=== PATIENT | female | born 1945 | race Caucasian/White ===

== ENCOUNTER → 2020-04-14 10:36 | Outpatient (BNV) | payer OTHER, SELFPAY | PROVIDERS: PCP Internal Medicine; Visit Provider Internal Medicine | DX: D64.9 Anemia, unspecified (principal); D72.819 Decreased white blood cell count, unspecified; D51.9 Vitamin B12 deficiency anemia, unspecified | CPT/HCPCS: 99212; 99213; 99442 ==

== ENCOUNTER 2020-06-17 15:19 | Outpatient (REF) | payer OTHER, SELFPAY ==
[2020-06-17 16:02] LABS: MANUAL DIFF FLAG NO
[2020-06-17 16:06] LABS: Basophils Percent Auto 0.5 % (0-2); Eosinophils Absolute Auto 0.1 X10*3/uL (0.0-0.4); Eosinophils Percent Auto 2.9 % (0-4); Hematocrit 35.4 % (37-47); Hemoglobin 11.4 g/dl (12.0-16.0); Imm Gran Abs Auto 0.01 X10*3/uL (0.00-0.03); Imm Gran Pct Auto 0.2 % (0.0-0.4); Lymphocytes Absolute Auto 2.3 X10*3/uL (1.2-4.9); Lymphocytes Percent Auto 53.9 % (20-40); Mean Corpuscular HGB Conc 32.2 g/dl (31.0-35.0); Mean Corpuscular Hemoglobin 28.9 pg (27.0-33.0); Mean Corpuscular Volume 89.6 fL (80-98); Mean Platelet Volume 11.2 fL (9.4-12.3); Monocytes Absolute Auto 0.5 X10*3/uL (0.1-1.2); Monocytes Percent Auto 11.9 % (2-11); Neutrophils Absolute Auto 1.3 X10*3/uL (2.0-8.3); Neutrophils Percent Auto 30.6 % (45-73); Platelet Count 244 X10*3/uL (160-400); Red Blood Count 3.95 X10*6/uL (4.20-5.50); Red Cell Distribution Width 12.6 % (11.0-16.0); White Blood Count 4.2 X10*3/uL (4.8-10.8)
[2020-06-17 16:28] LABS: Cholesterol 167 mg/dL; HDL Cholesterol 67 mg/dL; LDL Cholesterol Calculated 76 mg/dl; Triglycerides 122 mg/dL
[2020-06-17 16:52] LABS: TSH reflex Free T4 1.26 mIU/mL (0.32-4.0)
== END 2020-06-17 15:20 | disposition home or self-care (01) ==
LOC: HO.LAB 15:19
PROVIDERS: PCP Internal Medicine; Visit Provider Internal Medicine
DX: D64.9 Anemia, unspecified (principal); E11.9 Type 2 diabetes mellitus without complications; I25.10 Atherosclerotic heart disease of native coronary artery without angina pectoris; L65.9 Nonscarring hair loss, unspecified; Z20.828 Contact with and (suspected) exposure to other viral communicable diseases
CPT/HCPCS: 36415; 80061; 84443; 85025; U0003

== ENCOUNTER 2020-06-21 11:46 | Outpatient (REF) | payer OTHER, SELFPAY ==
[2020-06-21 12:52] LABS: CDIFF Ag Negative (Negative); CDIFF Internal ctrl Dots and bkg OK (V); CDiff Toxin Negative (Negative)
[2020-06-21 13:19] LABS: Leukocytes Stool Qualitative NEGATIVE (NEGATIVE)
== END 2020-06-21 11:47 | disposition home or self-care (01) ==
LOC: HO.LNPL 11:46
PROVIDERS: PCP Internal Medicine; Visit Provider Internal Medicine
DX: R19.7 Diarrhea, unspecified (principal)
CPT/HCPCS: 87045; 87046; 87324; 87329; 87449; 89055

== ENCOUNTER 2020-09-20 10:01 | Outpatient (REF) | payer OTHER, SELFPAY | END 2020-09-20 10:02 | disposition home or self-care (01) | LOC: HO.LAB 10:01 | PROVIDERS: Visit Provider Internal Medicine | DX: Z20.822 Contact with and (suspected) exposure to COVID-19 (principal) | CPT/HCPCS: 36415; C9803; U0003; U0005 ==

== ENCOUNTER 2020-11-01 14:54 | Outpatient (REF) | payer OTHER, SELFPAY ==
--- NOTE | ~2020-11-01 | MM_ITS ---
EXAMINATION: MM SCREENING DIGITAL BREAST TOMOSYNTHESIS, BILATERAL CLINICAL INFORMATION: Screening. Asymptomatic. The lifetime risk of breast cancer based on the Tyrer-Cuzick Model is 4%. COMPARISON: Mammography: 02/21/2019, 02/05/2018, 05/29/2016 TECHNIQUE: Digital breast tomosynthesis is performed in both the craniocaudal and mediolateral oblique views along with computer-aided detection (CAD). Synthesized 2D images are generated from the tomosynthesis. FINDINGS: There are scattered areas of fibroglandular density (ACR BI-RADS breast composition Category b). There are no significant masses, abnormal calcifications, or other abnormalities. Parenchymal pattern is similar to prior studies. No significant changes. MM/MM tomosynthesis screening BI IMPRESSION: No mammographic evidence of malignancy. ASSESSMENT: BI-RADS 1: Negative RECOMMENDATION: Routine annual mammography screening. This patient's information was entered into a reminder system with a target due date for their next mammogram.
== END 2020-11-01 14:55 | disposition home or self-care (01) ==
LOC: HO.MAMMO 14:54
PROVIDERS: PCP Internal Medicine; Visit Provider Internal Medicine
DX: Z12.31 Encounter for screening mammogram for malignant neoplasm of breast (principal)
CPT/HCPCS: 77063; 77067

== ENCOUNTER 2020-11-17 12:59 | Outpatient (REF) | payer OTHER, SELFPAY ==
--- NOTE | ~2020-11-17 | CT_ITS ---
EXAMINATION: CT HEAD WITHOUT CONTRAST CLINICAL INFORMATION: Headache COMPARISON: Previous head CT February 2016 TECHNIQUE: Contiguous axial imaging was performed from the skull base to vertex without intravenous administration of contrast. This CT examination was performed using dose optimization techniques as appropriate, variously including the following: *Automated exposure control *Adjustment of mA and/or kV according to patient size (this includes techniques or standardized protocols for targeted exams where dose is matched to indication/reason for exam; i.e. extremities or head) *Use of iterative reconstruction technique DLP: 628 mGy-cm FINDINGS: There is no no evidence of an extra-axial collection. There is no evidence of intra-axial or extra-axial hemorrhage. The ventricles and extra-axial CSF spaces are slightly prominent suggestive of mild generalized atrophy. There is nonspecific periventricular white matter disease. There is an old left basal ganglia lacunar infarct. No mass, mass effect or acute infarct is seen. Review at bone windows is normal. Visualized paranasal sinuses, mastoid air cells and middle ears are clear. CT/CT head/brain wo con IMPRESSION: No acute findings. Mild generalized atrophy and nonspecific periventricular white matter disease.
== END 2020-11-17 13:00 | disposition home or self-care (01) ==
LOC: HO.CT 12:59
PROVIDERS: Visit Provider Internal Medicine
DX: R51.9 Headache, unspecified (principal)
CPT/HCPCS: 70450

== ENCOUNTER 2021-01-03 12:00 | Outpatient (REF) | payer OTHER, MEDICAID, SELFPAY ==
[2021-01-03 16:07] VITALS: BP 188/80; PULSE 45; RESP 16; TEMP 35.9; O2SAT 99
[2021-01-03 16:08] VITALS: BMI 20.9
== END 2021-01-03 12:01 | disposition home or self-care (01) ==
LOC: HO.MS 12:00
PROVIDERS: PCP Internal Medicine; Visit Provider Ophthalmology
PROC: (CPT 66821; principal; 2021-01-03 16:40)
DX: H26.491 Other secondary cataract, right eye (principal); Z96.1 Presence of intraocular lens; E11.9 Type 2 diabetes mellitus without complications; I10 Essential (primary) hypertension; I25.10 Atherosclerotic heart disease of native coronary artery without angina pectoris; Z95.1 Presence of aortocoronary bypass graft; E78.00 Pure hypercholesterolemia, unspecified; Z79.899 Other long term (current) drug therapy; Z79.84 Long term (current) use of oral hypoglycemic drugs
CPT/HCPCS: 66821

== ENCOUNTER 2021-01-31 09:14 | Outpatient (REF) | payer OTHER, MEDICAID, SELFPAY ==
[2021-01-31 11:01] VITALS: BMI 20.9
[2021-01-31 11:02] VITALS: BP 192/64; PULSE 49; RESP 16; TEMP 35.8; O2SAT 100
== END 2021-01-31 09:15 | disposition home or self-care (01) ==
LOC: HO.MS 09:14
PROVIDERS: PCP Internal Medicine; Visit Provider Ophthalmology
PROC: (CPT 67840; principal; 2021-01-31 14:30)
DX: D23.121 Other benign neoplasm of skin of left upper eyelid, including canthus (principal); Z96.1 Presence of intraocular lens; I10 Essential (primary) hypertension; E11.9 Type 2 diabetes mellitus without complications; Z79.84 Long term (current) use of oral hypoglycemic drugs; Z79.82 Long term (current) use of aspirin; Z79.899 Other long term (current) drug therapy
CPT/HCPCS: 67840; 88304; 88305

== ENCOUNTER 2021-04-08 16:14 | Outpatient (REF) | payer OTHER, MEDICAID, SELFPAY ==
--- NOTE | ~2021-04-08 | US_ITS ---
EXAMINATION: US SOFT TISSUE OF THE NECK CLINICAL INFORMATION: Localized enlarged lymph nodes. COMPARISON: Localized enlarged lymph nodes. TECHNIQUE: Linear transducer preston-scale and color Doppler examination of the right and left submandibular regions. FINDINGS: There are multiple round hypoechoic lymph nodes seen bilaterally in the submandibular region with the largest submandibular lymph node measuring 0.3 cm in transverse dimension and is normal. No soft tissue mass seen. US/US soft tiss head and/or neck IMPRESSION: Normal bilateral neck lymph nodes, especially no mass visualized.
== END 2021-04-08 16:15 | disposition home or self-care (01) ==
LOC: HO.US 16:14
PROVIDERS: Visit Provider Internal Medicine
DX: R59.0 Localized enlarged lymph nodes (principal)
CPT/HCPCS: 76536

== ENCOUNTER 2021-04-28 09:56 | Outpatient (REF) | payer OTHER, MEDICAID, SELFPAY ==
--- NOTE | ~2021-04-28 | MM_ITS ---
EXAMINATION: BONE DENSITOMETRY CLINICAL INDICATION: Asymptomatic menopausal state. COMPARISON: None (current study represents initial baseline exam). TECHNIQUE: Using a [employer] DXA System (software version: 13.1) manufactured by [employer], dual-energy x-ray absorptiometry was performed of the lumbar spine, left hip, and left forearm radius 33%. The images are of good technical quality. Summary results are attached. FINDINGS: AP SPINE L1-L4: BMD 1.273 g/cm2, Z-score 2.9, T-score 0.8, normal. LEFT FEMUR, NECK: BMD 0.674 g/cm2, Z-score -0.4, T-score -2.6, osteoporosis. LEFT FEMUR, TOTAL: BMD 0.719 g/cm2, Z-score -0.2, T-score -2.3, osteopenia. LEFT FOREARM RADIUS 33%: BMD 0.551 g/cm2, Z-score -1.4, T-score -3.7, osteoporosis. IDENTIFIED RISK FACTORS: Rheumatoid arthritis, osteoporosis, recurrent falls, height loss, family history (parental hip fracture), low body weight, low calcium intake. Early menopause, secondary osteoporosis hysterectomy, bilateral oophorectomy. HISTORY OF FRACTURE: Coccyx. MEDICATIONS: Calcium supplements or multivitamin, vitamin D. MM/XR DEXA axial skeleton IMPRESSION: 1. DIAGNOSIS: Osteoporosis based on the lowest T-score value of -3.7 in the forearm radius 33% applying World Health Organization criteria. 2. 2. 10-YEAR FRACTURE RISK PREDICTION, FRAX: According to the guidelines, FRAX calculation should only be performed on patients in the osteopenia bone density category. Therefore, FRAX was not performed on this patient. 3. Treatment Recommendations: NOF guidelines recommend consideration for treatment in postmenopausal women and men age 50 and older presenting with the following: -A hip or vertebral (clinical or morphometric) fracture. -T-score less than or equal to -2.5 at the femoral neck or spine after appropriate evaluation to exclude secondary causes. -Low bone mass at the hip or spine and a 10-year fracture probability by FRAX of greater than or equal to 3% for hip fracture or greater than or equal to 20% for major osteoporotic fracture based on the [place] adapted WHO algorithm. 4. Other Recommendations: All treatment decisions require clinical judgment and consideration of individual patient factors, including patient preferences, comorbidities, previous drug use, risk factors not captured in the FRAX model (e.g. frailty, falls, vitamin D deficiency, increased bone turnover, interval significant decline in bone density) and possible under or overestimation of fracture risk by FRAX. Additional medical evaluation for secondary cause of low bone mineral density may be appropriate. FUTURE SCAN RECOMMENDATION: People with diagnosed cases of osteoporosis or at high risk for fracture should have regular bone mineral density tests. For patients eligible for Medicare, routine testing is allowed once every 2 years. The testing frequency can be increased to one year for patients who have rapidly progressing disease, those who are receiving or discontinuing medical therapy to restore bone mass, or have additional risk factors.
== END 2021-04-28 09:57 | disposition home or self-care (01) ==
LOC: HO.MAMMO 09:56
PROVIDERS: PCP Internal Medicine; Visit Provider Nurse Practitioner Family
DX: Z13.820 Encounter for screening for osteoporosis (principal); M81.0 Age-related osteoporosis without current pathological fracture; Z78.0 Asymptomatic menopausal state; Z79.899 Other long term (current) drug therapy
CPT/HCPCS: 77080

== ENCOUNTER 2021-04-29 10:52 | Outpatient (REF) | payer OTHER, MEDICAID, SELFPAY | END 2021-04-29 10:53 | disposition home or self-care (01) | LOC: HO.MAMMO 10:52 | PROVIDERS: Visit Provider Internal Medicine | DX: Z13.89 Encounter for screening for other disorder (principal) ==

== ENCOUNTER 2021-08-10 10:27 | Outpatient (REF) | payer OTHER, MEDICAID, SELFPAY ==
[2021-08-10 10:53] LABS: MANUAL DIFF FLAG NO
[2021-08-10 11:16] LABS: Basophils Percent Auto 0.6 % (0-2); Eosinophils Absolute Auto 0.1 X10*3/uL (0.0-0.4); Eosinophils Percent Auto 1.9 % (0-4); Hematocrit 39.5 % (37.0-47.0); Imm Gran Abs Auto 0.01 X10*3/uL (0.00-0.03); Imm Gran Pct Auto 0.3 % (0.0-0.4); Lymphocytes Absolute Auto 1.8 X10*3/uL (1.2-4.9); Mean Corpuscular HGB Conc 32.9 g/dl (31.0-35.0); Mean Corpuscular Hemoglobin 29.5 pg (27.0-33.0); Mean Corpuscular Volume 89.6 fL (80.0-98.0); Monocytes Absolute Auto 0.4 X10*3/uL (0.1-1.2); Monocytes Percent Auto 11.9 % (2-11); Neutrophils Absolute Auto 1.3 x10*3/uL (2.0-8.3); Neutrophils Percent Auto 35.3 % (45-73); Platelet Count 258 X10*3/uL (160-400); Red Blood Count 4.41 X10*6/uL (4.20-5.50); Red Cell Distribution Width 12.9 % (11.0-16.0); White Blood Count 3.6 X10*3/uL (4.8-10.8)
[2021-08-10 12:03] LABS: Alanine Aminotransferase 19 U/L (0-31); Albumin Level 4.5 g/dL (3.5-5.0); Alkaline Phosphatase 40 U/L (39-117); Anion Gap 12 (12-20); Aspartate Amino Transferase 26 U/L (5-31); Bilirubin Total 0.5 mg/dL (0.0-1.0); Blood Urea Nitrogen 26 mg/dL (9-16); Calcium 10.1 mg/dL (8.4-10.2); Carbon Dioxide 28 mmol/L (22-29); Chloride 106 mmol/L (96-108); Cholesterol 143 mg/dL; Estimated Glomerular Filt Rate 53; Glucose Fasting 96 mg/dL (60-99); HDL Cholesterol 65 mg/dL; LDL Cholesterol Calculated 64 mg/dl; Potassium 4.9 mmol/L (3.3-5.1); Sodium 141 mmol/L (135-145); Total Protein 7.5 g/dL (6.5-8.0); Triglycerides 70 mg/dL
[2021-08-10 12:10] LABS: Creatinine Urine 207.54 mg/dL; Microalbum/Creatinine Ratio Ur 14.4 ug/mg cr
[2021-08-15 14:16] LABS: Vitamin D 25-OH, D2 9 ng/mL; Vitamin D 25-OH, D3 17 ng/mL; Vitamin D 25-OH, Total 26 ng/mL (30-100)
== END 2021-08-10 10:28 | disposition home or self-care (01) ==
LOC: HO.LAB 10:27
PROVIDERS: PCP Internal Medicine; Visit Provider Internal Medicine
DX: D64.9 Anemia, unspecified (principal); E55.9 Vitamin D deficiency, unspecified; E11.9 Type 2 diabetes mellitus without complications; I10 Essential (primary) hypertension; E78.5 Hyperlipidemia, unspecified; E78.2 Mixed hyperlipidemia
CPT/HCPCS: 36415; 80053; 80061; 82043; 82306; 85025

== ENCOUNTER 2021-08-16 09:13 | Outpatient (REF) | payer OTHER, MEDICAID, SELFPAY ==
[2021-08-16 10:49] LABS: Alanine Aminotransferase 13 U/L (0-31); Albumin Level 4.5 g/dL (3.5-5.0); Alkaline Phosphatase 34 U/L (39-117); Anion Gap 12 (12-20); Aspartate Amino Transferase 22 U/L (5-31); Bilirubin Total 0.7 mg/dL (0.0-1.0); Blood Urea Nitrogen 25 mg/dL (9-16); Carbon Dioxide 30 mmol/L (22-29); Chloride 105 mmol/L (96-108); Cholesterol 124 mg/dL; Estimated Glomerular Filt Rate 53; Glucose Fasting 93 mg/dL (60-99); HDL Cholesterol 54 mg/dL; LDL Cholesterol Calculated 59 mg/dl; Sodium 142 mmol/L (135-145); Total Protein 7.4 g/dL (6.5-8.0); Triglycerides 58 mg/dL
[2021-08-16 12:17] LABS: Creatinine Urine 249.96 mg/dL; Microalbum/Creatinine Ratio Ur 13.2 ug/mg cr
[2021-08-23 12:22] LABS: Vitamin D 25-OH, D2 9 ng/mL; Vitamin D 25-OH, D3 17 ng/mL; Vitamin D 25-OH, Total 26 ng/mL (30-100)
== END 2021-08-16 09:14 | disposition home or self-care (01) ==
LOC: HO.LAB 09:13
PROVIDERS: PCP Internal Medicine; Visit Provider Internal Medicine
DX: R13.10 Dysphagia, unspecified (principal); E55.9 Vitamin D deficiency, unspecified; E11.9 Type 2 diabetes mellitus without complications; E78.2 Mixed hyperlipidemia
CPT/HCPCS: 36415; 80053; 80061; 82043; 82306

== ENCOUNTER → 2021-09-29 13:18 | Outpatient (BNVA) | payer OTHER, MEDICAID, SELFPAY | PROVIDERS: PCP Internal Medicine; Referring Provider Internal Medicine; Visit Provider Nurse Practitioner | DX: R13.12 Dysphagia, oropharyngeal phase (principal) | CPT/HCPCS: 99202 ==

== ENCOUNTER 2021-11-03 10:59 | Outpatient (REF) | payer OTHER, MEDICAID, SELFPAY ==
--- NOTE | ~2021-11-03 | MM_ITS ---
EXAMINATION: MM SCREENING DIGITAL BREAST TOMOSYNTHESIS, BILATERAL CLINICAL INFORMATION: Screening. Asymptomatic. The lifetime risk of breast cancer based on the Tyrer-Cuzick Model is 4.2%. COMPARISON: Mammography: November 01, 2020 and studies dating back to April 01, 2014 TECHNIQUE: Digital breast tomosynthesis is performed in both the craniocaudal and mediolateral oblique views along with computer-aided detection (CAD). Synthesized 2D images are generated from the tomosynthesis. FINDINGS: There are scattered areas of fibroglandular density (ACR BI-RADS breast composition Category b). There are no significant masses, abnormal calcifications, or other abnormalities. MM/MM tomosynthesis screening BI IMPRESSION: There are no significant changes from prior study. ASSESSMENT: BI-RADS 1: Negative RECOMMENDATION: Routine annual mammography screening. This patient's information was entered into a reminder system with a target due date for their next mammogram.
== END 2021-11-03 11:00 | disposition home or self-care (01) ==
LOC: HO.MAMMO 10:59
PROVIDERS: Visit Provider Internal Medicine
DX: Z12.31 Encounter for screening mammogram for malignant neoplasm of breast (principal)
CPT/HCPCS: 77063; 77067

== ENCOUNTER 2021-11-21 14:22 | Outpatient (REF) | payer OTHER, MEDICAID, SELFPAY ==
--- NOTE | ~2021-11-21 | FL_ITS ---
EXAMINATION: XR BARIUM SWALLOW CLINICAL INFORMATION: Dysphagia. COMPARISON: None TECHNIQUE: Routine modified barium swallow was performed under lateral fluoroscopy in presence of speech therapist. FINDINGS: Following oral administration of honey coated barium, thin barium and barium, there is normal propagation of bolus from the oral cavity through the pharynx into esophagus. There is no obstruction, narrowing. No laryngeal penetration or aspiration seen. No retention of barium in the valleculae or piriform sinuses. FLUOROSCOPY TIME: 1.2 minutes. DOSE AREA PRODUCT: 0.558 uGy-m2 (microgray-meter squared) FL/FL barium swallow modified IMPRESSION: Unremarkable modified barium swallow exam. Recommend correlation with speech therapy results.
--- NOTE | 2021-11-22 16:19 | MHC.SL.IMP ---
Date of Plan of Treatment: 11/22/21 Onset of Symptoms/Illness: 11/23/19 Date Treatment Started: 11/22/21 Admitting Diagnosis: Comorbidities: MGUS High cholesterol Hair loss Hypovitaminosis D Post-menopausal Submandibular lymphadenopathy Hypertension Diabetes CAD Lumbar degenerative disc disease with radiculopathy Opioid induced constipation Chronic daily headaches Major depressive disorder/ anxiety Diarrhea Dizziness Dysphagia SURGICAL HX: Cholecystectomy Hysterectomy CAB G x2 Cardiac catheterization Colonoscopy- Aj Primary Speech & Language Diagnosis: R13.12 Oropharyngeal Phase Dysphagia Reason for Today's Visit: 83538 Modified Barium Swallow Study Pre-evaluation Dietary Consistencies: Regular Pre-evaluation Liquid Consistency: Thin Pre-evaluation Medication Administration: Whole with Liquid Medical History: Modified Barium Swallow Study Fluoroscopic Evaluation of Swallowing Function CPT Code 17127 Evaluation Year: 2021 Reason for Study: Patient reports globus sensation. Referring Physician: Karime Pritchett NP Evaluating Clinician: Arabella Bruce MA, CCC-BILLET ASSEMBLER Study Number: 1 Patient Name: Melanie Fall Status: Outpatient, Ambulatory Age: 76 Gender: Female MEDICAL HISTORY: Year of Onset or Diagnosis: 2021 Comorbidities: MGUS High cholesterol Hair loss Hypovitaminosis D Post-menopausal Submandibular lymphadenopathy Hypertension Diabetes CAD Lumbar degenerative disc disease with radiculopathy Opioid induced constipation Chronic daily headaches Major depressive disorder/ anxiety Diarrhea Dizziness Dysphagia SURGICAL HX: Cholecystectomy Hysterectomy CAB G x2 Cardiac catheterization Colonoscopy- Aj Current (pre-evaluation) Intake/Diet: Route: PO Diet Grade: Regular Liquid Consistencies: Thin Pre-Study Functional Oral Intake Scale (FOIS): 7- Total oral intake with no restrictions Pain: Chronic/Ongoing reported at time of study, Throat SUBJECTIVE: Patient is a 76 year old female referred for a modified barium swallow study by Karime Pritchett NP of [facility] [place] [facility]. Patient reports onset of dysphagia 2 years ago. She reports difficulty getting solids down, but no trouble swallowing liquids. Patient states that her throat ?feels swollen? and food feels stuck, sometimes resulting in her having to expectorate food. Additionally, patient reports chronic throat pain. Oral Motor Exam Facial Symmetry: Symmetrical Oral-Facial Teeth Characteristics: Partially Missing Tongue Size: Normal Tongue Frenum Length: Normal Is patient able to manage secretions?: Yes Food and Liquid Trials: Oral Impairment: Lip Closure: 0=No labial escape Oral Impairment: Tongue Control During Bolus Hold: 1=Escape to lateral buccal cavity/floor of mouth (FOM) Oral Impairment: Bolus Preparation/Mastication: 1=Slow prolonged chewing/mashing with complete re-collection Oral Impairment: Bolus Transport/Lingual Motion: 2=Slowed tongue motion Oral Impairment: Oral Residue: 2=Residue collection on oral structures Oral Impairment:Initiation of Pharyngeal Swallow: 2=Bolus head at posterior laryngeal surface of epiglottis Pharyngeal Impairment: Soft Palate Elevation: 0=No bolus between soft palate (SP)/pharyngeal wall (PW) Pharyngeal Impairment: Laryngeal Elevation: 1=Partial thyroid cartilage/arytenoids to epiglottic petiole movement Pharyngeal Impairment: Anterior Hyoid Excursion: 1=Partial anterior movement Pharyngeal Impairment: Epiglottic Movement: 1=Partial inversion Pharyngeal Impairment: Laryngeal Vestibular Closure:: 1=Incomplete: narrow column air/contrast in laryngeal vestibule Pharyngeal Impairment: Pharyngeal Stripping Wave: 0=Present: complete Pharyngeal Impairment: Pharyngeal Contraction: Did not test Pharyngeal Impairment: Pharyngoesophageal Segment Openin=Complete distension and complete duration: no obstruction of flow Pharyngeal Impairment: Tongue Base (TB) Retraction: 3=Wide column of contrast/air between TB and posterior PW Pharyngeal Impairment: Pharyngeal Residue: 1=Trace residue within or on pharyngeal structures Pharyngeal Impairment: Esophageal Clearance Upright Position: Did not test Impressions and Recommendations Clinical Observations: OBJECTIVE: Time-out: performed at 02:45 Evaluation Start: 02:30; Stop: 02:40 Patient Positioning: Seated 70-90 degrees Viewing Planes: LATERAL ONLY Contrast: MBSImP? Standardized Protocol using commercially prepared, standardized Barium viscosities, including: Varibar? THIN LIQUID (40% w/v, <15 cps) , Varibar? NECTAR (40% w/v, <150-450 cps) , 1/2 Shortbread Cookie (1 x1 x.25 ) MBSImP ID: [id number] Results: Lip closure for intraoral bolus containment resulted in no labial escape. Tongue control during bolus hold allowed bolus escape to the lateral buccal cavity/floor of mouth. Bolus preparation and mastication resulted in slow, prolonged chewing/mashing but with complete re-collection. Bolus transport/lingual motion was with slowed tongue motion. Oral residue was a collection on oral structures. Initiation of the pharyngeal swallow occurred as the bolus head was at the posterior laryngeal surface of the epiglottis. Soft palate elevation resulted in no bolus between the soft palate and the pharyngeal wall. Laryngeal elevation was decreased, with partial superior movement of the thyroid cartilage/partial approximation of the arytenoids to the epiglottic petiole. Anterior hyoid excursion demonstrated partial anterior movement. Epiglottic movement resulted in partial inversion. Laryngeal vestibular closure was incomplete, with a narrow column of air/contrast noted within the laryngeal vestibule at the height of the swallow. Pharyngeal stripping wave was present and complete. Pharyngeal contraction could not be determined due to logistical reasons not related to physiologic impairment. Pharyngoesophageal segment opening was completely distended for complete duration with no obstruction of bolus flow. Tongue base retraction allowed a wide column of contrast or air between the retracted tongue base and the posterior pharyngeal wall. Pharyngeal residue was a trace within or on pharyngeal structures. Esophageal clearance in the upright position could not be assessed due to logistical reasons not related to physiologic impairment. Oral Impairment Score: 8 Pharyngeal Impairment Score: 7 (absence of score, component 13) Esophageal Impairment Score: --- (absence of score, component 17) Laryngeal Penetration and Aspiration: Penetration was observed in today's study. Thin Contrast entered the airway, remained above the vocal folds, and was ejected from the airway. ASSESSMENT: Clinician Assessment: This exam was conducted by a multidisciplinary team, which included the speech pathologist, radiologist, and radiology manager. Patient was seated upright at 90 degrees in a chair for lateral view only. Patient trialed the following liquid and solid consistencies: thin liquid barium by cup, nectar thick liquid barium by cup, pureed solid (mixture applesauce with barium paste), regular solid (Rosario Doone cookie coated with barium paste). Patient displayed adequate lip closure, with no anterior spillage. Noted escape of bolus to floor of mouth. Mastication was slow and prolonged secondary to limited dentition, characterized by piece meal deglutition pattern. Posterior tongue movement was slow for transport of bolus. Mild lingual residue cleared with subsequent swallow. Pharyngeal swallow trigger initiated as bolus head reached posterior laryngeal surface of epiglottis. No nasopharyngeal reflux. Incomplete laryngeal elevation with incomplete epiglottic inversion. Note incomplete laryngeal vestibular closure. Episodes of flash penetration occurred intermittently as patient swallowed thin liquid. Thin liquid contrast entered the airway momentarily above the vocal folds and immediately ejected from the airway. There was no penetration when patient swallowed nectar thick liquid. No evidence of aspiration with solids and liquids during this exam. Trace pharyngeal residue on posterior pharyngeal wall and tongue base. Good clearance of valleculae and pyriform sinuses. No obstruction of flow through pharyngoesophageal segment opening. The following compensatory strategies have not been used until today's study, but when employed, improved swallowing function: [place]-thick Liquid eliminated Penetration Liquid Intake Recommendation: Thin Liquid Intake Strategies: Small Sips, No Straws Dietary Recommendations: Regular Patient does have limited dentition. For ease of mastication, patient may consider soft food options or chopped diet guidelines. Medication Administration: Whole with Liquid Please contact the pharmacy regarding appropriate crushable or liquid drug formulations that are available whenever modified delivery is recommended. Compensatory Strategies Recommended: Sitting Upright (90 deg) No Straw Liquids from Cup Liquids from Spoon Small Bites and Sips Alternate Liquids/Solids Rate of Ingestion Change Avoid Specific Foods Supervision during eating and or drinking: None Needed Recommended Treatments: Compens. Strategy Educat. Recommendation for Speech Therapy: Outpatient Speech Therapy Text Comment: 1 f/u Frequency/Duration: Date Range for Service Requested: Timeline to reassess: PLAN: Intake Recommendations: Route: PO Diet Grade: Regular solids: Self- select easy to chew solids or consider chopped/advanced diet- Refer to National Dysphagia Diet Level III Liquid Consistencies: Thin Post-Study Functional Oral Intake Scale (FOIS): 6- Total oral intake with no special preparation, but must avoid specific foods or liquid items Episodes of flash penetration were intermittent. No evidence of aspiration during this exam. Good oral and pharyngeal clearance. Patient does have limited dentition. For ease of mastication, patient may consider soft food options or chopped diet guidelines. Recommend moisten food with sauce or gravy. Avoid tough, difficult to chew solids. Given the presence of intermittent flash penetration, recommend aspiration precautions: small sips of liquid, take individual sips of liquid and avoid chain sips, avoid the use of straws, upright 90 degree position when eating and drinking. Recommend continue monitoring dysphagia. If dysphagia worsens or if there are any changes, patient would benefit from re-evaluation of dysphagia by speech pathologist. Suggested Referrals: The patient might benefit from a referral to: Gastroenterology Indication for Referral: further workup and management The patient might benefit from a referral to: ENT Indication for Referral: reports of throat pain Therapy Recommendations: 1 f/u to discuss results Prognosis for Improvement: The prognosis for the patient to meet nutritional needs by mouth is good based on degree of impairment. Clinician - Supplemental, Miscellaneous Communication: It is important to note MBSS objective studies are snapshots in time and Patient function might vary with factors such as time of day or concomitant medical conditions. For this reason, the final treatment plan for this patient should rest with their medical care team. Additional recommendations should be considered with the totality of the Patient in mind. Thank for the opportunity to participate in the care of this patient. If you have any questions about the content of this report, please contact the [facility] at [facility]. Education: Education regarding findings from today's study and plans for therapy were provided to Patient only through Verbal Instruction. Understanding was expressed by the Patient only. Trimmer Tailer Clinician/Clinical Fellow: No Supervisory Statement: N/A Speech Language Pathologist: Arabella Bruce M.A., CCC-BILLET ASSEMBLER
== END 2021-11-21 14:23 | disposition home or self-care (01) ==
LOC: HO.XRAY 14:22
PROVIDERS: Visit Provider Nurse Practitioner
DX: R13.12 Dysphagia, oropharyngeal phase (principal)
CPT/HCPCS: 74230; 92611

== ENCOUNTER → 2021-12-08 08:09 | Outpatient (BNVA) | payer OTHER, MEDICAID, SELFPAY | PROVIDERS: PCP Internal Medicine; Referring Provider Internal Medicine; Visit Provider Nurse Practitioner | DX: R13.12 Dysphagia, oropharyngeal phase (principal); K21.9 Gastro-esophageal reflux disease without esophagitis; R19.7 Diarrhea, unspecified | CPT/HCPCS: 99212 ==

== ENCOUNTER → 2021-12-22 09:53 | Outpatient (BNVA) | payer OTHER, MEDICAID, SELFPAY | PROVIDERS: PCP Internal Medicine; Visit Provider Nurse Practitioner | DX: K21.9 Gastro-esophageal reflux disease without esophagitis (principal); R13.12 Dysphagia, oropharyngeal phase; K59.04 Chronic idiopathic constipation; R55 Syncope and collapse; R00.1 Bradycardia, unspecified | CPT/HCPCS: 99212 ==

== ENCOUNTER 2022-02-02 13:03 | Outpatient (REF) | payer OTHER, MEDICAID, SELFPAY ==
[2022-02-02 14:16] LABS: Alanine Aminotransferase 15 U/L (0-31); Albumin Level 4.3 g/dL (3.5-5.0); Alkaline Phosphatase 35 U/L (39-117); Anion Gap 12 (12-20); Aspartate Amino Transferase 35 U/L (5-31); Bilirubin Total 0.4 mg/dL (0.0-1.0); Blood Urea Nitrogen 28 mg/dL (9-16); Calcium 9.8 mg/dL (8.4-10.2); Carbon Dioxide 29 mmol/L (22-29); Chloride 106 mmol/L (96-108); Cholesterol 155 mg/dL; Estimated Glomerular Filt Rate 45; Glucose Fasting 109 mg/dL (60-99); HDL Cholesterol 58 mg/dL; LDL Cholesterol Calculated 79 mg/dl; Potassium 5.1 mmol/L (3.3-5.1); Sodium 142 mmol/L (135-145); Total Protein 7.2 g/dL (6.5-8.0); Triglycerides 94 mg/dL
[2022-02-02 14:33] LABS: Appearance Urine CLEAR; Color Urine YELLOW; Glucose Urine UA NEG (NEG); Leukocyte Esterase Urine TRACE (NEG); Nitrite Urine POS (NEG); Specific Gravity - Urine 1.025 (1.005-1.025); UACC Culture Trigger YES; Urine Blood NEG (NEG); Urine Ketones NEG (NEG); Urine Protein NEG (NEG-TRACE)
[2022-02-02 14:37] LABS: Vitamin D 25-OH Total 37.9 ng/mL (>30)
[2022-02-02 14:38] LABS: Creatinine Urine 107.94 mg/dL; Microalbum/Creatinine Ratio Ur 34.2 ug/mg cr
[2022-02-02 15:19] LABS: Squamous Epithelial Cell Urine 1+ /LPF
[2022-02-02 15:20] LABS: RBC Urine 0-2 /HPF (0)
== END 2022-02-02 13:04 | disposition home or self-care (01) ==
LOC: HO.LAB 13:03
PROVIDERS: PCP Internal Medicine; Visit Provider Internal Medicine
DX: K59.04 Chronic idiopathic constipation (principal); E55.9 Vitamin D deficiency, unspecified; I25.110 Atherosclerotic heart disease of native coronary artery with unstable angina pectoris; E78.5 Hyperlipidemia, unspecified; E11.9 Type 2 diabetes mellitus without complications
CPT/HCPCS: 36415; 80053; 80061; 81001; 82043; 82306; 87086; 99212

== ENCOUNTER → 2022-02-21 10:21 | Outpatient (BNVA) | payer OTHER, MEDICAID, SELFPAY | PROVIDERS: PCP Internal Medicine; Visit Provider Nurse Practitioner | DX: K59.04 Chronic idiopathic constipation (principal); R42 Dizziness and giddiness; K21.9 Gastro-esophageal reflux disease without esophagitis | CPT/HCPCS: 99212 ==

== ENCOUNTER → 2022-03-16 12:10 | Outpatient (BNVA) | payer OTHER, MEDICAID, SELFPAY | PROVIDERS: PCP Internal Medicine; Visit Provider Nurse Practitioner | DX: K59.04 Chronic idiopathic constipation (principal); R13.12 Dysphagia, oropharyngeal phase; K21.9 Gastro-esophageal reflux disease without esophagitis; R42 Dizziness and giddiness | CPT/HCPCS: 99212 ==

== ENCOUNTER → 2022-04-13 12:03 | Outpatient (BNVA) | payer OTHER, MEDICAID, SELFPAY | PROVIDERS: PCP Internal Medicine; Referring Provider Internal Medicine; Visit Provider Nurse Practitioner | DX: K59.04 Chronic idiopathic constipation (principal); K21.9 Gastro-esophageal reflux disease without esophagitis; R13.12 Dysphagia, oropharyngeal phase; K64.9 Unspecified hemorrhoids | CPT/HCPCS: 99212 ==

== ENCOUNTER → 2022-04-26 14:09 | Outpatient (BNVA) | payer OTHER, MEDICAID, SELFPAY | PROVIDERS: PCP Internal Medicine; Visit Provider Student in an Organized Health Care Education/Training Program | DX: M81.0 Age-related osteoporosis without current pathological fracture (principal) | CPT/HCPCS: 99202 ==

== ENCOUNTER 2022-04-27 09:34 | Outpatient (REF) | payer OTHER, MEDICAID, SELFPAY ==
[2022-04-27 11:37] LABS: Alanine Aminotransferase 7 U/L (0-31); Albumin Level 4.4 g/dL (3.5-5.0); Alkaline Phosphatase 31 U/L (39-117); Anion Gap 15 (12-20); Aspartate Amino Transferase 22 U/L (5-31); Bilirubin Total 0.3 mg/dL (0.0-1.0); Blood Urea Nitrogen 34 mg/dL (9-16); Calcium 10.1 mg/dL (8.4-10.2); Carbon Dioxide 24 mmol/L (22-29); Chloride 108 mmol/L (96-108); Cholesterol 134 mg/dL; Estimated Glomerular Filt Rate 42; Glucose Fasting 95 mg/dL (60-99); HDL Cholesterol 67 mg/dL; LDL Cholesterol Calculated 53 mg/dl; Potassium 4.8 mmol/L (3.3-5.1); Sodium 142 mmol/L (135-145); Total Protein 7.2 g/dL (6.5-8.0); Triglycerides 71 mg/dL
[2022-04-27 11:40] LABS: Vitamin D 25-OH Total 34.6 ng/mL (>30)
[2022-04-27 18:26] LABS: Creatinine Urine 193.19 mg/dL; Microalbum/Creatinine Ratio Ur 9.3 ug/mg cr
== END 2022-04-27 09:35 | disposition home or self-care (01) ==
LOC: HO.LAB 09:34
PROVIDERS: PCP Internal Medicine; Visit Provider Internal Medicine
DX: E55.9 Vitamin D deficiency, unspecified (principal); E11.9 Type 2 diabetes mellitus without complications; E78.5 Hyperlipidemia, unspecified; K21.9 Gastro-esophageal reflux disease without esophagitis
CPT/HCPCS: 36415; 80053; 80061; 82043; 82306

== ENCOUNTER → 2022-05-04 12:38 | Outpatient (BNVA) | payer OTHER, MEDICAID, SELFPAY | PROVIDERS: PCP Internal Medicine; Visit Provider Nurse Practitioner | DX: K59.04 Chronic idiopathic constipation (principal); K56.41 Fecal impaction; K21.9 Gastro-esophageal reflux disease without esophagitis; R13.12 Dysphagia, oropharyngeal phase; R42 Dizziness and giddiness | CPT/HCPCS: 99212 ==

== ENCOUNTER → 2022-05-26 09:57 | Outpatient (BNVA) | payer OTHER, MEDICAID, SELFPAY | PROVIDERS: PCP Internal Medicine; Referring Provider Internal Medicine; Visit Provider Nurse Practitioner | DX: K59.04 Chronic idiopathic constipation (principal); R13.12 Dysphagia, oropharyngeal phase; K21.9 Gastro-esophageal reflux disease without esophagitis | CPT/HCPCS: 99212 ==

== ENCOUNTER → 2022-06-09 10:22 | Outpatient (BNVA) | payer OTHER, MEDICAID, SELFPAY | PROVIDERS: PCP Internal Medicine; Visit Provider Nurse Practitioner | DX: K59.04 Chronic idiopathic constipation (principal); K21.9 Gastro-esophageal reflux disease without esophagitis; R13.12 Dysphagia, oropharyngeal phase; Z79.899 Other long term (current) drug therapy | CPT/HCPCS: 99212 ==

== ENCOUNTER 2022-08-03 08:59 | Outpatient (REF) | payer OTHER, MEDICAID, SELFPAY ==
[2022-08-03 09:16] LABS: MANUAL DIFF FLAG NO
[2022-08-03 09:28] LABS: Basophils Percent Auto 0.7 % (0-2); Eosinophils Absolute Auto 0.1 X10*3/uL (0.0-0.4); Eosinophils Percent Auto 3.2 % (0-4); Hematocrit 37.2 % (37.0-47.0); Hemoglobin 12.4 g/dl (12.0-16.0); Imm Gran Abs Auto 0.01 X10*3/uL (0.00-0.03); Imm Gran Pct Auto 0.2 % (0.0-0.4); Mean Corpuscular HGB Conc 33.3 g/dl (31.0-35.0); Mean Corpuscular Volume 90.1 fL (80.0-98.0); Mean Platelet Volume 10.7 fL (9.4-12.3); Monocytes Absolute Auto 0.5 X10*3/uL (0.1-1.2); Monocytes Percent Auto 11.8 % (2-11); Neutrophils Absolute Auto 1.6 x10*3/uL (2.0-8.3); Neutrophils Percent Auto 37.1 % (45-73); Platelet Count 248 X10*3/uL (160-400); Red Blood Count 4.13 X10*6/uL (4.20-5.50); Red Cell Distribution Width 12.7 % (11.0-16.0); White Blood Count 4.3 X10*3/uL (4.8-10.8)
[2022-08-03 10:05] LABS: Alanine Aminotransferase 11 U/L (0-31); Albumin Level 4.3 g/dL (3.5-5.0); Alkaline Phosphatase 37 U/L (39-117); Anion Gap 13 (12-20); Aspartate Amino Transferase 23 U/L (5-31); Bilirubin Total 0.4 mg/dL (0.0-1.0); Blood Urea Nitrogen 34 mg/dL (9-16); Calcium 9.5 mg/dL (8.4-10.2); Carbon Dioxide 25 mmol/L (22-29); Chloride 108 mmol/L (96-108); Cholesterol 159 mg/dL; Estimated Glomerular Filt Rate 38; Glucose Fasting 89 mg/dL (60-99); HDL Cholesterol 59 mg/dL; Iron 92 mcg/dL (30-160); LDL Cholesterol Calculated 82 mg/dl; Percent Iron Saturation 32 % (15-50); Potassium 4.8 mmol/L (3.3-5.1); Sodium 141 mmol/L (135-145); Total Iron Binding Capacity 286 mcg/dL (228-428); Total Protein 6.9 g/dL (6.5-8.0); Triglycerides 93 mg/dL; Unsaturated Iron Binding 194 ug/dL
[2022-08-03 10:23] LABS: Vitamin D 25-OH Total 32.6 ng/mL (>30)
[2022-08-03 10:35] LABS: Appearance Urine Clear; Color Urine Yellow; Glucose Urine UA Negative (Negative); Leukocyte Esterase Urine Negative (Negative); Nitrite Urine Negative (Negative); PH 5.5 (5.0-9.0); Specific Gravity - Urine >= 1.030 (1.005-1.025); Urine Blood Negative (Negative); Urine Ketones Negative (Negative); Urine Protein Negative (Neg-Trace)
[2022-08-03 11:18] LABS: Creatinine Urine 247.92 mg/dL; Microalbum/Creatinine Ratio Ur 7.6 ug/mg cr
== END 2022-08-03 09:00 | disposition home or self-care (01) ==
LOC: HO.LAB 08:59
PROVIDERS: PCP Internal Medicine; Visit Provider Internal Medicine
DX: R30.0 Dysuria (principal); E11.9 Type 2 diabetes mellitus without complications; E55.9 Vitamin D deficiency, unspecified; R42 Dizziness and giddiness; E78.5 Hyperlipidemia, unspecified; D64.9 Anemia, unspecified
CPT/HCPCS: 36415; 80053; 80061; 81003; 82043; 82306; 83540; 85025

== ENCOUNTER → 2022-10-27 09:17 | Outpatient (BNVA) | payer OTHER, MEDICAID, SELFPAY | PROVIDERS: PCP Internal Medicine; Visit Provider Nurse Practitioner | DX: K59.04 Chronic idiopathic constipation (principal); K58.9 Irritable bowel syndrome, unspecified; K21.9 Gastro-esophageal reflux disease without esophagitis; R13.12 Dysphagia, oropharyngeal phase | CPT/HCPCS: 99212 ==

== ENCOUNTER → 2022-11-24 09:47 | Outpatient (BNVA) | payer OTHER, MEDICAID, SELFPAY | PROVIDERS: PCP Internal Medicine; Visit Provider Nurse Practitioner | DX: K59.04 Chronic idiopathic constipation (principal); K58.9 Irritable bowel syndrome, unspecified; K21.9 Gastro-esophageal reflux disease without esophagitis; R13.12 Dysphagia, oropharyngeal phase | CPT/HCPCS: 99212 ==

== ENCOUNTER 2022-12-14 14:18 | Outpatient (REF) | payer OTHER, MEDICAID, SELFPAY ==
--- NOTE | ~2022-12-14 | MM_ITS ---
EXAMINATION: MM SCREENING DIGITAL BREAST TOMOSYNTHESIS, BILATERAL CLINICAL INFORMATION: Screening. Asymptomatic. Family history breast cancer, 2 sisters. The lifetime risk of breast cancer based on the Tyrer-Cuzick Model is 3%. COMPARISON: Mammography: 11/03/2021, 11/01/2020, 02/21/2019 TECHNIQUE: Digital breast tomosynthesis is performed in both the craniocaudal and mediolateral oblique views along with computer-aided detection (CAD). Synthesized 2D images are generated from the tomosynthesis. FINDINGS: There are scattered areas of fibroglandular density (ACR BI-RADS breast composition Category b). There are no significant masses, abnormal calcifications, or other abnormalities. No architectural abnormality or developing density or significant change from prior studies. The axilla and skin contours are unremarkable. MM/MM tomosynthesis screening BI IMPRESSION: No mammographic evidence of malignancy. ASSESSMENT: BI-RADS 1: Negative RECOMMENDATION: Routine annual mammography screening. This patient's information was entered into a reminder system with a target due date for their next mammogram.
== END 2022-12-14 14:19 | disposition home or self-care (01) ==
LOC: HO.MAMMO 14:18
PROVIDERS: PCP Internal Medicine; Visit Provider Internal Medicine
DX: Z12.31 Encounter for screening mammogram for malignant neoplasm of breast (principal)
CPT/HCPCS: 77063; 77067

== ENCOUNTER → 2022-12-15 09:48 | Outpatient (BNVA) | payer OTHER, MEDICAID, SELFPAY | PROVIDERS: PCP Internal Medicine; Visit Provider Nurse Practitioner | DX: K59.04 Chronic idiopathic constipation (principal); K21.9 Gastro-esophageal reflux disease without esophagitis; K58.9 Irritable bowel syndrome, unspecified | CPT/HCPCS: 99212 ==

== ENCOUNTER 2023-02-09 10:32 | Outpatient (AMB) | payer OTHER, SELFPAY ==
[2023-02-09 10:37] VITALS: BP 163/80; PULSE 61; BMI 21.8
--- NOTE | 2023-02-09 10:37 | A.OFFVIS_ITS ---
Intake Vital Signs 02/09/23 10:37 Height 5 ft 3 in Weight 123 lb 0.287 oz BMI 21.8 BP 163/80 H Blood Pressure Location Rt brachial Position Sitting Pulse 61 Intake Visit Reasons: 8 week fu Intake Note: Melanie presents in office today in follow up of 8 weeks. PT CC: Pt reports she sustained a fall about a month ago and has 2 fracture ribs. pt denies any other GI Issues Scale Operator Required: Yes Accompanied by: Self / Same As Patient Allergies lactose [Lactose] Allergy (Intermediate, Verified 02/09/23 10:41) DIARRHEA, N/V metformin Allergy (Intermediate, Verified 02/09/23 10:41) stomach upset HPI 8 week fu HPI Details Assessment & Plan (1) Chronic idiopathic constipation: ?Code(s): K59.04 - Chronic idiopathic constipation ?Plan: Bengali #Audelia Live The LInzess at 72mcg is moving her bowels well and has eliminated the reported diarrhea. she is happy at this dose and she is taking the colace qd only and has stopped the bisacodyl. However, she is having severe GERD in the evening and the omeprazole is likely fading in its effect - will add famotidine q3pm. She is still embarrassed by gas - so badly she won't even go to [facility]. Will add a trial of creon. ROV 8 weeks. (2) GERD (gastroesophageal reflux disease): ?Code(s): K21.9 - Gastro-esophageal reflux disease without esophagitis (3) IBS (irritable bowel syndrome): ?Code(s): K58.9 - Irritable bowel syndrome without diarrhea ? ? ? Medications: New famotidine (Pepcid ) 40 mg PO .q3pm 30 tabs 6RF K21.9 - Gastro-eso phageal reflux dis ease without esoph agitis ? cdfdyz-vpfpcfva-lh ylase 24,000-76,00 0 -120,000 unit (Salvador reyoshi) ?? administe r with meals and/o r snacks 1 cap PO .tidac 90 caps 6RF 30 days E K58.9 - Irritable bowel syndrome wit hout diarrhea ? Discontinued linaclotide ?? Dis continued Reason:? Doctor's Order 145 mcg? PO QAM 30 caps 3RF K59.04 - Chronic i diopathic constipa tion ?Patient Instructions: Contin?e con Linzess y el omeprazol. Estoy agregando famotidina 40 mg a las 3 pm para ayudar con la acidez estomacal nocturna. Adem?s, para ayudar con los gases, le env?o fanny pastilla que es fanny enzima digestiva que se llama creon. T?ng unos 15 minutos antes de cada comida. Quiero verte en 8 semanas para deborah c?mo funciona esto. TODAY'S VISIT Bengali #Sophia [place] She fractured some left sided ribs recently, she was getting up from bed to go to the and she fell. She lives with her son and they brought her to the hospital right away. She received the creon and the famotidine and this has resolved her pm HB and her gas passing and bloating. She continues on her Linzess 72 mcg along with Colace. At this point she is quite satisfied with her GI regimen. ROV 6 mos. PFSH Medical History Chronic daily headache Coronary artery disease Diabetes mellitus Diarrhea Dizziness Essential hypertension MODESTA (generalized anxiety disorder) Hair loss Hypovitaminosis D Lumbar disc disease with radiculopathy Mild recurrent major depression Mixed hyperlipidemia Oropharyngeal dysphagia Post-menopausal Submandibular lymphadenopathy Therapeutic opioid induced constipation Surgical History History of cardiac catheterization History of cholecystectomy History of colonoscopy History of rectal polypectomy History of total abdominal hysterectomy and bilateral salpingo-oophorectomy S/P CABG x 2 Family History Father Brain cancer Mother Ovarian cancer Sister Breast cancer Sister Lung cancer Brother Stomach cancer Son Substance abuse Sister Cancer Social History Housing: Apartment Alcohol intake: never Patient Tobacco Use Status: Never used Tobacco e-Cigarette/Vaping Use: Never Used Second Hand Smoke Exposure: No service: No Current occupational status: disabled Cognitive needs: Yes Hearing needs: No Vision needs: Yes Review of Systems Const Denies fatigue, Denies fever(s), Denies night sweats, Denies poor appetite and Denies weight loss ENT Reports Normal hearing present, Denies dental pain, Denies dysphagia, Denies hearing loss, Denies mouth pain, Denies odynophagia, Denies throat swelling, Denies tongue swelling and Reports other (Dentition adequate) Card Reports no additional complaints Resp Reports no additional complaints GI Denies abdominal pain, Denies melena, Reports bloating, Denies hematochezia, Reports constipation, Denies GI cramping, Denies dysphagia, Denies excessive flatus, Denies early satiety, Reports heartburn, Denies diarrhea, Denies nausea, Denies odynophagia, Denies vomiting and Denies hematemesis Musc Reports myalgias Skin/Breast Denies pruritus, Denies lesions, Denies rash and Denies jaundice Neuro Reports Normal hearing present and Denies Abnormal speech present Endo Denies fatigue Aller/Immun Denies throat swelling and Denies tongue swelling Physical Exam Vital Signs: Last Vital Signs Pulse 61 02/09/23 10:37 BP 163/80 H 02/09/23 10:37 BMI result Body Mass Index 21.8 Const General: cooperative, no acute distress, well developed and well groomed Nutritional Appearance: well nourished Orientation/consciousness: oriented to person, oriented to place and oriented to time Limitations: language barrier HEENT Head: Yes normocephalic and Yes atraumatic Eyes General: appearance normal, both eyes and all related structures Pupils: Equal, round and reactive pupils present Neck Neck: Yes normal visual inspection and Yes no lymphadenopathy Thyroid: Thyroid normal Resp Effort & Inspection: normal respiratory effort and able to speak in complete sentences Auscultation: clear to auscultation bilaterally Cardio Rate: regular rate Rhythm: regular rhythm Heart sounds: Normal, physiologic split S2 sound present Peripheral pulses: radial pulses present and posterior tibial pulses present GI Inspection: No distended and No Abdominal panniculus present Palpation (GI): Soft to palpation, nontender, no guarding, not rigid and No hepatosplenomegaly present Percussion: Yes normal to percussion Auscultation: normal bowel sounds Rectal Exam - Female: deferred Skin General skin exam: no rashes or lesions noted, turgor normal, skin not dry, no jaundice, No spider nevi and no striae Rashes: no rashes Nails: normal Neuro General: oriented to person, oriented to place and oriented to time Cranial nerves: Yes Equal, round and reactive pupils present and Yes Normal hearing present Speech: No Abnormal speech present Extrem General: Yes normal to inspection, No clubbing, No cyanosis and No edema Psych Appearance: grossly normal and well kempt Mental Status: mental status grossly normal Speech and movement: Normal speech and movement present Affect: normal affect Attitude: cooperative Thought process: Normal thought process present and not confabulating Thought content: Normal thought content present Insight: Limited insight present (Psych) Judgement: Limited judgement present (Psych) Assessment & Plan Assessment & Plan (1) IBS (irritable bowel syndrome): Code(s): K58.9 - Irritable bowel syndrome without diarrhea Plan: Bengali #Sophia LIve She fractured some left sided ribs recently, she was getting up from bed to go to the and she fell. She lives with her son and they brought her to the hospital right away. She received the creon and the famotidine and this has resolved her pm HB and her gas passing and bloating. She continues on her Linzess 72 mcg along with Colace. At this point she is quite satisfied with her GI regimen. ROV 6 mos. (2) Chronic idiopathic constipation: Code(s): K59.04 - Chronic idiopathic constipation (3) GERD (gastroesophageal reflux disease): Code(s): K21.9 - Gastro-esophageal reflux disease without esophagitis (4) Dysphagia, oropharyngeal: Comment: Significant esophageal spasm associated with this when her GERD is not controlled aeb Code(s): R13.12 - Dysphagia, oropharyngeal phase Quality Reporting (2019) Adult ([facility] 138//) Smoking risk assessment performed?: Yes Patient Tobacco Use Status: Never used Tobacco Coding Level of Care Code Est Pt Level 3 (82153) Diagnoses IBS (irritable bowel syndrome) K58.9 Chronic idiopathic constipation K59.04 GERD (gastroesophageal reflux disease) K21.9 Dysphagia, oropharyngeal R13.12
== END 2023-02-09 10:47 | disposition home or self-care (01) ==
PROVIDERS: PCP Internal Medicine; Visit Provider Nurse Practitioner
DX: K58.9 Irritable bowel syndrome, unspecified (principal); K59.04 Chronic idiopathic constipation; K21.9 Gastro-esophageal reflux disease without esophagitis; R13.12 Dysphagia, oropharyngeal phase
CPT/HCPCS: 99213

== ENCOUNTER → 2023-02-09 10:32 | Outpatient (BNVA) | payer MEDICARE, MEDICAID, SELFPAY | PROVIDERS: PCP Internal Medicine; Visit Provider Nurse Practitioner ==

== ENCOUNTER 2023-02-20 09:48 | Outpatient (REF) | payer OTHER, SELFPAY ==
[2023-02-20 11:01] LABS: Alanine Aminotransferase 12 U/L (0-31); Albumin Level 4.1 g/dL (3.5-5.0); Alkaline Phosphatase 50 U/L (39-117); Anion Gap 13 (12-20); Aspartate Amino Transferase 20 U/L (5-31); Bilirubin Total 0.6 mg/dL (0.0-1.0); Blood Urea Nitrogen 23 mg/dL (9-16); Calcium 9.6 mg/dL (8.4-10.2); Carbon Dioxide 27 mmol/L (22-29); Chloride 106 mmol/L (96-108); Cholesterol 187 mg/dL; Estimated Glomerular Filt Rate 46; Glucose Fasting 94 mg/dL (60-99); HDL Cholesterol 66 mg/dL; LDL Cholesterol Calculated 106 mg/dl; Potassium 4.5 mmol/L (3.3-5.1); Sodium 141 mmol/L (135-145); Total Protein 7.2 g/dL (6.5-8.0); Triglycerides 79 mg/dL
[2023-02-20 11:17] LABS: Creatinine Urine 89.65 mg/dL; Microalbum/Creatinine Ratio Ur 7.8 ug/mg cr
[2023-02-20 11:21] LABS: Vitamin D 25-OH Total 34.2 ng/mL (>30)
== END 2023-02-20 09:49 | disposition home or self-care (01) ==
LOC: HO.LAB 09:48
PROVIDERS: PCP Internal Medicine; Visit Provider Internal Medicine
DX: K59.04 Chronic idiopathic constipation (principal); E11.9 Type 2 diabetes mellitus without complications; E55.9 Vitamin D deficiency, unspecified; E78.5 Hyperlipidemia, unspecified
CPT/HCPCS: 36415; 80053; 80061; 82043; 82306

== ENCOUNTER 2023-02-22 09:25 | Outpatient (AMB) | payer OTHER, SELFPAY ==
--- NOTE | 2023-02-22 09:28 | AM.OFFVISMDC ---
Intake Vital Signs 02/22/23 09:30 Height 5 ft 3 in Weight 120 lb BMI 21.3 BP 124/68 Blood Pressure Location Lt brachial Position Sitting Pulse 63 Pulse Source Pulse Oximeter Temp Source Skin Pulse Oximetry (%) 98 Oxygen Delivery Method Room Air Intake Visit Reasons: ZBIGNIEW G0439 Intake Note: Patient is here for an Annual Wellness Visit. Account Consultant Required: Yes Account Consultant Language: Panamanian Allergies lactose [Lactose] Allergy (Intermediate, Verified 02/22/23 10:09) DIARRHEA, N/V metformin Allergy (Intermediate, Verified 02/22/23 10:09) stomach upset Medication List - Last Reconciled 02/22/23 by Ginny Agrawal, MANAN alendronate 70 mg PO QWEEK 90 days aspirin 81 mg PO DAILY blood sugar diagnostic (FreeStyle Lite Strips) Use 1 test strip once a day blood-glucose meter (FreeStyle Lite Meter kit) As directed carvedilol 12.5 mg PO BID cholecalciferol (vitamin D3) (Vitamin D3) 50 mcg PO DAILY 90 days docusate sodium (Colace) 100 mg PO DAILY 30 days estradiol 0.01%(0.1mg/gram) appful vaginal Q3D ezetimibe 10 mg PO DAILY famotidine (Pepcid) 40 mg PO .q3pm fenofibrate nanocrystallized 145 mg PO DAILY 90 days fluticasone propion-salmeterol 250-50 mcg/dose 1 ea inhalation DAILY glycerin (adult) (Fleet Glycerin (Adult) rectal suppository) 2 supp VT DAILY hydrocortisone 2.5% (Proctosol HC) 1 appl VT BID isosorbide mononitrate ER 120 mg PO DAILY 90 days lancets (FreeStyle Lancets) Use 1 lancet once a day linaclotide (Linzess) 72 mcg PO QAM ahtmwj-ffqhwnei-filjwuw 24,000-76,000 -120,000 unit (Creon) 1 cap PO .tidac 30 days lisinopril 10 mg PO DAILY 90 days meclizine 25 mg PO TID 7 days metoprolol succinate ER 12.5 mg (1/2 x 25 mg) PO DAILY 90 days omeprazole 40 mg PO DAILY 90 days ondansetron HCl 8 mg PO Q8H oxycodone ER (OxyContin) 10 mg PO BID 30 days oxycodone-acetaminophen 7.5-325 mg 1 tab PO Q6H PRN 30 days peg 3350-electrolytes 236-22.74-6.74 -5.86 gram (Golytely) 240 mL PO Q10M 1 day peg 3350-electrolytes 240-22.72-6.72 -5.84 gram (Gavilyte-C) mL PO rosuvastatin 40 mg PO DAILY 90 days rosuvastatin 20 mg PO DAILY Saccharomyces boulardii (Florastor) 250 mg PO DAILY sitagliptin phosphate (Januvia) 100 mg PO DAILY venlafaxine ER 37.5 mg PO BEDTIME 90 days Fall Risk Assessment Fall risk assessment: 2 + Falls in past year Date Fall Risk Assessed: 02/22/23 HPI SWV G0439 HPI Details Patient is a 77-year-old female who presents today for subsequent wellness visit. Patient of Dr. Beauchamp. Patient is up-to-date with preventative screenings and immunizations. Normal mammogram 12/2022. Bone density screen 04/2021 which showed osteoporosis and followed by Rheumatology on alendronate. Up-to-date with immunizations. [place] of care was reviewed with the patient and she was provided with a screening schedule. End of life planning was discussed with the patient and she was provided with healthcare proxy and MOLST forms. Patient is a Panamanian-speaking and Asael was helping with interpretation. [facility] Medical History Chronic daily headache Coronary artery disease Diabetes mellitus Diarrhea Dizziness Essential hypertension MODESTA (generalized anxiety disorder) Hair loss Hypovitaminosis D Lumbar disc disease with radiculopathy Mild recurrent major depression Mixed hyperlipidemia Oropharyngeal dysphagia Post-menopausal Submandibular lymphadenopathy Therapeutic opioid induced constipation Surgical History History of cardiac catheterization History of cholecystectomy History of colonoscopy History of rectal polypectomy History of total abdominal hysterectomy and bilateral salpingo-oophorectomy S/P CABG x 2 Family History Father Brain cancer Mother Ovarian cancer Sister Breast cancer Sister Lung cancer Brother Stomach cancer Son Substance abuse Sister Cancer Social History Housing: Apartment Alcohol intake: never Patient Tobacco Use Status: Never used Tobacco e-Cigarette/Vaping Use: Never Used Second Hand Smoke Exposure: No service: No Current occupational status: disabled Cognitive needs: Yes Hearing needs: No Vision needs: Yes Questionnaire Medicare Wellness Checkup [age] What gender do you identify with?: female During the past 4 weeks, how much have you been bothered by emotional problems such as feeling anxious, depressed, irritable, sad or downhearted, and blue?: slightly During the past 4 weeks, has your physical & emotional health limited your social activities with family, friends, neighbors, or groups?: not at all During the past 4 weeks, how much bodily pain have you generally had?: very mild pain During the past 4 weeks, was someone available to help you if you needed & wanted help?: yes, some During the past 4 weeks, what was the hardest physical activity you could do for at least 2 minutes?: very light Can you get to places out of walking distance without help? (For eg., can you travel alone on buses, taxis or drive your car?): No Can you go shopping for groceries or clothes without someone's help?: No Can you prepare your own meals?: No Can you do your housework without help?: No Because of any health problems, do you need the help of another person with your personal care needs such as eating, bathing, dressing or getting around the house?: Yes Can you handle your own money without help?: Yes During the past 4 weeks, how would you rate your health in general?: very good During the past 4 weeks how have things been going for you?: pretty well Are you having difficulties driving your car?: not applicable, I don't use a car Do you always fasten your seat belt when you are in a car?: yes, usually During past 4 weeks, have you been bothered by the following: never: Sexual problems? and Problems using the telephone?, sometimes: Falling or dizzy when standing up, Trouble eating well? and Tiredness or fatigue? and always: Teeth or denture problems? Have you fallen 2 or more times in the past year?: Yes Are you afraid of falling?: Yes Are you a smoker?: no During the past 4 weeks, how many drinks of wine, beer, or other alcoholic beverages did you have?: no alcohol at all Do you exercise for about 20 minutes 3 or more times a week?: yes, some of the time Have you been given information to help with the following?: yes: Hazards in your house that might hurt you? and yes: Keeping track of your medications? How often do you have trouble taking medicines the way you have been told to take them?: I always take medicine as prescribed (equipment engineering technician helps ) How confident are you that you can control & manage most of your health problems?: not very confident What is your race?: or origin or descent Mini Mental State Exam (MMSE) Orientation What is the (year) (season) (date) (day) (month)?: year, season, date, day and month Score Score: 5 Activity of Daily Living Bathing - sponge bath, tub bath or shower: receives help in bathing more than one body part (or not bathed) Dressing - getting clothes from closets & drawers, including inner/outer garments & fasteners.: receives help getting clothes or getting dressed, or stays undressed Toileting - going to the 'toilet room' for urine/bowel elimination & cleaning self/arranging clothes: receives help going to toilet room, cleaning self or arranging clothes Transfer: moves in & out of bed or chair with help Continence: has occasional 'accidents' Feeding: feeds self without help Total Score: 2 Information obtained from: patient Using telephone: independent Traveling: dependent Shopping: dependent Preparing meals: dependent Housework: dependent Taking medicine: needs assistance Managing money: dependent PHQ-9 Over the last 2 weeks, how often have you been bothered by any of the following problems? 1. Little interest or pleasure in doing things: nearly every day 2. Feeling down, depressed, or hopeless: more than half the days 3. Trouble falling or staying asleep, or sleeping too much: nearly every day 4. Feeling tired or having little energy: more than half the days 5. Poor appetite or overeating: several days 6. Feeling bad about yourself - or that you are a failure or have let yourself or your family down: several days 7. Trouble concentrating on things, such as reading the newspaper or watching television: not at all 8. Moving or speaking so slowly that other people could have noticed. Or the opposite - being so fidgety or restless that you have been moving around a lot more than usual: several days 9. Thoughts that you would be better off or of hurting yourself in some way: not at all Total score: 13 Depression Screening Interpretation: Positive Depression Screening Follow-up: Existing condition 62619 - PHQ-9 Billing: Yes Source: Developed by Drs. Pradip Evans, Caroline Hassan, Shakir Bolton and colleagues, with an educational ailyn from [employer]. MODESTA-7 AMB Questionnaire MODESTA-7 Date MODESTA - 7 assessed: 07/25/22 Source: Developed by Drs. Pradip Evans, Shakir Sevilla and colleagues, with an educational ailyn from [employer]. AUDIT C Alcohol Use Questionnaire (AUDIT-C) 1. How often do you have a drink containing alcohol?: Never Total Score: 0 Score Reviewed/Action Taken: No Thrive Questionnaire Date Thrive assessed: 07/25/22 Physical Exam Vital Signs: Last Vital Signs Pulse 63 02/22/23 09:30 BP 124/68 02/22/23 09:30 Pulse Ox 98 02/22/23 09:30 Oxygen Delivery Method Room Air 02/22/23 09:30 BMI result Body Mass Index 21.3 Const General: cooperative and no acute distress Orientation/consciousness: patient oriented x3 HEENT Other: Whisper test: fail Neuro Other: Balance: Normal - patient ambulates with a cane Get up and walk: unable to Romberg: negative Tandem gait: unable to General: patient oriented x3 Assessment & Plan Assessment & Plan (1) Chronic idiopathic constipation: Code(s): K59.04 - Chronic idiopathic constipation Plan: Continue to follow-up with [place] [facility] as scheduled (2) Osteoporosis: Code(s): M81.0 - Age-related osteoporosis without current pathological fracture Qualifiers: Osteoporosis type: age-related Presence of current pathological fracture: without current pathological fracture Qualified Code(s): M81.0 - Age-related osteoporosis without current pathological fracture Plan: Alendronate weekly Continue to follow-up with [facility] (3) GERD (gastroesophageal reflux disease): Code(s): K21.9 - Gastro-esophageal reflux disease without esophagitis Plan: Continue current treatment Continue to follow-up with [facility] Avoid GERD trigger foods Do not lay down 2-3 hours after evening meal (4) MODESTA (generalized anxiety disorder): Code(s): F41.1 - Generalized anxiety disorder Plan: Continue current treatment (5) Mild recurrent major depression: Code(s): F33.0 - Major depressive disorder, recurrent, mild Plan: Continue current treatment (6) Adult general medical exam: Code(s): Z00.00 - Encounter for general adult medical examination without abnormal findings (7) Essential hypertension: Code(s): I10 - Essential (primary) hypertension Plan: Continue current treatment Low-sodium diet Continue to follow-up with cardiology in [place] (8) Coronary artery disease: Code(s): I25.10 - Atherosclerotic heart disease of [place] coronary artery without angina pectoris Qualifiers: Coronary Disease-Associated Artery/Lesion type: unspecified vessel or lesion type [place] vs. transplanted heart: [place] heart Associated angina: with unstable angina Qualified Code(s): I25.110 - Atherosclerotic heart disease of [place] coronary artery with unstable angina pectoris Plan: Continue to follow-up with cardiology as scheduled (9) Diabetes mellitus: Code(s): E11.9 - Type 2 diabetes mellitus without complications Qualifiers: Diabetes mellitus type: type 2 Diabetes mellitus local intermodal truck driver insulin use: without local intermodal truck driver use Diabetes mellitus complication status: without complication Qualified Code(s): E11.9 - Type 2 diabetes mellitus without complications Plan: A1c 5.2 12/2022 Continue current treatment Low-carbohydrate diet (10) Anemia: Code(s): D64.9 - Anemia, unspecified Plan: Continue to follow-up with Hematology Dr. Louise Quality Reporting (2019) Adult ([facility] 138/08/30/68) Smoking risk assessment performed?: Yes Patient Tobacco Use Status: Never used Tobacco Fall Risk Screening ([facility] 139) Last assessed Fall Risk: 02/22/23 Fall risk assessment: 2 + Falls in past year Depression/Bipolar (159/160/161/177) PHQ-9: Total score: 13 Coding Level of Care Code Medicare Subsequent (G0439) Diagnoses Chronic idiopathic constipation K59.04 Osteoporosis M81.0 Osteoporosis type: age-related Presence of current pathological fracture: without current pathological fracture GERD (gastroesophageal reflux disease) K21.9 MODESTA (generalized anxiety disorder) F41.1 Mild recurrent major depression F33.0 Adult general medical exam Z00.00 Essential hypertension I10 Coronary artery disease I25.110 Coronary Disease-Associated Artery/Lesion type: unspecified vessel or lesion type [place] vs. transplanted heart: [place] heart Associated angina: with unstable angina Diabetes mellitus E11.9 Diabetes mellitus type: type 2 Diabetes mellitus local intermodal truck driver insulin use: without fci use Diabetes mellitus complication status: without complication Anemia D64.9 CPT Codes Advance Care Planning - Time spent: 1-15 minutes, not on file ([id number]) Advance Care Planning Date of discussion: 02/22/23 Who was present: pt and ccnp Forms completed: None Time spent: 1-15 minutes, not on file Actual minutes spent: 3 Did not discuss due to Cultural/Spiritual beliefs: No
[2023-02-22 09:30] VITALS: BP 124/68; PULSE 63; O2SAT 98; BMI 21.3
== END 2023-02-22 10:36 | disposition home or self-care (01) ==
PROVIDERS: PCP Internal Medicine; Visit Provider Nurse Practitioner Family
DX: Z00.00 Encounter for general adult medical examination without abnormal findings (principal); K21.9 Gastro-esophageal reflux disease without esophagitis; F33.0 Major depressive disorder, recurrent, mild; I10 Essential (primary) hypertension; I25.110 Atherosclerotic heart disease of native coronary artery with unstable angina pectoris; E11.9 Type 2 diabetes mellitus without complications; K59.04 Chronic idiopathic constipation; M81.0 Age-related osteoporosis without current pathological fracture; F41.1 Generalized anxiety disorder; D64.9 Anemia, unspecified
CPT/HCPCS: 1124F; G0439

== ENCOUNTER 2023-05-01 10:30 | Outpatient (REF) | payer OTHER, SELFPAY ==
--- NOTE | ~2023-05-01 | MM_ITS ---
EXAMINATION: BONE DENSITOMETRY CLINICAL INDICATION: Osteoporosis. COMPARISON: Baseline BD dated 04/28/2021. TECHNIQUE: Using a [employer] DXA System (software version: 13.1) manufactured by [employer], dual-energy x-ray absorptiometry was performed of the lumbar spine and left forearm radius 33%. The images are of good technical quality. Summary results are attached. FINDINGS: AP SPINE L1-L4: Current: BMD 1.283 g/cm2, Z-score 3.1, T-score 0.9, normal, 0.8% increase from baseline (<5% change is not significant). Baseline: BMD 1.273 g/cm2. LEFT FOREARM RADIUS 33%: BMD 0.563 g/cm2, Z-score -1.1, T-score -3.6, osteoporosis, 2.2% increase from baseline (<5% change is not significant). Baseline: BMD 0.551 g/cm2. IDENTIFIED RISK FACTORS: Early menopause, height loss, history of fracture (adult), hysterectomy, osteoporosis, recurrent falls, anticonvulsant, bilateral oophorectomy, secondary osteoporosis. HISTORY OF FRACTURE: Other. MEDICATIONS: Calcium, bisphosphonate. MM/XR DEXA appendicular skeleton IMPRESSION: 1. DIAGNOSIS: Osteoporosis based on the lowest T-score value of -3.6 in the forearm radius 33% applying World Health Organization criteria. 2. 10-YEAR FRACTURE RISK PREDICTION, FRAX: According to the guidelines, FRAX calculation should only be performed on patients in the osteopenia bone density category. Therefore, FRAX was not performed on this patient. 3. Treatment Recommendations: NOF guidelines recommend consideration for treatment in postmenopausal women and men age 50 and older presenting with the following: -A hip or vertebral (clinical or morphometric) fracture. -T-score less than or equal to -2.5 at the femoral neck or spine after appropriate evaluation to exclude secondary causes. -Low bone mass at the hip or spine and a 10-year fracture probability by FRAX of greater than or equal to 3% for hip fracture or greater than or equal to 20% for major osteoporotic fracture based on the [place] adapted WHO algorithm. 4. Other Recommendations: All treatment decisions require clinical judgment and consideration of individual patient factors, including patient preferences, comorbidities, previous drug use, risk factors not captured in the FRAX model (e.g. frailty, falls, vitamin D deficiency, increased bone turnover, interval significant decline in bone density) and possible under or overestimation of fracture risk by FRAX. Additional medical evaluation for secondary cause of low bone mineral density may be appropriate. FUTURE SCAN RECOMMENDATION: People with diagnosed cases of osteoporosis or at high risk for fracture should have regular bone mineral density tests. For patients eligible for Medicare, routine testing is allowed once every 2 years. The testing frequency can be increased to one year for patients who have rapidly progressing disease, those who are receiving or discontinuing medical therapy to restore bone mass, or have additional risk factors.
== END 2023-05-01 10:31 | disposition home or self-care (01) ==
LOC: HO.MAMMO 10:30
PROVIDERS: PCP Internal Medicine; Visit Provider Student in an Organized Health Care Education/Training Program
DX: M81.0 Age-related osteoporosis without current pathological fracture (principal)
CPT/HCPCS: 77081

== ENCOUNTER 2023-05-11 10:17 | Outpatient (AMB) | payer OTHER, SELFPAY ==
[2023-05-11 10:19] VITALS: BP 148/70; PULSE 51; TEMP 36; O2SAT 98; BMI 22.3
--- NOTE | 2023-05-11 10:19 | A.OFFVIS_ITS ---
Intake Vital Signs 05/11/23 10:19 Height 5 ft 3 in Weight 125 lb 14.143 oz BMI 22.3 BP 148/70 H Blood Pressure Location Rt brachial Position Sitting Pulse 51 Pulse Source Pulse Oximeter Temp 96.8 F Temp Source Skin Pulse Oximetry (%) 98 Intake Visit Reasons: Osteoporosis Intake Note: Pt presents for 1 year osteoporosis follow up. On alendronate weekly; most recent DEXA 05/01/23. Reports multiple falls; she takes care of a disabled son and it is very hard for her. Reports she had a fall approx 2 months ago broke 2 ribs on the left; 1 broken rib on right approx 4 months ago. Seen at [facility] Mover Required: Yes Mover Name: Kory [id number] Information Interpreted: clinical only Accompanied by: Self / Same As Patient Allergies lactose [Lactose] Allergy (Intermediate, Verified 05/11/23 10:21) DIARRHEA, N/V metformin Allergy (Intermediate, Verified 05/11/23 10:21) stomach upset Medication List - Last Reconciled 05/11/23 by Will Owens MD alendronate 70 mg PO QWEEK 90 days aspirin 81 mg PO DAILY blood sugar diagnostic (FreeStyle Lite Strips) Use 1 test strip once a day blood-glucose meter (FreeStyle Lite Meter kit) As directed carvedilol 12.5 mg PO BID cholecalciferol (vitamin D3) (Vitamin D3) 50 mcg PO DAILY 90 days docusate sodium (Colace) 100 mg PO DAILY 30 days estradiol 0.01%(0.1mg/gram) appful vaginal Q3D ezetimibe 10 mg PO DAILY famotidine (Pepcid) 40 mg PO .q3pm fenofibrate nanocrystallized 145 mg PO DAILY 90 days fluticasone propion-salmeterol 250-50 mcg/dose 1 ea inhalation DAILY glycerin (adult) (Fleet Glycerin (Adult) rectal suppository) 2 supp TN DAILY hydrocortisone 2.5% (Proctosol HC) 1 appl TN BID isosorbide mononitrate ER 120 mg PO DAILY 90 days lancets (FreeStyle Lancets) Use 1 lancet once a day linaclotide (Linzess) 72 mcg PO QAM [id number] 24,000-76,000 -120,000 unit (Creon) 1 cap PO .tidac 30 days lisinopril 10 mg PO DAILY 90 days meclizine 25 mg PO TID 7 days metoprolol succinate ER 12.5 mg (1/2 x 25 mg) PO DAILY 90 days omeprazole 40 mg PO DAILY 90 days ondansetron HCl 8 mg PO Q8H oxycodone ER (OxyContin) 10 mg PO BID 30 days oxycodone-acetaminophen 7.5-325 mg 1 tab PO Q6H PRN 30 days peg 3350-electrolytes 236-22.74-6.74 -5.86 gram (Golytely) 240 mL PO Q10M 1 day peg 3350-electrolytes 240-22.72-6.72 -5.84 gram (Gavilyte-C) mL PO rosuvastatin 20 mg PO DAILY rosuvastatin 40 mg PO DAILY 90 days Saccharomyces boulardii (Florastor) 250 mg PO DAILY sitagliptin phosphate (Januvia) 100 mg PO DAILY venlafaxine ER 37.5 mg PO BEDTIME 90 days HPI HPI Comments History of Present Illness Details Pt presents for 1 year osteoporosis follow up. On alendronate weekly; most recent DEXA 05/01/23. Reports multiple falls; she takes care of a disabled son and it is very hard for her. Reports she had a fall approx 2 months ago broke 2 ribs on the left; 1 broken rib on right approx 4 months ago. Seen at [facility] Initial history: This is a 76-year-old female with a complex past medical history including type 2 diabetes mellitus, headaches, osteoporosis, CAD s/p CABG, anxiety who presents for evaluation of osteoporosis. Patient is unaware of any history of fractures. She is unaware of her medications. She takes all her medications as scheduled by her SHIP CAPTAIN. She was started on alendronate about a year ago. She mentions having an unsteady gait and she falls to her right side. She bumped her right forehead multiple times before. FOR[facility]LY [facility], [facility] Medical History Oropharyngeal dysphagia MODESTA (generalized anxiety disorder) Mild recurrent major depression Submandibular lymphadenopathy Post-menopausal Chronic daily headache Essential hypertension Lumbar disc disease with radiculopathy Mixed hyperlipidemia Therapeutic opioid induced constipation Hypovitaminosis D Dizziness Diarrhea Hair loss Diabetes mellitus Coronary artery disease Surgical History History of colonoscopy S/P CABG x 2 History of total abdominal hysterectomy and bilateral salpingo-oophorectomy History of cardiac catheterization History of rectal polypectomy History of cholecystectomy Family History Father Brain cancer Mother Ovarian cancer Sister Breast cancer Sister Lung cancer Brother Stomach cancer Son Substance abuse Sister Cancer Social History Housing: Apartment Alcohol intake: never Patient Tobacco Use Status: Never used Tobacco e-Cigarette/Vaping Use: Never Used Second Hand Smoke Exposure: No service: No Current occupational status: disabled Cognitive needs: Yes Hearing needs: No Vision needs: Yes Review of Systems Const All systems reviewed & are unremarkable except as noted in HPI and below Reports frequent falls Resp Reports no additional complaints Musc Reports abnormal gait, Reports myalgias and Reports arthralgias Neuro Reports abnormal gait and Reports frequent falls Endo Reports no additional complaints Physical Exam Vital Signs: Last Vital Signs Temp 96.8 F 05/11/23 10:19 Pulse 51 05/11/23 10:19 BP 148/70 H 05/11/23 10:19 Pulse Ox 98 05/11/23 10:19 BMI result Body Mass Index 22.3 Const General: cooperative, healthy appearing, comfortable and no acute distress Nutritional Appearance: well nourished Orientation/consciousness: patient oriented x3 HEENT Other: Small bruise in her right forehead where she bumped her head Head: Yes normocephalic and Yes atraumatic Resp Effort & Inspection: normal respiratory effort and able to speak in complete sentences Auscultation: clear to auscultation bilaterally Neuro General: patient oriented x3 Extrem Other: Osteoarthritic changes of her hands with no synovitis. Unsteady gait Assessment & Plan Assessment & Plan (1) Osteoporosis: Code(s): M81.0 - Age-related osteoporosis without current pathological fracture Qualifiers: Osteoporosis type: age-related Presence of current pathological fracture: without current pathological fracture Qualified Code(s): M81.0 - Age- related osteoporosis without current pathological fracture Plan: This is a 76-year-old female with complex past medical history who was referred for osteoporosis. She was started on alendronate 1 year ago by her PCP. Well tolerated. Most recent bone density scan shows no significant improvement in her DEXA scan. Her T-score is-3.6. She has severe osteoporosis. Patient is a very high fall risk. She has multiple falls every year. Most recently she fell and broke 2 ribs. I had a long conversation with patient's regarding osteoarthritis and os teoporosis. I explained that she has severe osteoporosis and is at very high risk of fracture, and we need to advance her therapy. I suggested discontinuing alendronate and starting Prolia. Patient stated that she received numerous injections for her knees and back in the past and is not interested in any injections at this point. I explained that those injections are quite different. Patient is still unable to make up her mind. Advised patient to call the clinic to make a follow-up appointment if she is interested in Prolia Plan I spent 26 minutes reviewing patient's chart, evaluating patient, counseling patient and documenting in the chart Quality Reporting (2019) Adult ([facility] 13808/30/68) Smoking risk assessment performed?: Yes Patient Tobacco Use Status: Never used Tobacco Coding Level of Care Code Est Pt Level 4 (68176) Diagnoses Age-related osteoporosis without current pathological fracture M81.0 Osteoporosis type: age-related Presence of current pathological fracture: without current pathological fracture
== END 2023-05-11 11:03 | disposition home or self-care (01) ==
PROVIDERS: PCP Internal Medicine; Visit Provider Student in an Organized Health Care Education/Training Program
DX: M81.0 Age-related osteoporosis without current pathological fracture (principal)
CPT/HCPCS: 99214

== ENCOUNTER → 2023-05-11 10:17 | Outpatient (BNVA) | payer OTHER, SELFPAY | PROVIDERS: PCP Internal Medicine; Visit Provider Student in an Organized Health Care Education/Training Program | DX: M81.0 Age-related osteoporosis without current pathological fracture (principal) | CPT/HCPCS: 99212 ==

== ENCOUNTER 2023-06-28 10:42 | Outpatient (AMB) | payer OTHER, SELFPAY ==
[2023-06-28 10:45] VITALS: BP 136/80; BMI 23.0
--- NOTE | 2023-06-28 10:45 | A.OFFPC_ITS ---
Vital Signs 06/28/23 10:45 Height 5 ft 3 in Weight 130 lb BMI 23.0 BP 136/80 Blood Pressure Location Lt brachial Position Sitting Intake Visit Reasons: DM Intake Note: Patient here for a follow up DM Ore Fielder Required: No Accompanied by: Self / Same As Patient Allergies lactose [Lactose] Allergy (Intermediate, Verified 06/28/23 10:57) DIARRHEA, N/V metformin Allergy (Intermediate, Verified 06/28/23 10:57) stomach upset Medication List - Last Reconciled 06/28/23 by Marybeth Dennis MD alendronate 70 mg PO QWEEK 90 days aspirin 81 mg PO DAILY blood sugar diagnostic (FreeStyle Lite Strips) Use 1 test strip once a day blood-glucose meter (FreeStyle Lite Meter kit) As directed carvedilol 12.5 mg PO BID cholecalciferol (vitamin D3) (Vitamin D3) 50 mcg PO DAILY 90 days docusate sodium (Colace) 100 mg PO DAILY 30 days estradiol 0.01%(0.1mg/gram) ezetimibe 10 mg PO DAILY famotidine (Pepcid) 40 mg PO .q3pm fenofibrate nanocrystallized 145 mg PO DAILY 90 days fluticasone propion-salmeterol 250-50 mcg/dose 1 ea inhalation DAILY glycerin (adult) (Fleet Glycerin (Adult) rectal suppository) 2 supp [place] DAILY hydrocortisone 2.5% (Proctosol HC) 1 appl [place] BID isosorbide mononitrate ER 120 mg PO DAILY 90 days lancets (FreeStyle Lancets) Use 1 lancet once a day linaclotide (Linzess) 72 mcg PO QAM kosrhj-[id number]-tfbjlbp 24,000-76,000 -120,000 unit (Creon) 1 cap PO .tidac 30 days lisinopril 10 mg PO DAILY 90 days meclizine 25 mg PO TID 7 days metoprolol succinate ER 12.5 mg (1/2 x 25 mg) PO DAILY 90 days omeprazole 40 mg PO DAILY 90 days ondansetron HCl 8 mg PO Q8H oxycodone ER (OxyContin) 10 mg PO BID 30 days oxycodone-acetaminophen 7.5-325 mg 1 tab PO Q6H PRN 30 days peg 3350-electrolytes 236-22.74-6.74 -5.86 gram (Golytely) 240 mL PO Q10M 1 day peg 3350-electrolytes 240-22.72-6.72 -5.84 gram (Gavilyte-C) mL PO rosuvastatin 40 mg PO DAILY 90 days rosuvastatin 20 mg PO DAILY Saccharomyces boulardii (Florastor) 250 mg PO DAILY sitagliptin phosphate (Januvia) 100 mg PO DAILY venlafaxine ER 37.5 mg PO BEDTIME 90 days Tobacco use date assessed: 07/25/22 Fall risk assessment: 1 Fall in past year Last assessed Fall Risk: 06/28/23 Dental Screening Dental Screen Date: 06/28/23 Did you have a dental visit in the last 12 months?: No Did you have a dental problem in the last 6 months where you did not have access to dental care?: No Was dental information given to patient?: Patient has dentist HPI HPI Comments History of Present Illness Details This is a 78-year-old female with diabetes mellitus type 2, hypertension, hyperlipidemia and mild major depression that comes today for follow-up on her conditions. A1c within goal. Blood pressure stable. Last LDL was not on goal and this will be repeated. Depression stable with venlafaxine. Complains of chest pain and does follows with Cardiology regularly. [facility] Medical History (Updated 06/28/23 @ 11:10 by Marybeth Dennis MD) Oropharyngeal dysphagia MODESTA (generalized anxiety disorder) Mild recurrent major depression Submandibular lymphadenopathy Post-menopausal Chronic daily headache Essential hypertension Lumbar disc disease with radiculopathy Mixed hyperlipidemia Therapeutic opioid induced constipation Hypovitaminosis D Dizziness Diarrhea Hair loss Diabetes mellitus Coronary artery disease Surgical History History of colonoscopy S/P CABG x 2 History of total abdominal hysterectomy and bilateral salpingo-oophorectomy History of cardiac catheterization History of rectal polypectomy History of cholecystectomy Family History Father Brain cancer Mother Ovarian cancer Sister Breast cancer Sister Lung cancer Brother Stomach cancer Son Substance abuse Sister Cancer Social History Housing: Apartment Alcohol intake: never Patient Tobacco Use Status: Never used Tobacco e-Cigarette/Vaping Use: Never Used Second Hand Smoke Exposure: No service: No Current occupational status: disabled Cognitive needs: Yes Hearing needs: No Vision needs: Yes Questionnaire Thrive Questionnaire Date Thrive assessed: 07/25/22 MODESTA-7 AMB Questionnaire MODESTA-7 Date MODESTA - 7 assessed: 07/25/22 Source: Developed by Drs. Pradip Evans, Caroline Hassan, Shakir Bolton and colleagues, with an educational ailyn from [employer]. Review of Systems Const All systems reviewed & are unremarkable except as noted in HPI and below Eyes Reports no additional complaints, Denies change in vision and Denies other visual disturbances Card Reports chest pain at rest, Reports chest pain with activity, Denies edema, Denies irregular heart rhythm, Denies claudication, Denies dyspnea, Denies dyspnea on exertion, Denies orthopnea, Denies paroxysmal nocturnal dyspnea and Denies slow heart rate Resp Denies cough, Denies dyspnea and Denies dyspnea on exertion GI Denies abdominal pain, Denies change in bowel habits, Denies excessive flatus, Denies nausea and Denies vomiting Denies urinary incontinence, Denies urinary hesitancy and Denies urinary urgency Musc Denies abnormal gait, Denies atrophy, Denies deformity and Denies limited range of motion Skin/Breast Denies bleeding lesions, Denies changing lesions and Denies rash Neuro Denies abnormal gait, Denies behavioral changes and Denies lack of coordination Psych Denies behavioral changes Physical exam (Primary Care) Vital Signs: Last Vital Signs BP 136/80 06/28/23 10:45 BMI result Body Mass Index 23.0 Tobacco/Smoking Status: Tobacco use Status Tobacco use date assessed 07/25/22 06/28/23 10:51 Patient Tobacco Use Status Never used Tobacco 06/28/23 10:51 e-Cigarette/Vaping Use Never Used 06/28/23 10:51 Thrive Assessment: Date of Thrive Assessment Date Thrive assessed 07/25/22 06/28/23 10:51 Eyes General: appearance normal, both eyes and all related structures Eyelids: Yes eyelids normal Conjunctivae: conjunctivae normal Neck Neck: Yes normal visual inspection and Yes supple Resp Effort & Inspection: normal respiratory effort Auscultation: clear to auscultation bilaterally Cardio Jugular venous distension: no JVD Rate: regular rate Rhythm: regular rhythm Heart sounds: S1 normal heart sound present and S2 normal heart sound present Extrem General: Yes full ROM Office Procedures Flu Questionnaire Does the patient have a severe egg allergy?: No Does the patient have severe life threatening allergies?: No Does the patient have a fever or illness today?: No Has the patient ever had Guillain-[place] Syndrome?: No Has the patient ever had any past reaction to a flu shot?: No Results AMB Hemoglobin A1c AMB Hemoglobin A1c 5.6 % Last Edit by LUZ MARINA Alaniz on 06/28/23 10:5 6 Immunizations flu vacc [id number] 6mos up(PF) 60 mcg(15 mcgx4)/0.5 mL IM syringe Performing Provider: Marybeth Dennis MD Per[facility] Administered by: LUZ MARINA Alaniz on 06/28/23 11:10 Dose Route Admin Location Dispensed Lot Number Expiration Date [employer] Operator 0.5 mL IM Left Deltoid 0.5 mL [id number] 01/06/24 32268-685-25 [employer] VIS Given Date VIS Provided VIS Publication Date 06/28/23 Single Vaccine 21 Eligibility Eligibility Date Funding Source Not VF Eligible 06/28/23 Private Results Reviewed Results Reviewed: Laboratory Last Values Hgb A1c (Clinic) 5.6 % (4.0-6.0) 06/28/23 10:44 Assessment and Plan Assessment & Plan (1) Mild recurrent major depression: Code(s): F33.0 - Major depressive disorder, recurrent, mild Plan: Continue venlafaxine. (2) Essential hypertension: Code(s): I10 - Essential (primary) hypertension Plan: Continue lisinopril. Blood pressure goal is equal or less than 130/80. (3) Diabetes mellitus: Code(s): E11.9 - Type 2 diabetes mellitus without complications Qualifiers: Diabetes mellitus complication status: without complication Diabetes mellitus client application support engineer insulin use: without client application support engineer use Diabetes mellitus type: type 2 Qualified Code(s): E11.9 - Type 2 diabetes mellitus without complications Plan: Continue Januvia. A1c goal is equal or less than 7%. (4) Hyperlipidemia LDL goal <70: Code(s): E78.5 - Hyperlipidemia, unspecified Plan: Continue statins and fibrates. LDL goal is less than 70. Orders: Orders Lipid Panel 4 Months E78.5 - Hyperlipidemia, unspecified Vitamin D 25-OH Total 4 Months E55.9 - Vitamin D deficiency, unspecified Comprehensive [place]. Panel Fast 4 Months R42 - Dizziness and giddiness AMB Hemoglobin A1c Today E11.9 - Type 2 diabetes mellitus without complications Influenza [id number] Immunization Today Z23 - Encounter for immunization Microalbumin, Random (w Creat) 4 Months E11.9 - Type 2 diabetes mellitus without complications Coding Level of Care Code Est Pt Level 4 (91440) Diagnoses Mild recurrent major depression F33.0 Essential hypertension I10 Type 2 diabetes mellitus without complication, without long-term current use of insulin E11.9 Diabetes mellitus complication status: without complication Diabetes mellitus penitentiary insulin use: without client application support engineer use Diabetes mellitus type: type 2 Hyperlipidemia LDL goal <70 E78.5 Time Spent (min) 23
== END 2023-06-28 11:13 | disposition home or self-care (01) ==
PROVIDERS: PCP Internal Medicine; Visit Provider Internal Medicine
DX: F33.0 Major depressive disorder, recurrent, mild (principal); I10 Essential (primary) hypertension; E11.9 Type 2 diabetes mellitus without complications; E78.5 Hyperlipidemia, unspecified; Z23 Encounter for immunization
CPT/HCPCS: 83036; 90471; 90686; 99214

== ENCOUNTER 2023-09-17 10:42 | Outpatient (REF) | payer OTHER, SELFPAY ==
[2023-09-17 13:01] LABS: Alanine Aminotransferase 12 U/L (0-31); Albumin Level 4.1 g/dL (3.5-5.0); Alkaline Phosphatase 32 U/L (39-117); Anion Gap 9 (12-20); Aspartate Amino Transferase 21 U/L (5-31); Bilirubin Total 0.5 mg/dL (0.0-1.0); Blood Urea Nitrogen 26 mg/dL (9-16); Calcium 9.7 mg/dL (8.4-10.2); Carbon Dioxide 28 mmol/L (22-29); Chloride 111 mmol/L (96-108); Cholesterol 129 mg/dL (<200); Estimated Glomerular Filt Rate 41; Glucose Fasting 96 mg/dL (60-99); HDL Cholesterol 58 mg/dL (>40); LDL Cholesterol Calculated 57 mg/dL (<100); Potassium 4.8 mmol/L (3.3-5.1); Sodium 143 mmol/L (135-145); Total Protein 7.1 g/dL (6.5-8.0); Triglycerides 72 mg/dL (<150)
[2023-09-17 13:07] LABS: Creatinine Urine 239.45 mg/dL; Microalbum/Creatinine Ratio Ur 10.4 ug/mg cr (<30)
== END 2023-09-17 10:43 | disposition home or self-care (01) ==
LOC: HO.LAB 10:42
PROVIDERS: PCP Internal Medicine; Visit Provider Internal Medicine
DX: E78.5 Hyperlipidemia, unspecified (principal); E55.9 Vitamin D deficiency, unspecified; E11.9 Type 2 diabetes mellitus without complications; R42 Dizziness and giddiness
CPT/HCPCS: 36415; 80053; 80061; 82043; 82306; 82570

== ENCOUNTER 2023-09-20 13:03 | Outpatient (AMB) | payer OTHER, SELFPAY ==
--- NOTE | 2023-09-20 13:10 | MHC.OFFVIS ---
Intake Vital Signs 09/20/23 13:17 Height 5 ft 3 in Weight 128 lb 11.999 oz BMI 22.8 BP 124/65 Blood Pressure Location Rt brachial Position Sitting Pulse 62 Intake Visit Reasons: 6 month fu Intake Note: Patient returns in 6 months follow up of [facility]. CC: Patient c/o a lot of gas, acid reflux, heartburn, and epigastric pain. She also report x3 episodes of vomiting. Optometry Teacher Required: Yes Accompanied by: Self / Same As Patient Allergies lactose [Lactose] Allergy (Intermediate, Verified 09/20/23 13:24) DIARRHEA, N/V metformin Allergy (Intermediate, Verified 09/20/23 13:24) stomach upset HPI 6 month fu HPI Details Assessment & Plan (1) IBS (irritable bowel syndrome): Code(s): K58.9 - Irritable bowel syndrome without diarrhea Plan: [place] #[place] She fractured some left sided ribs recently, she was getting up from bed to go to the and she fell. She lives with her son and they brought her to the hospital right away. She received the creon and the famotidine and this has resolved her pm HB and her gas passing and bloating. She continues on her Linzess 72 mcg along with Colace. At this point she is quite satisfied with her GI regimen. ROV 6 mos. (2) Chronic idiopathic constipation: Code(s): K59.04 - Chronic idiopathic constipation (3) GERD (gastroesophageal reflux disease): Code(s): K21.9 - Gastro-esophageal reflux disease without esophagitis (4) Dysphagia, oropharyngeal: Comment: Significant esophageal spasm associated with this when her GERD is not controlled aeb Code(s): R13.12 - Dysphagia, oropharyngeal phase TODAY'S VISIT Romanian #[id number] Ricardo She is again having a great deal of gas and HB, which was controlled in the past on her omeprazole and famotidine and creon - it seems she may have run out of a few of these chronic meds since I have not refilled them in over 6 mos. Apparently she was caring for an ill family member and this complicated her follow up. I will re establish her medications and then re assess her. ROV 6 weeks. [facility] Medical History Adult general medical exam Oropharyngeal dysphagia MODESTA (generalized anxiety disorder) Mild recurrent major depression Submandibular lymphadenopathy Post-menopausal Chronic daily headache Essential hypertension Lumbar disc disease with radiculopathy Mixed hyperlipidemia Therapeutic opioid induced constipation Hypovitaminosis D Dizziness Diarrhea Hair loss Diabetes mellitus Coronary artery disease Surgical History History of colonoscopy S/P CABG x 2 History of total abdominal hysterectomy and bilateral salpingo-oophorectomy History of cardiac catheterization History of rectal polypectomy History of cholecystectomy Family History Father Brain cancer Mother Ovarian cancer Sister Breast cancer Sister Lung cancer Brother Stomach cancer Son Substance abuse Sister Cancer Social History Housing: Apartment Alcohol intake: never Patient Tobacco Use Status: Never used Tobacco e-Cigarette/Vaping Use: Never Used Second Hand Smoke Exposure: No service: No Current occupational status: disabled Cognitive needs: Yes Hearing needs: No Vision needs: Yes Review of Systems Const Denies fatigue, Denies fever(s), Denies night sweats, Denies poor appetite and Denies weight loss ENT Reports Normal hearing present, Denies dental pain, Denies dysphagia, Denies hearing loss, Denies mouth pain, Denies odynophagia, Denies throat swelling, Denies tongue swelling and Reports other (Dentition adequate) Card Reports no additional complaints Resp Reports no additional complaints GI Details: Denies abdominal pain, Denies melena, Reports bloating, Denies hematochezia, Reports constipation, Denies GI cramping, Denies dysphagia, Denies excessive flatus, Denies early satiety, Reports heartburn, Denies diarrhea, Denies nausea, Denies odynophagia, Denies vomiting and Denies hematemesis Skin/Breast Denies pruritus, Denies lesions, Denies rash and Denies jaundice Neuro Reports Normal hearing present and Denies Abnormal speech present Endo Denies fatigue Aller/Immun Denies throat swelling and Denies tongue swelling Physical Exam Vital Signs: Last Vital Signs Pulse 62 09/20/23 13:17 BP 124/65 09/20/23 13:17 BMI result Body Mass Index 22.8 Const General: cooperative, no acute distress, well developed and well groomed Nutritional Appearance: average body habitus and well nourished Orientation/consciousness: oriented to person, oriented to place and oriented to time Limitations: language barrier HEENT Head: Yes normocephalic and Yes atraumatic Eyes General: appearance normal, both eyes and all related structures Pupils: Equal, round and reactive pupils present Neck Neck: Yes normal visual inspection and Yes no lymphadenopathy Thyroid: Thyroid normal Resp Effort & Inspection: normal respiratory effort and able to speak in complete sentences Auscultation: clear to auscultation bilaterally Cardio Rate: regular rate Rhythm: regular rhythm Heart sounds: Normal, physiologic split S2 sound present Peripheral pulses: radial pulses present and posterior tibial pulses present GI Inspection: No distended, No Abdominal panniculus present and Yes obesity Palpation (GI): Soft to palpation, nontender, no guarding, not rigid and No hepatosplenomegaly present Percussion: Yes normal to percussion Auscultation: normal bowel sounds Rectal Exam - Female: deferred Skin General skin exam: no rashes or lesions noted, turgor normal, skin not dry, no jaundice, No spider nevi and no striae Rashes: no rashes Nails: normal Neuro General: oriented to person, oriented to place and oriented to time Cranial nerves: Yes Equal, round and reactive pupils present and Yes Normal hearing present Speech: No Abnormal speech present Extrem General: Yes normal to inspection, No clubbing, No cyanosis and No edema Psych Appearance: grossly normal and well kempt Mental Status: mental status grossly normal Speech and movement: Normal speech and movement present Affect: normal affect Attitude: cooperative Thought process: Normal thought process present and not confabulating Thought content: Normal thought content present Insight: Limited insight present (Psych) and Poor insight present (Psych) Judgement: Limited judgement present (Psych) and Poor judgement present (Psych) Assessment & Plan Assessment & Plan (1) IBS (irritable bowel syndrome): Code(s): K58.9 - Irritable bowel syndrome without diarrhea (2) Chronic idiopathic constipation: Code(s): K59.04 - Chronic idiopathic constipation (3) GERD (gastroesophageal reflux disease): Code(s): K21.9 - Gastro-esophageal reflux disease without esophagitis Plan Romanian #[id number] Ricardo She is again having a great deal of gas and HB, which was controlled in the past on her omeprazole and famotidine and creon with Linzess 72mcg - it seems she may have run out of a few of these chronic meds since I have not refilled them in over 6 mos. Apparently she was caring for an ill family member and this complicated her follow up. I will re establish her medications and then re assess her. ROV 6 weeks. Medications: Refilled linaclotide (Linzess) 72 mcg PO QAM 30 caps 6RF famotidine (Pepcid) 40 mg PO .q3pm 90 tabs 3RF K21.9 - Gastro-esophageal reflux disease without esophagitis docusate sodium (Colace) 100 mg PO DAILY 30 days 30 caps 6RF K59.04 - Chronic idiopathic constipation nzsnyq-ozwyupcr-kzsbuxt 24,000-76,000 -120,000 unit (Creon) administer with meals and/or snacks 1 cap PO .tidac 30 days 90 caps 6RF K58.9 - Irritable bowel syndrome without diarrhea omeprazole 40 mg PO DAILY 90 days 90 caps 3RF famotidine (Pepcid) 40 mg PO .q3pm 90 tabs 3RF K21.9 - Gastro-esophageal reflux disease without esophagitis linaclotide (Linzess) 72 mcg PO QAM 30 caps 6RF xtmykv-ewknovdz-dygmabq 24,000-76,000 -120,000 unit (Creon) administer with meals and/or snacks 1 cap PO .tidac 30 days 90 caps 6RF K58.9 - Irritable bowel syndrome without diarrhea omeprazole 40 mg PO DAILY 90 days 90 caps 3RF docusate sodium (Colace) 100 mg PO DAILY 30 days 30 caps 6RF K59.04 - Chronic idiopathic constipation Patient Instructions: Aseg?rese de recibir todos los siguientes medicamentos: 1. Linzess 2. omeprazol 3. famotidina 4. Creonte 5. Docusar Quiero verte dentro de 6 semanas para deborah si esto resuelve los problemas Quality Reporting (2020) Adult ([facility] 138/08/30/68) Smoking risk assessment performed?: Yes Patient Tobacco Use Status: Never used Tobacco Coding Level of Care Code Est Pt Level 3 (62192) Diagnoses IBS (irritable bowel syndrome) K58.9 Chronic idiopathic constipation K59.04 GERD (gastroesophageal reflux disease) K21.9
[2023-09-20 13:17] VITALS: BP 124/65; PULSE 62; BMI 22.8
== END 2023-09-20 13:52 | disposition home or self-care (01) ==
PROVIDERS: PCP Internal Medicine; Visit Provider Nurse Practitioner
DX: K58.9 Irritable bowel syndrome, unspecified (principal); K59.04 Chronic idiopathic constipation; K21.9 Gastro-esophageal reflux disease without esophagitis
CPT/HCPCS: 99213

== ENCOUNTER → 2023-09-20 13:03 | Outpatient (BNVA) | payer OTHER, SELFPAY | PROVIDERS: PCP Internal Medicine; Visit Provider Nurse Practitioner | DX: K58.1 Irritable bowel syndrome with constipation (principal); K59.04 Chronic idiopathic constipation; K21.9 Gastro-esophageal reflux disease without esophagitis | CPT/HCPCS: 99212 ==

== ENCOUNTER 2023-10-30 13:32 | Outpatient (AMB) | payer OTHER, SELFPAY ==
[2023-10-30 13:33] VITALS: BP 138/70; PULSE 56; O2SAT 98; BMI 22.7
--- NOTE | 2023-10-30 13:33 | A.OFFPC_ITS ---
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: No Accompanied by: Self / Same As Patient Allergies lactose [Lactose] Allergy (Intermediate, Verified 10/30/23 14:00) DIARRHEA, N/V metformin Allergy (Intermediate, Verified 10/30/23 14:00) stomach upset Medication List - Last Reconciled 10/30/23 by Marybeth Dennis MD alendronate 70 mg PO QWEEK 90 days aspirin 81 mg PO DAILY blood sugar diagnostic (FreeStyle Lite Strips) Use 1 test strip once a day blood-glucose meter (FreeStyle Lite Meter kit) As directed carvedilol 12.5 mg PO BID cholecalciferol (vitamin D3) (Vitamin D3) 50 mcg PO DAILY 90 days docusate sodium (Colace) 100 mg PO DAILY 30 days estradiol 0.01%(0.1mg/gram) ezetimibe 10 mg PO DAILY famotidine (Pepcid) 40 mg PO .q3pm fenofibrate nanocrystallized 145 mg PO DAILY 90 days fluticasone propion-salmeterol 250-50 mcg/dose 1 ea inhalation DAILY glycerin (adult) (Fleet Glycerin (Adult) rectal suppository) 2 supp MA DAILY hydrocortisone 2.5% (Proctosol HC) 1 appl MA BID isosorbide mononitrate ER 120 mg PO DAILY 90 days lancets (FreeStyle Lancets) Use 1 lancet once a day levorphanol tartrate 2 mg PO Q12H PRN 30 days linaclotide (Linzess) 72 mcg PO QAM uqzntx-sknlizrf-wtdhnvs 24,000-76,000 -120,000 unit (Creon) 1 cap PO .tidac 30 days lisinopril 10 mg PO DAILY 90 days meclizine 25 mg PO TID 7 days metoprolol succinate ER 12.5 mg (1/2 x 25 mg) PO DAILY 90 days omeprazole 40 mg PO DAILY 90 days ondansetron HCl 8 mg PO Q8H oxycodone ER (OxyContin) 10 mg PO BID 30 days oxycodone-acetaminophen 7.5-325 mg 1 tab PO Q6H PRN 30 days rosuvastatin 40 mg PO DAILY 90 days Saccharomyces boulardii (Florastor) 250 mg PO DAILY sitagliptin phosphate (Januvia) 100 mg PO DAILY venlafaxine ER 37.5 mg PO BEDTIME 90 days Tobacco use date assessed: 10/30/23 Fall risk assessment: No Falls in past year Last assessed Fall Risk: 10/30/23 Dental Screening Dental Screen Date: 10/30/23 HPI HPI Comments History of Present Illness Details This is a 78-year-old female with diabetes mellitus type 2, hypertension, coronary artery disease, mild recurrent major depression and osteoporosis that comes today for follow-up on her conditions. A1c within goal. Blood pressure stable. LDL within goal. Depression well controlled with venlafaxine. Has occasional chest pain and this is follow by cardiology. Has chronic low back pain due to lumbar degenerative disc disease with radiculopathy and use opiates as needed. Patient is aware that can cause addiction and sedation. Last bone density done 2022 showing osteoporosis and she is on alendronate once a week for this matter. [facility] Medical History (Updated 10/30/23 @ 16:00 by Marybeth Dennis MD) Fecal impaction in rectum Adult general medical exam Oropharyngeal dysphagia MODESTA (generalized anxiety disorder) Mild recurrent major depression Submandibular lymphadenopathy Post-menopausal Chronic daily headache Essential hypertension Lumbar disc disease with radiculopathy Mixed hyperlipidemia Therapeutic opioid induced constipation Hypovitaminosis D Dizziness Diarrhea Hair loss Diabetes mellitus Coronary artery disease Surgical History History of colonoscopy S/P CABG x 2 History of total abdominal hysterectomy and bilateral salpingo-oophorectomy History of cardiac catheterization History of rectal polypectomy History of cholecystectomy Family History Father Brain cancer Mother Ovarian cancer Sister Breast cancer Sister Lung cancer Brother Stomach cancer Son Substance abuse Sister Cancer Social History Housing: Apartment Alcohol intake: never Patient Tobacco Use Status: Never used Tobacco e-Cigarette/Vaping Use: Never Used Second Hand Smoke Exposure: No service: No Current occupational status: disabled Cognitive needs: Yes Hearing needs: No Vision needs: Yes Questionnaire Thrive Questionnaire Date Thrive assessed: 10/30/23 I am a: Patient What is your living situation today?: I have a steady place to live Within the past 12 months, did the food you bought not last and you didn't have the money to get more?: Never true Within the past 12 months, did you worry whether your food would run out before you got money to buy more?: Never true Do you have trouble paying for medicines?: No Do you have trouble getting transportation to medical appointments?: No Do you have trouble paying your heating and electricity bill?: No Do you have trouble taking care of your child, family member or friend?: No Do you have trouble with day-to-day activities such as bathing, preparing meals, shopping, managing finances, etc.?: No Are you currently unemployed and looking for a job?: No Are you interested in more education?: No Please select the resources that you would like help with: None Currently or been in a relationship where the following occur: no concerns reported THRIVE Score: 0 AUDIT C Alcohol Use Questionnaire (AUDIT-C) 1. How often do you have a drink containing alcohol?: Never 3. How often do you have six or more drinks on one occasion?: Never Total Score: 0 Score Reviewed/Action Taken: No MODESTA-7 AMB Questionnaire MODESTA-7 Date MODESTA - 7 assessed: 10/30/23 Feeling nervous, anxious, or on edge: 0 = Not at all Not being able to stop or control worryin = Not at all Worrying too much about different things: 0 = Not at all Trouble relaxin = Not at all Being so restless that it is hard to sit still: 0 = Not at all Becoming easily annoyed or irritable: 0 = Not at all Feeling afraid as if something awful might happen: 0 = Not at all Total MODESTA-7 score (0-4 normal; 5-9 mild; 10-14 moderate; 15-21 severe): 0 Source: Developed by Drs. Pradip Evans, Caroline Hassan, Shakir Bolton and colleagues, with an educational ailyn from [employer]. MODESTA-7 Assessment Billing MODESTA-7 Assessment Tool: MODESTA-7 Assessment 84954 Review of Systems Const All systems reviewed & are unremarkable except as noted in HPI and below Eyes Reports no additional complaints, Denies change in vision and Denies other visual disturbances Card Denies chest pain at rest, Denies chest pain with activity, Denies edema, Denies irregular heart rhythm, Denies claudication, Denies dyspnea, Denies dyspnea on exertion, Denies orthopnea, Denies paroxysmal nocturnal dyspnea and Denies slow heart rate Resp Denies cough, Denies dyspnea and Denies dyspnea on exertion GI Denies abdominal pain, Denies change in bowel habits, Denies excessive flatus, Denies nausea and Denies vomiting Physical exam (Primary Care) Vital Signs: Last Vital Signs Pulse 56 10/30/23 13:33 BP 138/70 10/30/23 13:33 Pulse Ox 98 10/30/23 13:33 Oxygen Delivery Method Room Air 10/30/23 13:33 BMI result Body Mass Index 22.7 Tobacco/Smoking Status: Tobacco use Status Tobacco use date assessed 10/30/23 10/30/23 13:35 Patient Tobacco Use Status Never used Tobacco 10/30/23 13:35 e-Cigarette/Vaping Use Never Used 10/30/23 13:35 Thrive Assessment: Date of Thrive Assessment Date Thrive assessed 10/30/23 10/30/23 13:35 Currently or been in a relationship where the following occur: no concerns reported Resp Effort & Inspection: normal respiratory effort Auscultation: clear to auscultation bilaterally Cardio Jugular venous distension: no JVD Rate: regular rate Rhythm: regular rhythm Heart sounds: S1 normal heart sound present and S2 normal heart sound present Extrem General: Yes full ROM Results AMB Hemoglobin A1c AMB Hemoglobin A1c 6.3 % Last Edit by LUZ MARINA Wolf on 10/30/23 13:51 Results Reviewed Results Reviewed: Laboratory Last Values Hgb A1c (Clinic) 6.3 % (4.0-6.0) H 10/30/23 11:49 Assessment and Plan Assessment & Plan (1) Diabetes mellitus: Code(s): E11.9 - Type 2 diabetes mellitus without complications Qualifiers: Diabetes mellitus type: type 2 Diabetes mellitus detention insulin use: without detention use Diabetes mellitus complication status: without complication Qualified Code(s): E11.9 - Type 2 diabetes mellitus without complications Plan: Continue . A1c goal is equal or less than 7%. (2) Coronary artery disease: Code(s): I25.10 - Atherosclerotic heart disease of [place] coronary artery without angina pectoris Qualifiers: Coronary Disease-Associated Artery/Lesion type: unspecified vessel or lesion type [place] vs. transplanted heart: [place] heart Associated angina: with unstable angina Qualified Code(s): I25.110 - Atherosclerotic heart disease of [place] coronary artery with unstable angina pectoris Plan: Continue aspirin, isosorbide mononitrate, statins and fibrates. Keep LDL less than 70. Follow-up with Cardiology. (3) Essential hypertension: Code(s): I10 - Essential (primary) hypertension Plan: Continue lisinopril. Blood pressure goal is equal or less than 130/80 (4) Mild recurrent major depression: Code(s): F33.0 - Major depressive disorder, recurrent, mild Plan: Continue venlafaxine at bedtime. (5) Osteoporosis: Code(s): M81.0 - Age-related osteoporosis without current pathological fracture Qualifiers: Osteoporosis type: age-related Presence of current pathological fracture: without current pathological fracture Qualified Code(s): M81.0 - Age- related osteoporosis without current pathological fracture Plan: Continue alendronate once a week. Repeat bone density in 2024. Orders: Orders AMB Hemoglobin A1c Today E11.9 - Type 2 diabetes mellitus without complications Vitamin D 25-OH Total 4 Months E55.9 - Vitamin D deficiency, unspecified Lipid Panel 4 Months E78.5 - Hyperlipidemia, unspecified Microalbumin, Random (w Creat) 4 Months E11.9 - Type 2 diabetes mellitus without complications Comprehensive [place]. Panel Fast 4 Months E78.2 - Mixed hyperlipidemia Medications: New cetirizine 10 mg PO DAILY 90 days PRN 90 tabs 0RF allergy symptoms Discontinued levorphanol tartrate Partial Fill upon patient request. Discontinued Reason: Patient Refused 2 mg PO Q12H 30 days PRN 60 tabs 0RF pain meclizine Discontinued Reason: Patient Completed Course 25 mg PO TID 7 days 21 tabs 0RF Coding Level of Care Code Est Pt Level 4 (01778) Diagnoses Type 2 diabetes mellitus without complication, without long-term current use of insulin E11.9 Diabetes mellitus type: type 2 Diabetes mellitus intermodal customer service insulin use: without intermodal customer service use Diabetes mellitus complication status: without complication Coronary artery disease involving [place] heart with unstable angina pectoris, unspecified vessel or lesion type I25.110 Coronary Disease-Associated Artery/Lesion type: unspecified vessel or lesion type [place] vs. transplanted heart: [place] heart Associated angina: with unstable angina Essential hypertension I10 Mild recurrent major depression F33.0 Age-related osteoporosis without current pathological fracture M81.0 Osteoporosis type: age-related Presence of current pathological fracture: without current pathological fracture Additional Codes MODESTA-7 Assessment Billing - MODESTA-7 Assessment Tool: MODESTA-7 Assessment 65739 ([id number]) Time Spent (min) 25
== END 2023-10-30 14:09 | disposition home or self-care (01) ==
PROVIDERS: PCP Internal Medicine; Visit Provider Internal Medicine
DX: E11.9 Type 2 diabetes mellitus without complications (principal); I25.110 Atherosclerotic heart disease of native coronary artery with unstable angina pectoris; F33.0 Major depressive disorder, recurrent, mild; I10 Essential (primary) hypertension; M81.0 Age-related osteoporosis without current pathological fracture
CPT/HCPCS: 83036; 99214

== ENCOUNTER 2023-11-01 12:26 | Outpatient (AMB) | payer OTHER, SELFPAY ==
--- NOTE | 2023-11-01 12:48 | MHC.OFFVIS ---
Intake Visit Reasons: 6 week follow up Allergies lactose [Lactose] Allergy (Intermediate, Verified 10/30/23 14:00) DIARRHEA, N/V metformin Allergy (Intermediate, Verified 10/30/23 14:00) stomach upset HPI HPI 6 week follow up: Details: Assessment & Plan (1) IBS (irritable bowel syndrome): Code(s): K58.9 - Irritable bowel syndrome without diarrhea (2) Chronic idiopathic constipation: Code(s): K59.04 - Chronic idiopathic constipation (3) GERD (gastroesophageal reflux disease): Code(s): K21.9 - Gastro-esophageal reflux disease without esophagitis Plan Togolese #[id number] Ricardo She is again having a great deal of gas and HB, which was controlled in the past on her omeprazole and famotidine and creon with Linzess 72mcg - it seems she may have run out of a few of these chronic meds since I have not refilled them in over 6 mos. Apparently she was caring for an ill family member and this complicated her follow up. I will re establish her medications and then re assess her. ROV 6 weeks. Medications: Refilled linaclotide (Linzess) 72 mcg PO QAM 30 caps 6RF famotidine (Pepcid) 40 mg PO .q3pm 90 tabs 3RF K21.9 - Gastro-esophageal reflux disease without esophagitis docusate sodium (Colace) 100 mg PO DAILY 30 days 30 caps 6RF K59.04 - Chronic idiopathic constipation [id number] 24,000-76,000 -120,000 unit (Creon) administer with meals and/or snacks 1 cap PO .tidac 30 days 90 caps 6RF K58.9 - Irritable bowel syndrome without diarrhea omeprazole 40 mg PO DAILY 90 days 90 caps 3RF famotidine (Pepcid) 40 mg PO .q3pm 90 tabs 3RF K21.9 - Gastro-esophageal reflux disease without esophagitis linaclotide (Linzess) 72 mcg PO QAM 30 caps 6RF [id number]-[id number] 24,000-76,000 -120,000 unit (Creon) administer with meals and/or snacks 1 cap PO .tidac 30 days 90 caps 6RF K58.9 - Irritable bowel syndrome without diarrhea omeprazole 40 mg PO DAILY 90 days 90 caps 3RF docusate sodium (Colace) 100 mg PO DAILY 30 days 30 caps 6RF K59.04 - Chronic idiopathic constipation Patient Instructions: Aseg?rese de recibir todos los siguientes medicamentos: 1. Linzess 2. omeprazol 3. famotidina 4. Creonte 5. Docusar Quiero verte dentro de 6 semanas para deborah si esto resuelve los problemas TODAY'S VISIT Togolese #[id number] Since restarting her medications she is feeling much better. However, she still has a lot of gassiness. I think we just need time for the creon to fully work. So her current GI regimen as follows: Colace 100 mg daily, famotidine 40 mg in the afternoon Proctosol hemorrhoid cream, Linzess 72 micro g, Creon 04582 units 3 times a day, omeprazole 40 mg in the morning. ROV 8 weeks. If gassiness no better consider SBBO tx. Of note she is on fenofibrate but also can cause gas and bloating. [facility] Medical History (Updated 11/01/23 @ 13:07 by PEDRO PABLO Garcia) Fecal impaction in rectum Adult general medical exam Oropharyngeal dysphagia MODESTA (generalized anxiety disorder) Mild recurrent major depression Submandibular lymphadenopathy Post-menopausal Chronic daily headache Essential hypertension Lumbar disc disease with radiculopathy Mixed hyperlipidemia Therapeutic opioid induced constipation Hypovitaminosis D Dizziness Diarrhea Hair loss Diabetes mellitus Coronary artery disease Surgical History History of colonoscopy S/P CABG x 2 History of total abdominal hysterectomy and bilateral salpingo-oophorectomy History of cardiac catheterization History of rectal polypectomy History of cholecystectomy Family History Father Brain cancer Mother Ovarian cancer Sister Breast cancer Sister Lung cancer Brother Stomach cancer Son Substance abuse Sister Cancer Social History Housing: Apartment Alcohol intake: never Patient Tobacco Use Status: Never used Tobacco e-Cigarette/Vaping Use: Never Used Second Hand Smoke Exposure: No service: No Current occupational status: disabled Cognitive needs: Yes Hearing needs: No Vision needs: Yes Review of Systems Const Denies fatigue, Denies fever(s), Denies night sweats, Denies poor appetite and Denies weight loss Eyes Details: Glasses Reports requires corrective lenses ENT Reports Normal hearing present, Denies dental pain, Denies dysphagia, Denies hearing loss, Denies mouth pain, Denies odynophagia, Denies throat swelling, Denies tongue swelling and Reports other (Dentition adequate) Card Reports no additional complaints Resp Reports no additional complaints GI Details: Denies abdominal pain, Denies melena, Reports bloating, Denies hematochezia, Reports constipation, Denies GI cramping, Denies dysphagia, Denies excessive flatus, Denies early satiety, Reports heartburn, Denies diarrhea, Denies nausea, Denies odynophagia, Denies vomiting and Denies hematemesis Skin/Breast Denies pruritus, Denies lesions, Denies rash and Denies jaundice Neuro Reports Normal hearing present and Denies Abnormal speech present Endo Denies fatigue Aller/Immun Denies throat swelling and Denies tongue swelling Physical Exam Const General: cooperative, no acute distress, well developed and well groomed Nutritional Appearance: well nourished and overweight Orientation/consciousness: oriented to person, oriented to place and oriented to time Limitations: language barrier HEENT Head: Yes normocephalic and Yes atraumatic Eyes General: appearance normal, both eyes and all related structures Pupils: Equal, round and reactive pupils present Neck Neck: Yes normal visual inspection and Yes no lymphadenopathy Thyroid: Thyroid normal Resp Effort & Inspection: normal respiratory effort and able to speak in complete sentences Auscultation: clear to auscultation bilaterally Cardio Rate: regular rate Rhythm: regular rhythm Heart sounds: Normal, physiologic split S2 sound present Peripheral pulses: radial pulses present and posterior tibial pulses present GI Inspection: No distended, No Abdominal panniculus present and Yes obesity Palpation (GI): Soft to palpation, nontender, no guarding, not rigid and No hepatosplenomegaly present Percussion: Yes normal to percussion Auscultation: normal bowel sounds Rectal Exam - Female: deferred Skin General skin exam: no rashes or lesions noted, turgor normal, skin not dry, no jaundice, No spider nevi and no striae Rashes: no rashes Nails: normal Neuro General: oriented to person, oriented to place and oriented to time Cranial nerves: Yes Equal, round and reactive pupils present and Yes Normal hearing present Speech: No Abnormal speech present Extrem General: Yes normal to inspection, No clubbing, No cyanosis and No edema Psych Appearance: grossly normal and well kempt Mental Status: mental status grossly normal Speech and movement: Normal speech and movement present Affect: normal affect Attitude: cooperative Thought process: Normal thought process present and not confabulating Thought content: Normal thought content present Insight: Limited insight present (Psych) Judgement: Limited judgement present (Psych) Quality Reporting (2019) Adult ([facility] ) Smoking risk assessment performed?: Yes Patient Tobacco Use Status: Never used Tobacco Assessment & Plan Assessment & Plan (1) Abdominal bloating: Code(s): R14.0 - Abdominal distension (gaseous) Category: Medical (2) IBS (irritable bowel syndrome): Code(s): K58.9 - Irritable bowel syndrome without diarrhea Category: Medical (3) Chronic idiopathic constipation: Code(s): K59.04 - Chronic idiopathic constipation Category: Medical (4) GERD (gastroesophageal reflux disease): Code(s): K21.9 - Gastro-esophageal reflux disease without esophagitis Category: Medical Plan [place]ese #[id number] Since restarting her medications she is feeling much better. However, she still has a lot of gassiness. I think we just need time for the creon to fully work. So her current GI regimen as follows: Colace 100 mg daily, famotidine 40 mg in the afternoon Proctosol hemorrhoid cream, Linzess 72 micro g, Creon 72386 units 3 times a day, omeprazole 40 mg in the morning. ROV 8 weeks. If gassiness no better consider SBBO tx. Of note she is on fenofibrate but also can cause gas and bloating. Coding Level of Care Code Est Pt Level 3 (58076) Diagnoses Abdominal bloating R14.0 IBS (irritable bowel syndrome) K58.9 Chronic idiopathic constipation K59.04 GERD (gastroesophageal reflux disease) K21.9
== END 2023-11-01 12:58 | disposition home or self-care (01) ==
PROVIDERS: PCP Internal Medicine; Visit Provider Nurse Practitioner
DX: R14.0 Abdominal distension (gaseous) (principal); K58.9 Irritable bowel syndrome, unspecified; K59.04 Chronic idiopathic constipation; K21.9 Gastro-esophageal reflux disease without esophagitis
CPT/HCPCS: 99213

== ENCOUNTER → 2023-11-01 12:26 | Outpatient (BNVA) | payer OTHER, SELFPAY | PROVIDERS: PCP Internal Medicine; Visit Provider Nurse Practitioner | DX: K58.9 Irritable bowel syndrome, unspecified (principal); K59.04 Chronic idiopathic constipation; K21.9 Gastro-esophageal reflux disease without esophagitis; R14.0 Abdominal distension (gaseous) | CPT/HCPCS: 99212 ==

== ENCOUNTER 2023-12-20 12:45 | Outpatient (AMB) | payer OTHER, SELFPAY ==
[2023-12-20 12:49] VITALS: BP 143/81; PULSE 65; BMI 23.5
--- NOTE | 2023-12-20 12:49 | A.OFFVIS_ITS ---
Vital Signs 12/20/23 12:49 Height 5 ft 3 in Weight 132 lb 11.492 oz BMI 23.5 BP 143/81 H Blood Pressure Location Lt brachial Position Sitting Pulse 65 Intake Visit Reasons: 8 week follow up Intake Note: Melanie presents to in office visit today in 8 weeks follow up of abdominal bloating. CC: Patient states that she was doing well but lately she has been under a lot of stress and it have been affecting her stomach. She reports nausea, acid reflux, a lot of gas heartburn. 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 Accompanied by: Self / Same As Patient Allergies lactose [Lactose] Allergy (Intermediate, Verified 12/20/23 12:59) DIARRHEA, N/V metformin Allergy (Intermediate, Verified 12/20/23 12:59) stomach upset HPI HPI 8 week follow up: Details: Assessment & Plan (1) Abdominal bloating: Code(s): R14.0 - Abdominal distension (gaseous) Category: Medical (2) IBS (irritable bowel syndrome): Code(s): K58.9 - Irritable bowel syndrome without diarrhea Category: Medical (3) Chronic idiopathic constipation: Code(s): K59.04 - Chronic idiopathic constipation Category: Medical (4) GERD (gastroesophageal reflux disease): Code(s): K21.9 - Gastro-esophageal reflux disease without esophagitis Category: Medical Plan [place]ian #[id number] Since restarting her medications she is feeling much better. However, she still has a lot of gassiness. I think we just need time for the creon to fully work. So her current GI regimen as follows: Colace 100 mg daily, famotidine 40 mg in the afternoon Proctosol hemorrhoid cream, Linzess 72 micro g, Creon 69117 units 3 times a day, omeprazole 40 mg in the morning. ROV 8 weeks. If gassiness no better consider SBBO tx. Of note she is on fenofibrate but also can cause gas and bloating. TODAY'S VISIT Lithuanian #[id number] She says she is having trouble and stress with her son. After being on the creon she says it is helping her gas a little bit but she is only taking 1 a day....she is again educated that she needs to take 2 caps bid as 1 a day is not enough. Colace 100 mg daily, famotidine 40 mg in the afternoon Proctosol hemorrhoid cream, Linzess 72 micro g, Creon 30176 units 3 times a day, omeprazole 40 mg in the morning. ROV 6 weeks. [facility] Medical History (Updated 11/01/23 @ 13:07 by PEDRO PABLO Garcia) Fecal impaction in rectum Adult general medical exam Oropharyngeal dysphagia MODESTA (generalized anxiety disorder) Mild recurrent major depression Submandibular lymphadenopathy Post-menopausal Chronic daily headache Essential hypertension Lumbar disc disease with radiculopathy Mixed hyperlipidemia Therapeutic opioid induced constipation Hypovitaminosis D Dizziness Diarrhea Hair loss Diabetes mellitus Coronary artery disease Surgical History History of colonoscopy S/P CABG x 2 History of total abdominal hysterectomy and bilateral salpingo-oophorectomy History of cardiac catheterization History of rectal polypectomy History of cholecystectomy Family History Father Brain cancer Mother Ovarian cancer Sister Breast cancer Sister Lung cancer Brother Stomach cancer Son Substance abuse Sister Cancer Social History Housing: Apartment Alcohol intake: never Patient Tobacco Use Status: Never used Tobacco e-Cigarette/Vaping Use: Never Used Second Hand Smoke Exposure: No service: No Current occupational status: disabled Cognitive needs: Yes Hearing needs: No Vision needs: Yes Review of Systems Const Denies fatigue, Denies fever(s), Denies night sweats, Denies poor appetite and Denies weight loss ENT Reports Normal hearing present, Denies dental pain, Denies dysphagia, Denies hearing loss, Denies mouth pain, Denies odynophagia, Denies throat swelling, Denies tongue swelling and Reports other (Dentition adequate) Card Reports no additional complaints Resp Reports no additional complaints GI Details: Denies abdominal pain, Denies melena, Reports bloating, Denies hematochezia, Reports constipation, Denies GI cramping, Denies dysphagia, Reports excessive flatus, Denies early satiety, Reports heartburn, Denies diarrhea, Reports nausea, Denies odynophagia, Denies vomiting and Denies hematemesis Skin/Breast Denies pruritus, Denies lesions, Denies rash and Denies jaundice Neuro Reports Normal hearing present and Denies Abnormal speech present Endo Denies fatigue Aller/Immun Denies throat swelling and Denies tongue swelling Physical Exam Vital Signs: Last Vital Signs Pulse 65 12/20/23 12:49 BP 143/81 H 12/20/23 12:49 BMI result Body Mass Index 23.5 Const General: cooperative, no acute distress, well developed and well groomed Nutritional Appearance: average body habitus and well nourished Orientation/consciousness: oriented to person, oriented to place and oriented to time Limitations: language barrier HEENT Head: Yes normocephalic and Yes atraumatic Eyes General: appearance normal, both eyes and all related structures Pupils: Equal, round and reactive pupils present Neck Neck: Yes normal visual inspection and Yes no lymphadenopathy Thyroid: Thyroid normal Resp Effort & Inspection: normal respiratory effort and able to speak in complete sentences Auscultation: clear to auscultation bilaterally Cardio Rate: regular rate Rhythm: regular rhythm Heart sounds: Normal, physiologic split S2 sound present Peripheral pulses: radial pulses present and posterior tibial pulses present GI Inspection: No distended and No Abdominal panniculus present Palpation (GI): Soft to palpation, nontender, no guarding, not rigid and No hepatosplenomegaly present Percussion: Yes normal to percussion Auscultation: normal bowel sounds Rectal Exam - Female: deferred Skin General skin exam: no rashes or lesions noted, turgor normal, skin not dry, no jaundice, No spider nevi and no striae Rashes: no rashes Nails: normal Neuro General: oriented to person, oriented to place and oriented to time Cranial nerves: Yes Equal, round and reactive pupils present and Yes Normal hearing present Speech: No Abnormal speech present Extrem General: Yes normal to inspection, No clubbing, No cyanosis and No edema Psych Appearance: grossly normal and well kempt Mental Status: mental status grossly normal Speech and movement: Normal speech and movement present Affect: normal affect Attitude: cooperative Thought process: Normal thought process present and not confabulating Thought content: Normal thought content present Insight: Limited insight present (Psych) Judgement: Limited judgement present (Psych) Quality Reporting (2019) Adult ([facility] [address] 138/08/30/68) Smoking risk assessment performed?: Yes Patient Tobacco Use Status: Never used Tobacco Assessment & Plan Assessment & Plan (1) Abdominal bloating: Code(s): R14.0 - Abdominal distension (gaseous) Category: Medical (2) Chronic idiopathic constipation: Code(s): K59.04 - Chronic idiopathic constipation Category: Medical (3) Dysphagia, oropharyngeal: Comment: Significant esophageal spasm associated with this when her GERD is not controlled aeb Code(s): R13.12 - Dysphagia, oropharyngeal phase Category: Medical (4) GERD (gastroesophageal reflux disease): Code(s): K21.9 - Gastro-esophageal reflux disease without esophagitis Category: Medical Plan [place]ian #[id number] She says she is having trouble and stress with her son. After being on the creon she says it is helping her gas a little bit but she is only taking 1 a day....she is again educated that she needs to take 2 caps bid as 1 a day is not enough. Colace 100 mg daily, famotidine 40 mg in the afternoon Proctosol hemorrhoid cream, Linzess 72 micro g, Creon 60594 units 3 times a day, omeprazole 40 mg in the morning. ROV 6 weeks. Medications: Changed From [id number] 24,000-76,000 -120,000 unit (Creon) administer with meals and/or snacks 1 cap PO .tidac 30 days 90 caps 6RF K58.9 - Irritable bowel syndrome without diarrhea To [id number] 24,000-76,000 -120,000 unit (Creon) administer with meals and/or snacks 2 caps PO BID 120 caps 6RF 30 days K58.9 - Irritable bowel syndrome without diarrhea Refilled linaclotide (Linzess) 72 mcg PO QAM 30 caps 6RF famotidine (Pepcid) 40 mg PO .q3pm 90 tabs 3RF K21.9 - Gastro-esophageal reflux disease without esophagitis omeprazole 40 mg PO DAILY 90 caps 3RF 90 days Coding Level of Care Code Est Pt Level 3 (06515) Diagnoses Abdominal bloating R14.0 Chronic idiopathic constipation K59.04 Dysphagia, oropharyngeal R13.12 GERD (gastroesophageal reflux disease) K21.9
== END 2023-12-20 13:18 | disposition home or self-care (01) ==
PROVIDERS: PCP Internal Medicine; Visit Provider Nurse Practitioner
DX: R14.0 Abdominal distension (gaseous) (principal); K59.04 Chronic idiopathic constipation; R13.12 Dysphagia, oropharyngeal phase; K21.9 Gastro-esophageal reflux disease without esophagitis
CPT/HCPCS: 99213

== ENCOUNTER → 2023-12-20 12:45 | Outpatient (BNVA) | payer OTHER, SELFPAY | PROVIDERS: PCP Internal Medicine; Visit Provider Nurse Practitioner | DX: R14.0 Abdominal distension (gaseous) (principal); K59.04 Chronic idiopathic constipation; K21.9 Gastro-esophageal reflux disease without esophagitis; R13.12 Dysphagia, oropharyngeal phase | CPT/HCPCS: 99212 ==

== ENCOUNTER 2024-01-31 11:26 | Outpatient (REF) | payer OTHER, SELFPAY ==
[2024-01-31 13:02] LABS: Creatinine Urine 218.98 mg/dL; Microalbum/Creatinine Ratio Ur 8.6 ug/mg cr (<30)
[2024-01-31 13:04] LABS: Alanine Aminotransferase 10 U/L (0-31); Albumin Level 4.2 g/dL (3.5-5.0); Alkaline Phosphatase 37 U/L (39-117); Anion Gap 13 (12-20); Aspartate Amino Transferase 23 U/L (5-31); Bilirubin Total 0.5 mg/dL (0.0-1.0); Blood Urea Nitrogen 21 mg/dL (9-16); Calcium 9.4 mg/dL (8.4-10.2); Carbon Dioxide 27 mmol/L (22-29); Chloride 108 mmol/L (96-108); Cholesterol 112 mg/dL (<200); Estimated Glomerular Filt Rate 45; Glucose Fasting 95 mg/dL (60-99); HDL Cholesterol 48 mg/dL (>40); LDL Cholesterol Calculated 47 mg/dL (<100); Potassium 4.6 mmol/L (3.3-5.1); Sodium 143 mmol/L (135-145); Total Protein 7.2 g/dL (6.5-8.0); Triglycerides 88 mg/dL (<150)
[2024-01-31 13:22] LABS: Vitamin D 25-OH Total 33.3 ng/mL (>30)
== END 2024-01-31 11:27 | disposition home or self-care (01) ==
LOC: HO.LAB 11:26
PROVIDERS: PCP Internal Medicine; Visit Provider Internal Medicine
DX: E78.2 Mixed hyperlipidemia (principal); E11.9 Type 2 diabetes mellitus without complications; E55.9 Vitamin D deficiency, unspecified; E78.5 Hyperlipidemia, unspecified
CPT/HCPCS: 36415; 80053; 80061; 82043; 82306; 82570

== ENCOUNTER 2024-03-11 12:06 | Outpatient (AMB) | payer OTHER, SELFPAY ==
--- NOTE | 2024-03-11 12:19 | AM.OFFVISMDC ---
Intake Vital Signs 03/11/24 12:20 03/11/24 13:41 Height 5 ft 3 in Weight 128 lb BMI 22.7 BP 156/78 H 150/80 H Blood Pressure Location Lt brachial Lt brachial Position Sitting Sitting Intake Visit Reasons: AWV Intake Note: Patient here for an annual wellness visit Nuclear Scientist Required: No Accompanied by: Self / Same As Patient Allergies lactose [Lactose] Allergy (Intermediate, Verified 03/11/24 12:45) DIARRHEA, N/V metformin Allergy (Intermediate, Verified 03/11/24 12:45) stomach upset Medication List - Last Reconciled 03/11/24 by Marybeth Dennis MD alendronate 70 mg PO QWEEK 90 days aspirin 81 mg PO DAILY blood sugar diagnostic (FreeStyle Lite Strips) Use 1 test strip once a day blood-glucose meter (FreeStyle Lite Meter kit) As directed carvedilol 12.5 mg PO BID cetirizine 10 mg PO DAILY PRN 90 days cholecalciferol (vitamin D3) (Vitamin D3) 50 mcg PO DAILY 90 days docusate sodium 100 mg PO DAILY ezetimibe 10 mg PO DAILY famotidine (Pepcid) 40 mg PO .q3pm fenofibrate nanocrystallized 145 mg PO DAILY 90 days fluticasone propion-salmeterol 250-50 mcg/dose 1 ea inhalation DAILY glycerin (adult) (Fleet Glycerin (Adult) rectal suppository) 2 supp OH DAILY hydrocortisone 2.5% (Proctosol HC) 1 appl OH BID isosorbide mononitrate ER 120 mg PO DAILY 90 days lancets (FreeStyle Lancets) Use 1 lancet once a day linaclotide (Linzess) 72 mcg PO QAM [id number]-[id number]-knivdha 24,000-76,000 -120,000 unit (Creon) 2 caps PO BID 30 days lisinopril 10 mg PO DAILY 90 days metoprolol succinate ER 12.5 mg (1/2 x 25 mg) PO DAILY 90 days omeprazole 40 mg PO DAILY 90 days ondansetron HCl 8 mg PO Q8H oxycodone ER (OxyContin) 10 mg PO BID 30 days oxycodone-acetaminophen 7.5-325 mg 1 tab PO Q6H PRN 30 days rosuvastatin 40 mg PO DAILY 90 days Saccharomyces boulardii (Florastor) 250 mg PO DAILY sitagliptin phosphate (Januvia) 100 mg PO DAILY venlafaxine ER 37.5 mg PO BEDTIME 90 days HPI HPI Comments History of Present Illness Details This is a 78-year-old female with diabetes mellitus type 2 mild recurrent major depression that comes for her Medicare wellness exam. A1c within goal. Depression present but she declines medication or counseling. Colonoscopy done less than 10 years ago was normal. Mammogram done 2022 and will order another mammogram. DEXA scan done 2022 and follow by Rheumatology for her osteoporosis. She complains of tender venous insufficiency and will be referred to vascular surgery. She also has some memory loss and will be referred to Neurology. Healthcare proxy is son Viktor and I gave her the forms. Ppp handed to patient. [place] of care was done. Blood pressure is elevated and lisinopril will be increased from 10 mg to 20 mg. Blood pressure will be recheck in 3 weeks by nurse navigator. [facility] Medical History (Updated 03/11/24 @ 13:34 by Marybeth Dennis MD) Fecal impaction in rectum Adult general medical exam Oropharyngeal dysphagia MODESTA (generalized anxiety disorder) Mild recurrent major depression Submandibular lymphadenopathy Post-menopausal Chronic daily headache Essential hypertension Lumbar disc disease with radiculopathy Mixed hyperlipidemia Therapeutic opioid induced constipation Hypovitaminosis D Dizziness Diarrhea Hair loss Diabetes mellitus Coronary artery disease Surgical History History of colonoscopy S/P CABG x 2 History of total abdominal hysterectomy and bilateral salpingo-oophorectomy History of cardiac catheterization History of rectal polypectomy History of cholecystectomy Family History Father Brain cancer Mother Ovarian cancer Sister Breast cancer Sister Lung cancer Brother Stomach cancer Son Substance abuse Sister Cancer Social History Housing: Apartment Alcohol intake: never Patient Tobacco Use Status: Never used Tobacco e-Cigarette/Vaping Use: Never Used Second Hand Smoke Exposure: No service: No Current occupational status: disabled Cognitive needs: Yes Hearing needs: No Vision needs: Yes Questionnaire Medicare Wellness Checkup [age] What gender do you identify with?: female During the past 4 weeks, how much have you been bothered by emotional problems such as feeling anxious, depressed, irritable, sad or downhearted, and blue?: quite a bit During the past 4 weeks, has your physical & emotional health limited your social activities with family, friends, neighbors, or groups?: slightly During the past 4 weeks, how much bodily pain have you generally had?: mild pain During the past 4 weeks, was someone available to help you if you needed & wanted help?: yes, some During the past 4 weeks, what was the hardest physical activity you could do for at least 2 minutes?: moderate Can you get to places out of walking distance without help? (For eg., can you travel alone on buses, taxis or drive your car?): No Can you go shopping for groceries or clothes without someone's help?: No Can you prepare your own meals?: No Can you do your housework without help?: No Because of any health problems, do you need the help of another person with your personal care needs such as eating, bathing, dressing or getting around the house?: Yes Can you handle your own money without help?: Yes During the past 4 weeks, how would you rate your health in general?: good During the past 4 weeks how have things been going for you?: good & bad parts about equal Are you having difficulties driving your car?: not applicable, I don't use a car Do you always fasten your seat belt when you are in a car?: yes, usually During past 4 weeks, have you been bothered by the following: never: Sexual problems?, Teeth or denture problems? and Problems using the telephone?, often: Falling or dizzy when standing up and Trouble eating well? and always: Tiredness or fatigue? Have you fallen 2 or more times in the past year?: Yes Are you afraid of falling?: Yes Are you a smoker?: no During the past 4 weeks, how many drinks of wine, beer, or other alcoholic beverages did you have?: no alcohol at all Do you exercise for about 20 minutes 3 or more times a week?: no, I usually do not exercise this much Have you been given information to help with the following?: yes: Keeping track of your medications? and no: Hazards in your house that might hurt you? How often do you have trouble taking medicines the way you have been told to take them?: I always take medicine as prescribed How confident are you that you can control & manage most of your health problems?: somewhat confident What is your race?: or origin or descent Mini Mental State Exam (MMSE) Orientation What is the (year) (season) (date) (day) (month)?: year, season, date, day and month Where are we (state) (county) (town or city) (hospital) (floor)?: state, county, town or city, hospital/clinic and floor Registration Name of 3 unrelated objects clearly and slowly, then ask patient to repeat all 3 of them. (1st repeat determines score. Make sure they can repeat all three): object 1, object 2 and object 3 Attention & Calculation (CHOOSE ONE) Spell WORLD backwards (DLROW): 0 letters Recall Ask patient to repeat the 3 items from question #3.: object 1 and object 2 Language Show patient a wristwatch & ask what it is. Repeat for pencil.: watch and pencil Ask the patient to repeat the phrase 'No ifs, ands, or buts' after you.: correct Ask the patient to 'take a piece of paper with their right hand' 'fold paper in half' 'place paper on floor': take paper in right hand, fold paper in half and place paper on floor Print the sentence 'CLOSE YOUR EYES' on a piece. If patient actually closes eyes then score.: followed written direction Give patient a blank piece of paper & ask to write a sentence. Score if it contains a noun & verb.: sentence contains subject and verb Ask patient to copy figure of intersecting pentagons exactly. Score if all 10 angles & 2 intersects are included.: all 10 angles present & 2 are intersected Score Score: 24 Activity of Daily Living Bathing - sponge bath, tub bath or shower: receives help in bathing only one body part (such as back or leg) Dressing - getting clothes from closets & drawers, including inner/outer garments & fasteners.: receives help getting clothes or getting dressed, or stays undressed Toileting - going to the 'toilet room' for urine/bowel elimination & cleaning self/arranging clothes: goes to toilet room, cleans self, arranges clothes without help Transfer: moves in & out of bed and chair without help (may use support object) Continence: has occasional 'accidents' Feeding: feeds self without help Total Score: 1 Information obtained from: patient Using telephone: independent Traveling: needs assistance Shopping: needs assistance Preparing meals: dependent Housework: dependent Taking medicine: needs assistance Managing money: independent PHQ-9 Over the last 2 weeks, how often have you been bothered by any of the following problems? 1. Little interest or pleasure in doing things: not at all 2. Feeling down, depressed, or hopeless: more than half the days 3. Trouble falling or staying asleep, or sleeping too much: more than half the days 4. Feeling tired or having little energy: nearly every day 5. Poor appetite or overeating: not at all 6. Feeling bad about yourself - or that you are a failure or have let yourself or your family down: not at all 7. Trouble concentrating on things, such as reading the newspaper or watching television: not at all 8. Moving or speaking so slowly that other people could have noticed. Or the opposite - being so fidgety or restless that you have been moving around a lot more than usual: not at all 9. Thoughts that you would be better off or of hurting yourself in some way: not at all Total score: 7 Depression Screening Interpretation: Positive Depression Screening Follow-up: Existing condition, Follow-up Visit Requested and Declines treatment Depression Screening Done: Yes 72996 - PHQ-9 Billing: Yes Source: Developed by Drs. Pradip Evans, Caroline Hassan, Shakir Bolton and colleagues, with an educational ailyn from [employer]. AUDIT C Alcohol Use Questionnaire (AUDIT-C) 1. How often do you have a drink containing alcohol?: Never Total Score: 0 Score Reviewed/Action Taken: No Thrive Questionnaire Date Thrive assessed: 03/11/24 I am a: Patient What is your living situation today?: I have a steady place to live Within the past 12 months, did the food you bought not last and you didn't have the money to get more?: Never true Within the past 12 months, did you worry whether your food would run out before you got money to buy more?: Never true Do you have trouble paying for medicines?: No Do you have trouble getting transportation to medical appointments?: No Do you have trouble paying your heating and electricity bill?: No Do you have trouble taking care of your child, family member or friend?: No Do you have trouble with day-to-day activities such as bathing, preparing meals, shopping, managing finances, etc.?: No Are you currently unemployed and looking for a job?: No Are you interested in more education?: No Please select the resources that you would like help with: None Currently or been in a relationship where the following occur: No concerns reported THRIVE Score: 0 Fall Risk Assessment Fall Risk Assessment Fall risk assessment: No Falls in past year MODESTA-7 AMB Questionnaire MODESTA-7 Date MODESTA - 7 assessed: 03/11/24 Feeling nervous, anxious, or on edge: 1 = Several days Not being able to stop or control worryin = Not at all Worrying too much about different things: 1 = Several days Trouble relaxin = Not at all Being so restless that it is hard to sit still: 0 = Not at all Becoming easily annoyed or irritable: 0 = Not at all Feeling afraid as if something awful might happen: 0 = Not at all Total MODESTA-7 score (0-4 normal; 5-9 mild; 10-14 moderate; 15-21 severe): 2 Source: Developed by Drs. Pradip Evans, Caroline Hassan, Shakir Bolton and colleagues, with an educational ailyn from [employer]. MODESTA-7 Assessment Billing MODESTA-7 Assessment Tool: MODESTA-7 Assessment 63405 Review of Systems Const All systems reviewed & are unremarkable except as noted in HPI and below Card Denies chest pain at rest, Denies chest pain with activity, Denies edema, Denies irregular heart rhythm, Denies claudication, Denies dyspnea, Denies dyspnea on exertion, Denies orthopnea, Denies paroxysmal nocturnal dyspnea and Denies slow heart rate Resp Denies cough, Denies dyspnea and Denies dyspnea on exertion GI Denies abdominal pain, Denies change in bowel habits, Denies excessive flatus, Denies nausea and Denies vomiting Denies urinary incontinence, Denies urinary hesitancy and Denies urinary urgency Musc Denies atrophy, Denies deformity and Denies limited range of motion Skin/Breast Denies bleeding lesions, Denies changing lesions and Denies rash Neuro Denies confusion and Reports memory loss Psych Denies confusion, Reports depression and Reports memory loss Physical Exam Vital Signs: Last Vital Signs BP 156/78 H 03/11/24 12:20 BMI result Body Mass Index 22.7 Const General: No confusion Orientation/consciousness: patient oriented x3 and No confusion Resp Effort & Inspection: normal respiratory effort Auscultation: clear to auscultation bilaterally Cardio Jugular venous distension: no JVD Rate: regular rate Rhythm: regular rhythm Heart sounds: S1 normal heart sound present and S2 normal heart sound present Neuro General: patient oriented x3, no focal motor deficits and No confusion Gait exam (Neuro): Normal gait present Romberg Test: Negative Extrem General: Yes full ROM Results AMB Hemoglobin A1c AMB Hemoglobin A1c 5.6 % Last Edit by LUZ MARINA Alaniz on 03/11/24 12:42 Results Reviewed Results Reviewed: Laboratory Last Values Hgb A1c (Clinic) 5.6 % (4.0-6.0) 03/11/24 12:41 Assessment & Plan Assessment & Plan (1) Encounter for Medicare annual wellness exam: Code(s): Z00.00 - Encounter for general adult medical examination without abnormal findings Plan: Repeat in a year. (2) Cognitive impairment: Code(s): R41.89 - Other symptoms and signs involving cognitive functions and awareness Plan: Referred to neurology. (3) Venous insufficiency: Code(s): I87.2 - Venous insufficiency (chronic) (peripheral) Plan: Referred to vascular surgery. (4) Mild recurrent major depression: Code(s): F33.0 - Major depressive disorder, recurrent, mild Plan: Declines treatment at the moment. (5) Diabetes mellitus: Code(s): E11.9 - Type 2 diabetes mellitus without complications Qualifiers: Diabetes mellitus type: type 2 Diabetes mellitus skilled nursing insulin use: without ad terminal makeup operator use Diabetes mellitus complication status: without complication Qualified Code(s): E11.9 - Type 2 diabetes mellitus without complications Plan: Continue Januvia. A1c goal is equal or less than 7%. Orders: Orders AMB Hemoglobin A1c Today E11.9 - Type 2 diabetes mellitus without complications MM screening mammo BI Today Z12.31 - Encounter for screening mammogram for malignant neoplasm of breast Referrals Neurology Referral R41.89 - Other symptoms and signs involving cognitive functions and awareness Vascular Surgery Referral I87.2 - Venous insufficiency (chronic) (peripheral) Medications: New lisinopril 20 mg PO DAILY 90 tabs 2RF 90 days Refilled cetirizine 10 mg PO DAILY PRN 90 tabs 0RF allergy symptoms 90 days Discontinued lisinopril Discontinued Reason: Patient Completed Course 10 mg PO DAILY 90 days 90 tabs 1RF Quality Reporting (2019) Adult ([facility] 138//) Smoking risk assessment performed?: Yes Patient Tobacco Use Status: Never used Tobacco Fall Risk Screening ([facility] 139) Fall risk assessment: No Falls in past year Depression/Bipolar (159/160/161/177) PHQ-9: Total score: 7 Coding Level of Care Code Medicare First (G0438) Est Pt Level 3 (94411) Diagnoses Encounter for Medicare annual wellness exam Z00.00 Cognitive impairment R41.89 Venous insufficiency I87.2 Mild recurrent major depression F33.0 Type 2 diabetes mellitus without complication, without long-term current use of insulin E11.9 Diabetes mellitus type: type 2 Diabetes mellitus ad terminal makeup operator insulin use: without skilled nursing use Diabetes mellitus complication status: without complication CPT Codes Advance Care Planning - Time spent: 1-15 minutes, on File ([id number]) Additional Codes MODESTA-7 Assessment Billing - MODESTA-7 Assessment Tool: MODESTA-7 Assessment [id number] ([id number]) Time Spent (min) 40 Advance Care Planning Advance Care Planning discussion: Exists, not on file Date of discussion: 03/11/24 Who was present: patient and me Forms completed: Health Care Proxy Time spent: 1-15 minutes, on File Actual minutes spent: 1
[2024-03-11 12:20] VITALS: BP 156/78; BMI 22.7
[2024-03-11 13:41] VITALS: BP 150/80
== END 2024-03-11 13:09 | disposition home or self-care (01) ==
PROVIDERS: PCP Internal Medicine; Visit Provider Internal Medicine
DX: Z00.00 Encounter for general adult medical examination without abnormal findings (principal); R41.89 Other symptoms and signs involving cognitive functions and awareness; I87.2 Venous insufficiency (chronic) (peripheral); F33.0 Major depressive disorder, recurrent, mild; E11.9 Type 2 diabetes mellitus without complications
CPT/HCPCS: 1123F; 83036; 99213; G0438

== ENCOUNTER 2024-03-13 15:03 | Outpatient (AMB) | payer OTHER, SELFPAY ==
[2024-03-13 15:12] VITALS: BP 179/103; PULSE 57; BMI 22.9
--- NOTE | 2024-03-13 15:12 | MHC.OFFVIS ---
Vital Signs 03/13/24 15:12 Height 5 ft 3 in Weight 129 lb 3.054 oz BMI 22.9 BP 179/103 H Blood Pressure Location Lt brachial Position Sitting Pulse 57 Intake Visit Reasons: 6 weeks follow up Intake Note: Melanie presents to in office 6 weeks follow up of GERD. CC: Patient reports that she was not able to come to her last appointment because she lost her sister and her daughter in law last month. Patient reports having some constipation and nausea. [facility]p Cardiovascular Service Line Required: Yes Accompanied by: Self / Same As Patient Allergies lactose [Lactose] Allergy (Intermediate, Verified 03/13/24 15:27) DIARRHEA, N/V metformin Allergy (Intermediate, Verified 03/13/24 15:27) stomach upset HPI HPI 6 weeks follow up: Details: Assessment & Plan (1) Abdominal bloating: Code(s): R14.0 - Abdominal distension (gaseous) Category: Medical (2) Chronic idiopathic constipation: Code(s): K59.04 - Chronic idiopathic constipation Category: Medical (3) Dysphagia, oropharyngeal: Comment: Significant esophageal spasm associated with this when her GERD is not controlled aeb Code(s): R13.12 - Dysphagia, oropharyngeal phase Category: Medical (4) GERD (gastroesophageal reflux disease): Code(s): K21.9 - Gastro-esophageal reflux disease without esophagitis Category: Medical Plan Portuguese #[id number] She says she is having trouble and stress with her son. After being on the creon she says it is helping her gas a little bit but she is only taking 1 a day....she is again educated that she needs to take 2 caps bid as 1 a day is not enough. Colace 100 mg daily, famotidine 40 mg in the afternoon Proctosol hemorrhoid cream, Linzess 72 micro g, Creon 39936 units 3 times a day, omeprazole 40 mg in the morning. ROV 6 weeks. Medications: Changed From nxzfhl-thwcohtd-pqketce 24,000-76,000 -120,000 unit (Creon) administer with meals and/or snacks 1 cap PO .tidac 30 days 90 caps 6RF K58.9 - Irritable bowel syndrome without diarrhea To nfoflw-qqlnyjut-ymrwqfl 24,000-76,000 -120,000 unit (Creon) administer with meals and/or snacks 2 caps PO BID 120 caps 6RF 30 days K58.9 - Irritable bowel syndrome without diarrhea Refilled linaclotide (Linzess) 72 mcg PO QAM 30 caps 6RF famotidine (Pepcid) 40 mg PO .q3pm 90 tabs 3RF K21.9 - Gastro-esophageal reflux disease without esophagitis omeprazole 40 mg PO DAILY 90 caps 3RF 90 days TODAY'S VISIT Portuguese #[id number] She says she has been a little bit constipated. This despite taking her Linzess 72mcg every day - however, when we increased this in the past she had diarrhea. So, I will try sending senna to use as needed with it, and continue her colace. She is taking the creon 2 caps bid. This has helped somewhat with her gas problems. Her omeprazole along with famotidine is working well to control her heartburn. ROV 6 mos [facility] Medical History (Updated 03/13/24 @ 15:36 by PEDRO PABLO Garcia) Encounter for Medicare annual wellness exam Fecal impaction in rectum Adult general medical exam Oropharyngeal dysphagia MODESTA (generalized anxiety disorder) Mild recurrent major depression Submandibular lymphadenopathy Post-menopausal Chronic daily headache Essential hypertension Lumbar disc disease with radiculopathy Mixed hyperlipidemia Therapeutic opioid induced constipation Hypovitaminosis D Dizziness Diarrhea Hair loss Diabetes mellitus Coronary artery disease Surgical History History of colonoscopy S/P CABG x 2 History of total abdominal hysterectomy and bilateral salpingo-oophorectomy History of cardiac catheterization History of rectal polypectomy History of cholecystectomy Family History Father Brain cancer Mother Ovarian cancer Sister Breast cancer Sister Lung cancer Brother Stomach cancer Son Substance abuse Sister Cancer Social History Housing: Apartment Alcohol intake: never Patient Tobacco Use Status: Never used Tobacco e-Cigarette/Vaping Use: Never Used Second Hand Smoke Exposure: No service: No Current occupational status: disabled Cognitive needs: Yes Hearing needs: No Vision needs: Yes Review of Systems Const Denies fatigue, Denies fever(s), Denies night sweats, Denies poor appetite and Denies weight loss ENT Reports Normal hearing present, Denies dental pain, Denies dysphagia, Denies hearing loss, Denies mouth pain, Denies odynophagia, Denies throat swelling, Denies tongue swelling and Reports other (Dentition adequate) Card Reports no additional complaints Resp Reports no additional complaints GI Details: Denies abdominal pain, Denies melena, Reports bloating, Denies hematochezia, Reports constipation, Denies GI cramping, Denies dysphagia, Reports excessive flatus, Denies early satiety, Reports heartburn, Denies diarrhea, Denies nausea, Denies odynophagia, Denies vomiting and Denies hematemesis Skin/Breast Denies pruritus, Denies lesions, Denies rash and Denies jaundice Neuro Reports Normal hearing present, Denies Abnormal speech present and Reports memory loss Psych Reports memory loss Endo Denies fatigue Aller/Immun Denies throat swelling and Denies tongue swelling Physical Exam Vital Signs: Last Vital Signs Pulse 57 03/13/24 15:12 BP 179/103 H 03/13/24 15:12 BMI result Body Mass Index 22.9 Const General: cooperative, no acute distress, well developed and well groomed Nutritional Appearance: average body habitus and well nourished Orientation/consciousness: oriented to person, oriented to place and oriented to time Limitations: language barrier and other limitations HEENT Head: Yes normocephalic and Yes atraumatic Eyes General: appearance normal, both eyes and all related structures Pupils: Equal, round and reactive pupils present Neck Neck: Yes normal visual inspection and Yes no lymphadenopathy Thyroid: Thyroid normal Resp Effort & Inspection: normal respiratory effort and able to speak in complete sentences Auscultation: clear to auscultation bilaterally Cardio Rate: regular rate Rhythm: regular rhythm Heart sounds: Normal, physiologic split S2 sound present Peripheral pulses: radial pulses present and posterior tibial pulses present GI Inspection: No distended and No Abdominal panniculus present Palpation (GI): Soft to palpation, nontender, no guarding, not rigid and No hepatosplenomegaly present Percussion: Yes normal to percussion Auscultation: normal bowel sounds Rectal Exam - Female: deferred Skin General skin exam: no rashes or lesions noted, turgor normal, skin not dry, no jaundice, No spider nevi and no striae Rashes: no rashes Nails: normal Neuro General: oriented to person, oriented to place and oriented to time Cranial nerves: Yes Equal, round and reactive pupils present and Yes Normal hearing present Speech: No Abnormal speech present Extrem General: Yes normal to inspection, No clubbing, No cyanosis and No edema Psych Appearance: grossly normal and well kempt Mental Status: mental status grossly normal Speech and movement: Normal speech and movement present Affect: normal affect Attitude: cooperative Thought process: Normal thought process present and not confabulating Thought content: Normal thought content present Insight: Limited insight present (Psych) and Poor insight present (Psych) Judgement: Limited judgement present (Psych) and Poor judgement present (Psych) Quality Reporting (2019) Adult ([facility] ) Smoking risk assessment performed?: Yes Patient Tobacco Use Status: Never used Tobacco Assessment & Plan Assessment & Plan (1) Chronic idiopathic constipation: Code(s): K59.04 - Chronic idiopathic constipation Category: Medical (2) GERD (gastroesophageal reflux disease): Code(s): K21.9 - Gastro-esophageal reflux disease without esophagitis Category: Medical (3) Cognitive impairment: Code(s): R41.89 - Other symptoms and signs involving cognitive functions and awareness Category: Medical Plan Portuguese #[id number] She says she has been a little bit constipated. This despite taking her Linzess 72mcg every day - however, when we increased this in the past she had diarrhea. So, I will try sending senna to use as needed with it, and continue her colace. She is taking the creon 2 caps bid. This has helped somewhat with her gas problems. Her omeprazole along with famotidine is working well to control her heartburn. ROV 6 mos Medications: New sennosides (Senna Laxative) 8.6 mg PO BEDTIME 30 tabs 6RF Coding Level of Care Code Est Pt Level 3 (09276) Diagnoses Chronic idiopathic constipation K59.04 GERD (gastroesophageal reflux disease) K21.9 Cognitive impairment R41.89
== END 2024-03-13 15:50 | disposition home or self-care (01) ==
PROVIDERS: PCP Internal Medicine; Visit Provider Nurse Practitioner
DX: K59.04 Chronic idiopathic constipation (principal); K21.9 Gastro-esophageal reflux disease without esophagitis; R41.89 Other symptoms and signs involving cognitive functions and awareness
CPT/HCPCS: 99213

== ENCOUNTER → 2024-03-13 15:03 | Outpatient (BNVA) | payer OTHER, SELFPAY | PROVIDERS: PCP Internal Medicine; Visit Provider Nurse Practitioner | DX: K21.9 Gastro-esophageal reflux disease without esophagitis (principal); K59.04 Chronic idiopathic constipation; R41.89 Other symptoms and signs involving cognitive functions and awareness; Z90.49 Acquired absence of other specified parts of digestive tract | CPT/HCPCS: 99212 ==

== ENCOUNTER → 2024-03-27 13:01 | Outpatient (BNVA) | payer OTHER, SELFPAY | PROVIDERS: PCP Internal Medicine ==

== ENCOUNTER 2024-04-24 13:15 | Outpatient (AMB) | payer OTHER, SELFPAY ==
--- NOTE | 2024-04-24 13:16 | A.OFFVIS_ITS ---
Intake Visit Reasons: [employer] VV Intake Note: Patient presents for VV. States she gets cramping in both legs , unable to get out of bed in the morning. She has arthritis and diabetes. Non smoker. Allergies lactose [Lactose] Allergy (Intermediate, Verified 04/24/24 13:22) DIARRHEA, N/V metformin Allergy (Intermediate, Verified 04/24/24 13:22) stomach upset HPI HPI [employer] VV: Details: Melanie is a Surinamese-speaking only 78-year-old female presenting today on referral from her PCP for varicose veins. We utilized supervisor rides [id number]. Patient has unclear speech and there were difficult interpretations throughout the interview process today. The patient has been having chronic cramping type pain in bilateral lower extremities for awhile now. She has a lengthy history of chronic pain issues including arthritis did state she spent 7 years in a wheelchair in [place] for an unknown medical condition, but states it was some inflammatory process. She no longer requires the wheelchair. She states her left leg is a little worse than the right. The pain does increase with walking. She does have a history of arthritis and diabetes but is a nonsmoker. She denies any dry skin any coolness to the extremities and denies any numbness and tingling. [facility] Medical History Encounter for Medicare annual wellness exam Fecal impaction in rectum Adult general medical exam Oropharyngeal dysphagia MODESTA (generalized anxiety disorder) Mild recurrent major depression Submandibular lymphadenopathy Post-menopausal Chronic daily headache Essential hypertension Lumbar disc disease with radiculopathy Mixed hyperlipidemia Therapeutic opioid induced constipation Hypovitaminosis D Dizziness Diarrhea Hair loss Diabetes mellitus Coronary artery disease Surgical History History of colonoscopy S/P CABG x 2 History of total abdominal hysterectomy and bilateral salpingo-oophorectomy History of cardiac catheterization History of rectal polypectomy History of cholecystectomy Family History Father Brain cancer Mother Ovarian cancer Sister Breast cancer Sister Lung cancer Brother Stomach cancer Son Substance abuse Sister Cancer Social History Housing: Apartment Alcohol intake: never Patient Tobacco Use Status: Never used Tobacco e-Cigarette/Vaping Use: Never Used Second Hand Smoke Exposure: No service: No Current occupational status: disabled Cognitive needs: Yes Hearing needs: No Vision needs: Yes Review of Systems Const Reports as per HPI and Denies weakness ENT Reports Normal hearing present and Denies dizziness Card Reports as per HPI, Denies chest pain, Denies chest pain at rest, Denies chest pain with activity, Denies dyspnea and Denies dyspnea on exertion Resp Reports as per HPI, Denies cough, Denies dyspnea and Denies dyspnea on exertion GI Reports as per HPI, Denies abdominal pain, Denies nausea and Denies vomiting Musc Denies numbness Skin/Breast Reports as per HPI, Denies erythema and Denies wounds Neuro Reports Normal hearing present, Denies dizziness, Denies numbness, Denies S ensory deficit (Neuro) and Denies weakness Psych Reports no additional complaints Endo Reports no additional complaints Physical Exam Const General: healthy appearing and no acute distress Orientation/consciousness: patient oriented x3 HEENT Head: Yes normal to inspection Ears: hearing grossly normal bilaterally Mouth: Normal oral and palatal mucosa present Resp Effort & Inspection: normal respiratory effort and able to speak in complete sentences Auscultation: clear to auscultation bilaterally Cardio Jugular venous distension: no JVD Rate: regular rate Rhythm: regular rhythm Heart sounds: S1 normal heart sound present and S2 normal heart sound present Bruits: no abdominal aortic bruits, no carotid bruits, no femoral bruits and no renal bruits Peripheral pulses: Peripheral pulses 2+ throughout GI Inspection: Yes normal to inspection Palpation (GI): No Abdominal aortic bruit present Skin Other: Left lower extremity: tortuous varicose veins noted behind the knee and down the medial aspect of the lower leg to mid-alas. Telangiectasis noted around her ankle. Smaller spider veins noted down the leg. Not painful to palpation. Right lower extremity: smaller tortuous varicose veins noted behind the knee, less telangiectasis noted around ankle. Smaller spider veins noted down the leg. +DP/PT pulses bilaterally. Feet and legs warm to the touch. No wounds/erythema noted. CEAP: C - 4 pigmentation E - primary A- superficial P - reflux General skin exam: no rashes or lesions noted Wounds: no wounds Hair: normal Neuro General: patient oriented x3 Cranial nerves: Yes Normal hearing present Cognition (Neuro): normal cognition Gait exam (Neuro): Normal gait present Motor exam (neuro): 5/5 motor strength present throughout Sensory Exam: No Sensory deficit (Neuro) Extrem General: Yes normal to inspection, Yes full ROM, Yes capillary refill normal and Yes normal gait Quality Reporting (2019) Adult ([facility] 138/08/30/68) Smoking risk assessment performed?: Yes Patient Tobacco Use Status: Never used Tobacco Assessment & Plan Assessment & Plan (1) Varicose veins of both lower extremities with inflammation: Code(s): I83.11 - Varicose veins of right lower extremity with inflammation; I83.12 - Varicose veins of left lower extremity with inflammation Category: Medical Plan: Melanie is presenting today with concerns for ongoing varicose vein issues bilaterally in her lower extremities. She was referred by her PCP. There was some difficulty in the interpretations but we were able to find that she has a cramping type pain that is constant, worse with walking. We are unable to deter mine how long of a time frame this has been going on for. However she does have a history of being in a wheelchair for over 7 years in [place] due to some inflammatory process. It appears she has had multiple pain conditions. In short, the patient has evidence of venous insufficiency. I have discussed the pathophysiology with the patient. In addition I have provided informational material regarding venous disease to the patient. We have discussed conservative measures including compression, elevation, and exercise. I have also provided a handout regarding appropriate use of compression stockings and where to purchase good compression stockings as well. I have taken the liberty of ordering venous insufficiency testing with the patient. They will follow up with me after testing. The patient had an opportunity to ask questions regarding the treatment plan. All questions were answered. No major barriers to understanding were identified. The patient expressed understanding and agreement with the above treatment plan. The patient is aware they should contact our office by phone for worsening of the current condition or the appearance of new symptoms. Thank you for allowing me to participate in the vascular care of this patient. If you have any questions or concerns regarding the treatment for the above condition please do not hesitate to contact me. The office telephone contact is [phone]. This note is constructed using voice recognition software. While every effort has been made to ensure accuracy, corporate travel coordinator errors may have been included. Thank you for allowing me to participate in the care of your patient. Yours sincerely, RYAN James (2) Venous insufficiency: Code(s): I87.2 - Venous insufficiency (chronic) (peripheral) Category: Medical Plan: see above Plan See above Orders: Orders US venous duplex LE BI 1 Week I83.11 - Varicose veins of right lower extremity with inflammation, I83.12 - Varicose veins of left lower extremity with inflammation, I87.2 - Venous insufficiency (chronic) (peripheral) Coding Level of Care Code New Pt New Pt Level 4 (41110) Patient Type New Diagnoses Varicose veins of both lower extremities with inflammation I83.11; I83.12 Venous insufficiency I87.2
== END 2024-04-24 13:43 | disposition home or self-care (01) ==
LOC: HO.HVS 13:15
PROVIDERS: PCP Internal Medicine; Visit Provider Physician Assistant Surgical
DX: I83.11 Varicose veins of right lower extremity with inflammation (principal); I83.12 Varicose veins of left lower extremity with inflammation; I87.2 Venous insufficiency (chronic) (peripheral)
CPT/HCPCS: 99204

== ENCOUNTER → 2024-04-24 13:15 | Outpatient (BNVA) | payer OTHER, SELFPAY | PROVIDERS: PCP Internal Medicine; Visit Provider Physician Assistant Surgical | DX: I83.11 Varicose veins of right lower extremity with inflammation (principal); I83.12 Varicose veins of left lower extremity with inflammation | CPT/HCPCS: 99202 ==

== ENCOUNTER 2024-05-08 13:00 | Outpatient (REF) | payer OTHER, SELFPAY ==
--- NOTE | ~2024-05-08 | US_ITS ---
EXAMINATION: US LOWER EXTREMITY VENOUS (REFLUX EXAM), BILATERAL CLINICAL INFORMATION: Varicose veins right lower extremity with inflammation. COMPARISON: None available. TECHNIQUE: Color flow triplex imaging and compression Doppler was performed to evaluate both the deep and the superficial systems bilaterally. To evaluate the superficial system, the examination was performed in the upright position. Color-flow Doppler ultrasound and compression ultrasound were utilized. In addition, maneuvers were utilized to demonstrate reflux. FINDINGS: 1. DEEP VENOUS ULTRASOUND OF THE RIGHT LOWER EXTREMITY: Common Femoral Vein: Compressible, normal respiratory variation and augmented flow. Femoral Vein: Compressible, normal color flow and augmentation. Popliteal Vein: Compressible, normal augmentation. Deep Reflux: There is no evidence of reflux in the deep system in either the common femoral vein, superficial femoral or the popliteal vein. There is no evidence of a [place]'s cyst. 2. SUPERFICIAL ULTRASOUND WITH DOPPLER OF RIGHT LOWER EXTREMITY: GREAT SAPHENOUS VEIN: Saphenofemoral Junction: 0.7 cm; Reflux: 0 ms Proximal Thigh: 0.8 cm; Reflux: 0 ms Mid Thigh: 0.3 cm; Reflux: 0 ms Distal Thigh: 0.3 cm; Reflux: 0 ms At Knee: 0.3 cm; Reflux: 0 ms Proximal Calf: 0.1 cm; Reflux: 0 ms Mid Calf: 0.1 cm; Reflux: 0 ms Distal Calf: 0.1 cm; Reflux: 0 ms DUPLICATED MEDIAL GREAT SAPHENOUS VEIN: Diameter: None imaged Reflux: NA DUPLICATED LATERAL GREAT SAPHENOUS VEIN: Diameter: None imaged Reflux: NA SMALL SAPHENOUS VEIN: Saphenopopliteal Junction: 0.2 cm; Reflux: 0 ms Proximal: 0.2 cm; Reflux: 0 ms Distal: 0.2 cm; Reflux: 0 ms VEIN OF GIACOMINI: Size: NA Reflux: NA PERFORATORS: Location: None at reflux Size: NA Reflux: NA VARICOSITIES: Location: None imaged. Size: NA Reflux: NA 3. DEEP VENOUS ULTRASOUND OF THE LEFT LOWER EXTREMITY: Common Femoral Vein: Compressible, normal respiratory variation and augmented flow. Femoral Vein: Compressible, normal color flow and augmentation. Popliteal Vein: Compressible, normal augmentation. Deep Reflux: There is no evidence of reflux in the deep system in either the common femoral vein, superficial femoral or the popliteal vein. There is no evidence of a [place]'s cyst. 4. SUPERFICIAL ULTRASOUND WITH DOPPLER OF LEFT LOWER EXTREMITY: GREAT SAPHENOUS VEIN: Saphenofemoral Junction: 0.5 cm; Reflux: 0 ms Proximal Thigh: Removed Mid Thigh: Removed Distal Thigh: Removed At Knee: 0.1 cm; Reflux: 2468 ms Proximal Calf: 0.3 cm; Reflux: 0 ms Mid Calf : 0.1 cm; Reflux: 0 ms Distal Calf: 0.1 cm; Reflux: 0 ms DUPLICATED MEDIAL GREAT SAPHENOUS VEIN: Diameter: None imaged Reflux: NA DUPLICATED LATERAL GREAT SAPHENOUS VEIN: Diameter: None imaged. Reflux: NA SMALL SAPHENOUS VEIN: Saphenopopliteal Junction: 0.1 cm; Reflux: 0 ms Proximal: 0.1 cm; Reflux: 0 ms Distal: 0.1 cm; Reflux: 0 ms VEIN OF GIACOMINI: Size: NA Reflux: NA PERFORATORS: Location: There was one refluxing division order technician noted 55 cm from the calcaneus and the proximal thigh. Size: 0.2 cm Reflux: 3 seconds VARICOSITIES: Location: None Imaged Size: NA Reflux: NA US/US venous insuf bilat IMPRESSION: 1. Right: No significant venous insufficiency or reflux. 2. Left: The great saphenous vein is removed from the proximal thigh to the distal thigh. There is a small segment of the great saphenous vein at the knee which is incompetent. There is a single refluxing division order technician in the proximal thigh. Electronically signed by: Isaias Livingston MD 05/20/2024 08:46 AM [facility]
== END 2024-05-08 13:01 | disposition home or self-care (01) ==
LOC: HO.US 13:00
PROVIDERS: PCP Internal Medicine; Visit Provider Physician Assistant Surgical
DX: I87.2 Venous insufficiency (chronic) (peripheral) (principal)
CPT/HCPCS: 93970

== ENCOUNTER 2024-05-20 15:38 | Outpatient (REF) | payer OTHER, SELFPAY ==
--- NOTE | ~2024-05-20 | MM_ITS ---
EXAMINATION: MM SCREENING DIGITAL BREAST TOMOSYNTHESIS, BILATERAL CLINICAL INFORMATION: Screening. Asymptomatic. COMPARISON: Mammography: Comparison is made with available priors TECHNIQUE: Digital breast mammography with tomosynthesis is performed in both the craniocaudal and mediolateral oblique views along with computer-aided detection (CAD). FINDINGS: There are scattered areas of fibroglandular density (ACR BI-RADS breast composition Category b). There are no significant masses, abnormal calcifications, or other abnormalities. MM/MM tomosynthesis screening BI IMPRESSION: No mammographic evidence of malignancy. ASSESSMENT: BI-RADS BI-RADS 1 - Negative RECOMMENDATION: Routine annual mammography screening. 1 year F/U This examination should not preclude the clinical evaluation of a suspicious palpable abnormality. This patient's information was entered into a reminder system with a target due date for their next mammogram. Electronically signed by: Mayte Gallardo DO 05/28/2024 03:58 PM [facility]
== END 2024-05-20 15:39 | disposition home or self-care (01) ==
LOC: HO.MAMMO 15:38
PROVIDERS: PCP Internal Medicine; Visit Provider Internal Medicine
DX: Z12.31 Encounter for screening mammogram for malignant neoplasm of breast (principal)
CPT/HCPCS: 77063; 77067

== ENCOUNTER → 2024-05-20 16:15 | Outpatient (BNV) | payer OTHER, SELFPAY | PROVIDERS: PCP Internal Medicine; Visit Provider Internal Medicine | DX: Z12.31 Encounter for screening mammogram for malignant neoplasm of breast (principal) | CPT/HCPCS: 77063; 77067 ==

== ENCOUNTER 2024-05-22 11:22 | Outpatient (AMB) | payer OTHER, SELFPAY ==
[2024-05-22 11:25] VITALS: BMI 22.8
--- NOTE | 2024-05-22 11:25 | MHC.OFFVIS ---
Vital Signs 05/22/24 11:25 Height 5 ft 3 in Weight 129 lb BMI 22.8 Intake Visit Reasons: follow up [facility] 05/08/24 Intake Note: follow up [facility] 05/08/24, pt states at night she gets pins and needles and cramping at night Accompanied by: Self / Same As Patient Allergies lactose [Lactose] Allergy (Intermediate, Verified 05/22/24 11:30) DIARRHEA, N/V metformin Allergy (Intermediate, Verified 05/22/24 11:30) stomach upset HPI HPI follow up [facility] 05/08/24: Details: Melanie, a pleasant 78 yo Welsh speaking only female pt, is presenting today for a follow up to [facility] testing. 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 She has no new complaints. She continues with intermittent cramping/pain in her lower extremities, worse at night. She states the pain is more tingling in her feet. [facility] Medical History Encounter for Medicare annual wellness exam Fecal impaction in rectum Adult general medical exam Oropharyngeal dysphagia MODESTA (generalized anxiety disorder) Mild recurrent major depression Submandibular lymphadenopathy Post-menopausal Chronic daily headache Essential hypertension Lumbar disc disease with radiculopathy Mixed hyperlipidemia Therapeutic opioid induced constipation Hypovitaminosis D Dizziness Diarrhea Hair loss Diabetes mellitus Coronary artery disease Surgical History History of colonoscopy S/P CABG x 2 History of total abdominal hysterectomy and bilateral salpingo-oophorectomy History of cardiac catheterization History of rectal polypectomy History of cholecystectomy Family History Father Brain cancer Mother Ovarian cancer Sister Breast cancer Sister Lung cancer Brother Stomach cancer Son Substance abuse Sister Cancer Social History Housing: Apartment Alcohol intake: never Patient Tobacco Use Status: Never used Tobacco e-Cigarette/Vaping Use: Never Used Second Hand Smoke Exposure: No service: No Current occupational status: disabled Cognitive needs: Yes Hearing needs: No Vision needs: Yes Review of Systems Const Reports as per HPI and Denies weakness ENT Reports Normal hearing present and Denies dizziness Card Reports as per HPI, Denies chest pain, Denies chest pain at rest, Denies chest pain with activity, Denies dyspnea and Denies dyspnea on exertion Resp Reports as per HPI, Denies cough, Denies dyspnea and Denies dyspnea on exertion GI Reports as per HPI, Denies abdominal pain, Denies nausea and Denies vomiting Musc Denies numbness Skin/Breast Reports as per HPI, Denies erythema and Denies wounds Neuro Reports Normal hearing present, Denies dizziness, Denies numbness, Denies Sensory deficit (Neuro) and Denies weakness Psych Reports no additional complaints Endo Reports no additional complaints Physical Exam Vital Signs: BMI result Body Mass Index 22.8 Const General: healthy appearing and no acute distress Orientation/consciousness: patient oriented x3 HEENT Head: Yes normal to inspection Ears: hearing grossly normal bilaterally Mouth: Normal oral and palatal mucosa present Resp Effort & Inspection: normal respiratory effort and able to speak in complete sentences Auscultation: clear to auscultation bilaterally Cardio Jugular venous distension: no JVD Rate: regular rate Rhythm: regular rhythm Heart sounds: S1 normal heart sound present and S2 normal heart sound present Bruits: no abdominal aortic bruits, no carotid bruits, no femoral bruits and no renal bruits Peripheral pulses: Peripheral pulses 2+ throughout GI Inspection: Yes normal to inspection Palpation (GI): No Abdominal aortic bruit present Skin General skin exam: no rashes or lesions noted Wounds: no wounds Hair: normal Neuro General: patient oriented x3 Cranial nerves: Yes Normal hearing present Cognition (Neuro): normal cognition Gait exam (Neuro): Normal gait present Motor exam (neuro): 5/5 motor strength present throughout Sensory Exam: No Sensory deficit (Neuro) Extrem Other: Left lower extremity: tortuous varicose veins noted behind the knee and down the medial aspect of the lower leg to mid-alas. Telangiectasis noted around her ankle. Smaller spider veins noted down the leg. Not painful to palpation. Right lower extremity: smaller tortuous varicose veins noted behind the knee, less telangiectasis noted around ankle. Smaller spider veins noted down the leg. +DP/PT pulses bilaterally. Feet and legs warm to the touch. No wounds/erythema noted. General: Yes normal to inspection, Yes full ROM, Yes capillary refill normal and Yes normal gait Quality Reporting (2019) Adult ([facility] ) Smoking risk assessment performed?: Yes Patient Tobacco Use Status: Never used Tobacco Results Reviewed Results Reviewed: Brief summary of venous insufficiency testing is as follows: right great saphenous vein: negative right small saphenous vein: negative right accessory vein: none present left great saphenous vein: removed at proximal thigh to the knee, then reconstitutes left small saphenous vein: negative left accessory vein: none present Please note there is no evidence of any venous aneurysms or significant tortuosity Assessment & Plan Assessment & Plan (1) Varicose veins of both lower extremities with inflammation: Code(s): I83.11 - Varicose veins of right lower extremity with inflammation; I83.12 - Varicose veins of left lower extremity with inflammation Category: Medical Plan: Melanie is presenting today for follow-up to a ultrasound for varicose veins. We reviewed the results, which revealed no venous insufficiency or tortuosities. We discussed to continue with elevation, compression stockings, and walking/physical activity. We discussed with the numbness and tingling in her feet she should follow up with her PCP; this is likely related to her diabetes and may be neuropathic in nature. We discussed that if the varicosities become more painful, they change, or they get worse, she should reach back out to us. Thank you for the consult. If there are any questions or concerns, please do not hesitate to reach out to us. Coding Level of Care Code Est Pt Level 4 (25641) Diagnoses Varicose veins of both lower extremities with inflammation I83.11; I83.12 Comment Review of venous insufficiency ultrasound
== END 2024-05-22 11:40 | disposition home or self-care (01) ==
LOC: HO.HVS 11:22
PROVIDERS: PCP Internal Medicine; Visit Provider Physician Assistant Surgical
DX: I83.11 Varicose veins of right lower extremity with inflammation (principal); I83.12 Varicose veins of left lower extremity with inflammation
CPT/HCPCS: 99214

== ENCOUNTER → 2024-05-22 11:22 | Outpatient (BNVA) | payer OTHER, SELFPAY | PROVIDERS: PCP Internal Medicine; Visit Provider Physician Assistant Surgical | DX: I83.11 Varicose veins of right lower extremity with inflammation (principal); I83.12 Varicose veins of left lower extremity with inflammation | CPT/HCPCS: 99212 ==

== ENCOUNTER 2024-07-22 13:32 | Outpatient (AMB) | payer OTHER, SELFPAY ==
[2024-07-22 13:48] VITALS: BP 120/72; BMI 22.5
--- NOTE | 2024-07-22 13:48 | MHC.PC.OV ---
Vital Signs 07/22/24 13:48 Height 5 ft 3 in Weight 127 lb BMI 22.5 BP 120/72 Blood Pressure Location Lt brachial Position Sitting Intake Visit Reasons: 4 Month F/U Intake Note: Patient here for a 4 month follow up Punch Press Setter Required: Yes Punch Press Setter Language: Motion Picture Film Examiner Name: Marybeth Dennis MD Information Interpreted: non-clinical & clinical Accompanied by: Self / Same As Patient Allergies lactose [Lactose] Allergy (Intermediate, Verified 07/22/24 14:16) DIARRHEA, N/V metformin Allergy (Intermediate, Verified 07/22/24 14:16) stomach upset Medication List - Last Reconciled 07/22/24 by Marybeth Dennis MD alendronate 70 mg PO QWEEK 90 days aspirin 81 mg PO DAILY blood sugar diagnostic (FreeStyle Lite Strips) Use 1 test strip once a day blood-glucose meter (FreeStyle Lite Meter kit) As directed carvedilol 12.5 mg PO BID cetirizine 10 mg PO DAILY PRN 90 days cholecalciferol (vitamin D3) (Vitamin D3) 50 mcg PO DAILY 90 days docusate sodium 100 mg PO DAILY ezetimibe 10 mg PO DAILY famotidine (Pepcid) 40 mg PO .q3pm fenofibrate nanocrystallized 145 mg PO DAILY 90 days fluticasone propion-salmeterol 250-50 mcg/dose 1 ea inhalation DAILY glycerin (adult) (Fleet Glycerin (Adult) rectal suppository) 2 supp IL DAILY hydrocortisone 2.5% (Proctosol HC) 1 appl IL BID isosorbide mononitrate ER 120 mg PO DAILY 90 days lancets (FreeStyle Lancets) Use 1 lancet once a day linaclotide (Linzess) 72 mcg PO QAM qdziaa-bkixvspm-gdikpwq 24,000-76,000 -120,000 unit (Creon) 2 caps PO BID 30 days lisinopril 20 mg PO DAILY 90 days metoprolol succinate ER 12.5 mg (1/2 x 25 mg) PO DAILY 90 days omeprazole 40 mg PO DAILY 90 days ondansetron HCl 8 mg PO Q8H oxycodone ER (OxyContin) 10 mg PO BID 30 days oxycodone-acetaminophen 7.5-325 mg 1 tab PO Q6H PRN 30 days rosuvastatin 40 mg PO DAILY 90 days Saccharomyces boulardii (Florastor) 250 mg PO DAILY sennosides (Senna Laxative) 8.6 mg PO BEDTIME sitagliptin phosphate (Januvia) 100 mg PO DAILY venlafaxine ER 37.5 mg PO BEDTIME 90 days Tobacco use date assessed: 07/22/24 Fall risk assessment: No Falls in past year Last assessed Fall Risk: 07/22/24 Dental Screening Dental Screen Date: 07/22/24 Did you have a dental visit in the last 12 months?: Yes Did you have a dental problem in the last 6 months where you did not have access to dental care?: No Was dental information given to patient?: Patient has dentist HPI HPI Comments History of Present Illness Details The patient is a 79-year-old female presenting with a follow-up for management of her chronic conditions including Type 2 Diabetes Mellitus, Essential Hypertension, Hyperlipidemia, and Coronary Artery Disease. She reports an allergy to lactose and adverse gastrointestinal reactions to Metformin, requiring alternative management for her diabetes. She is currently under the care of a concrete sculptor, with twice-yearly consultations for her coronary artery disease. The patient is taking Rosuvastatin 40 mg for hyperlipidemia, which she states may be causing muscle cramps. In an effort to address this, the dosage of Rosuvastatin was reduced to 20 mg. Additionally, the patient is concerned about her sleep issues, indicating a history of insomnia possibly exacerbated by current medications. She denies alcohol and tobacco use, contributing to her lifestyle modifications for her chronic conditions. [facility] Medical History Encounter for Medicare annual wellness exam Fecal impaction in rectum Adult general medical exam Oropharyngeal dysphagia MODESTA (generalized anxiety disorder) Mild recurrent major depression Submandibular lymphadenopathy Post-menopausal Chronic daily headache Essential hypertension Lumbar disc disease with radiculopathy Mixed hyperlipidemia Therapeutic opioid induced constipation Hypovitaminosis D Dizziness Diarrhea Hair loss Diabetes mellitus Coronary artery disease Surgical History History of colonoscopy S/P CABG x 2 History of total abdominal hysterectomy and bilateral salpingo-oophorectomy History of cardiac catheterization History of rectal polypectomy History of cholecystectomy Family History Father Brain cancer Mother Ovarian cancer Sister Breast cancer Sister Lung cancer Brother Stomach cancer Son Substance abuse Sister Cancer Social History Housing: Apartment Alcohol intake: never Patient Tobacco Use Status: Never used Tobacco e-Cigarette/Vaping Use: Never Used Second Hand Smoke Exposure: No service: No Current occupational status: disabled Cognitive needs: Yes Hearing needs: No Vision needs: Yes Questionnaire PHQ-9 Over the last 2 weeks, how often have you been bothered by any of the following problems? 1. Little interest or pleasure in doing things: not at all 2. Feeling down, depressed, or hopeless: not at all 3. Trouble falling or staying asleep, or sleeping too much: not at all 4. Feeling tired or having little energy: not at all 5. Poor appetite or overeating: not at all 6. Feeling bad about yourself - or that you are a failure or have let yourself or your family down: not at all 7. Trouble concentrating on things, such as reading the newspaper or watching television: not at all 8. Moving or speaking so slowly that other people could have noticed. Or the opposite - being so fidgety or restless that you have been moving around a lot more than usual: not at all 9. Thoughts that you would be better off or of hurting yourself in some way: not at all Total score: 0 Depression Screening Interpretation: Negative Depression Screening Done: Yes 43985 - PHQ-9 Billing: Yes Source: Developed by Drs. Pradip Evans, Caroline Hassan, Shakir Bolton and colleagues, with an educational ailyn from [employer]. Thrive Questionnaire Date Thrive assessed: 07/22/24 I am a: Patient What is your living situation today?: I have a steady place to live Within the past 12 months, did the food you bought not last and you didn't have the money to get more?: Never true Within the past 12 months, did you worry whether your food would run out before you got money to buy more?: Never true Do you have trouble paying for medicines?: No Do you have trouble getting transportation to medical appointments?: No Do you have trouble paying your heating and electricity bill?: No Do you have trouble taking care of your child, family member or friend?: No Do you have trouble with day-to-day activities such as bathing, preparing meals, shopping, managing finances, etc.?: No Are you currently unemployed and looking for a job?: No Are you interested in more education?: No Please select the resources that you would like help with: None Currently or been in a relationship where the following occur: No concerns reported THRIVE Score: 0 AUDIT C Alcohol Use Questionnaire (AUDIT-C) 1. How often do you have a drink containing alcohol?: Never Total Score: 0 Score Reviewed/Action Taken: No MODESTA-7 AMB Questionnaire MODESTA-7 Date MODESTA - 7 assessed: 07/22/24 Feeling nervous, anxious, or on edge: 0 = Not at all Not being able to stop or control worryin = Not at all Worrying too much about different things: 0 = Not at all Trouble relaxin = Not at all Being so restless that it is hard to sit still: 0 = Not at all Becoming easily annoyed or irritable: 0 = Not at all Feeling afraid as if something awful might happen: 0 = Not at all Total MODESTA-7 score (0-4 normal; 5-9 mild; 10-14 moderate; 15-21 severe): 0 Source: Developed by Drs. Pradip Evans, Caroline Hassan, Shakir Bolton and colleagues, with an educational ailyn from [employer]. MODESTA-7 Assessment Billing MODESTA-7 Assessment Tool: MODESTA-7 Assessment 96314 Review of Systems Const All systems reviewed & are unremarkable except as noted in HPI and below Card Denies chest pain at rest, Denies chest pain with activity, Denies edema, Denies irregular heart rhythm, Denies claudication, Denies dyspnea, Denies dyspnea on exertion, Denies orthopnea, Denies paroxysmal nocturnal dyspnea and Denies slow heart rate Resp Denies cough, Denies dyspnea and Denies dyspnea on exertion GI Denies abdominal pain, Denies change in bowel habits, Denies excessive flatus, Denies nausea and Denies vomiting Denies urinary incontinence, Denies urinary hesitancy and Denies urinary urgency Musc Denies abnormal gait, Denies atrophy, Denies deformity and Denies limited range of motion Skin/Breast Denies bleeding lesions, Denies changing lesions and Denies rash Neuro Denies abnormal gait and Denies lack of coordination Physical exam (Primary Care) Vital Signs: Last Vital Signs BP 120/72 07/22/24 13:48 BMI result Body Mass Index 22.5 Tobacco/Smoking Status: Tobacco use Status Tobacco use date assessed 07/22/24 07/22/24 13:53 Patient Tobacco Use Status Never used Tobacco 07/22/24 13:53 e-Cigarette/Vaping Use Never Used 07/22/24 13:53 PHQ-9: PHQ-9 Score PHQ-9: Total score 0 07/22/24 14:22 Depression Screening Interpretation: Negative Thrive Assessment: Date of Thrive Assessment Date Thrive assessed 07/22/24 07/22/24 13:53 Currently or been in a relationship where the following occur: No concerns reported Resp Effort & Inspection: normal respiratory effort Auscultation: clear to auscultation bilaterally Cardio Jugular venous distension: no JVD Rate: regular rate Rhythm: regular rhythm Heart sounds: S1 normal heart sound present and S2 normal heart sound present Extrem General: Yes full ROM Office Procedures Flu Questionnaire Does the patient have a severe egg allergy?: No Results AMB Hemoglobin A1c AMB Hemoglobin A1c 5.8 % Last Edit by LUZ MARINA Alaniz on 07/22/24 14:00 Immunizations Fluarix Triv [id number] (PF) 45 mcg (15 mcg x 3)/0.5 mL IM syringe Performing Provider: Marybeth Dennis MD [facility] Documented (not given) by: LUZ MARINA Alaniz on 07/22/24 13:59 Reason Not Given: Patient Refused Results Reviewed Results Reviewed: Laboratory Last Values Hgb A1c (Clinic) 5.8 % (4.0-6.0) 07/22/24 13:53 Coding Level of Care Code Est Pt Level 4 (11560) Complex EM visit Add On G2211 Diagnoses Hyperlipidemia LDL goal <70 E78.5 Mild recurrent major depression F33.0 Essential hypertension I10 Type 2 diabetes mellitus without complication, without long-term current use of insulin E11.9 Diabetes mellitus type: type 2 Diabetes mellitus salvage determiner insulin use: without salvage determiner use Diabetes mellitus complication status: without complication Additional Codes MODESTA-7 Assessment Billing - MODESTA-7 Assessment Tool: MODESTA-7 Assessment 91789 ([id number]) PHQ-9 - 10379 - PHQ-9 Billing: Yes ([id number]) Time Spent (min) 23 Assessment & Plan Assessment & Plan (1) Hyperlipidemia LDL goal <70: Code(s): E78.5 - Hyperlipidemia, unspecified Category: Medical (2) Mild recurrent major depression: Code(s): F33.0 - Major depressive disorder, recurrent, mild Category: Medical (3) Essential hypertension: Code(s): I10 - Essential (primary) hypertension Category: Medical (4) Diabetes mellitus: Code(s): E11.9 - Type 2 diabetes mellitus without complications Category: Medical Qualifiers: Diabetes mellitus type: type 2 Diabetes mellitus mcc insulin use: without mcc use Diabetes mellitus complication status: without complication Qualified Code(s): E11.9 - Type 2 diabetes mellitus without complications Plan - Continue current management for Type 2 Diabetes Mellitus with avoidance of Metformin due to adverse effects. - Adjust Rosuvastatin dosage to 20 mg to potentially alleviate muscle cramps associated with hyperlipidemia management. - Continue follow-up with the concrete sculptor twice yearly for Coronary Artery Disease. - Insomnia management to be reviewed with consideration of starting Mirtazapine, as mentioned during the visit. Patient was informed and verbally consented to the use of an ambient scribe for clinic note documentation during this visit. I discussed with the patient that we will lower her Rosuvastatin dosage from 40 mg to 20 mg to see if this alleviates her muscle cramps. We also talked about potential alternatives for her insomnia, including the possibility of starting Mirtazapine. I advised the patient that we will conduct laboratory tests in four months to monitor the effects of these adjustments. The patient expressed understanding and agreed with the plan. We will continue to monitor her hypertension and diabetes management closely, ensuring that her reactions to the current medications are manageable. Orders: Orders Influenza [id number] Immunization Today Z23 - Encounter for immunization AMB Hemoglobin A1c Today E11.9 - Type 2 diabetes mellitus without complications Lipid Panel 4 Months E78.5 - Hyperlipidemia, unspecified Microalbumin, Random (w Creat) 4 Months R80.9 - Proteinuria, unspecified Vitamin D 25-OH Total 4 Months E55.9 - Vitamin D deficiency, unspecified Comprehensive Gause. Panel Fast 4 Months E78.5 - Hyperlipidemia, unspecified Medications: New rosuvastatin 20 mg PO DAILY 90 tabs 1RF 90 days mirtazapine 15 mg PO BEDTIME 90 tabs 0RF 90 days Discontinued rosuvastatin Discontinued Reason: Patient Completed Course 40 mg PO DAILY 90 days 90 tabs 0RF venlafaxine ER Discontinued Reason: Patient Completed Course 37.5 mg PO BEDTIME 90 days 90 caps 1RF F33.0 - Major depressive disorder, recurrent, mild Patient Instructions: - Continue taking Rosuvastatin at a reduced dose of 20 mg. - Attend follow-up appointments with your concrete sculptor as scheduled. - Monitor for any changes in symptoms, especially muscle cramps or changes in sleep patterns. - Undergo laboratory tests in four months as discussed to evaluate the effects of medication adjustments. - Report any adverse reactions or new symptoms promptly.
== END 2024-07-22 14:30 | disposition home or self-care (01) ==
PROVIDERS: PCP Internal Medicine; Visit Provider Internal Medicine
DX: E78.5 Hyperlipidemia, unspecified (principal); F33.0 Major depressive disorder, recurrent, mild; I10 Essential (primary) hypertension; E11.9 Type 2 diabetes mellitus without complications; Z23 Encounter for immunization

== ENCOUNTER → 2024-07-22 13:32 | Outpatient (BNVA) | payer OTHER, SELFPAY | PROVIDERS: PCP Internal Medicine; Visit Provider Internal Medicine | DX: E11.9 Type 2 diabetes mellitus without complications (principal); I10 Essential (primary) hypertension; E78.5 Hyperlipidemia, unspecified; I25.10 Atherosclerotic heart disease of native coronary artery without angina pectoris; F33.0 Major depressive disorder, recurrent, mild; R80.9 Proteinuria, unspecified; E55.9 Vitamin D deficiency, unspecified; Z23 Encounter for immunization; Z79.899 Other long term (current) drug therapy | CPT/HCPCS: 83036; 90471; 96127; 99212 ==

== ENCOUNTER 2024-11-13 10:44 | Outpatient (REF) | payer OTHER, SELFPAY ==
--- OUTSIDE RECORDS SUMMARY | 2024-11-13 12:13 | XMS_ITS | Encounter Summary ---
Author Organization [facility] Address [address] [address] Phone Care Team Providers Care Agricultural Purchasing Agent Name Role Phone Marybeth Vale MD Primary Care Provider [phone] Encounter Details Date Type Department Care Team (Late st Contact Info) Description 09/02/2021 Documentation Only [facility] [address] [place] [address] Jhony Lima MD [address] [place] [address] [place] [address] Social History Tobacco Use Types Packs/Day Years Used Date Smoking Tobacco: Never Alcohol Use Standard Drinks/Week Comments No 0 (1 standard drink = 0.6 oz pur e alcohol) Comments Unknown Sex and Gender Information Value Date Recorded Sex Assigned at Not on file Legal Sex Female 4:30 PM EST Gender Identity Not on file Sexual Orientation Not on file documented as of this encounter Plan of Treatment Upcoming Encounters Date Type Department Care Team (Late st Contact Info) Description 02/27/2025 1:30 PM EDT Office Visit [facility] [address] [place] [address] Jhony Lima MD [address] [facility] [place] [address] documented as of this encounter Visit Diagnoses Not on filedocumented in this encounter Care Teams Agricultural Purchasing Agent Relationship Specialty Start Date End Date Marybeth Vale MD [address] [place] [address] PCP - General 05/13/19 documented as of this encounter
--- OUTSIDE RECORDS SUMMARY | 2024-11-13 12:13 | XMS_ITS | Encounter Summary ---
Author Organization [facility] Address [address] [address] Phone Care Team Providers Care Sewing Machine Operator Zipper Name Role Phone Marybeth Vale MD Primary Care Provider [phone] Encounter Details Date Type Department Care Team (Late st Contact Info) Description 02/15/2022 Documentation Only [facility] [address] [place] [address] Jhony Lima MD [address] [place] [address] [place] [address] Social History Tobacco Use Types [...] Visit [facility] [address] [place] [address] Jhony Lima MD [address] [facility] [place] [address] documented as of this encounter Visit Diagnoses Not on filedocumented in this encounter Care Teams Sewing Machine Operator Zipper Relationship Specialty Start Date End Date Marybeth Vale MD [address] [place] [address] PCP - General 05/13/19 documented as of this encounter
--- OUTSIDE RECORDS SUMMARY | 2024-11-13 12:13 | XMS_ITS | Encounter Summary ---
Author Organization [facility] Address [address] [address] Phone Care Team Providers Care Television Parts Tester Name Role Phone Marybeth Vale MD Primary Care Provider Encounter Details Date Type Department Care Team (Late Contact Info) Description 03/17/2024 Documentation Only [facility] [address] [place] [address] Domitila BradleyLA [place], [place] [address] [place] [address] Social History Tobacco Use Types Packs/Day Years [...] Visit [facility] [address] [place] [address] Jhony Lima MD [address] [place] [address] [place] [address] documented as of this encounter Visit Diagnoses Not on filedocumented in this encounter Care Teams Television Parts Tester Relationship Specialty Start Date End Date Marybeth Vale MD [address] [place] [address] PCP - General 05/13/19 documented as of this encounter
--- OUTSIDE RECORDS SUMMARY | 2024-11-13 12:13 | XMS_ITS | Clinical Summary ---
Author Organization [facility], Address [address] [place] [address] [place] [address] Phone Care Team Providers Care Wire Stitcher Operator Name Role Phone Marybeth Vale MD Primary Care Provider [phone] Allergies Active Allergy Reactions Criticality Noted Date Comments Lactose 12/02/2020 Latex Other (see comments) 12/11/2019 Metformin Other (see comments) 12/11/2019 Medications omeprazole (PriLOSEC) [address] capsule Comments: Filled Date: Nov 23 2018 12:00AM Patient Notes: TOME GUSTAVO C?PSULA TODOS LOS D? Duration: 9 Active dicyclomine (BENTYL) 20 MG tablet Comments: Filled Date: Oct 30 2018 12:00AM Patient Notes: TOME GUSTAVO TABLETA CUATRO VECES AL D?A Duration: 9 Active fenofibrate (TRICOR) 145 MG tablet Comments: Filled Date: Oct 28 2018 12:00AM Patient Notes: TOME GUSTAVO TABLETA TODOS LOS D? Duration: 9 Active gabapentin (NEURONTIN) 400 MG capsule Comments: Filled Date: Oct 31 2018 12:00AM Patient Notes: TOME GUSTAVO C?PSULA HARRIS VECES AL D?A Duration: 9 Active isosorbide mononitrate (IMDUR) 30 MG 24 hr tablet Comments: Filled Date: Dec 25 2017 12:00AM Patient Notes: TAKE 1 TABLET BY MOUTH EVERY DAY Duration: 8 Active metoprolol succinate XL (TOPROL-XL) 25 MG 24 hr tablet Comments: Filled Date: Oct 30 2018 12:00AM Patient Notes: TOME GUSTAVO TABLETA TODOS LOS D? Duration: 9 Active nitroglycerin (NITROSTAT) 0.4 MG SL tablet Comments: Filled Date: Sep 05 2018 12:00AM Patient Notes: PLACE 1 TABLET UNDER TONGUE EVERY 5 MINUTES AND ALLOW TO DISSOLVE N EEDED. MAX 3 TABS, CALL 911 Duration: 9 Active oxyCODONE (OxyCONTIN) 10 MG 12 hr abuse-deterrent tablet Comments: Filled Date: Nov 12 2018 12:00AM Patient Notes: TOME GUSTAVO TABLETA POR V?A ORAL CADA DOCE HORAS CUANDO SEA NECESARIO PAR A EL DOLOR Duration: 9 Active oxyCODONE-acetam inophen (PERCOCET) 7.5-325 MG per tablet Comments: Filled Date: Nov 12 2018 12:00AM Patient Notes: TOME GUSTAVO TABLETA POR V?A ORAL CADA SEIS HORAS CUANDO SEA NECESARIO PAR A EL DOLOR Duration: 9 Active sertraline (ZOLOFT) 100 MG tablet Comments: Filled Date: Oct 22 2018 12:00AM Patient Notes: TOME GUSTAVO TABLETA TODOS LOS D? Duration: 8 Active SITagliptin (Januvia) 100 MG tablet Comments: Filled Date: Oct 28 2018 12:00AM Patient Notes: TOME GUSTAVO TABLETA TODOS LOS D? Duration: 8 Active Aspirin Low Dose 81 MG EC tablet TOME GUSTAVO TABLETA TODOS LOS D 0 Active lisinopril (PRINIVIL,ZESTRI L) 10 MG tablet Take 5 mg by mouth 1 (one) time each day 0 Active Advair Diskus 250-50 MCG/DOSE diskus inhaler 0 Active fluticasone (FLONASE) 50 MCG/ACT nasal spray SPRAY 1 SPRAY INTO EACH NOSTRIL TODOS LOS D 0 Active ezetimibe (ZETIA) 10 MG tablet TOME GUSTAVO TABLETA TODOS LOS D 0 Active cholecalciferol (VITAMIN D-3) 50 MCG (2000 UT) tablet TOME GUSTAVO TABLETA TODOS LOS D 0 Active Sennosides (Senna) 8.6 MG capsule TOME DOS TABLETAS POR V A ORAL AL ACOSTARSE CUANDO SEA NECESARIO 0 Active montelukast (SINGULAIR) 10 MG tablet Take 1 tablet by mouth 1 (one) time each day Active loratadine (CLARITIN) 10 MG tablet Take 1 tablet by mouth 1 (one) time each day Active dexlansoprazole (Dexilant) [address] capsule Take 1 capsule by mouth 1 (one) time each day Active fluticasone (Flovent Diskus) 50 MCG/BLIST diskus inhaler as directed Act benito rosuvastatin (Crestor) 20 MG tablet Take 1 tablet (20 mg total) by mouth 1 (one) time each day 2 Active amLODIPine (NORVASC) 5 MG tablet TOME GUSTAVO TABLETA TODOS LOS D 3 Active cholecalciferol (VITAMIN D-3) 50 MCG (2000 UT) capsule TOME 1 C PSULA POR V A ORAL TODOS LOS D 3 Active docusate sodium (COLACE) 100 MG capsule TOME 1 C PSULA POR V A ORAL A DIARIO 3 Active famotidine (PEPCID) 40 MG tablet TOME GUSTAVO TABLETA POR V A ORAL A LAS 3PM TODOS LOS ALDRIDGE. 3 Active Linzess 145 MCG capsule TOME 1 C PSULA POR V A ORAL CADA [place] MARYBETH 3 Active methocarbamol (ROBAXIN) 750 MG tablet TAKE 1 TABLET BY MOUTH EVERY 6 HOURS: NEEDED FOR ANALGESIA 3 Active naproxen (NAPROSYN) 500 MG tablet TAKE 1 TABLET BY MOUTH 2 TIMES A DAY: NEEDED FOR ANALGESIA 3 Active Creon 57615-68432 units capsule TOME 1 C PSULA POR V A ORAL HARRIS VECES AL D A WITH MEALS AND/OR SNACKS 3 Active traMADol (ULTRAM) 50 MG tablet TAKE 1 TABLET BY MOUTH EVERY 6 HOURS: NEEDED FOR ANALGESIA 3 Active venlafaxine XR (EFFEXOR-XR) 37.5 MG 24 hr capsule TOME 1 C PSULA POR V A ORAL AL ACOSTARSE POR 90 ALDRIDGE. 3 Active Active Problems Problem Noted Date Diagnosed Date Hyperlipidemia 12/02/2020 Diabetes mellitus 12/02/2020 Renal disorder due to type 2 diabetes mellitus 0 12/11/2019 Stage 3a chronic kidney disease 12/11/2019 Immunizations Immunization Administration Dates Next Due Pneumococcal Polysaccharide 06/19/2013 Family History Medical History Relation Comments Diabetes Child 1 son Hypertension Child 2 son Cancer Father brain Diabetes Father Hypertension Father Diabetes Mother Heart disease Mother Hypertension Mother Kidney disease Sibling 1 sister Diabetes Sibling 2 Hypertension Sibling 3 Heart disease Sibling 4 brother Cancer Sibling 5 2 sister & 1 bro ther Relation Status Comments Child 1 Child 2 Father Mother Sibling 1 Sibling 2 Sibling 3 Sibling 4 Sibling 5 Social History Tobacco Use Types Packs/Day Years Used Date Smoking Tobacco: Never Alcohol Use Standard Drinks/Week Comments No 0 (1 standard drink = 0.6 oz pur e alcohol) Comments Unknown Sex and Gender Information Value Date Recorded Sex Assigned at Not on file Legal Sex Female 4:30 PM EST Gender Identity Not on file Sexual Orientation Not on file Last Filed Vital Signs Vital Sign Reading Time Taken Comments Blood Pressure 136/70 03/03/2024 2:08 PM EDT Pulse - - Temperature - - Respiratory Rate - - Oxygen Saturation - - Inhaled Oxygen Concentration - - Weight 62.6 kg (138 lb) 06/13/2019 12:00 PM EST Height 157.5 cm (5' 2 ) 06/13/2019 12:00 PM EST Body Mass Index 25.24 06/13/2019 12:00 PM EST Plan of Treatment Upcoming Encounters Date Type Department Care Team (Late st Contact Info) Description 02/27/2025 1:30 PM EDT Office Visit [facility], [address] [place] [address] Jhony Lima MD [address] [place] [address] [place] [address] Health Maintenance Due Date Last Done Comments Pneumococcal Vaccine: 50+ Ye ars (2 of 2 - PCV) 06/19/2014 06/19/2013 Diabetes: Hemoglobin A1C 09/29/2019 Diabetes: Ophthalmology Exam 09/29/2019 Diabetes: Pedal Pulse Checked 09/29/2019 Diabetes: Sensory Foot Exam 09/29/2019 Diabetes: Visual Foot Exam 09/29/2019 Influenza Vaccine (Season Ended) 2025 Pneumococcal Vaccine: Peds ( 0 to 5 Years) and At-Risk Patients (6 to 49 Years) Discontinued 06/19/2013 Hepatitis B Vaccine Aged Out No longe r eligible based on patient's age to complete this topic Insurance Medicaid [place] Care Teams Wire Stitcher Operator Relationship Specialty Start Date End Date Marybeth Vale MD [address] [address] [place] [address] PCP - General 05/13/19
--- OUTSIDE RECORDS SUMMARY | 2024-11-13 12:13 | XMS_ITS | Encounter Summary ---
Author Organization [facility] Address [address] [address] Phone Care Team Providers Care Driving Teacher Name Role Phone Marybeth Vale MD Primary Care Provider [phone] Encounter Details Date Type Department Care Team (Late Contact Info) Description 01/31/2024 Documentation Only [facility] [address] [place] [address] [place]ay [place], [place] [address] [place] [address] Social History Tobacco Use Types [...] Visit [facility] [address] [place] [address] Jhony Lima MD [address] [place] [address] [place] [address] documented as of this encounter Visit Diagnoses Not on filedocumented in this encounter Care Teams Driving Teacher Relationship Specialty Start Date End Date Marybeth Vale MD [address] [place] [address] PCP - General 05/13/19 documented as of this encounter
--- OUTSIDE RECORDS SUMMARY | 2024-11-13 12:14 | XMS_ITS | Clinical Summary ---
Author Organization [facility] Address [address] [place] [address] Phone Care Team Providers Care Raw Shellfish Preparer Name Role Phone Marybeth Dennis MD Primary Care Provider [phone] Allergies No known active allergies Medications docusate sodium (COLACE) 100 mg capsule Take 1 capsule (100 mg total) by mouth 1 (one) time each day. Active ezetimibe (ZETIA) 10 mg tablet Take 1 tablet (10 mg total) by mouth 1 (one) time each day. Active famotidine (PEPCID) 40 mg tablet Take 1 tablet (40 mg total) by mouth 1 (one) time each day. Daily at 3pm Active fenofibrate (TRICOR) 145 mg tablet Take 1 tablet (145 mg total) by mouth 1 (one) time each day. Active isosorbide mononitrate (IMDUR) 120 mg 24 hr tablet Take 1 tablet (120 mg total) by mouth 1 (one) time each day. 10/07/19 25 Active lisinopriL (PRINIVIL,ZESTR IL) 20 mg tablet Take 1 tablet (20 mg total) by mouth 1 (one) time each day. for 90 days 08/25/19 25 Active mirtazapine (REMERON) 15 mg tablet Take 1 tablet (15 mg total) by mouth at bedtime. 10/20/19 25 Active omeprazole (PriLOSEC) [address] capsule Take 1 capsule (40 mg total) by mouth 1 (one) time each day. 10/07/19 25 Active oxyCODONE-aceta minophen (PERCOCET) 7.5-325 mg per tablet Take 1 tablet by mouth every 6 (six) hours if needed for moderate pain. Max Daily Amount: 4 tablets Active rosuvastatin (CRESTOR) 20 mg tablet Take 1 tablet (20 mg total) by mouth 1 (one) time each day. Active senna 8.6 mg tablet Take 1 tablet (8.6 mg total) by mouth 1 (one) time each day. 10/07/19 25 Active Januvia 100 mg tablet Take 1 tablet (100 mg total) by mouth 1 (one) time each day. Active venlafaxine XR (EFFEXOR-XR) 37.5 mg 24 hr capsule Take 1 capsule (37.5 mg total) by mouth 1 (one) time each day. Active carvediloL (COREG) 6.25 mg tablet Take 1 tablet (6.25 mg total) by mouth 2 (two) times a day with meals. 60 each 10/22/19 25 025 Active carvediloL (COREG) 12.5 mg tablet Take 1 tablet (12.5 mg total) by mouth 2 (two) times a day with meals. 09/04/19 25 025 Discontinued carvediloL (COREG) 6.25 mg tablet Take 1 tablet (6.25 mg total) by mouth 2 (two) times a day with meals. 60 each 10/22/19 25 025 Discontinued Active Problems No known active problems Resolved Problems Problem Noted Date Diagnosed Date Resolved Date Chest pain 10/20/2024 10/21/2024 Encounters Date Type Department Care Team Description 10/20/2024 12:13 PM EDT - 10/21/2024 1:05 PM EDT Hospital Encounter [facility] [address] [place] [address] Chad Martinez MD Bukalo, Nermina, MD Kela, Kashyap Devendrabhai, MD Other chest pain (Primary Dx); Collapse; Troponin level elevated; Chest pain, unspecified type; Stage 3 chronic kidney disease, unspecified whether stage 3a or 3b CKD ([facility] V24, [facility] V28) Discharge Dis[place]: [place] [facility] Surgical History Surgery Date Site/Laterality Comments CORONARY ARTERY BYPASS GRAFT PROCEDURE: HISTORICAL CABG CARDIAC CATHETERIZATION PROCEDURE: HISTORICAL CARDIAC CATH Medical History Medical History Date Comments Chronic ischemic heart disease D X:Chronic ischemic heart disease Essential hypertension DX:Essent ial hypertension Hyperlipidemia DX:Hyperlipidemi a PAD (peripheral artery disea se) ([facility] V24) DX:PAD (peripheral artery di sease) ([facility]) Social History Tobacco Use Types Packs/Day Years Used Date Smoking Tobacco: Never Smokeless Tobacco: Never Alcohol Use Standard Drinks/Week Comments Never 0 (1 standard drink = 0.6 oz pur e alcohol) Comments Unknown Sex and Gender Information Value Date Recorded Sex Assigned at Female 10/20/2024 1:24 PM EDT Legal Sex Female 4:47 AM EST Gender Identity Female 10/20/2024 1:24 PM EDT Sexual Orientation Straight 10/20/2024 1: 24 PM EDT Obstetrics History Last Filed Vital Signs Vital Sign Reading Time Taken Comments Blood Pressure 118/55 10/21/2024 10:06 AM EDT Pulse 62 10/21/2024 10:06 AM EDT Temperature 36.9 ??C (98.4 ??F) 10/21/2024 8:45 AM ED T Respiratory Rate 18 10/21/2024 10:06 AM EDT Oxygen Saturation 96% 10/21/2024 10:06 AM EDT Inhaled Oxygen Concentration - - Weight 63.5 kg (140 lb) 10/20/2024 12:28 PM EDT Height 157.5 cm (5' 2 ) 10/20/2024 12:28 PM EDT Body Mass Index 25.61 10/20/2024 12:28 PM EDT Plan of Treatment Health Maintenance Due Date Last Done Comments Diabetes: Annual Foot Exam 1955 Diabetes: Annual Retina Eye Exam 1955 Zoster Vaccines (1 of 2) 1995 Pneumococcal Vaccine: 50+ Years (2 of 2 - PCV) 06/23/2017 06/23/2016, 03/26/2015, 06/19/2013, Additional history exists RSV Immunization Adult Patients (1 - 1-dose 75+ series) 2020 Cholesterol Screening (Lipid Panel) 06/11/2022 Depression Screening 06/11/2022 Hepatitis C Screening 06/11/2022 Medicare Annual Wellness Visit 06/11/2022 Osteoporosis Screening (Bone Density Screening) 06/11/2022 Social Influencers of Health Screening 06/11/2022 COVID-19 Vaccine ( season) 2024 07/19/2021, 02/16/2021, 01/26/2021, Additional history exists Diabetes: Annual Urine Albumin-Creatinine Ratio (uACR) 10/20/2024 Diabetes: Blood Sugar Control Test (HGBA1C) 10/20/2024 Influenza Vaccine (Season Ended) 2025 06/28/2023, 04/24/2022, 06/04/2019, Additional history exists Diabetes: Annual GFR (Glomerular Filtration Rate) 10/21/2025 10/21/2024, 10/20/2024 Falls Risk Assessment 10/21/2025 10/21/2024 Hypertension/CHF/CAD Annual BMP Blood Test 10/21/2025 10/21/2024, 10/20/2024 DTaP,Tdap,and Td Vaccines (2 - Td or Tdap) 06/23/2026 06/23/2016 HIB Vaccines Aged Out No longer eligi ble based on patient's age to complete this topic HPV Vaccines Aged Out No longer eligi ble based on patient's age to complete this topic Hepatitis A Vaccines Aged Out No long er eligible based on patient's age to complete this topic Hepatitis B Vaccines Aged Out No long er eligible based on patient's age to complete this topic IPV Vaccines Aged Out No longer eligi ble based on patient's age to complete this topic MMR Vaccines Aged Out No longer eligi ble based on patient's age to complete this topic Meningococcal ACWY Vaccine Aged Out N o longer eligible based on patient's age to complete this topic Meningococcal B Vaccine Aged Out No l onger eligible based on patient's age to complete this topic RSV Immunization Patients Under 20 months Aged Out No longer eligible based on patient's age to complete this topic Varicella Vaccines Aged Out No longer eligible based on patient's age to complete this topic Procedures Procedure Name Priority Date/Time Associated Diagnosis Comments ECG ANNOTATED 10/22/2024 COMPLETE BLOOD COUNT Routine 10/21/2024 9:45 AM EDT BASIC METABOLIC PANEL Routine 10/21/2024 9:45 AM EDT POCT GLUCOSE BLOOD Routine 10/21/2024 8: 52 AM EDT POCT GLUCOSE BLOOD Routine 10/20/2024 8: 07 PM EDT TROPONIN I HIGH SENSITIVITY Routine 10/20/2024 6:49 PM EDT POCT GLUCOSE BLOOD Routine 10/20/2024 5: 45 PM EDT XR CHEST 2 VIEWS STAT 10/20/2024 4:21 PM EDT TROPONIN I HIGH SENSITIVITY STAT 10/20/2024 1:20 PM EDT TROPONIN I HIGH SENSITIVITY STAT 10/20/2024 12:27 PM EDT ECG 12-LEAD STAT 10/20/2024 12:26 PM EDT CBC WITH AUTO DIFFERENTIAL STAT 10/20/2024 12:17 PM EDT B-TYPE NATRIURETIC PEPTIDE STAT 10/20/2024 12:17 PM EDT MAGNESIUM STAT 10/20/2024 12:17 PM EDT LIPASE STAT 10/20/2024 12:17 PM EDT COMPREHENSIVE METABOLIC PANEL STAT 10/20/2024 12:17 PM EDT CBC AND DIFFERENTIAL STAT 10/20/2024 12:17 PM EDT from Last 3 Months Results * ECG-Annotated (10/22/2024) us Provider Onbase MD ECG ORDERABLES Final Result * (ABNORMAL) Complete blood count (10/21/2024 9:45 AM EDT) WBC 3.2(L) 4.8 - 10.8 K/mcL LAB HEMETOLOGY METHOD 10/21/2024 10:05 AM [facility] RBC 4.00 3.80 - 4.80 M/mcL LAB HEMETOLOGY METHOD 10/21/2024 10:05 AM [facility] Hemoglobin 12.1 11.5 - 16.0 g/dL LAB HEMETOLOGY METHOD 10/21/2024 10:05 AM [facility] Hematocrit 36.6 35.0 - 47.0 % LAB HEMETOLOGY METHOD 10/21/2024 10:05 AM [facility] MCV 90.6 79.0 - 98.0 FL LAB HEMETOLOGY METHOD 10/21/2024 10:05 AM [facility] MCH 30.0 27.0 - 32.0 pcg LAB HEMETOLOGY METHOD 10/21/2024 10:05 AM [facility] MCHC 33.1 32.0 - 37.0 g/dL LAB HEMETOLOGY METHOD 10/21/2024 10:05 AM [facility] RDW 12.6 11.0 - 15.0 % LAB HEMETOLOGY METHOD 10/21/2024 10:05 AM [facility] Platelets 240 130 - 400 K/mcL LAB HEMETOLOGY METHOD 10/21/2024 10:05 AM [facility] MPV 10.5 7.0 - 11.0 FL LAB HEMETOLOGY METHOD 10/21/2024 10:05 AM [facility] NRBC 0.0 <1.0 % LAB HEMETOLOGY METHOD 10/21/2024 10:05 AM [facility] NRBC Absolute 0.00 <0.10 K/mcL LAB HEMETOLOGY METHOD 10/21/2024 10:05 AM [facility] Blood Venous blood specimen / Unknown Venipuncture / Unknown 10/21/2024 9:45 AM EDT 10/21/2024 9:49 AM EDT us Tika Howard MD LAB BLOOD ORDERABLES Final Res ult [facility] [address] [place] [address], [place] [phone] * (ABNORMAL) Basic metabolic panel (10/21/2024 9:45 AM EDT) Sodium 142 133 - 145 mmol/L LAB CHEMISTRY METHOD 10/21/2024 10:50 AM [facility] Potassium 3.8 3.5 - 5.5 mmol/L LAB CHEMISTRY METHOD 10/21/2024 10:50 AM [facility] Chloride 111(H) 96 - 110 mmol/L LAB CHEMISTRY METHOD 10/21/2024 10:50 AM [facility] CO2 24 21 - 32 mmol/L LAB CHEMISTRY METHOD 10/21/2024 10:50 AM [facility] Anion Gap 7 3 - 11 LAB CHEMISTRY METHOD 10/21/2024 10:50 AM [facility] Glucose 97 70 - 100 mg/dL LAB CHEMISTRY METHOD 10/21/2024 10:50 AM [facility] BUN 23 5 - 25 mg/dL LAB CHEMISTRY METHOD 10/21/2024 10:50 AM [facility] Creatinine 1.31(H) 0.50 - 1.10 mg/dL LAB CHEMISTRY METHOD 10/21/2024 10:50 AM [facility] eGFR 42(L) >=60 mL/min/1. 73m2 LAB CHEMISTRY METHOD 10/21/2024 10:50 AM [facility] Comment:Calculation based on the??Chronic Kidney Disease Epidemiology Collaboration (CKD-EPI) equation refit??without adjustment for race. BUN/Creatinine Ratio 17.6 LAB CHEMISTRY METHOD 10/21/2024 10:50 AM EDT [facility] Calcium 9.4 8.5 - 10.5 mg/dL LAB CHEMISTRY METHOD 10/21/2024 10:50 AM EDT [facility] Blood Venous blood specimen / Unknown Venipuncture / Unknown 10/21/2024 9:45 AM EDT 10/21/2024 9:49 AM EDT Tika Howard MD LAB BLOOD ORDERABLES Final Res ult [facility] [address] [place] [address], [place] [phone] * POCT Glucose, blood (10/21/2024 8:52 AM EDT) Only the most recent of3 resultswithin the time period is included. [facility] Glucose POCT 91 70 - 100 mg/dL 10/21/2024 8:53 AM EDT [facility] Blood Capillary blood specimen / Unknown 10/21/2024 8:52 AM EDT 10/21/2024 8:54 AM EDT Mack Hidalgo MD LAB POINT O F CARE TEST DOCKED DEVICE UNSOLICITED RESULTS Final Result [facility] [address] [place] [address], [place] [phone] * (ABNORMAL) Troponin I high sensitivity (10/20/2024 6:49 PM EDT) Only the most recent of3 resultswithin the time period is included. [facility] High Sensitivity Troponin I 75(H) <=54 ng/L LAB CHEMISTRY METHOD 10/20/2024 7:38 PM EDT [facility] Blood Venous blood specimen / Unknown Venipuncture / Unknown 10/20/2024 6:49 PM EDT 10/20/2024 7:01 PM EDT Narrative [facility] [place] ([facility]) [facility] - 10/20/2024 7:38 PM EDT High levels of biotin in samples may falsely decrease hsTroponin values. ??Use caution when interpreting hsTroponin results in patients taking biotin who exhibit renal impairment (eGFR <60) or in patients taking more than 20 mg/day of biotin. us Coral Brice BARREL [facility] LAB BLOOD ORDERABLES Fin al Result [facility] ([facility]) [facility] [address] [place] [address], [place] [phone] * XR Chest 2 Views (10/20/2024 4:21 PM EDT) Anatomical Region Laterality Modality Body Radiographic Telma ging 10/20/2024 5:19 PM EDT Impressions 10/20/2024 5:19 PM EDT FINDINGS/IMPRESSION: Postoperative mediastinum. ??Cardiomegaly without congestive heart failure. ??No consolidation or effusion. ??Osteopenia and degenerative changes. -------- FINAL REPORT -------- Dictated By: Samina Muhammad Dictated Date: 10/20/2024 17:19 ET Assigned Physician: Samina Muhammad Reviewed and Electronically Signed By: Samina Muhammad Signed Date: 10/20/2024 17:19 ET Workstation ID: [id number] Transcribed By: Self Edit Transcribed Date: 10/20/2024 17:19 ET Narrative 10/20/2024 5:19 PM EDT XR CHEST 2 VIEWS INDICATION: chest pain TECHNIQUE: XR CHEST 2 VIEWS COMPARISON: No priors available. Procedure Note Samina Muhammad MD - 10/20/2024 XR CHEST 2 VIEWS INDICATION: chest pain TECHNIQUE: XR CHEST 2 VIEWS COMPARISON: No priors available. IMPRESSION: FINDINGS/IMPRESSION: Postoperative mediastinum. Cardiomegaly withoutcongestive heart failure. No consolidation or effusion. Osteopenia anddegenerative changes. -------- FINAL REPORT -------- Dictated By: Samina Muhammad Dictated Date: 10/20/2024 17:19 ET Assigned Physician: Samina Muhammad Reviewed and Electronically Signed By: Samina Muhammad Signed Date: 10/20/2024 17:19 ET Workstation ID: [id number] Transcribed By: Self Edit Transcribed Date: 10/20/2024 17:19 ET us Tika Howard MD IMG XR PROCEDURES Final Result * ECG 12 lead (10/20/2024 12:26 PM EDT) Pathologist [facility] Ventricular Rate ECG 49 BPM GEMUSE Atrial Rate 49 BPM GEMUSE P-R Interval 194 ms GEMUSE QRS Duration 86 ms GEMUSE Q-T Interval 498 ms GEMUSE QTc 449 ms GEMUSE P Wave Cygnet 26 degrees GEMUSE R Cygnet 0 degrees GEMUSE T Cygnet -20 degrees GEMUSE ECG Interpretation Sinus bradycardia Nonspecific T wave abnormality Abnormal ECG When compared with ECG of 30-JAN-2023 19:54, No significant change was found Confirmed by Wenceslao HARRIS YUFENG ([id number]) on 10/20/2024 7:17:14 PM GEMUSE 10/20/2024 12:2 6 PM EDT 10/20/2024 7:17 PM EDT us Tika Howard MD ECG ORDERABLES Final Result GEMUSE * (ABNORMAL) CBC auto differential (10/20/2024 12:17 PM EDT) [facility] WBC 4.6(L) 4.8 - 10.8 K/mcL LAB HEMETOLOGY METHOD 10/20/2024 12:44 PM EDT [facility] RBC 4.00 3.80 - 4.80 M/mcL LAB HEMETOLOGY METHOD 10/20/2024 12:44 PM EDT [facility] Hemoglobin 12.2 11.5 - 16.0 g/dL LAB HEMETOLOGY METHOD 10/20/2024 12:44 PM [facility] Hematocrit 36.6 35.0 - 47.0 % LAB HEMETOLOGY METHOD 10/20/2024 12:44 PM [facility] MCV 90.8 79.0 - 98.0 FL LAB HEMETOLOGY METHOD 10/20/2024 12:44 PM [facility] MCH 30.3 27.0 - 32.0 pcg LAB HEMETOLOGY METHOD 10/20/2024 12:44 PM [facility] MCHC 33.3 32.0 - 37.0 g/dL LAB HEMETOLOGY METHOD 10/20/2024 12:44 PM [facility] RDW 12.7 11.0 - 15.0 % LAB HEMETOLOGY METHOD 10/20/2024 12:44 PM [facility] Platelets 276 130 - 400 K/mcL LAB HEMETOLOGY METHOD 10/20/2024 12:44 PM [facility] MPV 10.5 7.0 - 11.0 FL LAB HEMETOLOGY METHOD 10/20/2024 12:44 PM [facility] NRBC 0.0 <1.0 % LAB HEMETOLOGY METHOD 10/20/2024 12:44 PM [facility] NRBC Absolute 0.00 <0.10 K/mcL LAB HEMETOLOGY METHOD 10/20/2024 12:44 PM [facility] Neutrophils Relative 38.7 % LAB HEMETOLOGY METHOD 10/20/2024 12:44 PM [facility] Lymphocytes Relative 45.6 % LAB HEMETOLOGY METHOD 10/20/2024 12:44 PM [facility] Monocytes Relative 13.4 % LAB HEMETOLOGY METHOD 10/20/2024 12:44 PM [facility] Eosinophils Relative 1.5 % LAB HEMETOLOGY METHOD 10/20/2024 12:44 PM EDT [facility] Basophils Relative 0.4 % LAB HEMETOLOGY METHOD 10/20/2024 12:44 PM EDT [facility] Immature Granulocytes Relative 0.4 % LAB HEMETOLOGY METHOD 10/20/2024 12:44 PM EDT [facility] Neutrophils Absolute 1.78 1.50 - 7.00 K/mcL LAB HEMETOLOGY METHOD 10/20/2024 12:44 PM EDT [facility] Lymphocytes Absolute 2.10 1.00 - 5.00 K/mcL LAB HEMETOLOGY METHOD 10/20/2024 12:44 PM EDT [facility] Monocytes Absolute 0.62 0.20 - 1.00 K/mcL LAB HEMETOLOGY METHOD 10/20/2024 12:44 PM EDT [facility] Eosinophils Absolute 0.07 0.00 - 0.50 K/mcL LAB HEMETOLOGY METHOD 10/20/2024 12:44 PM EDT [facility] Basophils Absolute 0.02 0.00 - 0.20 K/mcL LAB HEMETOLOGY METHOD 10/20/2024 12:44 PM EDT [facility] Immature Granulocytes Absolute 0.02 0.00 - 0.03 K/mcL LAB HEMETOLOGY METHOD 10/20/2024 12:44 PM EDT [facility] Blood Venous blood specimen / Unknown Venipuncture / Unknown 10/20/2024 12:17 PM EDT 10/20/2024 12:38 PM EDT us Chad Martinez MD LAB BLOOD ORDERABLES Anabel walls Result [facility] [address] [place] [address], * B-type natriuretic peptide (10/20/2024 12:17 PM EDT) Pathologist [facility] BNP 28 <=100 pcg/mL LAB CHEMISTRY METHOD 10/20/2024 1:41 PM EDT [facility] Blood Venous blood specimen / Unknown Venipuncture / Unknown 10/20/2024 12:17 PM EDT 10/20/2024 12:38 PM EDT us Chad Martinez MD LAB BLOOD ORDERABLES Anabel l Result Performing Organization Address City/[facility]/ZIP Co de Phone Number [facility] [address] [place] [address], [place] [phone] * Magnesium (10/20/2024 12:17 PM EDT) [facility] Magnesium 2.0 1.9 - 2.6 mg/dL LAB CHEMISTRY METHOD 10/20/2024 1:14 PM EDT [facility] Blood Venous blood specimen / Unknown Venipuncture / Unknown 10/20/2024 12:17 PM EDT 10/20/2024 12:38 PM EDT us Chad Martinez MD LAB BLOOD ORDERABLES Anabel l Result Performing Organization Address [facility]/ZIP Co de Phone Number [facility] [address] [place] [address], [place] [phone] * Lipase (10/20/2024 12:17 PM EDT) [facility] Lipase 41 13 - 75 unit/L LAB CHEMISTRY METHOD 10/20/2024 1:14 PM EDT [facility] Blood Venous blood specimen / Unknown Venipuncture / Unknown 10/20/2024 12:17 PM EDT 10/20/2024 12:38 PM EDT us Chad Martinez MD LAB BLOOD ORDERABLES Anabel l Result [facility] [address] [place] [address], [place] [phone] * (ABNORMAL) Comprehensive metabolic panel (10/20/2024 12:17 PM EDT) Sodium 140 133 - 145 mmol/L LAB CHEMISTRY METHOD 10/20/2024 1:14 PM [facility] Potassium 5.1 3.5 - 5.5 mmol/L LAB CHEMISTRY METHOD 10/20/2024 1:14 PM [facility] Chloride 108 96 - 110 mmol/L LAB CHEMISTRY METHOD 10/20/2024 1:14 PM [facility] CO2 28 21 - 32 mmol/L LAB CHEMISTRY METHOD 10/20/2024 1:14 PM [facility] Anion Gap 4 3 - 11 LAB CHEMISTRY METHOD 10/20/2024 1:14 PM [facility] Glucose 145(H) 70 - 100 mg/dL LAB CHEMISTRY METHOD 10/20/2024 1:14 PM [facility] BUN 28(H) 5 - 25 mg/dL LAB CHEMISTRY METHOD 10/20/2024 1:14 PM [facility] Creatinine 1.59(H) 0.50 - 1.10 mg/dL LAB CHEMISTRY METHOD 10/20/2024 1:14 PM [facility] eGFR 33(L) >=60 mL/min/1. 73m2 LAB CHEMISTRY METHOD 10/20/2024 1:14 PM [facility] Comment:Calculation based on the??Chronic Kidney Disease Epidemiology Collaboration (CKD-EPI) equation refit??without adjustment for race. BUN/Creatinine Ratio 17.6 LAB CHEMISTRY METHOD 10/20/2024 1:14 PM [facility] Calcium 10.0 8.5 - 10.5 mg/dL LAB CHEMISTRY METHOD 10/20/2024 1:14 PM [facility] AST (SGOT) 30 10 - 42 unit/L LAB CHEMISTRY METHOD 10/20/2024 1:14 PM EDT [facility] ALT (SGPT) 19 10 - 60 unit/L LAB CHEMISTRY METHOD 10/20/2024 1:14 PM EDT [facility] Alkaline Phosphatase 41(L) 42 - 121 unit/L LAB CHEMISTRY METHOD 10/20/2024 1:14 PM EDT [facility] Total Protein 7.1 6.0 - 8.0 g/dL LAB CHEMISTRY METHOD 10/20/2024 1:14 PM EDT [facility] Albumin 3.9 3.2 - 5.0 g/dL LAB CHEMISTRY METHOD 10/20/2024 1:14 PM EDT [facility] Total Bilirubin 0.4 0.0 - 1.4 mg/dL LAB CHEMISTRY METHOD 10/20/2024 1:14 PM EDT [facility] Blood Venous blood specimen / Unknown Venipuncture / Unknown 10/20/2024 12:17 PM EDT 10/20/2024 12:38 PM EDT us Chad Martinez MD LAB BLOOD ORDERABLES Anabel walls Result [facility] [address] [place] [address], [place] [phone] from Last 3 Months Insurance [employer] Advance Directives * Full Code - Confirmed (Latest Code Status on File) Date Activated Date Inactivated Comments 10/20/2024 5:16 PM 10/21/2024 3:[address] at[facility] was ascertained in the following way: Code status discussion: discussion with patient To update the patient's code status, place a code status order. Do not modify or discontinue any currently active code status orders. * Full Code - Default Date Activated Date Inactivated Comments 10/20/2024 4:46 PM 10/20/2024 5:16 PM This is orde r is used when code status has not been discussed with the patient, or code status is otherwise unknown/unconfirmed To update the patient's code status, place a code status order. Do not modify or discontinue any currently active code status orders. Care Teams Raw Shellfish Preparer Relationship Specialty Start Date End Date Marybeth Dennis MD [address] [place] [address] , [address] [facility] D/B/A: [facility] [place] PCP - General 03/27/15
[2024-11-13 12:42] LABS: Alanine Aminotransferase 18 U/L (0-31); Albumin Level 4.2 g/dL (3.5-5.0); Alkaline Phosphatase 41 U/L (39-117); Anion Gap 10 (12-20); Aspartate Amino Transferase 28 U/L (5-31); Bilirubin Total 0.4 mg/dL (0.0-1.0); Blood Urea Nitrogen 26 mg/dL (9-16); Calcium 9.9 mg/dL (8.4-10.2); Carbon Dioxide 26 mmol/L (22-29); Chloride 108 mmol/L (96-108); Cholesterol 145 mg/dL (<200); Estimated Glomerular Filt Rate 44; Glucose Fasting 112 mg/dL (60-99); HDL Cholesterol 46 mg/dL (>40); LDL Cholesterol Calculated 73 mg/dL (<100); Potassium 4.6 mmol/L (3.3-5.1); Sodium 139 mmol/L (135-145); Total Protein 7.2 g/dL (6.5-8.0); Triglycerides 130 mg/dL (<150)
[2024-11-13 12:57] LABS: Creatinine Urine 154.03 mg/dL
[2024-11-13 13:02] LABS: Vitamin D 25-OH Total 26.3 ng/mL (>30)
== END 2024-11-13 10:45 | disposition home or self-care (01) ==
LOC: HO.LAB 10:44
PROVIDERS: PCP Internal Medicine; Visit Provider Internal Medicine
DX: R80.9 Proteinuria, unspecified (principal); E78.5 Hyperlipidemia, unspecified; E55.9 Vitamin D deficiency, unspecified
CPT/HCPCS: 36415; 80053; 80061; 82043; 82306; 82570

== ENCOUNTER 2024-12-04 10:09 | Outpatient (AMB) | payer OTHER, SELFPAY ==
--- NOTE | 2024-12-04 10:12 | MHC.OFFVIS ---
Vital Signs 12/04/24 10:14 Height 5 ft 3 in Weight 132 lb 10 oz BMI 23.5 BP 132/66 Blood Pressure Location Lt brachial Position Sitting Pulse 56 Pulse Source Pulse Oximeter Pulse Oximetry (%) 97 Oxygen Delivery Method Room Air Intake Visit Reasons: follow up medication Intake Note: ESTABLISHED PATIENT for mgmt of GERD, IBS, CIC CC; C.O. N+V and GERD exacerbation. Pt is unsure which medications she is taking and does not have her medication list with her today. Public Transit Trolley Driver Required: Yes Public Transit Trolley Driver Services: Public Transit Trolley Driver Present Public Transit Trolley [place] [facility] [place] Sellers [id number] Accompanied by: Self / Same As Patient Allergies lactose [Lactose] Allergy (Intermediate, Verified 12/04/24 10:13) DIARRHEA, N/V metformin Allergy (Intermediate, Verified 12/04/24 10:13) stomach upset HPI HPI follow up medication: Details: Assessment & Plan (1) Chronic idiopathic constipation: Code(s): K59.04 - Chronic idiopathic constipation Category: Medical (2) GERD (gastroesophageal reflux disease): Code(s): K21.9 - Gastro-esophageal reflux disease without esophagitis Category: Medical (3) Cognitive impairment: Code(s): R41.89 - Other symptoms and signs involving cognitive functions and awareness Category: Medical Plan Portuguese #[id number] She says she has been a little bit constipated. This despite taking her Linzess 72mcg every day - however, when we increased this in the past she had diarrhea. So, I will try sending senna to use as needed with it, and continue her colace. She is taking the creon 2 caps bid. This has helped somewhat with her gas problems. Her omeprazole along with famotidine is working well to control her heartburn. ROV 6 mos Medications: New sennosides (Senna Laxative) 8.6 mg PO BEDTIME 30 tabs 6RF TODAY'S VISIT Portuguese #T[employer] Live She says that over the past month she has had stomach pain and if I drink coffee I puke! She admits that she had to go to [place] for an emergency, and she fell of of taking her medications. She says when I take them I feel great!! But she got so constipated she was in a LOT of pain, and even had a vasal vagal rxn and almost fainted trying to push stool out. I will refill all of her medications and bring her back in 8 weeks to see how she is doing. [facility] Medical History (Updated 12/04/24 @ 10:22 by PEDRO PABLO Garcia) Venous insufficiency Vaginal pruritus Leucopenia Anemia Hair loss Dizziness Diarrhea Encounter for Medicare annual wellness exam Fecal impaction in rectum Adult general medical exam Oropharyngeal dysphagia MODESTA (generalized anxiety disorder) Mild recurrent major depression Submandibular lymphadenopathy Post-menopausal Chronic daily headache Essential hypertension Lumbar disc disease with radiculopathy Mixed hyperlipidemia Therapeutic opioid induced constipation Hypovitaminosis D Diabetes mellitus Coronary artery disease Surgical History History of colonoscopy S/P CABG x 2 History of total abdominal hysterectomy and bilateral salpingo-oophorectomy History of cardiac catheterization History of rectal polypectomy History of cholecystectomy Family History Father Brain cancer Mother Ovarian cancer Sister Breast cancer Sister Lung cancer Brother Stomach cancer Son Substance abuse Sister Cancer Social History Housing: Apartment Alcohol intake: never Patient Tobacco Use Status: Never used Tobacco e-Cigarette/Vaping Use: Never Used Second Hand Smoke Exposure: No service: No Current occupational status: disabled Cognitive needs: Yes Hearing needs: No Vision needs: Yes Review of Systems Const Denies fatigue, Denies fever(s), Denies night sweats, Denies poor appetite and Denies weight loss ENT Reports Normal hearing present, Denies dental pain, Denies dysphagia, Denies hearing loss, Denies mouth pain, Denies odynophagia, Denies throat swelling, Denies tongue swelling and Reports other (Dentition adequate) Card Reports no additional complaints Resp Reports no additional complaints GI Details: Reports abdominal pain, Denies melena, Reports bloating, Denies hematochezia, Reports constipation, Denies GI cramping, Denies dysphagia, Denies excessive flatus, Denies early satiety, Reports heartburn, Denies diarrhea, Reports nausea, Denies odynophagia, Reports vomiting and Denies hematemesis Skin/Breast Denies pruritus, Denies lesions, Denies rash and Denies jaundice Neuro Reports Normal hearing present and Denies Abnormal speech present Endo Denies fatigue Aller/Immun Denies throat swelling and Denies tongue swelling Physical Exam Vital Signs: Last Vital Signs Pulse 56 12/04/24 10:14 BP 132/66 12/04/24 10:14 Pulse Ox 97 12/04/24 10:14 Oxygen Delivery Method Room Air 12/04/24 10:14 BMI result Body Mass Index 23.5 Const General: cooperative, no acute distress, well developed and well groomed Nutritional Appearance: average body habitus and well nourished Orientation/consciousness: oriented to person, oriented to place and oriented to time Limitations: language barrier and other limitations HEENT Head: Yes normocephalic and Yes atraumatic Eyes General: appearance normal, both eyes and all related structures Pupils: Equal, round and reactive pupils present Neck Neck: Yes normal visual inspection and Yes no lymphadenopathy Thyroid: Thyroid normal Resp Effort & Inspection: normal respiratory effort and able to speak in complete sentences Auscultation: clear to auscultation bilaterally Cardio Rate: regular rate Rhythm: regular rhythm Heart sounds: Normal, physiologic split S2 sound present Peripheral pulses: radial pulses present and posterior tibial pulses present GI Inspection: No distended and No Abdominal panniculus present Palpation (GI): Soft to palpation, nontender, no guarding, not rigid and No hepatosplenomegaly present Percussion: Yes normal to percussion Auscultation: normal bowel sounds Rectal Exam - Female: deferred Skin General skin exam: no rashes or lesions noted, turgor normal, skin not dry, no jaundice, No spider nevi and no striae Rashes: no rashes Nails: normal Neuro General: oriented to person, oriented to place and oriented to time Cranial nerves: Yes Equal, round and reactive pupils present and Yes Normal hearing present Speech: No Abnormal speech present Extrem General: Yes normal to inspection, No clubbing, No cyanosis and No edema Psych Appearance: grossly normal and well kempt Mental Status: mental status grossly normal Speech and movement: Normal speech and movement present Affect: normal affect Attitude: cooperative Thought process: Normal thought process present and not confabulating Thought content: Normal thought content present Insight: Limited insight present (Psych) Judgement: Limited judgement present (Psych) Assessment & Plan Assessment & Plan (1) Chronic idiopathic constipation: Code(s): K59.04 - Chronic idiopathic constipation Category: Medical (2) GERD (gastroesophageal reflux disease): Code(s): K21.9 - Gastro-esophageal reflux disease without esophagitis Category: Medical (3) Dysphagia, oropharyngeal: Comment: Significant esophageal spasm associated with this when her GERD is not controlled aeb Code(s): R13.12 - Dysphagia, oropharyngeal phase Category: Medical (4) IBS (irritable bowel syndrome): Code(s): K58.9 - Irritable bowel syndrome, unspecified Category: Medical (5) Abdominal bloating: Code(s): R14.0 - Abdominal distension (gaseous) Category: Medical (6) Cognitive impairment: Code(s): R41.89 - Other symptoms and signs involving cognitive functions and awareness Category: Medical Plan Portuguese #Abelino Oliveros She says that over the past month she has had stomach pain and if I drink coffee I puke! She admits that she had to go to [place] for an emergency, and she fell of of taking her medications. She says when I take them I feel great!! I will refill all of her medications and bring her back in 8 weeks to see how she is doing. Medications: Refilled omeprazole 40 mg PO DAILY 90 caps 3RF 90 days linaclotide (Linzess) 72 mcg PO QAM 30 caps 6RF nhogox-qcycijkk-xnjxade 24,000-76,000 -120,000 unit (Creon) administer with meals and/or snacks 2 caps PO BID 120 caps 6RF 30 days K58.9 - Irritable bowel syndrome, unspecified famotidine (Pepcid) 40 mg PO .q3pm 90 tabs 3RF K21.9 - Gastro-esophageal reflux disease without esophagitis docusate sodium 100 mg PO DAILY 30 caps 6RF K59.04 - Chronic idiopathic constipation sennosides (senna) 8.6 mg PO BEDTIME 30 tabs 6RF Saccharomyces boulardii (Florastor) swallow whole 250 mg PO DAILY 30 caps 6RF K58.9 - Irritable bowel syndrome, unspecified Coding Level of Care Code Est Pt Level 3 (02542) Diagnoses Chronic idiopathic constipation K59.04 GERD (gastroesophageal reflux disease) K21.9 Dysphagia, oropharyngeal R13.12 IBS (irritable bowel syndrome) K58.9 Abdominal bloating R14.0 Cognitive impairment R41.89
[2024-12-04 10:14] VITALS: BP 132/66; PULSE 56; O2SAT 97; BMI 23.5
--- OUTSIDE RECORDS SUMMARY | 2024-12-04 10:29 | XMS_ITS | Clinical Summary ---
Author Organization [facility], Address [address] [place] [address] [place] [address] Phone Care Team Providers Care Flight Service Specialist Name Role Phone Marybeth Vale MD Primary Care Provider [phone] Allergies Active Allergy Reactions Criticality Noted Date [...] Oct 28 2018 12:00AM Patient Notes: TOME GUSATVO TABLETA TODOS LOS D? Duration: 8 Active [...] DAY: NEEDED FOR ANALGESIA 3 Active Creon 51848-10139 units capsule TOME 1 C PSULA POR [...] Visit [facility], [address] [place] [address] Jhony Lima MD [address] [place] [address] [place] [address] Health Maintenance Due Date Last [...] this topic Insurance Medicaid [place] Care Teams Flight Service Specialist Relationship Specialty Start Date End Date Marybeth Vale MD [address] [place] [address] PCP - General 05/13/19
== END 2024-12-04 10:48 | disposition home or self-care (01) ==
LOC: HO.HGI 10:10
PROVIDERS: PCP Internal Medicine; Visit Provider Nurse Practitioner
DX: K59.04 Chronic idiopathic constipation (principal); K21.9 Gastro-esophageal reflux disease without esophagitis; R13.12 Dysphagia, oropharyngeal phase; K58.9 Irritable bowel syndrome, unspecified; R14.0 Abdominal distension (gaseous); R41.89 Other symptoms and signs involving cognitive functions and awareness
CPT/HCPCS: 99213

== ENCOUNTER → 2024-12-04 10:09 | Outpatient (BNVA) | payer OTHER, SELFPAY | PROVIDERS: PCP Internal Medicine; Visit Provider Nurse Practitioner | DX: K21.9 Gastro-esophageal reflux disease without esophagitis (principal); K58.1 Irritable bowel syndrome with constipation; K59.04 Chronic idiopathic constipation; R41.89 Other symptoms and signs involving cognitive functions and awareness; R13.12 Dysphagia, oropharyngeal phase; R14.0 Abdominal distension (gaseous) | CPT/HCPCS: 99212 ==

== ENCOUNTER 2024-12-22 09:50 | Outpatient (AMB) | payer OTHER, SELFPAY ==
--- NOTE | 2024-12-22 09:54 | MHC.PC.OV ---
Vital Signs 12/22/24 09:55 Height 5 ft 3 in Weight 134 lb BMI 23.7 BP 116/68 Blood Pressure Location Lt brachial Position Sitting Intake Visit Reasons: dm Intake Note: Patient here for a follow up DM Ppap Coordinator Required: No Accompanied by: Daughter in law Allergies lactose [Lactose] Allergy (Intermediate, Verified 12/22/24 10:09) DIARRHEA, N/V metformin Allergy (Intermediate, Verified 12/22/24 10:09) stomach upset Medication List - Last Reconciled 12/22/24 by Marybeth Dennis MD alendronate 70 mg PO QWEEK 90 days aspirin 81 mg PO DAILY blood sugar diagnostic (FreeStyle Lite Strips) Use 1 test strip once a day blood-glucose meter (FreeStyle Lite Meter kit) As directed carvedilol 12.5 mg PO BID cetirizine 10 mg PO DAILY PRN 90 days cholecalciferol (vitamin D3) (Vitamin D3) 50 mcg PO DAILY 90 days docusate sodium 100 mg PO DAILY ezetimibe 10 mg PO DAILY famotidine (Pepcid) 40 mg PO .q3pm fenofibrate nanocrystallized 145 mg PO DAILY 90 days fluticasone propion-salmeterol 250-50 mcg/dose 1 ea inhalation DAILY glycerin (adult) (Fleet Glycerin (Adult) rectal suppository) 2 supp IL DAILY hydrocortisone 2.5% (Proctosol HC) 1 appl IL BID isosorbide mononitrate ER 120 mg PO DAILY 90 days lancets (FreeStyle Lancets) Use 1 lancet once a day linaclotide (Linzess) 72 mcg PO QAM ccwqcv-taonewye-wormdzb 24,000-76,000 -120,000 unit (Creon) 2 caps PO BID 30 days lisinopril 20 mg PO DAILY 90 days metoprolol succinate ER 12.5 mg (1/2 x 25 mg) PO DAILY 90 days mirtazapine 15 mg PO BEDTIME 90 days omeprazole 40 mg PO DAILY 90 days ondansetron HCl 8 mg PO Q8H oxycodone-acetaminophen 7.5-325 mg 1 tab PO Q6H PRN 30 days rosuvastatin 20 mg PO DAILY 90 days Saccharomyces boulardii (Florastor) 250 mg PO DAILY sennosides (senna) 8.6 mg PO BEDTIME sitagliptin phosphate (Januvia) 100 mg PO DAILY Tobacco use date assessed: 07/22/24 Fall risk assessment: 1 Fall in past year Last assessed Fall Risk: 12/22/24 Dental Screening Dental Screen Date: 07/22/24 HPI HPI Comments History of Present Illness Details The patient is a 79-year-old female presenting for a routine follow-up visit to manage multiple chronic conditions and review preventative care measures. She has a history of osteoporosis, managed with alendronate and vitamin D supplementation. Chronic back pain is managed with Percocet. Hyperlipidemia is treated with ezetimibe and rosuvastatin, with recent LDL levels slightly above target. Chronic kidney disease stage 3 is stable with a GFR of 44. Constipation is managed with docusate and linaclotide under gastroenterology care. Hypertension is managed with carvedilol and lisinopril. Depression and insomnia are treated with mirtazapine. Gastroesophageal reflux disease is managed with omeprazole and famotidine. Diabetes mellitus is managed with Januvia, with stable home glucose readings. Allergic rhinitis is treated with cetirizine as needed. Angina is monitored by a cost coordinator. Preventative care includes upcoming bone density screening and vaccinations, with tetanus due next year. [facility] Medical History (Updated 12/22/24 @ 10:21 by Marybeth Dennis MD) Venous insufficiency Vaginal pruritus Leucopenia Anemia Hair loss Dizziness Diarrhea Encounter for Medicare annual wellness exam Fecal impaction in rectum Adult general medical exam Oropharyngeal dysphagia MODESTA (generalized anxiety disorder) Mild recurrent major depression Submandibular lymphadenopathy Post-menopausal Chronic daily headache Essential hypertension Lumbar disc disease with radiculopathy Mixed hyperlipidemia Therapeutic opioid induced constipation Hypovitaminosis D Diabetes mellitus Coronary artery disease Surgical History History of colonoscopy S/P CABG x 2 History of total abdominal hysterectomy and bilateral salpingo-oophorectomy History of cardiac catheterization History of rectal polypectomy History of cholecystectomy Family History Father Brain cancer Mother Ovarian cancer Sister Breast cancer Sister Lung cancer Brother Stomach cancer Son Substance abuse Sister Cancer Social History Housing: Apartment Alcohol intake: never Patient Tobacco Use Status: Never used Tobacco e-Cigarette/Vaping Use: Never Used Second Hand Smoke Exposure: No service: No Current occupational status: disabled Cognitive needs: Yes Hearing needs: No Vision needs: Yes Questionnaire PHQ-9 Over the last 2 weeks, how often have you been bothered by any of the following problems? 1. Little interest or pleasure in doing things: not at all 2. Feeling down, depressed, or hopeless: not at all 3. Trouble falling or staying asleep, or sleeping too much: not at all 4. Feeling tired or having little energy: not at all 5. Poor appetite or overeating: not at all 6. Feeling bad about yourself - or that you are a failure or have let yourself or your family down: not at all 7. Trouble concentrating on things, such as reading the newspaper or watching television: not at all 8. Moving or speaking so slowly that other people could have noticed. Or the opposite - being so fidgety or restless that you have been moving around a lot more than usual: not at all 9. Thoughts that you would be better off or of hurting yourself in some way: not at all Total score: 0 Depression Screening Interpretation: Negative Depression Screening Done: Yes 22798 - PHQ-9 Billing: Yes Source: Developed by Drs. Pradip Evans, Caroline Hassan, Shakir Bolton and colleagues, with an educational ailyn from [employer] Thrive Questionnaire Date Thrive assessed: 07/22/24 I am a: Parent/Caregiver What is your living situation today?: I have a steady place to live Within the past 12 months, did the food you bought not last and you didn't have the money to get more?: Never true Within the past 12 months, did you worry whether your food would run out before you got money to buy more?: Never true Do you have trouble paying for medicines?: No Do you have trouble getting transportation to medical appointments?: No Do you have trouble paying your heating and electricity bill?: No Do you have trouble taking care of your child, family member or friend?: No Do you have trouble with day-to-day activities such as bathing, preparing meals, shopping, managing finances, etc.?: No Are you currently unemployed and looking for a job?: No Are you interested in more education?: No Please select the resources that you would like help with: None Currently or been in a relationship where the following occur: I choose not to answer THRIVE Score: 0 AUDIT C Alcohol Use Questionnaire (AUDIT-C) 1. How often do you have a drink containing alcohol?: Never Total Score: 0 Score Reviewed/Action Taken: No MODESTA-7 AMB Questionnaire MODESTA-7 Date MODESTA - 7 assessed: 07/22/24 Feeling nervous, anxious, or on edge: 0 = Not at all Not being able to stop or control worryin = Not at all Worrying too much about different things: 0 = Not at all Trouble relaxin = Not at all Being so restless that it is hard to sit still: 0 = Not at all Becoming easily annoyed or irritable: 0 = Not at all Feeling afraid as if something awful might happen: 0 = Not at all Total MODESTA-7 score (0-4 normal; 5-9 mild; 10-14 moderate; 15-21 severe): 0 Source: Developed by Drs. Pradip Evans, Caroline Hassan, Shakir Bolton and colleagues, with an educational ailyn from [employer] MODESTA-7 Assessment Billing MODESTA-7 Assessment Tool: MODESTA-7 Assessment 84367 Review of Systems Const All systems reviewed & are unremarkable except as noted in HPI and below Card Denies chest pain at rest, Denies chest pain with activity, Denies edema, Denies irregular heart rhythm, Denies claudication, Denies dyspnea, Denies dyspnea on exertion, Denies orthopnea, Denies paroxysmal nocturnal dyspnea and Denies slow heart rate Resp Denies cough, Denies dyspnea and Denies dyspnea on exertion Musc Denies abnormal gait, Denies atrophy, Denies deformity and Denies limited range of motion Skin/Breast Denies bleeding lesions, Denies changing lesions and Denies rash Neuro Denies abnormal gait and Denies lack of coordination Physical exam (Primary Care) Vital Signs: Last Vital Signs BP 116/68 12/22/24 09:55 BMI result Body Mass Index 23.7 Tobacco/Smoking Status: Tobacco use Status Tobacco use date assessed 07/22/24 12/22/24 10:04 Patient Tobacco Use Status Never used Tobacco 12/22/24 10:04 e-Cigarette/Vaping Use Never Used 12/22/24 10:04 PHQ-9: PHQ-9 Score PHQ-9: Total score 0 12/22/24 10:11 Depression Screening Interpretation: Negative Thrive Assessment: Date of Thrive Assessment Date Thrive assessed 07/22/24 12/22/24 10:04 Currently or been in a relationship where the following occur: I choose not to answer Resp Effort & Inspection: normal respiratory effort Auscultation: clear to auscultation bilaterally Cardio Jugular venous distension: no JVD Rate: regular rate Rhythm: regular rhythm Heart sounds: S1 normal heart sound present and S2 normal heart sound present Skin Other: Papular lesion in right side of the forehead Extrem General: Yes full ROM Results AMB Hemoglobin A1c AMB Hemoglobin A1c 4.8 % Last Edit by LUZ MARINA Alaniz on 12/22/24 10:07 Results Reviewed Results Reviewed: Laboratory Last Values Hgb A1c (Clinic) 4.8 % (4.0-6.0) 12/22/24 09:53 Coding Level of Care Code Est Pt Level 4 (41063) Complex EM visit Add On G2211 Diagnoses Skin lesion L98.9 Hyperlipidemia LDL goal <70 E78.5 GERD (gastroesophageal reflux disease) K21.9 Chronic idiopathic constipation K59.04 Mild recurrent major depression F33.0 Essential hypertension I10 Type 2 diabetes mellitus without complication, without long-term current use of insulin E11.9 Diabetes mellitus type: type 2 Diabetes mellitus correction insulin use: without long term acute care registered nurse use Diabetes mellitus complication status: without complication Additional Codes MODESTA-7 Assessment Billing - MODESTA-7 Assessment Tool: MODESTA-7 Assessment 34440 ([id number]) PHQ-9 - 81565 - PHQ-9 Billing: Yes ([id number]) Time Spent (min) 22 Assessment & Plan Assessment & Plan (1) Skin lesion: Code(s): L98.9 - Disorder of the skin and subcutaneous tissue, unspecified Category: Medical (2) Hyperlipidemia LDL goal <70: Code(s): E78.5 - Hyperlipidemia, unspecified Category: Medical (3) GERD (gastroesophageal reflux disease): Code(s): K21.9 - Gastro-esophageal reflux disease without esophagitis Category: Medical (4) Chronic idiopathic constipation: Code(s): K59.04 - Chronic idiopathic constipation Category: Medical (5) Mild recurrent major depression: Code(s): F33.0 - Major depressive disorder, recurrent, mild Category: Medical (6) Essential hypertension: Code(s): I10 - Essential (primary) hypertension Category: Medical (7) Diabetes mellitus: Code(s): E11.9 - Type 2 diabetes mellitus without complications Category: Medical Qualifiers: Diabetes mellitus type: type 2 Diabetes mellitus long term acute care registered nurse insulin use: without correction use Diabetes mellitus complication status: without complication Qualified Code(s): E11.9 - Type 2 diabetes mellitus without complications Plan The patient's current medication regimen will be maintained as it is effectively managing her conditions. A bone density screening is scheduled for April to monitor osteoporosis progression. The patient is advised to continue follow-up with her cost coordinator for angina management and with gastroenterology for constipation. Vaccinations are up to date, with the next tetanus vaccine due next year. A dermatology referral is made for skin concerns. Patient was informed and verbally consented to the use of an ambient scribe for clinic note documentation during this visit. I discussed with the patient the importance of maintaining her current medication regimen as it is effectively managing her conditions. We reviewed the need for a bone density screening in April and the importance of continuing follow-up with her cost coordinator and boiler assistant operator. I also informed her that her vaccinations are up to date, with the next tetanus vaccine due next year, and made a referral to dermatology for her skin concerns. Orders: Orders XR DEXA axial skeleton 4 Months Z78.0 - Asymptomatic menopausal state AMB Hemoglobin A1c Today E11.9 - Type 2 diabetes mellitus without complications Lipid Panel 4 Months E78.5 - Hyperlipidemia, unspecified Microalbumin, Random (w Creat) 4 Months R80.9 - Proteinuria, unspecified Vitamin D 25-OH Total 4 Months E55.9 - Vitamin D deficiency, unspecified Comprehensive Rough And Ready. Panel Fast 4 Months E78.5 - Hyperlipidemia, unspecified Referrals Dermatology Referral L98.9 - Disorder of the skin and subcutaneous tissue, unspecified Patient Instructions: - Continue taking all prescribed medications as directed. - Schedule and attend the bone density screening in April. - Follow up with your cost coordinator and boiler assistant operator as advised. - Ensure vaccinations are up to date; next tetanus vaccine is due next year. - Attend the dermatology appointment for skin evaluation.
[2024-12-22 09:55] VITALS: BP 116/68; BMI 23.7
== END 2024-12-22 10:24 | disposition home or self-care (01) ==
LOC: HO.HMCH 09:50
PROVIDERS: PCP Internal Medicine; Visit Provider Internal Medicine
DX: E11.69 Type 2 diabetes mellitus with other specified complication (principal); L98.9 Disorder of the skin and subcutaneous tissue, unspecified; E78.5 Hyperlipidemia, unspecified; K21.9 Gastro-esophageal reflux disease without esophagitis; K59.04 Chronic idiopathic constipation; F33.0 Major depressive disorder, recurrent, mild; I10 Essential (primary) hypertension

== ENCOUNTER → 2024-12-22 09:50 | Outpatient (BNVA) | payer OTHER, SELFPAY | PROVIDERS: PCP Internal Medicine; Visit Provider Internal Medicine | DX: E11.22 Type 2 diabetes mellitus with diabetic chronic kidney disease (principal); M81.0 Age-related osteoporosis without current pathological fracture; M54.50 Low back pain, unspecified; I12.9 Hypertensive chronic kidney disease with stage 1 through stage 4 chronic kidney disease, or unspecified chronic kidney disease; N18.30 Chronic kidney disease, stage 3 unspecified; G47.00 Insomnia, unspecified; K21.9 Gastro-esophageal reflux disease without esophagitis; J30.9 Allergic rhinitis, unspecified; L98.9 Disorder of the skin and subcutaneous tissue, unspecified; E78.5 Hyperlipidemia, unspecified; K59.04 Chronic idiopathic constipation; F33.0 Major depressive disorder, recurrent, mild; R80.9 Proteinuria, unspecified; E55.9 Vitamin D deficiency, unspecified; Z78.0 Asymptomatic menopausal state; Z79.891 Long term (current) use of opiate analgesic | CPT/HCPCS: 83036; 96127; 99212 ==

== ENCOUNTER 2025-02-03 09:38 | Outpatient (AMB) | payer OTHER, SELFPAY ==
[2025-02-03 09:46] VITALS: BP 109/82; PULSE 50; BMI 23.6
--- NOTE | 2025-02-03 09:46 | MHC.OFFVIS ---
Vital Signs 02/03/25 09:46 Height 5 ft 3 in Weight 133 lb 2.547 oz BMI 23.6 BP 109/82 Blood Pressure Location Lt brachial Position Sitting Pulse 50 Intake Visit Reasons: 8 N/V eval now back on meds Intake Note: Melanie returns to office in follow up of N/V. CC: Patient c/o gas and acid reflux when she eat beans. Denies other GI concerns today. Activities Concierge Required: Yes Activities Concierge Language: Sammarinese Accompanied by: Self / Same As Patient Allergies lactose (Lactose) Allergy (Intermediate, Verified 02/03/25 10:40) DIARRHEA, N/V metformin Allergy (Intermediate, Verified 02/03/25 10:40) stomach upset HPI HPI 8 N/V eval now back on meds: Details: Assessment & Plan (1) Chronic idiopathic constipation: Code(s): K59.04 - Chronic idiopathic constipation Category: Medical (2) GERD (gastroesophageal reflux disease): Code(s): K21.9 - Gastro-esophageal reflux disease without esophagitis Category: Medical (3) Dysphagia, oropharyngeal: Comment: Significant esophageal spasm associated with this when her GERD is not controlled aeb Code(s): R13.12 - Dysphagia, oropharyngeal phase Category: Medical (4) IBS (irritable bowel syndrome): Code(s): K58.9 - Irritable bowel syndrome, unspecified Category: Medical (5) Abdominal bloating: Code(s): R14.0 - Abdominal distension (gaseous) Category: Medical (6) Cognitive impairment: Code(s): R41.89 - Other symptoms and signs involving cognitive functions and awareness Category: Medical Plan Sammarinese #Abelino Live She says that over the past month she has had stomach pain and if I drink coffee I puke! She admits that she had to go to [place] for an emergency, and she fell of of taking her medications. She says when I take them I feel great!! I will refill all of her medications and bring her back in 8 weeks to see how she is doing. Medications: Refilled omeprazole 40 mg PO DAILY 90 caps 3RF 90 days linaclotide (Linzess) 72 mcg PO QAM 30 caps 6RF mszzqh-nbtocyxf-oxktlne 24,000-76,000 -120,000 unit (Creon) administer with meals and/or snacks 2 caps PO BID 120 caps 6RF 30 days K58.9 - Irritable bowel syndrome, unspecified famotidine (Pepcid) 40 mg PO .q3pm 90 tabs 3RF K21.9 - Gastro-esophageal reflux disease without esophagitis docusate sodium 100 mg PO DAILY 30 caps 6RF K59.04 - Chronic idiopathic constipation sennosides (senna) 8.6 mg PO BEDTIME 30 tabs 6RF Saccharomyces boulardii (Florastor) swallow whole 250 mg PO DAILY 30 caps 6RF K58.9 - Irritable bowel syndrome, unspecified TODAY'S VISIT Sammarinese #Nela and trainee Zahraa She has what appears to be a bruise on her right forehead laterally near the hair line. She fell recently and broke her foot. She aslo will be seeing a derm as she has a hx of skin cancer and this could also be a melanoma as she says I have had it for 5 years. She is wearing a walking cast. She describes the fall as happening after she was trying to strain on the toilet so it sounds like a classic vasovagal reaction. I have advised her that even if she feels constipated not to strain on the toilet or to rise very slowly. She is having more trouble with postprandial urgency and looser stools. She is also complaining of having a tremendous amount of gas that is malodorous which is preventing her from having a good social life. She says she continues on her Creon. I think will stop the Linzess and continue her senna for now and give her a trial of Augmentin to see if this is small-bowel bacterial overgrowth. Return office visit in 6 weeks [facility] Medical History Venous insufficiency Vaginal pruritus Leucopenia Anemia Hair loss Dizziness Diarrhea Encounter for Medicare annual wellness exam Fecal impaction in rectum Adult general medical exam Oropharyngeal dysphagia MODESTA (generalized anxiety disorder) Mild recurrent major depression Submandibular lymphadenopathy Post-menopausal Chronic daily headache Essential hypertension Lumbar disc disease with radiculopathy Mixed hyperlipidemia Therapeutic opioid induced constipation Hypovitaminosis D Diabetes mellitus Coronary artery disease Surgical History History of colonoscopy S/P CABG x 2 History of total abdominal hysterectomy and bilateral salpingo-oophorectomy History of cardiac catheterization History of rectal polypectomy History of cholecystectomy Family History Father Brain cancer Mother Ovarian cancer Sister Breast cancer Sister Lung cancer Brother Stomach cancer Son Substance abuse Sister Cancer Social History Housing: Apartment Alcohol intake: never Patient Tobacco Use Status: Never used Tobacco e-Cigarette/Vaping Use: Never Used Second Hand Smoke Exposure: No service: No Current occupational status: disabled Cognitive needs: Yes Hearing needs: No Vision needs: Yes Review of Systems Const Denies fatigue, Denies fever(s), Denies night sweats, Denies poor appetite and Denies weight loss ENT Reports Normal hearing present, Denies dental pain, Denies dysphagia, Reports dizziness, Denies hearing loss, Denies mouth pain, Denies odynophagia, Denies throat swelling, Denies tongue swelling and Reports other (Dentition adequate) Card Reports syncope Resp Reports no additional complaints GI Details: Denies abdominal pain, Denies melena, Reports bloating, Denies hematochezia, Denies constipation, Denies GI cramping, Denies dysphagia, Reports excessive flatus, Denies early satiety, Reports heartburn, Denies diarrhea, Reports loose stools, Denies nausea, Denies odynophagia, Denies vomiting and Denies hematemesis Musc Reports abnormal gait and Reports arthralgias Skin/Breast Details: Reports nonhealing lesion on forehead Denies pruritus, Denies lesions, Denies rash and Denies jaundice Neuro Reports Normal hearing present, Denies Abnormal speech present, Reports abnormal gait, Reports dizziness, Reports syncope and Reports memory loss Psych Reports memory loss Endo Denies fatigue Aller/Immun Denies throat swelling and Denies tongue swelling Physical Exam Vital Signs: Last Vital Signs Pulse 50 02/03/25 09:46 BP 109/82 02/03/25 09:46 BMI result Body Mass Index 23.6 Const General: cooperative, no acute distress, well developed and well groomed Nutritional Appearance: average body habitus and well nourished Orientation/consciousness: oriented to person, oriented to place and oriented to time Limitations: language barrier HEENT Head: Yes normocephalic and Yes atraumatic Eyes General: appearance normal, both eyes and all related structures Pupils: Equal, round and reactive pupils present Neck Neck: Yes normal visual inspection and Yes no lymphadenopathy Thyroid: Thyroid normal Resp Effort & Inspection: normal respiratory effort and able to speak in complete sentences Auscultation: clear to auscultation bilaterally Cardio Rate: regular rate Rhythm: regular rhythm Heart sounds: Normal, physiologic split S2 sound present Peripheral pulses: radial pulses present and posterior tibial pulses present GI Inspection: No distended and No Abdominal panniculus present Palpation (GI): Soft to palpation, nontender, no guarding, not rigid, No hepatosplenomegaly present and Hepatosplenomegaly present Percussion: Yes normal to percussion Auscultation: normal bowel sounds Rectal Exam - Female: deferred Skin General skin exam: no rashes or lesions noted, turgor normal, skin not dry, no jaundice, No spider nevi and no striae Rashes: no rashes Nails: normal Neuro General: oriented to person, oriented to place and oriented to time Cranial nerves: Yes Equal, round and reactive pupils present and Yes Normal hearing present Speech: No Abnormal speech present Extrem Other: Walking boot left foot General: No clubbing, No cyanosis, No edema and Yes Limp noted Psych Appearance: grossly normal and well kempt Mental Status: mental status grossly normal Speech and movement: Normal speech and movement present Affect: normal affect Attitude: cooperative Thought process: Circumstantial thought process present and not confabulating Thought content: Normal thought content present Insight: Limited insight present (Psych) and Poor insight present (Psych) Judgement: Limited judgement present (Psych) and Poor judgement present (Psych) Assessment & Plan Assessment & Plan (1) GERD (gastroesophageal reflux disease): Code(s): K21.9 - Gastro-esophageal reflux disease without esophagitis Category: Medical (2) Chronic idiopathic constipation: Code(s): K59.04 - Chronic idiopathic constipation Category: Medical (3) Dysphagia, oropharyngeal: Comment: Significant esophageal spasm associated with this when her GERD is not controlled aeb Code(s): R13.12 - Dysphagia, oropharyngeal phase Category: Medical (4) IBS (irritable bowel syndrome): Code(s): K58.9 - Irritable bowel syndrome, unspecified Category: Medical (5) MGUS (monoclonal gammopathy of unknown significance): Code(s): D47.2 - Monoclonal gammopathy Category: Medical (6) Cognitive impairment: Code(s): R41.89 - Other symptoms and signs involving cognitive functions and awareness Category: Medical Plan Sammarinese #Nela and trainee Zahraa She has what appears to be a bruise on her right forehead laterally near the hair line. She fell recently and broke her foot. She aslo will be seeing a derm as she has a hx of skin cancer and this could also be a melanoma as she says I have had it for 5 years. She is wearing a walking cast. She describes the fall as happening after she was trying to strain on the toilet so it sounds like a classic vasovagal reaction. I have advised her that even if she feels constipated not to strain on the toilet or to rise very slowly. She is having more trouble with postprandial urgency and looser stools. She is also complaining of having a tremendous amount of gas that is malodorous which is preventing her from having a good social life. She says she continues on her Creon. I think will stop the Linzess and continue her senna for now and give her a trial of Augmentin to see if this is small-bowel bacterial overgrowth. Return office visit in 6 weeks Medications: New amoxicillin-pot clavulanate 875-125 mg 1 tab PO BID 20 tabs 0RF 10 days On Hold linaclotide (Linzess) Hold Comment: Doctor's Order 72 mcg PO QAM 30 caps 6RF Patient Instructions: Melanie Knapp Para aliviar los gases y la diarrea: 1. Suspenda Linzess. 2. Contin?e con sen. 3. Le estoy recetando un antibi?sridevi llamado augmentina para deborah si podemos reequilibrar las bacterias beneficiosas y perjudiciales del intestino. 4. Contin?e con el probi?sridevi. Coding Level of Care Code Est Pt Level 3 (89414) Diagnoses GERD (gastroesophageal reflux disease) K21.9 Chronic idiopathic constipation K59.04 Dysphagia, oropharyngeal R13.12 IBS (irritable bowel syndrome) K58.9 MGUS (monoclonal gammopathy of unknown significance) D47.2 Cognitive impairment R41.89
--- OUTSIDE RECORDS SUMMARY | 2025-02-03 10:13 | XMS_ITS | Clinical Summary ---
Author Organization [facility], Address [address] [place] [address] [place] [address] Phone Care Team Providers Care Pump Installer Name Role Phone Marybeth Vale MD Primary Care Provider [phone] Allergies Active Allergy Reactions Criticality Noted Date [...] DAY: NEEDED FOR ANALGESIA 3 Active Creon 82399-70447 units capsule TOME 1 C PSULA POR [...] Visit [facility], [address] [place] [address] Jhony Lima MD [address] [place] [address] [place] [address] Health Maintenance Due Date Last Done Comments Pneumococcal Vaccine: 50+ Ye ars (2 of 2 - PCV) 06/19/2014 06/19/2013 Diabetes: Hemoglobin A1C 09/29/2019 Diabetes: Ophthalmology Exam 09/29/2019 Diabetes: Pedal Pulse Checked 09/29/2019 Diabetes: Sensory Foot Exam 09/29/2019 Diabetes: Visual Foot Exam 09/29/2019 Influenza Vaccine (#1) 2025 Pneumococcal Vaccine: Peds ( 0 to 5 Years) and At-Risk Patients (6 to 49 Years) Discontinued 06/19/2013 Hepatitis B Vaccine Aged Out No longe r eligible based on patient's age to complete this topic Insurance Medicaid [place] Care Teams Pump Installer Relationship Specialty Start Date End Date Marybeth Vale MD [address] [place] [address] PCP - General 05/13/19
--- OUTSIDE RECORDS SUMMARY | 2025-02-03 10:13 | XMS_ITS | Clinical Summary ---
Author Organization [facility] Address [address] [place] [address] [place] [address] Phone Care Team Providers Care Clothes Drier Assembler Name Role Phone Marybeth Vale MD Primary Care Provid er Social History Tobacco Use Types Packs/Day Years Used Date Smoking Tobacco: Never Assessed Education Answer Date Recorded Are you interested in more education? Not on dustin e 11/03/2022 Are you concerned about learning? Not on file 11/03/2022 No 11/03/2022 No 11/03/2022 Digital Access Answer Date Recorded No 12/05/2022 No 12/05/2022 Reliable internet access at home? Not on file 12/05/2022 Device with a working camera? Not on file Comments Unknown Sex and Gender Information Value Date Recorded Sex Assigned at Not on file Legal Sex Female 1:53 PM EDT Gender Identity Not on file Sexual Orientation Not on file Plan of Treatment Not on file Medical Devices Not on file Insurance [place] MED[employer] REPLACEMENT MEDICARE REPLACEMENT MEDICARE REPLACEMENT [place] [id number] MEDICARE REPLACEMENT MEDICARE REPLACEMENT MEDICARE REPLACEMENT MEDICARE [place]AC[place] [address] [address] MEDICARE REPLACEMENT Care Teams Clothes Drier Assembler Relationship Specialty Start Date End Date Marybeth Vale MD [address] [place] [address] PCP - General Internal Medicine 11/17/19 Additional Source Comments The information contained in this document represents components of the legal health record. It is not the complete legal health record.[facility]
--- OUTSIDE RECORDS SUMMARY | 2025-02-03 10:13 | XMS_ITS | Clinical Summary ---
Author Organization [facility] Address [address] [place] [address] Phone Care Team Providers Care Hydro Sprayer Operator Name Role Phone Marybeth Dennis MD Primary Care Provider [phone] Allergies Active Allergy Reactions Criticality Noted Date Comments Lactose 12/02/2020 Latex Other 12/11/2019 Metformin Other 12/11/2019 Medications docusate sodium (COLACE) 100 mg capsule [...] by mouth 1 (one) time each day. 5 Active lisinopriL (PRINIVIL,ZESTRI L) 20 mg tablet Take 1 tablet (20 mg total) by mouth 1 (one) time each day. for 90 days 5 Active mirtazapine (REMERON) 15 mg tablet Take 1 tablet (15 mg total) by mouth at bedtime. 5 Active omeprazole (PriLOSEC) [address] capsule Take 1 capsule (40 mg total) by mouth 1 (one) time each day. 5 Active oxyCODONE-acetam inophen (PERCOCET) 7.5-325 mg per tablet Take 1 tablet by mouth every 6 (six) hours if needed for moderate pain. Max Daily Amount: 4 tablets Active rosuvastatin (CRESTOR) 20 mg tablet Take 1 tablet (20 mg total) by mouth 1 (one) time each day. Active senna 8.6 mg tablet Take 1 tablet (8.6 mg total) by mouth 1 (one) time each day. 5 Active Januvia 100 mg tablet Take 1 tablet (100 mg total) by mouth 1 (one) time each day. Active venlafaxine XR (EFFEXOR-XR) 37.5 mg 24 hr capsule Take 1 capsule (37.5 mg total) by mouth 1 (one) time each day. Active carvediloL (COREG) 6.25 mg tablet Take 1 tablet (6.25 mg total) by mouth 2 (two) times a day with meals. 60 each 5 Active Active Problems No known active problems Resolved Problems Problem Noted Date Diagnosed Date Resolved Date Chest pain 10/20/2024 10/21/2024 Encounters Date Type Department Care Team Description 01/15/2025 9:03 AM EDT - 01/15/2025 11:59 PM EDT Hospital Encounter [facility] Ortho Xray [address] [place] [address] Pain Discharge Disposition: Home or Self Care 12/18/2024 7:45 AM EDT - 12/18/2024 11:59 PM EDT Hospital Encounter [facility] Ortho Xray [address] [place] [address] Pain Discharge Disposition: Home or Self Care 12/11/2024 2:35 PM EDT - 12/11/2024 5:17 PM EDT Emergency [facility] Emergency [address] [place] [address] Christian Genao MD Closed fracture of left ankle, initial encounter (Primary Dx) Discharge Disposition: Home or Self Care from Last 3 Months Surgical History Surgery Date Site/Laterality Comments CORONARY ARTERY BYPASS GRAFT PROCEDURE: HISTORICAL CABG CARDIAC CATHETERIZATION PROCEDURE: HISTORICAL CARDIAC CATH Medical History Medical History Date Comments Chronic ischemic heart disease D X:Chronic ischemic heart disease Essential hypertension DX:Essent ial hypertension Hyperlipidemia DX:Hyperlipidemi a PAD (peripheral artery disea se) ([facility] V24) DX:PAD (peripheral artery di sease) ([facility]) Social History Tobacco Use Types [...] Sign Reading Time Taken Comments Blood Pressure 103/48 12/11/2024 3:17 PM EDT Pulse 56 12/11/2024 3:17 PM EDT Temperature 36.3 C (97.3 F) 12/11/2024 3:17 PM EDT Respiratory Rate 16 12/11/2024 3:17 PM EDT Oxygen Saturation 98% 12/11/2024 3:17 PM EDT Inhaled Oxygen Concentration - - Weight 59 kg (130 lb) 12/11/2024 1:31 PM EDT Height 157.5 cm (5' 2 ) 12/11/2024 1:31 PM EDT Body Mass Index 23.78 12/11/2024 1:31 PM EDT Plan of Treatment Health Maintenance Due Date Last Done Comments Diabetes: Annual Foot Exam 1955 Diabetes: Annual Retina Eye Exam 1955 Zoster Vaccines (1 of 2) 1995 Pneumococcal Vaccine: 50+ Years (2 of 2 - PCV) 06/23/2017 06/23/2016, 03/26/2015, 06/19/2013, Additional history exists RSV Immunization Adult Patients (1 - 1-dose 75+ series) 2020 Cholesterol Screening (Lipid Panel) 06/11/2022 Hepatitis C Screening 06/11/2022 Medicare Annual Wellness Visit 06/11/2022 Osteoporosis Screening (Bone Density Screening) 06/11/2022 Social Influencers of Health Screening 06/11/2022 COVID-19 Vaccine ( season) 2024 07/19/2021, 02/16/2021, 01/26/2021, Additional history exists Depression Screening 07/09/2024 Diabetes: Annual Urine Albumin-Creatinine Ratio (uACR) 10/20/2024 Diabetes: Blood Sugar Control Test (HGBA1C) 10/20/2024 Influenza Vaccine (#1) 2025 , 04/24/2022, 06/04/2019, Additional history exists Diabetes: Annual [...] Procedure Name Priority Date/Time Associated Diagnosis Comments XR ANKLE 3+ VIEWS LEFT Routine 01/15/2025 9:13 AM EDT Pain XR ANKLE 3+ VIEWS LEFT Routine 12/18/2024 9:47 AM EDT Pain ED SPLINT APPLICATION Routine 12/11/2024 4:56 PM EDT ED SPLINT APPLICATION Routine 12/11/2024 4:56 PM EDT WV APPLICATION CAST SHORT LEG Routine 12/11/2024 4:56 PM EDT WV APPLICATION SPLINT SHORT LEG Routine 12/11/2024 4:56 PM EDT XR TIBIA FIBULA 2 VIEWS LEFT STAT 12/11/2024 3:37 PM EDT XR ANKLE 3+ VIEWS LEFT STAT 12/11/2024 1:35 PM EDT BASIC METABOLIC PANEL Routine 10/21/2024 9:45 AM EDT from Last 3 Months or Most Recently Relevant to Health Maintenance Results * XR Ankle 3+ Views Left (01/15/2025 9:13 AM EDT) Only the most recent of3 resultswithin the time period is included. Narrative RIS PACS/VR - 01/15/2025 9:13 AM EDT This order has been auto-finalized and does not contain a result. us Danny Chapman MD IMG XR PROCEDURES Final Result RIS PACS/VR * WV APPLICATION SPLINT SHORT LEG, WV APPLICATION CAST SHORT LEG, HC APPLICATION SPLINT/CAST/STRAP, HC APPLICATION SPLINT/CAST/STRAP (12/11/2024 4:56 PM EDT) Christian Vincent MD - 12/11/2024 4:56 PM EDT Christian Genao MD 12/16/2024 11:00 PM Splint Application Date/Time: 12/11/2024 4:56 PM Performed by: Christian Genao MD Authorized by: Christian Genao MD Consent: Consent obtained: Verbal Pre-procedure details: Distal neurologic exam: Normal Distal perfusion: distal pulses strong and brisk capillary refill Procedure details: Location: Ankle Ankle location: L ankle Strapping: no Cast type: Short leg Splint type: Ankle stirrup Supplies: Fiberglass Post-procedure details: Distal neurologic exam: Normal Distal perfusion: distal pulses strong and brisk capillary refill Procedure completion: Tolerated well, no immediate complications Post-procedure imaging: not applicable Comments: Pre and post neurovascularly intact. Posterior and a U shaped splint applied to the ankle. Tolerating it well. Cap refill intact. No paresthesia complaints. No pain complaints. us Christian Genao MD IN CLINIC/BEDSIDE ORDERABLES Fi nal Result * XR Tibia Fibula 2 Views Left (12/11/2024 3:37 PM EDT) Anatomical Region Laterality Modality Lower Extremities, Lower Leg Left Rad iographic Imaging 12/11/2024 3:39 PM EDT Impressions 12/11/2024 3:40 PM EDT Impression: Distal fibular and medial malleolar avulsion fractures reported earlier. No additional fractures are seen. [facility] ([id number]) -------- FINAL REPORT -------- Dictated By: Mima Ortega Dictated Date: 12/11/2024 15:39 ET Assigned Physician: Mima Ortega Reviewed and Electronically Signed By: Mima Ortega Signed Date: 12/11/2024 15:40 ET Workstation ID: [id number] Transcribed By: Self Edit Transcribed Date: 12/11/2024 15:39 ET Narrative 12/11/2024 3:40 PM EDT History: Left leg pain. Known ankle fracture. Findings: AP and lateral views of the left tib-fib. An acute fracture of the distal fibula is again demonstrated and scalelike avulsion fracture suspected from the tip of the medial malleolus, reported earlier. No additional fractures are seen. Procedure Note Mima Ortega MD - 12/11/2024 History: Left leg pain. Known ankle fracture. Findings: AP and lateral views of the left tib-fib. An acute fracture of the distal fibula is again demonstrated and scalelikeavulsion fracture suspected from the tip of the medial malleolus, reportedearlier. No additional fractures are seen. IMPRESSION: Impression: Distal fibular and medial malleolar avulsion fractures reported earlier. No additional fractures are seen. [facility] RYAN ([id number]) -------- FINAL REPORT -------- Dictated By: Mima Ortega Dictated Date: 12/11/2024 15:39 ET Assigned Physician: Mima Ortega Reviewed and Electronically Signed By: Mima Ortega Signed Date: 12/11/2024 15:40 ET Workstation ID: [id number] Transcribed By: Self Edit Transcribed Date: 12/11/2024 15:39 ET Christian Genao MD IMG XR PROCEDURES Final Result * (ABNORMAL) Basic metabolic panel (10/21/2024 9:45 AM EDT) Sodium 142 133 - 145 mmol/L LAB CHEMISTRY METHOD 10/21/2024 10:[address] [facility] Potassium 3.8 3.5 - 5.5 mmol/L LAB CHEMISTRY METHOD 10/21/2024 10:[address] [facility] Chloride 111(H) 96 - 110 mmol/L LAB CHEMISTRY METHOD 10/21/2024 10:[address] [facility] CO2 24 21 - 32 mmol/L LAB CHEMISTRY METHOD 10/21/2024 10:[address] [facility] Anion Gap 7 3 - 11 LAB CHEMISTRY METHOD 10/21/2024 10:[address] [facility] Glucose 97 70 - 100 mg/dL LAB CHEMISTRY METHOD 10/21/2024 10:[address] [facility] BUN 23 5 - 25 mg/dL LAB CHEMISTRY METHOD 10/21/2024 10:[address] [facility] Creatinine 1.31(H) 0.50 - 1.10 mg/dL LAB CHEMISTRY METHOD 10/21/2024 10:[address] [facility] eGFR 42(L) >=60 mL/min/1. 73m2 LAB CHEMISTRY METHOD 10/21/2024 10:50 AM EDT [facility] Comment:Calculation based on the Chronic Kidney Disease Epidemiology Collaboration (CKD-EPI) equation refit without adjustment for race. BUN/Creatinine Ratio 17.6 LAB CHEMISTRY METHOD 10/21/2024 10:[address] [facility] Calcium 9.4 8.5 - 10.5 mg/dL LAB CHEMISTRY METHOD 10/21/2024 10:[address] [facility] Blood Venous blood specimen / Unknown Venipuncture / Unknown 10/21/2024 9:45 AM EDT 10/21/2024 9:49 AM EDT us Tika Howard MD LAB BLOOD ORDERABLES Final Res ult [facility] [address] [place] [address], [place] [phone] from Last 3 Months or Most Recently Relevant to Health Maintenance Insurance MEDICAID - [place] [facility] MEDICARE ADVANTAGE Advance Directives * [...] currently active code status orders. Care Teams Hydro Sprayer Operator Relationship Specialty Start Date End Date Marybeth Dennis MD [address] [place], [place] [address], [address] [facility] D/B/A: [facility] ID PCP - General 03/27/15
== END 2025-02-03 16:44 | disposition home or self-care (01) ==
LOC: HO.HGI 09:39
PROVIDERS: PCP Internal Medicine; Visit Provider Nurse Practitioner
DX: K21.9 Gastro-esophageal reflux disease without esophagitis (principal); K59.04 Chronic idiopathic constipation; R13.12 Dysphagia, oropharyngeal phase; K58.9 Irritable bowel syndrome, unspecified; D47.2 Monoclonal gammopathy; R41.89 Other symptoms and signs involving cognitive functions and awareness
CPT/HCPCS: 99213

== ENCOUNTER → 2025-02-03 09:38 | Outpatient (BNVA) | payer OTHER, SELFPAY | PROVIDERS: PCP Internal Medicine; Visit Provider Nurse Practitioner | DX: K21.9 Gastro-esophageal reflux disease without esophagitis (principal); K59.04 Chronic idiopathic constipation; R13.12 Dysphagia, oropharyngeal phase; K58.9 Irritable bowel syndrome, unspecified; D47.2 Monoclonal gammopathy; R41.89 Other symptoms and signs involving cognitive functions and awareness | CPT/HCPCS: 99212 ==

== ENCOUNTER 2025-03-05 13:07 | Outpatient (AMB) | payer OTHER, SELFPAY ==
[2025-03-05 13:17] VITALS: BP 116/72; PULSE 58; O2SAT 97
--- NOTE | 2025-03-05 13:17 | AM.OFFWIN_ITS ---
Intake Vital Signs 03/05/25 13:17 Height 5 ft 3 in BP 116/72 Blood Pressure Location Lt brachial Position Sitting Pulse 58 Pulse Source Pulse Oximeter Pulse Oximetry (%) 97 Intake Visit Reasons: EP-lt wrist pain & swollen Intake Note: patient is here for left wrist pain, patient was attempting to sit up and used her hand to help her and she felt it twist a little and its been painful since this monring. Patient Tobacco Use Status: Never used Tobacco Allergies lactose (Lactose) Allergy (Intermediate, Verified 03/05/25 13:17) DIARRHEA, N/V metformin Allergy (Intermediate, Verified 03/05/25 13:17) stomach upset Do you need a note to return to daycare/school/sports/work: No HPI HPI Comments History of Present Illness Details History of Present Illness - The patient is a 79-year-old [place] [facility] female presenting with left wrist pain and swelling. - The wrist pain began this morning when the patient attempted to stand up using her hands for support. - The patient reports that the wrist is painful to touch and movement exacerbates the pain. - There is noticeable swelling and warmt h in the wrist, but no pain radiating to the elbow or arm. - The patient is right-handed and has no t experienced any falls or trauma to the wrist. - She denies elbow or shoulder pain, num bness, tingling, or hand pain. Physical Exam General: Cooperative, healthy appearing, comfortable, no acute distress and well developed Orientation: Patient oriented x3 Respiratory: Normal respiratory effort and able to speak in complete sentences. Clear to auscultation bilaterally Cardiovascular: Regular rate and rhythm. Normal S1 and S2 Skin: No rashes or lesions noted. Erythema noted to the left lateral wrist Neuro: Sensation is intact. Extremities: Swelling and redness noted on the lateral wrist on the pinky side. FROM of the wrist, digits and elbow on the left. TTP of the ulnar styloid. No snuffbox tenderness noted. Supination and pronation is intact. Hand network operations center engineer is intact. Patient was informed and verbally consented to the use of an ambient scribe for clinic note documentation during this visit. [facility] Medical History Venous insufficiency Vaginal pruritus Leucopenia Anemia Hair loss Dizziness Diarrhea Encounter for Medicare annual wellness exam Fecal impaction in rectum Adult general medical exam Oropharyngeal dysphagia MODESTA (generalized anxiety disorder) Mild recurrent major depression Submandibular lymphadenopathy Post-menopausal Chronic daily headache Essential hypertension Lumbar disc disease with radiculopathy Mixed hyperlipidemia Therapeutic opioid induced constipation Hypovitaminosis D Diabetes mellitus Coronary artery disease Surgical History History of colonoscopy S/P CABG x 2 History of total abdominal hysterectomy and bilateral salpingo-oophorectomy History of cardiac catheterization History of rectal polypectomy History of cholecystectomy Family History Father Brain cancer Mother Ovarian cancer Sister Breast cancer Sister Lung cancer Brother Stomach cancer Son Substance abuse Sister Cancer Social History Housing: Apartment Alcohol intake: never Patient Tobacco Use Status: Never used Tobacco e-Cigarette/Vaping Use: Never Used Second Hand Smoke Exposure: No service: No Current occupational status: disabled Cognitive needs: Yes Hearing needs: No Vision needs: Yes Review of Systems Const All systems reviewed & are unremarkable except as noted in HPI and below Physical Exam Vital Signs: Last Vital Signs Pulse 58 03/05/25 13:17 BP 116/72 03/05/25 13:17 Pulse Ox 97 03/05/25 13:17 Results Reviewed Results Reviewed: Reviewed the xray IMPRESSION: Osteopenia. Otherwise unremarkable examination of the left wrist. Assessment & Plan Assessment & Plan (1) Left wrist sprain: Code(s): S63.502A - Unspecified sprain of left wrist, initial encounter Qualifiers: Encounter type: initial encounter Wrist sprain location: unspecified location Qualified Code(s): S63.502A - Unspecified sprain of left wrist, initial encounter Plan Most likely strain vs fracture plan - An x-ray of the wrist was ordered to assess for any fractures or underlying issues. - A splint will be considered based on the x-ray findings. - tylenol or motrin as needed for pain - wear the splint for comfort - follow up with PCP Orders: Orders XR wrist LT min 3V Today S63.502A - Unspecified sprain of left wrist, initial encounter Coding Level of Care Code Est Pt Level 4 (94748) Diagnoses Sprain of left wrist, unspecified location, initial encounter S63.502A Encounter type: initial encounter Wrist sprain location: unspecified location
--- OUTSIDE RECORDS SUMMARY | 2025-03-05 13:44 | XMS_ITS | Clinical Summary ---
Author Organization [facility], Address [address] [place] [address] [place] [address] Phone Care Team Providers Care Geospatial Analyst Name Role Phone Marybeth Vale MD Primary Care Provider [phone] Allergies Active Allergy Reactions Criticality Noted Date [...] 0 Active cholecalciferol (VITAMIN D-3) 50 MCG (1999 UT) tablet TOME GUSTAVO TABLETA TODOS LOS [...] DAY: NEEDED FOR ANALGESIA 3 Active Creon 46379-92764 units capsule TOME 1 C PSULA POR [...] 12/11/2019 Stage 3a chronic kidney disease 12/11/2019 Encounters Date Type Department Care Team Description 02/27/2025 3:15 PM EDT Office Visit [facility] [address] [place] [address] Jhony Lima MD Stage 3a chronic kidney disease (HCC) (Primary Dx); Hypertension 02/12/2025 Orders Only [facility] [address] [place] [address] Domitila Bradley MA Stage 3a chronic kidney disease (HCC) (Primary Dx); Hypertension; Type 2 diabetes mellitus with diabetic chronic kidney disease (HCC); Albuminuria, not otherwise specified from Last 3 Months Immunizations Immunization Administration Dates Next Due Pneumococcal [...] Care Team (Late st Contact Info) Description 03/05/2026 2:15 PM EDT Office Visit [facility], [address] [place] [address] Jhony Lima MD [address] [facility] [address] [place] [address] Health Maintenance Due Date Last [...] patient's age to complete this topic Insurance [place] Care Teams Geospatial Analyst Relationship Specialty Start Date End Date Marybeth Vale MD [address] [place] [address] PCP - General 05/13/19
--- OUTSIDE RECORDS SUMMARY | 2025-03-05 13:44 | XMS_ITS | Encounter Summary ---
Author Organization [facility], Address [address] [address] Phone Care Team Providers Care Education Program Manager Name Role Phone Marybeth Vale MD Primary Care Provider [phone] Encounter Details Date Type Department Care Team (Late Contact Info) Description 02/15/2022 Documentation Only [facility] [address] [place] [address] Jhony Lima MD [address] [place] [address] [place] [address] Social History Tobacco Use Types [...] Encounters Date Type Department Care Team (Late Contact Info) Description 03/05/2026 2:15 PM EDT Office Visit [facility] [address] [place] [address] Jhony Lima MD [address] [place] [address] [place] [address] documented as of this encounter Visit Diagnoses Not on filedocumented in this encounter Care Teams Education Program Manager Relationship Specialty Start Date End Date Marybeth Vale MD [address] [place] PCP - General 05/13/19 documented as of this encounter
--- OUTSIDE RECORDS SUMMARY | 2025-03-05 13:44 | XMS_ITS | Encounter Summary ---
Author Organization [facility], Address [address] [address] Phone Care Team Providers Care Pit Furnace Operator Name Role Phone Marybeth Vale MD Primary Care Provider [phone] Encounter Details Date Type Department Care Team (Late st Contact Info) Description 01/31/2024 Documentation Only [facility], [address] [place] [address] Domitila Bradley MD [address] [place] [phone] Social History Tobacco Use Types Packs/Day Years [...] Visit [facility] [address] [place] [address] Jhony Lima MD [address] [facility] [place] [address] documented as of this encounter Visit Diagnoses Not on filedocumented in this encounter Care Teams Pit Furnace Operator Relationship Specialty Start Date End Date Marybeth Vale MD [address] [facility] PCP - General 05/13/19 documented as of this encounter
--- OUTSIDE RECORDS SUMMARY | 2025-03-05 13:44 | XMS_ITS | Encounter Summary ---
Author Organization [facility], Address [address] [address] Phone Care Team Providers Care Criminal Defense Lawyer Name Role Phone Marybeth Vale MD Primary Care Provider [phone] Encounter Details Date Type Department Care Team (Late Contact Info) Description 09/02/2021 Documentation Only [facility] [address] [place] [address] Jhony Lima MD [address] [place] [address] [place] [address] Social History Tobacco Use Types [...] Visit [facility] [address] [place] [address] Jhony Lima MD [address] [place] [address] [place] [address] documented as of this encounter Visit Diagnoses Not on filedocumented in this encounter Care Teams Criminal Defense Lawyer Relationship Specialty Start Date End Date Marybeth Vale MD [address] [facility] [place] PCP - General 05/13/19 documented as of this encounter
--- OUTSIDE RECORDS SUMMARY | 2025-03-05 13:44 | XMS_ITS | Clinical Summary ---
Author Organization [facility] Address [address] [facility] [address] [place] [address] Phone Care Team Providers Care Construction Technician Name Role Phone Marybeth Vale MD Primary [...] file Medical Devices Not on file Insurance [place] [employer] RE[employer]ACEMENT MEDICARE REPLACEMENT MEDICARE REPLAC[place] [id number] MEDICARE REPLACEMENT MEDICARE REPLACEMENT MEDICARE REPLACEMENT MEDIC[place] [address] [place] [address] MEDICARE REPLACEMENT Care Teams Construction Technician Relationship Specialty Start Date End Date Marybeth Vale MD [address] [place] [address] PCP - General Internal Medicine 11/17/19 Additional Source Comments The information contained in this document represents components of the legal health record. It is not the complete legal health record.[facility]
--- OUTSIDE RECORDS SUMMARY | 2025-03-05 13:44 | XMS_ITS | Encounter Summary ---
Author Organization [facility], Address [address] [address] Phone Care Team Providers Care Nonfarm Animal Caretaker Name Role Phone Marybeth Vale MD Primary Care Provider [phone] Encounter Details Date Type Department Care Team (Late st Contact Info) Description 03/17/2024 Documentation Only [facility] [place], [address] [address] [address] [place] [address] [place] [address] [place] [phone] Social History Tobacco Use Types Packs/Day Years [...] Visit [facility] [address] [facility] [address] [place] [address] Jhony Lima MD [address] [facility] [place] [address] documented as of this encounter Visit Diagnoses Not on filedocumented in this encounter Care Teams Nonfarm Animal Caretaker Relationship Specialty Start Date End Date Marybeth Vale MD [address] [facility] [place] PCP - General 05/13/19 documented as of this encounter
--- OUTSIDE RECORDS SUMMARY | 2025-03-05 13:45 | XMS_ITS | Clinical Summary ---
Author Organization [facility] Address [address] [place] [address] Phone Care Team Providers Care Machine Ii Engraver Name Role Phone Marybeth Dennis MD Primary Care Provider [phone] Allergies Active Allergy Reactions Criticality Noted Date [...] day with meals. 60 each 5 Active cephalexin (KEFLEX) 500 mg capsule Take 1 capsule (500 mg total) by mouth 3 (three) times a day for 7 days. 21 each 5 02/28/20 25 Active Problems No known active problems Resolved Problems Problem Noted Date Diagnosed Date Resolved Date Chest pain 10/20/2024 10/21/2024 Encounters Date Type Department Care Team Description 02/20/2025 12:25 AM EDT - 02/20/2025 5:30 AM EDT Emergency [facility] Emergency [address] [place] [address] Adrenal nodule ([facility] V24) (Primary Dx); Nephrolithiasis; Flank pain; Acute cystitis without hematuria Discharge Disposition: Home or Self Care 02/17/2025 7:58 AM EDT - 02/17/2025 11:59 PM EDT Hospital Encounter [facility] Ortho Xray [address] [place] [address] Pain Discharge Disposition: Home or Self Care 01/15/2025 9:03 AM EDT - 01/15/2025 11:59 PM EDT Hospital Encounter [facility] Ortho Xray [address] [place] [address] Pain Discharge Disposition: Home or Self Care 12/18/2024 7:45 AM EDT - 12/18/2024 11:59 PM EDT Hospital Encounter [facility] Ortho Xray [address] [place] [address] Pain Discharge Disposition: Home or Self Care 12/11/2024 2:35 PM EDT - 12/11/2024 5:17 PM EDT Emergency [facility] Emergency [address] [place] [address] Christian Genao MD Closed fracture of left [...] DX:Hyperlipidemi a PAD (peripheral artery disea se) ([facility] V24) DX:PAD (peripheral artery di sease) ([facility]) Social History Tobacco Use Types Packs/Day Years Used Date Smoking Tobacco: Never Smokeless Tobacco: Never Alcohol Use Standard Drinks/Week Comments Never 0 (1 standard drink = 0.6 oz pur e alcohol) Comments No Sex and Gender Information Value Date Recorded Sex Assigned at Female 10/20/2024 1:24 PM EDT Legal Sex Female 4:47 AM EST Gender Identity Female 10/20/2024 1:24 PM EDT Sexual Orientation Straight 10/20/2024 1: 24 PM EDT Obstetrics History Last Filed Vital Signs Vital Sign Reading Time Taken Comments Blood Pressure 127/73 02/20/2025 1:25 AM EDT Pulse 58 02/20/2025 1:26 AM EDT Temperature 36.7 C (98.1 F) 02/19/2025 10:19 PM EDT Respiratory Rate 18 02/19/2025 10:19 PM EDT Oxygen Saturation 100% 02/20/2025 1:26 AM EDT Inhaled Oxygen Concentration - - Weight 59 kg (130 lb) 02/19/2025 5:55 PM EDT Height 160 cm (5' 3 ) 02/19/2025 5:55 PM EDT Body Mass Index 23.03 02/19/2025 5:55 PM EDT Plan of Treatment Health Maintenance [...] 2025 , 04/24/2022, 06/04/2019, Additional history exists Falls Risk Assessment 10/21/2025 10/21/2024 Diabetes: Annual GFR (Glomerular Filtration Rate) 02/19/2026 02/19/2025, 10/21/2024, 10/20/2024 Hypertension/CHF/CAD Annual BMP Blood Test 02/19/2026 02/19/2025, 10/21/2024, 10/20/2024 DTaP,Tdap,and Td Vaccines (2 - [...] Priority Date/Time Associated Diagnosis Comments ECG ANNOTATED 02/23/2025 CT ABDOMEN PELVIS WO CONTRAST STAT 02/20/2025 1:59 AM EDT ANN URINE CULTURE TUBE STAT 02/20/2025 1:26 AM EDT URINALYSIS WITH REFLEX MICROSCOPIC AND CULTURE STAT 02/20/2025 1:26 AM EDT URINALYSIS WITH REFLEX MICROSCOPIC AND CULTURE STAT 02/20/2025 1:26 AM EDT CULTURE URINE STAT 02/20/2025 1:26 AM EDT ECG 12-LEAD STAT 02/20/2025 1:08 AM EDT CBC WITH AUTO DIFFERENTIAL STAT 02/19/2025 6:43 PM EDT COMPREHENSIVE METABOLIC PANEL STAT 02/19/2025 6:43 PM EDT CBC AND DIFFERENTIAL STAT 02/19/2025 6:43 PM EDT XR ANKLE 3+ VIEWS LEFT Routine 5 9:29 AM EDT Pain XR ANKLE 3+ VIEWS LEFT Routine 5 9:13 AM EDT Pain XR ANKLE 3+ VIEWS LEFT Routine 5 9:47 AM EDT Pain ED SPLINT APPLICATION Routine 12/11/2024 4:56 PM EDT ED SPLINT APPLICATION Routine 12/11/2024 4:56 PM EDT LA APPLICATION CAST SHORT LEG Routine 12/11/2024 4:56 PM EDT LA APPLICATION SPLINT SHORT LEG Routine 12/11/2024 4:56 PM EDT XR TIBIA FIBULA 2 VIEWS LEFT STAT 12/11/2024 3:37 PM EDT XR ANKLE 3+ VIEWS LEFT STAT 1:35 PM EDT from Last 3 Months Results * ECG-Annotated (02/23/2025) us Provider Onbase MD ECG ORDERABLES Final Result * CT Abdomen Pelvis wo Contrast (02/20/2025 1:59 AM EDT) Anatomical Region Laterality Modality Body Computed Tomogra phy 02/20/2025 3:42 AM EDT Impressions 02/20/2025 3:42 AM EDT 1. No acute abnormality in the abdomen or pelvis. 2. Punctate nonobstructing renal stones. 3. Small right adrenal nodule statistically most likely adenoma, but indeterminate. Consider follow-up adrenal protocol CT or MRI. 4. Additional chronic findings as above. This document has been electronically signed by: Lex Vaca MD on 02/20/2025 03:42:03 Narrative 02/20/2025 3:42 AM EDT INDICATION: Flank pain, kidney stone suspected CT abdomen and pelvis without contrast Comparison: None provided Findings: There is minimal bibasilar atelectasis. There is coronary artery calcification. Patient is status post cholecystectomy. The liver, pancreas, and spleen are unremarkable. There is a 1.1 cm right adrenal nodule with Hounsfield units measuring 13. Left adrenal gland is unremarkable. There is a punctate nonobstructing stone in the upper pole of the left kidney. There are 2 punctate nonobstructing stones in the lower pole of the right kidney. There is no ureteral stone or hydronephrosis. The appendix is normal. There is colonic diverticulosis. The gastrointestinal tract is otherwise unremarkable. The aorta is within normal limits in diameter. There are no enlarged lymph nodes. Patient is status post hysterectomy. The bladder is unremarkable. There are severe degenerative changes throughout the lumbar spine. There is no fracture or suspicious lytic or sclerotic lesion. Procedure Note Lex Vaca MD - 02/20/2025 INDICATION: Flank pain, kidney stone suspected CT abdomen and pelvis without contrast Comparison: None provided Findings: There is minimal bibasilar atelectasis. There is coronary artery calcification. Patient is status post cholecystectomy. The liver, pancreas, and spleen are unremarkable. There is a 1.1 cm right adrenal nodule with Hounsfield units measuring 13. Left adrenal gland is unremarkable. There is a punctate nonobstructing stone in the upper pole of the left kidney. There are 2 punctate nonobstructing stones in the lower pole of the right kidney. There is no ureteral stone or hydronephrosis. The appendix is normal. There is colonic diverticulosis. The gastrointestinal tract is otherwise unremarkable. The aorta is within normal limits in diameter. There are no enlarged lymph nodes. Patient is status post hysterectomy. The bladder is unremarkable. There are severe degenerative changes throughout the lumbar spine. There is no fracture or suspicious lytic or sclerotic lesion. IMPRESSION: 1. No acute abnormality in the abdomen or pelvis. 2. Punctate nonobstructing renal stones. 3. Small right adrenal nodule statistically most likely adenoma, but indeterminate. Consider follow-up adrenal protocol CT or MRI. 4. Additional chronic findings as above. This document has been electronically signed by: Lex Vaca MD on 02/20/2025 03:42:03 Angely DAVIS [facility] CT PROCEDURES Final Result * (ABNORMAL) Urinalysis with reflex microscopic and culture (02/20/2025 1:26 AM EDT) Specific [place] Urine 1.012 1.003 - 1.030 LAB URINALYSIS - AUTOMATED METHOD 02/20/2025 2:10 AM EDT [facility] pH, Urine 6.5 5.0 - 8.0 pH LAB URINALYSIS - AUTOMATED METHOD [facility]25 [facility] Leukocytes, Urine Small(A) Negative LAB URINALYSIS - AUTOMATED METHOD 02/20/2025 2:10 AM [facility] Nitrite, Urine Negative Negative LAB URINALYSIS - AUTOMATED METHOD 02/20/2025 2:10 AM [facility] Protein, Urine Negative <=Trace mg/dL LAB URINALYSIS - AUTOMATED METHOD 02/20/2025 2:10 AM [facility] Glucose, Urine Negative Negative mg/dL LAB URINALYSIS - AUTOMATED METHOD 02/20/2025 2:10 AM [facility] Ketones, Urine Negative Negative mg/dL LAB URINALYSIS - AUTOMATED METHOD 02/20/2025 2:10 AM [facility] Urobilinogen, Urine 0.2 0.2 - 1.0 mg/dL LAB URINALYSIS - AUTOMATED METHOD 02/20/2025 2:10 AM [facility] Bilirubin, Urine Negative Negative LAB URINALYSIS - AUTOMATED METHOD 02/20/2025 2:10 AM [facility] Blood, Urine Negative Negative LAB URINALYSIS - AUTOMATED METHOD 02/20/2025 2:10 AM [facility] RBC, Urine 0.4 0 - 4 /HPF LAB URINALYSIS - AUTOMATED METHOD 02/20/2025 2:10 AM [facility] WBC, Urine 4.9(H) 0 - 4 /HPF LAB URINALYSIS - AUTOMATED METHOD 02/20/2025 2:10 AM [facility] Squamous Epithelial, Urine 18 0 - 60 /LPF LAB URINALYSIS - AUTOMATED METHOD 02/20/2025 2:10 AM [facility] Bacteria, Urine Negative Negative /HPF LAB URINALYSIS - AUTOMATED METHOD 02/20/2025 2:10 AM [facility] Hyaline Casts, Urine 0.4 0 - 3 /LPF LAB URINALYSIS - AUTOMATED METHOD 02/20/2025 2:10 AM EDT [facility] Urine Urine specimen obtained by clean catch procedure / Unknown Non-blood Collection / Unknown 02/20/2025 1:26 AM EDT 02/20/2025 2:00 AM EDT us Abraham Hearn MD LAB URINE ORDERABLES Final Resul t Performing Organization Address City/[facility]/ZIP Co de Phone Number [facility] [address] [place] [address], [place] [phone] * Ann urine culture tube (02/20/2025 1:26 AM EDT) Extra Tube Hold for add-ons. 02/20/2025 3:03 AM EDT [facility] Comment:Auto resulted. Urine Urine specimen obtained by clean catch procedure / Unknown Non-blood Collection / Unknown 02/20/2025 1:26 AM EDT 02/20/2025 2:00 AM EDT us Abraham Hearn MD LAB URINE ORDERABLES Final Resul t Performing Organization Address [facility] de Phone Number [facility] [address] [place] [address], [place] [phone] * Culture urine (02/20/2025 1:26 AM EDT) Culture, Urine 10,000-49,000 CFU/mL Mixed bacterial morphotypes present suggestive of possible contamination during collection. Suggest appropriate recollection if clinically indicated. 02/21/2025 9:24 AM EDT [facility] Urine Urine specimen obtained by clean catch procedure / Unknown Non-blood Collection / Unknown 02/20/2025 1:26 AM EDT 02/20/2025 2:10 AM EDT us Abraham Hearn MD LAB MICROBIOLOGY - GENERAL ORDER KELIN Final Result Performing Organization Address [facility]/ZIP Co de Phone Number [facility] [address] [place] [address], * 12-Lead ECG (02/20/2025 1:08 AM EDT) Ventricular Rate ECG 57 BPM GEMUSE Atrial Rate 57 BPM GEMUSE P-R Interval 190 ms GEMUSE QRS Duration 88 ms GEMUSE Q-T Interval 426 ms GEMUSE QTc 414 ms GEMUSE P Wave [place] 20 degrees GEMUSE R [place] 1 degrees GEMUSE T [place] -3 degrees GEMUSE ECG Interpretation Sinus bradycardia Nonspecific T wave abnormality Abnormal ECG When compared with ECG of 20-OCT-2024 12:26, No significant change was found Confirmed by MD LUCILA, STACEY ([id number]) on 02/20/2025 8:42:59 AM GEMUSE 02/20/2025 1:08 AM EDT 02/20/2025 8:42 AM EDT Angely DAVIS ECG ORDERABLES Final Re sult Performing Organization Address [facility] Co de Phone Number GEMUSE * (ABNORMAL) CBC auto differential (02/19/2025 6:43 PM EDT) Pathologist [facility] WBC 4.4(L) 4.8 - 10.8 K/mcL LAB HEMETOLOGY METHOD 02/19/2025 7:22 PM EDT [facility] RBC 4.00 3.80 - 4.80 M/[facility] LAB HEMETOLOGY METHOD 02/19/2025 7:22 PM EDT [facility] Hemoglobin 11.7 11.5 - 16.0 g/dL LAB HEMETOLOGY METHOD 02/19/2025 7:22 PM EDT [facility] Hematocrit 35.2 35.0 - 47.0 % LAB HEMETOLOGY METHOD 02/19/2025 7:22 PM EDT [facility] MCV 88.7 79.0 - 98.0 FL LAB HEMETOLOGY METHOD 02/19/2025 7:22 PM EDT [facility] MCH 29.5 27.0 - 32.0 pcg LAB HEMETOLOGY METHOD 02/19/2025 7[facility] MCHC 33.2 32.0 - 37.0 g/dL LAB HEMETOLOGY METHOD 02/19/2025 7:22 PM [facility] RDW 13.1 11.0 - 15.0 % LAB HEMETOLOGY METHOD 02/19/2025 7:22 PM EDT [facility] Platelets 256 130 - 400 K/mcL LAB HEMETOLOGY METHOD 02/19/2025 7:22 PM [facility] MPV 10.9 7.0 - 11.0 FL LAB HEMETOLOGY METHOD 02/19/2025 7:22 PM [facility] NRBC 0.0 <1.0 % LAB HEMETOLOGY METHOD 02/19/2025 7:22 PM [facility] NRBC Absolute 0.00 <0.10 K/mcL LAB HEMETOLOGY METHOD 02/19/2025 7:22 PM [facility] Neutrophils Relative 27.1 % LAB HEMETOLOGY METHOD 02/19/2025 7:22 PM [facility] Lymphocytes Relative 55.1 % LAB HEMETOLOGY METHOD 02/19/2025 7:22 PM [facility] Monocytes Relative 13.0 % LAB HEMETOLOGY METHOD 02/19/2025 7:22 PM [facility] Eosinophils Relative 4.1 % LAB HEMETOLOGY METHOD 02/19/2025 7:22 PM [facility] Basophils Relative 0.5 % LAB HEMETOLOGY METHOD 02/19/2025 7:22 PM [facility] Immature Granulocytes Relative 0.2 % LAB HEMETOLOGY METHOD 02/19/2025 7:22 PM EDT [facility] Neutrophils Absolute 1.19(L) 1.50 - 7.00 K/mcL LAB HEMETOLOGY METHOD 02/19/2025 7:22 PM EDT [facility] Lymphocytes Absolute 2.42 1.00 - 5.00 K/mcL LAB HEMETOLOGY METHOD 02/19/2025 7:22 PM EDT [facility] Monocytes Absolute 0.57 0.20 - 1.00 K/mcL LAB HEMETOLOGY METHOD 02/19/2025 7:22 PM EDT [facility] Eosinophils Absolute 0.18 0.00 - 0.50 K/mcL LAB HEMETOLOGY METHOD 02/19/2025 7:22 PM EDT [facility] Basophils Absolute 0.02 0.00 - 0.20 K/mcL LAB HEMETOLOGY METHOD 02/19/2025 7:22 PM EDT [facility] Immature Granulocytes Absolute 0.01 0.00 - 0.03 K/mcL LAB HEMETOLOGY METHOD 02/19/2025 7:22 PM EDT [facility] Blood Venous blood specimen / Unknown Venipuncture / Unknown 02/19/2025 6:43 PM EDT 02/19/2025 7:18 PM EDT us Abraham Hearn MD LAB BLOOD ORDERABLES Final Resul t [facility] [address] [place] [address], * (ABNORMAL) Comprehensive metabolic panel (02/19/2025 6:43 PM EDT) Sodium 141 133 - 145 mmol/L LAB CHEMISTRY METHOD 02/19/2025 7:54 PM EDT [facility] Potassium 4.0 3.5 - 5.5 mmol/L LAB CHEMISTRY METHOD 02/19/2025 7:54 PM [facility] Chloride 108 96 - 110 mmol/L LAB CHEMISTRY METHOD 02/19/2025 7:54 PM [facility] CO2 29 21 - 32 mmol/L LAB CHEMISTRY METHOD 02/19/2025 7:54 PM [facility] Anion Gap 4 3 - 11 LAB CHEMISTRY METHOD 02/19/2025 7:54 PM [facility] Glucose 86 70 - 100 mg/dL LAB CHEMISTRY METHOD 02/19/2025 7:54 PM [facility] BUN 21 5 - 25 mg/dL LAB CHEMISTRY METHOD 02/19/2025 7:54 PM [facility] Creatinine 1.34(H) 0.50 - 1.10 mg/dL LAB CHEMISTRY METHOD 02/19/2025 7:54 PM [facility] eGFR 40(L) >=60 mL/min/1. 73m2 LAB CHEMISTRY METHOD 02/19/2025 7:54 PM [facility] Comment:Calculation based on the Chronic Kidney Disease Epidemiology Collaboration (CKD-EPI) equation refit without adjustment for race. BUN/Creatinine Ratio 15.7 LAB CHEMISTRY METHOD 02/19/2025 7:54 PM [facility] Calcium 8.9 8.5 - 10.5 mg/dL LAB CHEMISTRY METHOD 02/19/2025 7:54 PM [facility] AST (SGOT) 32 10 - 42 unit/L LAB CHEMISTRY METHOD 02/19/2025 7:54 PM [facility] ALT (SGPT) 17 10 - 60 unit/L LAB CHEMISTRY METHOD 02/19/2025 7:54 PM [facility] Alkaline Phosphatase 51 42 - 121 unit/L LAB CHEMISTRY METHOD 02/19/2025 7:54 PM [facility] Total Protein 7.0 6.0 - 8.0 g/dL LAB CHEMISTRY METHOD 02/19/2025 7:54 PM EDT [facility] Albumin 3.8 3.2 - 5.0 g/dL LAB CHEMISTRY METHOD 02/19/2025 7:54 PM EDT [facility] Total Bilirubin 0.3 0.0 - 1.4 mg/dL LAB CHEMISTRY METHOD 02/19/2025 7:54 PM EDT [facility] Blood Venous blood specimen / Unknown Venipuncture / Unknown 02/19/2025 6:43 PM EDT 02/19/2025 7:18 PM EDT Abraham Hearn MD LAB BLOOD ORDERABLES Final Resul t [facility] [address] [place] [address], [place] [phone] * XR Ankle 3+ Views Left (02/17/2025 9:29 AM EDT) Only the most recent of4 resultswithin the time period is included. Narrative RIS PACS/VR - 02/17/2025 9:29 AM EDT This order has been auto-finalized and does not contain a result. Katie Villanueva MD IMG XR PROCEDURES Final Result Performing Organization Address [facility] Co de Phone Number RIS PACS/VR * LA APPLICATION SPLINT SHORT LEG, LA APPLICATION CAST SHORT LEG, HC APPLICATION SPLINT/CAST/STRAP, HC APPLICATION SPLINT/CAST/STRAP (12/11/2024 4:56 PM EDT) Narrative Christian Genao MD - 12/11/2024 4:56 PM EDT Christian [...] intact. No paresthesia complaints. No pain complaints. Christian Genao MD IN CLINIC/BEDSIDE ORDERABLES Fi nal Result * XR Tibia Fibula 2 Views Left (12/11/2024 3:37 PM EDT) Anatomical Region Laterality Modality Lower Extremities, Lower Leg Left Rad iographic Imaging 12/11/2024 3:39 PM EDT Impressions 12/11/2024 3:40 PM EDT Impression: Distal fibular and medial malleolar avulsion fractures reported earlier. No additional fractures are seen. Telerad RYAN ([id number]) -------- FINAL REPORT -------- Dictated By: Mima Ortega Dictated Date: 12/11/2024 15:39 ET Assigned Physician: Mima Ortega Reviewed and Electronically Signed By: Mima Ortega Signed Date: 12/11/2024 15:40 ET Workstation ID: [id number] Transcribed By: Self Edit Transcribed Date: 12/11/2024 [...] reported earlier. No additional fractures are seen. Telesimón DAVIS ([id number]) -------- FINAL REPORT -------- Dictated By: Mima Ortega Dictated Date: 12/11/2024 15:39 ET Assigned Physician: Mima Ortega Reviewed and Electronically Signed By: Mima Ortega Signed Date: 12/11/2024 15:40 ET Workstation ID: [id number] Transcribed By: Self Edit Transcribed Date: 12/11/2024 15:39 ET Christian B Chadwick LARA IMG XR PROCEDURES Final Result from Last 3 Months Insurance MEDICAID - [place] [facility] MEDICARE [...] currently active code status orders. Care Teams Machine Ii Engraver Relationship Specialty Start Date End Date Marybeth Dennis MD [address] [place] [address] , [address] [facility]ician Associ D/B/A: [facility] ROXI Mchugh PCP - General 03/27/15
== END 2025-03-05 14:57 | disposition home or self-care (01) ==
PROVIDERS: PCP Internal Medicine; Visit Provider Physician Assistant Medical
DX: S63.502A Unspecified sprain of left wrist, initial encounter (principal)

== ENCOUNTER 2025-03-05 13:07 | Outpatient (REF) | payer OTHER, SELFPAY ==
--- NOTE | ~2025-03-05 | XR_ITS ---
EXAMINATION: XR WRIST 3 OR MORE VIEWS LEFT HISTORY: S63.502A - Unspecified sprain of left wrist, initial encounter COMPARISON: There are no prior studies available for comparison. FINDINGS: Three views of the left wrist are submitted. The bones are osteopenic. There is no fracture or dislocation. The joint spaces are preserved. The soft tissues are unremarkable. XR/XR wrist LT min 3V IMPRESSION: Osteopenia. Otherwise unremarkable examination of the left wrist. Electronically signed by: Pradip Daley MD 03/05/2025 02:44 PM EDT
== END 2025-03-05 13:08 | disposition home or self-care (01) ==
LOC: HO.HMGCX 13:07
PROVIDERS: PCP Internal Medicine; Visit Provider Physician Assistant Medical
DX: S63.502A Unspecified sprain of left wrist, initial encounter (principal); X50.0XXA Overexertion from strenuous movement or load, initial encounter
CPT/HCPCS: 73110; 99212

== ENCOUNTER → 2025-03-05 14:29 | Outpatient (BNV) | payer OTHER, SELFPAY | PROVIDERS: PCP Internal Medicine; Visit Provider Radiology Diagnostic Radiology | DX: S63.502A Unspecified sprain of left wrist, initial encounter (principal); M85.842 Other specified disorders of bone density and structure, left hand | CPT/HCPCS: 73110 ==

== ENCOUNTER 2025-03-18 09:01 | Outpatient (AMB) | payer OTHER, SELFPAY ==
[2025-03-18 09:16] VITALS: BP 177/68; PULSE 59; BMI 23.0
--- NOTE | 2025-03-18 09:16 | A.OFFVIS_ITS ---
Vital Signs 03/18/25 09:16 Height 5 ft 3 in Weight 130 lb BMI 23.0 BP 177/68 H Blood Pressure Location Rt brachial Position Sitting Pulse 59 Intake Visit Reasons: Follow up GERD/constipation Intake Note: Patient presents to in office follow up of GERD and constipation. CC: Patient c/o a lot of gas, nausea, constipation, sometimes diarrhea, and vomiting almost daily. She states that in October she went to an urgent care and was told that she had kidney stones, and something in her liver . Director Digital Communications Required: Yes Director Digital Communications Language: Malay Accompanied by: Self / Same As Patient Allergies lactose (Lactose) Allergy (Intermediate, Verified 03/18/25 13:04) DIARRHEA, N/V metformin Allergy (Intermediate, Verified 03/18/25 13:04) stomach upset HPI HPI Follow up GERD/constipation: Details: Assessment & Plan (1) GERD (gastroesophageal reflux disease): Code(s): K21.9 - Gastro-esophageal reflux disease without esophagitis Category: Medical (2) Chronic idiopathic constipation: Code(s): K59.04 - Chronic idiopathic constipation Category: Medical (3) Dysphagia, oropharyngeal: Comment: Significant esophageal spasm associated with this when her GERD is not controlled aeb Code(s): R13.12 - Dysphagia, oropharyngeal phase Category: Medical (4) IBS (irritable bowel syndrome): Code(s): K58.9 - Irritable bowel syndrome, unspecified Category: Medical (5) MGUS (monoclonal gammopathy of unknown significance): Code(s): D47.2 - Monoclonal gammopathy Category: Medical (6) Cognitive impairment: Code(s): R41.89 - Other symptoms and signs involving cognitive functions and awareness Category: Medical Plan Malay #Nela and trainee Zahraa She has what appears to be a bruise on her right forehead laterally near the hair line. She fell recently and broke her foot. She aslo will be seeing a derm as she has a hx of skin cancer and this could also be a melanoma as she says I have had it for 5 years. She is wearing a walking cast. She describes the fall as happening after she was trying to strain on the toilet so it sounds like a classic vasovagal reaction. I have advised her that even if she feels constipated not to strain on the toilet or to rise very slowly. She is having more trouble with postprandial urgency and looser stools. She is also complaining of having a tremendous amount of gas that is malodorous which is preventing her from having a good social life. She says she continues on her Creon. I think will stop the Linzess and continue her senna for now and give her a trial of Augmentin to see if this is small-bowel bacterial overgrowth. Return office visit in 6 weeks Medications: New amoxicillin-pot clavulanate 875-125 mg 1 tab PO BID 20 tabs 0RF 10 days On Hold linaclotide (Linzess) Hold Comment: Doctor's Order 72 mcg PO QAM 30 caps 6RF Patient Instructions: Melanie Knapp To relieve gas and diarrhea: 1. Stop taking Linzess. 2. Continue taking senna. 3. I'm prescribing an antibiotic called augmentin to see if we can rebalance the beneficial and harmful bacteria in your gut. 4. Continue taking the probiotic. TODAY'S VISIT Malay Lesa Oliveros [facility] Medical History (Updated 03/18/25 @ 13:46 by Marybeth Dennis MD) Encounter for Medicare annual wellness exam Venous insufficiency Vaginal pruritus Leucopenia Anemia Hair loss Dizziness Diarrhea Fecal impaction in rectum Adult general medical exam Oropharyngeal dysphagia MODESTA (generalized anxiety disorder) Mild recurrent major depression Submandibular lymphadenopathy Post-menopausal Chronic daily headache Essential hypertension Lumbar disc disease with radiculopathy Mixed hyperlipidemia Therapeutic opioid induced constipation Hypovitaminosis D Diabetes mellitus Coronary artery disease Surgical History History of colonoscopy S/P CABG x 2 History of total abdominal hysterectomy and bilateral salpingo-oophorectomy History of cardiac catheterization History of rectal polypectomy History of cholecystectomy Family History Father Brain cancer Mother Ovarian cancer Sister Breast cancer Sister Lung cancer Brother Stomach cancer Son Substance abuse Sister Cancer Social History Housing: Apartment Alcohol intake: never Patient Tobacco Use Status: Never used Tobacco e-Cigarette/Vaping Use: Never Used Second Hand Smoke Exposure: No service: No Current occupational status: disabled Cognitive needs: Yes Hearing needs: No Vision needs: Yes Review of Systems Const Denies fatigue, Denies fever(s), Denies night sweats, Denies poor appetite and Reports weight loss ENT Reports Normal hearing present, Denies dental pain, Denies dysphagia, Denies hearing loss, Denies mouth pain, Denies odynophagia, Denies throat swelling, Denies tongue swelling and Reports other (Dentition adequate) Card Reports no additional complaints Resp Reports no additional complaints GI Details: Denies abdominal pain, Denies melena, Reports bloating, Denies hematochezia, Reports constipation, Denies GI cramping, Denies dysphagia, Denies excessive flatus, Denies early satiety, Reports heartburn, Denies diarrhea, Denies nausea, Denies odynophagia, Denies vomiting and Denies hematemesis Musc Reports deformity and Reports arthralgias Skin/Breast Denies pruritus, Denies lesions, Denies rash and Denies jaundice Neuro Reports Normal hearing present, Denies Abnormal speech present and Reports memory loss Psych Reports memory loss Endo Denies fatigue Aller/Immun Denies throat swelling and Denies tongue swelling Physical Exam Vital Signs: Last Vital Signs Pulse 59 03/18/25 09:16 BP 177/68 H 03/18/25 09:16 BMI result Body Mass Index 23.0 Const General: cooperative, no acute distress, well developed and well groomed Nutritional Appearance: average body habitus and well nourished Orientation/consciousness: oriented to person, oriented to place and oriented to time Limitations: language barrier and other limitations (Walking boot left lower extremity and left wrist brace) HEENT Other: roung healing bruise right upper forehead lateral Head: Yes normocephalic and Yes atraumatic Eyes General: appearance normal, both eyes and all related structures Pupils: Equal, round and reactive pupils present Neck Neck: Yes normal visual inspection and Yes no lymphadenopathy Thyroid: Thyroid normal Resp Effort & Inspection: normal respiratory effort and able to speak in complete sentences Auscultation: clear to auscultation bilaterally Cardio Rate: regular rate Rhythm: regular rhythm Heart sounds: Normal, physiologic split S2 sound present Peripheral pulses: radial pulses present and posterior tibial pulses present GI Inspection: No distended and No Abdominal panniculus present Palpation (GI): Soft to palpation, nontender, no guarding, not rigid and No hepatosplenomegaly present Percussion: Yes normal to percussion Auscultation: normal bowel sounds Rectal Exam - Female: deferred Skin General skin exam: no rashes or lesions noted, turgor normal, skin not dry, no jaundice, No spider nevi and no striae Rashes: no rashes Nails: normal Neuro General: oriented to person, oriented to place and oriented to time Cranial nerves: Yes Equal, round and reactive pupils present and Yes Normal hearing present Speech: No Abnormal speech present Extrem Other: walking boot left foot, brace left arm General: No clubbing, No cyanosis and No edema Psych Appearance: grossly normal and well kempt Mental Status: mental status grossly normal Speech and movement: Normal speech and movement present Affect: Anxious affect present Attitude: cooperative Thought process: not confabulating, Loose association thought process present and Perseverating thought process present Thought content: Normal thought content present Insight: Limited insight present (Psych) and Poor insight present (Psych) Judgement: Limited judgement present (Psych) and Poor judgement present (Psych) Results Reviewed Results Reviewed: Laboratory Tests 06/18/24 11/13/24 09:46 10:55 WBC 4.6 L Hgb 12.0 Hct 36.0 L MCV 88.5 MCH 29.5 Plt Count 240 Estimated GFR 44 Total Bilirubin 0.4 AST 28 ALT [address] ABDOMEN AND PELVIS 02/2025-[facility] This showed no acute pathology of the abdomen. There were punctate kidney stones still remaining within the kidney. There is a possible right-sided adrenal adenoma. Assessment & Plan Assessment & Plan (1) Abdominal bloating: Code(s): R14.0 - Abdominal distension (gaseous) Category: Medical (2) Chronic idiopathic constipation: Code(s): K59.04 - Chronic idiopathic constipation Category: Medical (3) GERD (gastroesophageal reflux disease): Code(s): K21.9 - Gastro-esophageal reflux disease without esophagitis Category: Medical (4) Dysphagia, oropharyngeal: Comment: Significant esophageal spasm associated with this when her GERD is not controlled aeb Code(s): R13.12 - Dysphagia, oropharyngeal phase Category: Medical Plan Eleanor Hawthornelene Live Her current GI regimen consists of omeprazole in the morning with famotidine at night, Colace, Creon, Linzess 72 micro g, and senna. Things that are confounding factors are the use of a fenofibrate, Januvia, and alendronate. - The patient is a 79-year-old female presenting with management of gastrointestinal symptoms, particularly constipation and bloating. - Reports ongoing constipation characterized by cycles of 2 days good and 3 bad, with relief attempts via senna showing some effectiveness requiring optimization with increased dosage. - Gastric symptoms include persistent gas and bloating, partly alleviated albeit incompletely by prior antibiotic therapy. - Past falls have incurred injuries, notably an ankle fracture and concerns over balance. Melanie feels she did have improvement with the Augmentin therapy for potential SIBO but then the symptoms return. I explained to her that sometimes we have to treat up to 3 times before the gut balance remains stable. We will re-treat again and I encouraged her to also continue her probiotic supplement. She expresses many worries that the urgent care provider she has seen told her she had ?problems with my kidneys, my liver?, and she is very worried about this. I review all of her most recent labs and imaging and although she does have reduced kidney function, for a 79-year-old it is not terrible and she does follow with Nephrology. I reassure her that there is no evidence of any severe liver pathology. However I will repeat some basic labs to give her reassurance. Because she feels she has been losing weight we will get a thyroid study. Return office visit in 2 weeks Orders: Orders Complete Blood Count Auto Diff Today K21.9 - Gastro-esophageal reflux disease without esophagitis, K59.04 - Chronic idiopathic constipation Comprehensive Met. Panel Today K21.9 - Gastro-esophageal reflux disease without esophagitis, K59.04 - Chronic idiopathic constipation TSH reflex Free T4 Today K21.9 - Gastro-esophageal reflux disease without esophagitis, K59.04 - Chronic idiopathic constipation Medications: New amoxicillin-pot clavulanate 875-125 mg 1 tab PO BID 28 tabs 0RF 14 days Changed From sennosides (senna) 8.6 mg PO BEDTIME 30 tabs 6RF To sennosides (senna) 17.2 mg (2 x 8.6 mg) PO BEDTIME 30 tabs 6RF Coding Level of Care Code Est Pt Level 4 (63230) Diagnoses Abdominal bloating R14.0 Chronic idiopathic constipation K59.04 GERD (gastroesophageal reflux disease) K21.9 Dysphagia, oropharyngeal R13.12 Time Spent (min) 40
--- OUTSIDE RECORDS SUMMARY | 2025-03-18 10:39 | XMS_ITS | Encounter Summary ---
Author Organization [facility], Address [address] [address] Phone Care Team Providers Care Home Care Giver Name Role Phone Marybeth Vale MD Primary Care Provider [phone] Encounter Details Date Type Department Care Team (Late Contact Info) Description 09/02/2021 Documentation Only [facility] [address] [place] [address] Jhony Lima MD [address] [place] [address] [place] [address] Social History Tobacco Use Types [...] [facility] [address] [place] [address] Jhony Lima MD [address] [place] [address] [place] [address] documented as of this encounter Visit Diagnoses Not on filedocumented in this encounter Care Teams Home Care Giver Relationship Specialty Start Date End Date Marybeth Vale MD [address] [facility] PCP - General 05/13/19 documented as of this encounter
--- OUTSIDE RECORDS SUMMARY | 2025-03-18 10:39 | XMS_ITS | Clinical Summary ---
Author Organization [facility], Address [address] [place] [address] [place] [address] Phone Care Team Providers Care Acid Painter Name Role Phone Marbyeth Vale MD Primary Care Provider [phone] Allergies Active Allergy Reactions Criticality Noted Date [...] DAY: NEEDED FOR ANALGESIA 3 Active Creon [id number] units capsule TOME 1 C PSULA POR [...] Visit [facility] [address] [place] [address] Jhony Lima MD Stage 3a chronic kidney disease (HCC) (Primary Dx); Hypertension 02/12/2025 Orders Only [facility] [address] [place] [address] Domitila Bradley [place] Stage 3a chronic kidney [...] Visit [facility] [place], [address] [facility] [place] [address] Jhony Lima MD [address] [facility] [place] [address] Health Maintenance Due Date Last [...] patient's age to complete this topic Insurance [place] Care Teams Acid Painter Relationship Specialty Start Date End Date Marybeth Vale MD [address] [place] [address] PCP - General 05/13/19
--- OUTSIDE RECORDS SUMMARY | 2025-03-18 10:39 | XMS_ITS | Encounter Summary ---
Author Organization [facility] [place], Address [address] [address] Phone Care Team Providers Care Electric Track Switch Maintainer Name Role Phone Marybeth Vale MD Primary Care Provider [phone] Encounter Details Date Type Department Care Team (Late st Contact Info) Description 03/17/2024 Documentation Only [facility] [place], [address] [facility] [place] [place] [address] Domitila Bradley [place] [address] [place] [id number] Social History Tobacco Use Types Packs/Day Years [...] Visit [facility] [address] [facility] [place] [address] Jhony Lima MD [address] [facility] [place] [address] documented as of this encounter Visit Diagnoses Not on filedocumented in this encounter Care Teams Electric Track Switch Maintainer Relationship Specialty Start Date End Date Marybeth Vale MD [address] [facility] [place] PCP - General 05/13/19 documented as of this encounter
--- OUTSIDE RECORDS SUMMARY | 2025-03-18 10:39 | XMS_ITS | Encounter Summary ---
Author Organization [facility] [place], Address [address] [address] Phone Care Team Providers Care Errand Runner Name Role Phone Marybeth Vale MD Primary Care Provider [phone] Encounter Details Date Type Department Care Team (Late st Contact Info) Description 01/31/2024 Documentation Only [facility] [place], [address] [facility] [place] [address] Domitila Bradley [place] [address] [place] [id number] Social History Tobacco Use Types Packs/Day Years [...] Visit [facility] [address] [facility] [place] [address] Jhony Lima MD [address] [facility] [place] [address] documented as of this encounter Visit Diagnoses Not on filedocumented in this encounter Care Teams Errand Runner Relationship Specialty Start Date End Date Marybeth Vale MD [address] [facility] [place] PCP - General 05/13/19 documented as of this encounter
--- OUTSIDE RECORDS SUMMARY | 2025-03-18 10:39 | XMS_ITS | Encounter Summary ---
Author Organization [facility] [place], Address [address] [address] Phone Care Team Providers Care Audit Reviewer Name Role Phone Marybeth Vale MD Primary Care Provider [phone] Encounter Details Date Type Department Care Team (Late Contact Info) Description 02/15/2022 Documentation Only [facility] [address] [place] [address] Jhony Lima MD [address] [place] [address] [place] [address] Social History Tobacco Use Types [...] Visit [facility] [address] [place] [address] Jhony Lima MD [address] [place] [address] [place] [address] documented as of this encounter Visit Diagnoses Not on filedocumented in this encounter Care Teams Audit Reviewer Relationship Specialty Start Date End Date Marybeth Vale MD [address] [facility] PCP - General 05/13/19 documented as of this encounter
--- OUTSIDE RECORDS SUMMARY | 2025-03-18 10:39 | XMS_ITS | Clinical Summary ---
Author Organization [facility] Address [address] [place] [address] Phone Care Team Providers Care Clinical Pharmacy Manager Name Role Phone Marybeth Dennis MD Primary Care Provider [phone] Allergies Active Allergy Reactions Criticality Noted Date [...] EDT - 02/20/2025 5:30 AM EDT Emergency [facility] Emergency [address] [place] [address] Adrenal nodule ([facility] V24) (Primary Dx); Nephrolithiasis; Flank pain; Acute cystitis without hematuria Discharge Disposition: Home or Self Care 02/17/2025 7:58 AM EDT - 02/17/2025 11:59 PM EDT Hospital Encounter [facility] Ortho Xray [address] [place] [address] Pain Discharge Disposition: Home or Self Care 01/15/2025 9:03 AM EDT - 01/15/2025 11:59 PM EDT Hospital Encounter [facility] Ortho Xray [address] [place] [address] Pain Discharge Disposition: Home or Self Care 12/18/2024 7:45 AM EDT - 12/18/2024 11:59 PM EDT Hospital Encounter [facility] Ortho Xray [address] [place] [address] Pain Discharge Disposition: Home or Self Care from Last 3 Months Surgical History Surgery Date Site/Laterality Comments CORONARY ARTERY BYPASS GRAFT PROCEDURE: HISTORICAL CABG CARDIAC CATHETERIZATION PROCEDURE: HISTORICAL CARDIAC CATH Medical History Medical History Date Comments Chronic ischemic heart disease D X:Chronic ischemic heart disease Essential hypertension DX:Essent ial hypertension Hyperlipidemia DX:Hyperlipidemi a PAD (peripheral artery disea se) ([facility]/HCC V24) DX:PAD (peripheral artery di sease) ([facility]) Social History Tobacco Use Types Packs/Day Years [...] 06/11/2022 Social Influencers of Health Screening 06/11/2022 Depression Screening 07/09/2024 Diabetes: Annual Urine Albumin-Creatinine Ratio (uACR) 10/20/2024 Diabetes: Blood Sugar Control Test (HGBA1C) 10/20/2024 COVID-19 Vaccine ( season) 2025 07/19/2021, 02/16/2021, 01/26/2021, Additional history exists Influenza Vaccine (#1) 2025 , 04/24/2022, 06/04/2019, [...] LEFT Routine 5 9:47 AM EDT Pain from Last 3 Months Results * ECG-Annotated [...] Vaca MD on 02/20/2025 03:42:03 Angely DAVIS [facility] CT PROCEDURES Final Result * (ABNORMAL) Urinalysis with reflex microscopic and culture (02/20/2025 1:26 AM EDT) [place] Urine 1.012 1.003 - 1.030 LAB URINALYSIS - AUTOMATED METHOD 02/20/2025 2:[address] [facility] pH, Urine 6.5 5.0 - 8.0 pH LAB URINALYSIS - AUTOMATED METHOD 02/20/2025 2:[address] [facility] Leukocytes, Urine Small(A) Negative LAB URINALYSIS - AUTOMATED METHOD 02/20/2025 2:[address] [facility] Nitrite, Urine Negative Negative LAB URINALYSIS - AUTOMATED METHOD 02/20/2025 2:[address] [facility] Protein, Urine Negative <=Trace mg/dL LAB URINALYSIS - AUTOMATED METHOD 02/20/2025 2:[address] [facility] Glucose, Urine Negative Negative mg/dL LAB URINALYSIS - AUTOMATED METHOD 02/20/2025 2:[address] [facility] Ketones, Urine Negative Negative mg/dL LAB URINALYSIS - AUTOMATED METHOD 02/20/2025 2:[address] [facility] Urobilinogen, Urine 0.2 0.2 - 1.0 mg/dL LAB URINALYSIS - AUTOMATED METHOD 02/20/2025 2:[address] [facility] Bilirubin, Urine Negative Negative LAB URINALYSIS - AUTOMATED METHOD 02/20/2025 2:10 AM EDT [facility] Blood, Urine Negative Negative LAB URINALYSIS - AUTOMATED METHOD 02/20/2025 2:10 AM EDT [facility] RBC, Urine 0.4 0 - 4 /HPF LAB URINALYSIS - AUTOMATED METHOD 02/20/2025 2:10 AM T [facility] WBC, Urine 4.9(H) 0 - 4 /HPF LAB URINALYSIS - AUTOMATED METHOD 02/20/2025 2:10 AM EDT [facility] Squamous Epithelial, Urine 18 0 - 60 /LPF LAB URINALYSIS - AUTOMATED METHOD 02/20/2025 2:10 AM EDT [facility] Bacteria, Urine Negative Negative /HPF LAB URINALYSIS - AUTOMATED METHOD 02/20/2025 2:[address] [facility] Hyaline Casts, Urine 0.4 0 - 3 /LPF LAB URINALYSIS - AUTOMATED METHOD 02/20/2025 2:10 AM T [facility] Urine Urine specimen obtained by clean catch procedure / Unknown Non-blood Collection / Unknown 02/20/2025 1:26 AM EDT 02/20/2025 2:00 AM EDT Abraham Hearn MD LAB URINE ORDERABLES Final Resul t [facility] [address] [place] [address], * Ann urine culture tube (02/20/2025 1:26 AM EDT) Extra Tube Hold for add-ons. 02/20/2025 3:03 AM EDT [facility] Comment:Auto resulted. Urine Urine specimen obtained by clean catch procedure / Unknown Non-blood Collection / Unknown 02/20/2025 1:26 AM EDT 02/20/2025 2:00 AM EDT Abraham Hearn MD LAB URINE ORDERABLES Final Resul t Performing Organization Address [facility]/ZIP Co de Phone Number [facility] [address] [place] [address], [place] [phone] * Culture urine (02/20/2025 1:26 AM EDT) Culture, Urine 10,000-49,000 CFU/mL Mixed bacterial morphotypes present suggestive of possible contamination during collection. Suggest appropriate recollection if clinically indicated. 02/21/2025 9:24 AM EDT [facility] Urine Urine specimen obtained by clean catch procedure / Unknown Non-blood Collection / Unknown 02/20/2025 1:26 AM EDT 02/20/2025 2:10 AM EDT Abraham Hearn MD LAB MICROBIOLOGY - GENERAL ORDER KELIN Final Result Performing Organization Address [facility] de Phone Number [facility] [address] [place] [address], [place] [phone] * 12-Lead ECG (02/20/2025 1:08 AM EDT) Ventricular Rate ECG 57 BPM GEMUSE Atrial Rate 57 BPM GEMUSE P-R Interval 190 ms GEMUSE QRS Duration 88 ms GEMUSE Q-T Interval 426 ms GEMUSE QTc 414 ms GEMUSE P Wave Steuben 20 degrees GEMUSE R Steuben 1 degrees GEMUSE T Steuben -3 degrees GEMUSE ECG Interpretation Sinus bradycardia Nonspecific T wave abnormality Abnormal ECG When compared with ECG of 20-OCT-2024 12:26, No significant change was found Confirmed by MD LUCILA, STACEY ([id number]) on 02/20/2025 8:42:59 AM GEMUSE 02/20/2025 1:08 AM EDT 02/20/2025 8:42 AM EDT Angely DAVIS ECG ORDERABLES Final Re sult GEMUSE * (ABNORMAL) CBC auto differential (02/19/2025 6:43 PM EDT) WBC 4.4(L) 4.8 - 10.8 K/mcL LAB HEMETOLOGY METHOD 02/19/2025 7:22 PM EDT [facility] RBC 4.00 3.80 - 4.80 M/mcL LAB HEMETOLOGY METHOD 02/19/2025 7:22 PM EDT [facility] Hemoglobin 11.7 11.5 - 16.0 g/dL LAB HEMETOLOGY METHOD 02/19/2025 7:22 PM EDT [facility] Hematocrit 35.2 35.0 - 47.0 % LAB HEMETOLOGY METHOD 02/19/2025 7:22 PM EDT [facility] MCV 88.7 79.0 - 98.0 FL LAB HEMETOLOGY METHOD 02/19/2025 7:22 PM EDT [facility] MCH 29.5 27.0 - 32.0 pcg LAB HEMETOLOGY METHOD 02/19/2025 7:22 PM EDT [facility] MCHC 33.2 32.0 - 37.0 g/dL LAB HEMETOLOGY [facility] RDW 13.1 11.0 - 15.0 % LAB HEMETOLOGY METHOD 02/19/2025 7:22 PM EDT [facility] Platelets 256 130 - 400 K/mcL LAB HEMETOLOGY METHOD 02/19/2025 7:22 PM EDT [facility] MPV 10.9 7.0 - 11.0 FL LAB HEMETOLOGY METHOD 02/19/2025 7:22 PM EDT [facility] NRBC 0.0 <1.0 % LAB HEMETOLOGY METHOD 02/19/2025 7:22 PM EDT [facility] NRBC Absolute 0.00 <0.10 K/mcL LAB HEMETOLOGY METHOD 02/19/2025 7:[address] [facility] Neutrophils Relative 27.1 % LAB HEMETOLOGY METHOD 02/19/2025 7:[address] [facility] Lymphocytes Relative 55.1 % LAB HEMETOLOGY METHOD 02/19/2025 7:[address] [facility] Monocytes Relative 13.0 % LAB HEMETOLOGY METHOD 02/19/2025 7:[address] [facility] Eosinophils Relative 4.1 % LAB HEMETOLOGY METHOD 02/19/2025 7:[address] [facility] Basophils Relative 0.5 % LAB HEMETOLOGY METHOD 02/19/2025 7:[address] [facility] Immature Granulocytes Relative 0.2 % LAB HEMETOLOGY METHOD 02/19/2025 7:[address] [facility] Neutrophils Absolute 1.19(L) 1.50 - 7.00 K/mcL LAB HEMETOLOGY METHOD 02/19/2025 7:[address] [facility] Lymphocytes Absolute 2.42 1.00 - 5.00 K/mcL LAB HEMETOLOGY METHOD 02/19/2025 7:[address] [facility] Monocytes Absolute 0.57 0.20 - 1.00 K/mcL LAB HEMETOLOGY METHOD 02/19/2025 7:[address] [facility] Eosinophils Absolute 0.18 0.00 - 0.50 K/mcL LAB HEMETOLOGY METHOD 02/19/2025 7:[address] [facility] Basophils Absolute 0.02 0.00 - 0.20 K/mcL LAB HEMETOLOGY METHOD 02/19/2025 7:[address] [facility] Immature Granulocytes Absolute 0.01 0.00 - 0.03 K/mcL LAB HEMETOLOGY METHOD 02/19/2025 7:22 PM EDT [facility] Blood Venous blood specimen / Unknown Venipuncture / Unknown 02/19/2025 6:43 PM EDT 02/19/2025 7:18 PM EDT us Abraham Hearn MD LAB BLOOD ORDERABLES Final Resul t [facility] [address] [place] [address], [place] [phone] * (ABNORMAL) Comprehensive metabolic panel (02/19/2025 6:43 PM EDT) Sodium 141 133 - 145 mmol/L LAB CHEMISTRY METHOD 02/19/2025 7:[address] [facility] Potassium 4.0 3.5 - 5.5 mmol/L LAB CHEMISTRY METHOD 02/19/2025 7:[address] [facility] Chloride 108 96 - 110 mmol/L LAB CHEMISTRY METHOD 02/19/2025 7:[address] [facility] CO2 29 21 - 32 mmol/L LAB CHEMISTRY METHOD 02/19/2025 7:[address] [facility] Anion Gap 4 3 - 11 LAB CHEMISTRY METHOD 02/19/2025 7:[address] [facility] Glucose 86 70 - 100 mg/dL LAB CHEMISTRY METHOD 02/19/2025 7:[address] [facility] BUN 21 5 - 25 mg/dL LAB CHEMISTRY METHOD 02/19/2025 7:[address] [facility] Creatinine 1.34(H) 0.50 - 1.10 mg/dL LAB CHEMISTRY METHOD 02/19/2025 7:[address] [facility] eGFR 40(L) >=60 mL/min/1. 73m2 LAB CHEMISTRY METHOD 02/19/2025 7:[address] [facility] Comment:Calculation based on the Chronic Kidney Disease Epidemiology Collaboration (CKD-EPI) equation refit without adjustment for race. BUN/Creatinine Ratio 15.7 LAB CHEMISTRY METHOD 02/19/2025 7:54 PM EDT [facility] Calcium 8.9 8.5 - 10.5 mg/dL LAB CHEMISTRY METHOD 02/19/2025 7:54 PM EDT [facility] AST (SGOT) 32 10 - 42 unit/L LAB CHEMISTRY METHOD 02/19/2025 7:54 PM EDT [facility] ALT (SGPT) 17 10 - 60 unit/L LAB CHEMISTRY METHOD 02/19/2025 7:54 PM EDT [facility] Alkaline Phosphatase 51 42 - 121 unit/L LAB CHEMISTRY METHOD 02/19/2025 7:54 PM EDT [facility] Total Protein 7.0 6.0 - 8.0 g/dL LAB CHEMISTRY METHOD 02/19/2025 7:54 PM EDT [facility] Albumin 3.8 3.2 - 5.0 g/dL LAB CHEMISTRY METHOD 02/19/2025 7:54 PM EDT [facility] Total Bilirubin 0.3 0.0 - 1.4 mg/dL LAB CHEMISTRY METHOD 02/19/2025 7:54 PM EDT [facility] Blood Venous blood specimen / Unknown Venipuncture / Unknown 02/19/2025 6:43 PM EDT 02/19/2025 7:18 PM EDT us Abraham Hearn MD LAB BLOOD ORDERABLES Final Resul t [facility] [address] [place] [address], * XR Ankle 3+ Views Left (02/17/2025 9:29 AM EDT) Only the most recent of3 resultswithin the time period is included. Narrative RIS PACS/VR - 02/17/2025 9:29 AM EDT This order has been auto-finalized and does not contain a result. Katie Villanueva MD IMG XR PROCEDURES Final Result RIS PACS/VR from Last 3 Months Insurance MEDICAID - [...] currently active code status orders. Care Teams Clinical Pharmacy Manager Relationship Specialty Start Date End Date Marybeth Dennis MD [address] [place] [address] , [address] [facility] D/B/A: [facility] [place] PCP - General 03/27/15
--- OUTSIDE RECORDS SUMMARY | 2025-03-18 10:39 | XMS_ITS | Clinical Summary ---
Author Organization [facility] Address [address] [place] [address] Phone Care Team Providers Care Station Examiner Name Role Phone Marybeth Vale MD Primary [...] file Medical Devices Not on file Insurance [place] [employer] REPLACEMENT MEDICARE REPLACEMENT MEDICARE REPLAC[place] [phone] MEDICARE REPLACEMENT MEDICARE REPLACEMENT MEDICARE REPLACEMENT MEDICARE [place] [address] [place] [address] MEDICARE REPLACEMENT Care Teams Station Examiner Relationship Specialty Start Date End Date Marybeth Vale MD [address] [place] [address] PCP - General Internal Medicine 11/17/19 Additional Source Comments The information contained in this document represents components of the legal health record. It is not the complete legal health record.[facility]
== END 2025-03-18 10:06 | disposition home or self-care (01) ==
LOC: HO.HGI 09:01
PROVIDERS: PCP Internal Medicine; Visit Provider Nurse Practitioner
DX: R14.0 Abdominal distension (gaseous) (principal); K59.04 Chronic idiopathic constipation; K21.9 Gastro-esophageal reflux disease without esophagitis; R13.12 Dysphagia, oropharyngeal phase
CPT/HCPCS: 99214

== ENCOUNTER 2025-03-18 09:01 | Outpatient (REF) | payer OTHER, SELFPAY ==
[2025-03-18 12:23] LABS: MANUAL DIFF FLAG NO
[2025-03-18 12:37] LABS: Hematocrit 38.4 % (37.0-47.0); Hemoglobin 12.9 g/dl (12.0-16.0); Imm Gran Abs Auto 0.01 X10*3/uL (0.00-0.03); Imm Gran Pct Auto 0.3 % (0.0-0.4); Lymphocytes Absolute Auto 1.7 X10*3/uL (1.2-4.9); Mean Corpuscular HGB Conc 33.6 g/dl (31.0-35.0); Mean Corpuscular Hemoglobin 29.1 pg (27.0-33.0); Mean Corpuscular Volume 86.7 fL (80.0-98.0); NRBC Abs Auto 0.000 X10*3/uL (0.0-0.012); NRBC Pct Auto 0.0 /100WBC (0.0-0.2); Platelet Count 286 X10*3/uL (160-400); Red Blood Count 4.43 X10*6/uL (4.20-5.50); White Blood Count 3.3 X10*3/uL (4.8-10.8)
[2025-03-18 13:10] LABS: Alanine Aminotransferase 12 U/L (0-31); Albumin Level 4.5 g/dL (3.5-5.0); Alkaline Phosphatase 47 U/L (39-117); Anion Gap 12 (12-20); Aspartate Amino Transferase 30 U/L (5-31); Blood Urea Nitrogen 22 mg/dL (9-16); Calcium 9.7 mg/dL (8.4-10.2); Carbon Dioxide 26 mmol/L (22-29); Chloride 107 mmol/L (96-108); Estimated Glomerular Filt Rate 43; Potassium 4.2 mmol/L (3.3-5.1); Sodium 141 mmol/L (135-145); Total Protein 7.5 g/dL (6.5-8.0)
== END 2025-03-18 09:02 | disposition home or self-care (01) ==
LOC: HO.LAB 09:01
PROVIDERS: PCP Internal Medicine; Visit Provider Nurse Practitioner
DX: Z00.00 Encounter for general adult medical examination without abnormal findings (principal); Z12.31 Encounter for screening mammogram for malignant neoplasm of breast; E11.9 Type 2 diabetes mellitus without complications; E27.9 Disorder of adrenal gland, unspecified; F33.0 Major depressive disorder, recurrent, mild; M51.369 Other intervertebral disc degeneration, lumbar region without mention of lumbar back pain or lower extremity pain; R80.9 Proteinuria, unspecified; E78.5 Hyperlipidemia, unspecified; K21.9 Gastro-esophageal reflux disease without esophagitis; K59.04 Chronic idiopathic constipation; R13.10 Dysphagia, unspecified; K58.9 Irritable bowel syndrome, unspecified; D47.2 Monoclonal gammopathy; R41.89 Other symptoms and signs involving cognitive functions and awareness; Z23 Encounter for immunization; Z79.899 Other long term (current) drug therapy
CPT/HCPCS: 36415; 80053; 84443; 85025; 90471; 90677; 96127; 99212

== ENCOUNTER 2025-03-18 12:28 | Outpatient (AMB) | payer OTHER, SELFPAY ==
[2025-03-18 12:48] VITALS: BP 136/82; PULSE 86; O2SAT 95; BMI 23.7
--- NOTE | 2025-03-18 12:49 | A.OFFVIS_ITS ---
Intake Vital Signs 03/18/25 12:48 Height 5 ft 3 in Weight 134 lb 0.657 oz BMI 23.7 BP 136/82 Blood Pressure Location Lt brachial Position Sitting Pulse 86 Pulse Source Pulse Oximeter Pulse Oximetry (%) 95 Oxygen Delivery Method Room Air Intake Visit Reasons: SAWV Hydropulper Required: No Accompanied by: Self / Same As Patient Allergies lactose (Lactose) Allergy (Intermediate, Verified 03/18/25 13:04) DIARRHEA, N/V metformin Allergy (Intermediate, Verified 03/18/25 13:04) stomach upset Medication List - Last Reconciled 03/18/25 by Marybeth Dennis MD alendronate 70 mg PO QWEEK 90 days amoxicillin-pot clavulanate 875-125 mg 1 tab PO BID 14 days aspirin 81 mg PO DAILY blood sugar diagnostic (FreeStyle Lite Strips) Use 1 test strip once a day blood-glucose meter (FreeStyle Lite Meter kit) As directed carvedilol 6.25 mg PO BID cetirizine 10 mg PO DAILY PRN 90 days cholecalciferol (vitamin D3) (Vitamin D3) 50 mcg PO DAILY 90 days docusate sodium 100 mg PO DAILY ezetimibe 10 mg PO DAILY famotidine (Pepcid) 40 mg PO .q3pm fenofibrate nanocrystallized 145 mg PO DAILY 90 days fluticasone propion-salmeterol 250-50 mcg/dose 1 ea inhalation DAILY glycerin (adult) (Fleet Glycerin (Adult) rectal suppository) 2 supp MN DAILY hydrocortisone 2.5% (Proctosol HC) 1 appl MN BID isosorbide mononitrate ER 120 mg PO DAILY 90 days lancets (FreeStyle Lancets) Use 1 lancet once a day linaclotide (Linzess) 72 mcg PO QAM Held on 02/03/25. Instructions: Doctor's Order gpregn-jswbutzh-cmpfnao 24,000-76,000 -120,000 unit (Creon) 2 caps PO BID 30 days lisinopril 20 mg PO DAILY 90 days [med size pull-ups As directed] metoprolol succinate ER 12.5 mg (1/2 x 25 mg) PO DAILY 90 days Held on 12/22/21. Instructions: syncope mirtazapine 15 mg PO BEDTIME 90 days omeprazole 40 mg PO DAILY 90 days ondansetron HCl 8 mg PO Q8H oxycodone-acetaminophen 7.5-325 mg 1 tab PO Q6H PRN 30 days rosuvastatin 20 mg PO DAILY 90 days Saccharomyces boulardii (Florastor) 250 mg PO DAILY sennosides (senna) 17.2 mg (2 x 8.6 mg) PO BEDTIME sitagliptin phosphate (Januvia) 100 mg PO DAILY walker (Ultra-Light Rollator misc) As directed Do you need a note to return to daycare/school/sports/work: No HPI HPI Comments History of Present Illness Details The patient is a 79-year-old female presenting for a Medicare wellness exam and review of her current health status and preventative care measures. She has a history of osteoporosis diagnosed in 2022, for which she is currently taking alendronate weekly. Her last bone density scan was in 2022, and she has a follow-up appointment scheduled for May. The patient has hypertension, with a recent blood pressure reading of 136/82 mmHg. She is on multiple medications, including carvedilol and lisinopril, to manage her blood pressure. She has a history of hyperlipidemia, managed with ezetimibe and rosuvastatin. Her cholesterol levels were noted to be stable during the last check. The patient has diabetes mellitus, controlled with Januvia, and her last HbA1c was 4.8% in December. She underwent coronary artery bypass grafting in 2004 following a myocardial infarction. She is currently on aspirin and metoprolol as part of her cardiac management. The patient has an adrenal adenoma, identified as benign, with plans for follow- up imaging. 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 Her family history is significant for various cancers, including brain, ovarian, breast, lung, and stomach cancers. The patient denies smoking and alcohol use and reports no current depression. She experiences insomnia, particularly difficulty sleeping at night. - Pneumococcal vaccination recommended w ith PCV20 due to previous PPSV23 received in 2015 - Tetanus vaccination due in 2025, last received in 2015 - Bone density scan scheduled for er 2022 - Mammography screening noted as not com pleted in the previous year COUNTS INCLUDE 234 BEDS AT [facility] Medical History (Updated 03/18/25 @ 13:46 by Marybeth Dennis MD) Encounter for Medicare annual wellness exam Venous insufficiency Vaginal pruritus Leucopenia Anemia Hair loss Dizziness Diarrhea Fecal impaction in rectum Adult general medical exam Oropharyngeal dysphagia MODESTA (generalized anxiety disorder) Mild recurrent major depression Submandibular lymphadenopathy Post-menopausal Chronic daily headache Essential hypertension Lumbar disc disease with radiculopathy Mixed hyperlipidemia Therapeutic opioid induced constipation Hypovitaminosis D Diabetes mellitus Coronary artery disease Surgical History History of colonoscopy S/P CABG x 2 History of total abdominal hysterectomy and bilateral salpingo-oophorectomy History of cardiac catheterization History of rectal polypectomy History of cholecystectomy Family History Father Brain cancer Mother Ovarian cancer Sister Breast cancer Sister Lung cancer Brother Stomach cancer Son Substance abuse Sister Cancer Social History Housing: Apartment Alcohol intake: never Patient Tobacco Use Status: Never used Tobacco e-Cigarette/Vaping Use: Never Used Second Hand Smoke Exposure: No service: No Current occupational status: disabled Cognitive needs: Yes Hearing needs: No Vision needs: Yes Questionnaire Medicare Wellness Checkup [age] What gender do you identify with?: female During the past 4 weeks, how much have you been bothered by emotional problems such as feeling anxious, depressed, irritable, sad or downhearted, and blue?: slightly During the past 4 weeks, has your physical & emotional health limited your social activities with family, friends, neighbors, or groups?: not at all Mini Mental State Exam (MMSE) Orientation What is the (year) (season) (date) (day) (month)?: year, season, date, day and month Where are we (state) (county) (town or city) (hospital) (floor)?: state, county, town or city, hospital/clinic and floor Registration Name of 3 unrelated objects clearly and slowly, then ask patient to repeat all 3 of them. (1st repeat determines score. Make sure they can repeat all three): object 1, object 2 and object 3 Attention & Calculation (CHOOSE ONE) Spell WORLD backwards (DLROW): 5 letters Recall Ask patient to repeat the 3 items from question #3.: object 1, object 2 and object 3 Language Show patient a wristwatch & ask what it is. Repeat for pencil.: watch and pencil Ask the patient to repeat the phrase 'No ifs, ands, or buts' after you.: correct Ask the patient to 'take a piece of paper with their right hand' 'fold paper in half' 'place paper on floor': take paper in right hand, fold paper in half and place paper on floor Print the sentence 'CLOSE YOUR EYES' on a piece. If patient actually closes eyes then score.: followed written direction Give patient a blank piece of paper & ask to write a sentence. Score if it contains a noun & verb.: sentence contains subject and verb Ask patient to copy figure of intersecting pentagons exactly. Score if all 10 angles & 2 intersects are included.: all 10 angles present & 2 are intersected Score Score: 30 Activity of Daily Living Bathing - sponge bath, tub bath or shower: receives help in bathing only one body part (such as back or leg) Dressing - getting clothes from closets & drawers, including inner/outer garments & fasteners.: gets clothes & gets completely dressed without help Toileting - going to the 'toilet room' for urine/bowel elimination & cleaning self/arranging clothes: goes to toilet room, cleans self, arranges clothes without help Transfer: moves in & out of bed and chair without help (may use support object) Continence: has occasional 'accidents' Feeding: feeds self without help Total Score: 0 Information obtained from: patient Using telephone: independent Traveling: needs assistance Shopping: needs assistance Preparing meals: needs assistance Housework: needs assistance Taking medicine: needs assistance Managing money: needs assistance PHQ-9 Over the last 2 weeks, how often have you been bothered by any of the following problems? 1. Little interest or pleasure in doing things: not at all 2. Feeling down, depressed, or hopeless: not at all 3. Trouble falling or staying asleep, or sleeping too much: not at all 4. Feeling tired or having little energy: not at all 5. Poor appetite or overeating: not at all 6. Feeling bad about yourself - or that you are a failure or have let yourself or your family down: not at all 7. Trouble concentrating on things, such as reading the newspaper or watching television: not at all 8. Moving or speaking so slowly that other people could have noticed. Or the opposite - being so fidgety or restless that you have been moving around a lot more than usual: not at all 9. Thoughts that you would be better off or of hurting yourself in some way: not at all Total score: 0 Depression Screening Interpretation: Negative Depression Screening Done: Yes 20247 - PHQ-9 Billing: Yes Source: Developed by Drs. Pradip Evans, Shakir Sevilla and colleagues, with an educational ailyn from [employer]. PHQ-2/PHQ-9 PHQ-2 Over the last 2 weeks, how often have you been bothered by any of the following problems? 1. Little interest or pleasure in doing things: not at all 2. Feeling down, depressed, or hopeless: not at all Total score: 0 If score is 3 or greater, continue 3. Trouble falling or staying asleep, or sleeping too much: not at all 4. Feeling tired or having little energy: not at all 5. Poor appetite or overeating: not at all 6. Feeling bad about yourself - or that you are a failure or have let yourself or your family down: not at all 7. Trouble concentrating on things, such as reading the newspaper or watching television: not at all 8. Moving or speaking so slowly that other people could have noticed. Or the opposite - being so fidgety or restless that you have been moving around a lot more than usual: not at all 9. Thoughts that you would be better off or of hurting yourself in some way: not at all Total score: 0 10. If you checked off any problems, how difficult have those problems made it for you to do your work, take care of things at home, or get along with other people?: not difficult at all 0-4 None-Minimal, 5-9 Mild, 10-14 Moderate, 15-19 Moderately Severe, 20-27 Severe Source: Developed by Drs. Pradip Evans, Shakir Sevilla and colleagues, with an educational ailyn from [employer]. Thrive Questionnaire Date Thrive assessed: 03/18/25 I am a: Parent/Caregiver What is your living situation today?: I have a steady place to live Within the past 12 months, did the food you bought not last and you didn't have the money to get more?: Never true Within the past 12 months, did you worry whether your food would run out before you got money to buy more?: Never true Do you have trouble paying for medicines?: No Do you have trouble getting transportation to medical appointments?: No Do you have trouble paying your heating and electricity bill?: No Do you have trouble taking care of your child, family member or friend?: No Do you have trouble with day-to-day activities such as bathing, preparing meals, shopping, managing finances, etc.?: No Are you currently unemployed and looking for a job?: No Are you interested in more education?: No Please select the resources that you would like help with: None Currently or been in a relationship where the following occur: I choose not to answer THRIVE Score: 0 MODESTA-7 AMB Questionnaire MODESTA-7 Date MODESTA - 7 assessed: 03/18/25 Feeling nervous, anxious, or on edge: 0 = Not at all Not being able to stop or control worryin = Not at all Worrying too much about different things: 0 = Not at all Trouble relaxin = Not at all Being so restless that it is hard to sit still: 0 = Not at all Becoming easily annoyed or irritable: 0 = Not at all Feeling afraid as if something awful might happen: 0 = Not at all Total MODESTA-7 score (0-4 normal; 5-9 mild; 10-14 moderate; 15-21 severe): 0 Source: Developed by Drs. Pradip Evans, Caroline Hassan, Shakir Bolton and colleagues, with an educational ailyn from [employer]. MODESTA-7 Assessment Billing MODESTA-7 Assessment Tool: MODESTA-7 Assessment 93135 Review of Systems Const All systems reviewed & are unremarkable except as noted in HPI and below Card Denies chest pain at rest, Denies chest pain with activity, Denies edema, Denies irregular heart rhythm, Denies claudication, Denies dyspnea, Denies dyspnea on exertion, Denies orthopnea, Denies paroxysmal nocturnal dyspnea and Denies slow heart rate Resp Denies cough, Denies dyspnea and Denies dyspnea on exertion GI Denies abdominal pain, Denies change in bowel habits, Denies excessive flatus, Denies nausea and Denies vomiting Physical Exam Vital Signs: Last Vital Signs Pulse 86 03/18/25 12:48 BP 136/82 03/18/25 12:48 Pulse Ox 95 03/18/25 12:48 Oxygen Delivery Method Room Air 03/18/25 12:48 BMI result Body Mass Index 23.7 Resp Effort & Inspection: normal respiratory effort Auscultation: clear to auscultation bilaterally Cardio Jugular venous distension: no JVD Rate: regular rate Rhythm: regular rhythm Heart sounds: S1 normal heart sound present and S2 normal heart sound present Neuro Romberg Test: Negative Extrem General: Yes full ROM Psych Appearance: grossly normal Immunizations pneumoc 20-alessia conj-dip cr(PF) 0.5 mL IM syringe Performing Provider: Marybeth Dennis MD [facility] Administered by: Karla Donaldson RN on 03/18/25 13:42 Dose Route Admin Location Dispensed Lot Number Expiration Date [facility] 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 Total Dispensed Waste 0.5 mL 0 % VIS Given Date VIS Provided VIS Publication Date 03/18/25 Single Vaccine 24 Eligibility Eligibility Date Funding Source Not [facility] Eligible 03/18/25 Private Assessment & Plan Assessment & Plan (1) Encounter for Medicare annual wellness exam: Code(s): Z00.00 - Encounter for general adult medical examination without abnormal fi ndings (2) Diabetes mellitus: Code(s): E11.9 - Type 2 diabetes mellitus without complications Qualifiers: Diabetes mellitus complication status: without complication Diabetes mellitus intermediate insulin use: without intermediate use Diabetes mellitus type: type 2 Qualified Code(s): E11.9 - Type 2 diabetes mellitus without complications (3) Adrenal nodule: Code(s): E27.9 - Disorder of adrenal gland, unspecified (4) Mild recurrent major depression: Code(s): F33.0 - Major depressive disorder, recurrent, mild (5) Lumbar degenerative disc disease: Code(s): M51.369 - Other intervertebral disc degeneration, lumbar region without mention of lumbar back pain or lower extremity pain Plan Plan Patient was informed and verbally consented to the use of an ambient scribe for clinic note documentation during this visit. 1. Encounter for general adult medical examination without abnormal findings Z00.00 Pneumococcal vaccination with PCV20 is recommended due to the previous PPSV23 received in 2016. 2. Type 2 diabetes mellitus without complications E11.9 HCC 19 Diabetes mellitus is controlled with Januvia, with the last HbA1c recorded at 4.8% in December. 3. Benign neoplasm of unspecified adrenal gland D35.00 A benign adrenal adenoma was identified, with plans for follow-up imaging to monitor the condition. Orders: Orders Saliva Cortisol Today E27.9 - Disorder of adrenal gland, unspecified Aldosterone Today E27.9 - Disorder of adrenal gland, unspecified Renin Today E27.9 - Disorder of adrenal gland, unspecified CT abdomen pelvis w IV con Today E27.9 - Disorder of adrenal gland, unspecified Lipid Panel 4 Months E78.5 - Hyperlipidemia, unspecified Microalbumin, Random (w Creat) 4 Months R80.9 - Proteinuria, unspecified Comprehensive [place]. Panel Fast 4 Months E11.9 - Type 2 diabetes mellitus without complications Metanephrines, 24hr Urine Today E27.9 - Disorder of adrenal gland, unspecified Pneumococcal 20 Immunization Today Z23 - Encounter for immunization MM tomosynthesis screening BI Today E27.9 - Disorder of adrenal gland, unspec ified, Z12.31 - Encounter for screening mammogram for malignant neoplasm of breast Referrals Endocrinology Referral E27.9 - Disorder of adrenal gland, unspecified Medications: New walker (Ultra-Light Rollator misc) As directed 1 ea 0RF M51.369 - Other intervertebral disc degeneration, lumbar region without mention of lumbar back pain or lower extremity pain Quality Reporting (2019) Adult ([facility] 138/2/22/69) Smoking risk assessment performed?: Yes Patient Tobacco Use Status: Never used Tobacco Depression/Bipolar (159/160/161/177) PHQ-9: Total score: 0 Coding Level of Care Code Medicare Subsequent (G0439) Est Pt Level 3 (00673) Diagnoses Encounter for Medicare annual wellness exam Z00.00 Type 2 diabetes mellitus without complication, without long-term current use of insulin E11.9 Diabetes mellitus complication status: without complication Diabetes mellitus ad terminal makeup operator insulin use: without intermediate use Diabetes mellitus type: type 2 Adrenal nodule E27.9 Mild recurrent major depression F33.0 Lumbar degenerative disc disease M51.369 CPT Codes Advance Care Planning - Time spent: 1-15 minutes, not on file ([id number]) Additional Codes MODESTA-7 Assessment Billing - MODESTA-7 Assessment Tool: MODESTA-7 Assessment 02473 ([id number]) PHQ-9 - 57200 - PHQ-9 Billing: Yes ([id number]) Time Spent (min) 36 Advance Care Planning Advance Care Planning discussion: Exists, not on file Date of discussion: 03/18/25 Who was present: patient and me Forms completed: Health Care Proxy Time spent: 1-15 minutes, not on file Actual minutes spent: 2
== END 2025-03-18 13:46 | disposition home or self-care (01) ==
LOC: HO.HMCH 12:29
PROVIDERS: PCP Internal Medicine; Visit Provider Internal Medicine
DX: Z00.00 Encounter for general adult medical examination without abnormal findings (principal); E11.9 Type 2 diabetes mellitus without complications; E27.9 Disorder of adrenal gland, unspecified; F33.0 Major depressive disorder, recurrent, mild; M51.369 Other intervertebral disc degeneration, lumbar region without mention of lumbar back pain or lower extremity pain; Z23 Encounter for immunization

== ENCOUNTER 2025-04-09 11:01 | Outpatient (AMB) | payer OTHER, SELFPAY ==
--- NOTE | 2025-04-09 11:03 | A.OFFVIS_ITS ---
Vital Signs 04/09/25 11:17 Height 5 ft 3 in Weight 130 lb 15.273 oz BMI 23.2 BP 158/78 H Blood Pressure Location Lt brachial Position Sitting Pulse 60 Intake Visit Reasons: 2wks Intake Note: Melanie presents to in office follow up of labs. CC: Patient reports abdominal pain, but states that she is doing better and is not having any more nausea, Meat Wrapper Required: Yes Meat Wrapper Language: [place] Accompanied by: Self / Same As Patient Allergies lactose (Lactose) Allergy (Intermediate, Verified 04/09/25 11:27) DIARRHEA, N/V metformin Allergy (Intermediate, Verified 04/09/25 11:27) stomach upset HPI HPI 2wks: Details: Assessment & Plan (1) Abdominal bloating: Code(s): R14.0 - Abdominal distension (gaseous) Category: Medical (2) Chronic idiopathic constipation: Code(s): K59.04 - Chronic idiopathic constipation Category: Medical (3) GERD (gastroesophageal reflux disease): Code(s): K21.9 - Gastro-esophageal reflux disease without esophagitis Category: Medical (4) Dysphagia, oropharyngeal: Comment: Significant esophageal spasm associated with this when her GERD is not controlled aeb Code(s): R13.12 - Dysphagia, oropharyngeal phase Category: Medical Plan [place] #Nicol Oliveros Her current GI regimen consists of omeprazole in the morning with famotidine at night, Colace, Creon, Linzess 72 micro g, and senna. Things that are confounding factors are the use of a fenofibrate, Januvia, and alendronate. - The patient is a 79-year-old female presenting with management of gastrointestinal symptoms, particularly constipation and bloating. - Reports ongoing constipation characterized by cycles of 2 days good and 3 bad, with relief attempts via senna showing some effectiveness requiring optimization with increased dosage. - Gastric symptoms include persistent gas and bloating, partly alleviated albeit incompletely by prior antibiotic therapy. - Past falls have incurred injuries, notably an ankle fracture and concerns over balance. Melanie feels she did have improvement with the Augmentin therapy for potential SIBO but then the symptoms return. I explained to her that sometimes we have to treat up to 3 times before the gut balance remains stable. We will re-treat again and I encouraged her to also continue her probiotic supplement. She expresses many worries that the urgent care provider she has seen told her she had ?problems with my kidneys, my liver?, and she is very worried about this. I review all of her most recent labs and imaging and although she does have reduced kidney function, for a 79-year-old it is not terrible and she does follow with Nephrology. I reassure her that there is no evidence of any severe liver pathology. However I will repeat some basic labs to give her reassurance. Because she feels she has been losing weight we will get a thyroid study. Return office visit in 2 weeks Orders: Orders Complete Blood Count Auto Diff Today K21.9 - Gastro-esophageal reflux disease without esophagitis, K59.04 - Chronic idiopathic constipation Comprehensive Met. Panel Today K21.9 - Gastro-esophageal reflux disease without esophagitis, K59.04 - Chronic idiopathic constipation TSH reflex Free T4 Today K21.9 - Gastro-esophageal reflux disease without esophagitis, K59.04 - Chronic idiopathic constipation Medications: New amoxicillin-pot clavulanate 875-125 mg 1 tab PO BID 28 tabs 0RF 14 days Changed From sennosides (senna) 8.6 mg PO BEDTIME 30 tabs 6RF To sennosides (senna) 17.2 mg (2 x 8.6 mg) PO BEDTIME 30 tabs 6RF LABS: Laboratory Tests 03/18/25 12:20 WBC 3.3 L Hgb 12.9 Hct 38.4 Plt Count 286 Estimated GFR 43 Total Bilirubin 0.5 AST 30 ALT 12 Alkaline Phosphatase 47 TSH 1.58 TODAY'S VISIT [place] # PFSH Medical History (Reviewed 04/09/25 @ 11:27 by Smiley Banda [facility]) Lumbar degenerative disc disease Encounter for Medicare annual wellness exam Venous insufficiency Vaginal pruritus Leucopenia Anemia Hair loss Dizziness Diarrhea Fecal impaction in rectum Adult general medical exam Oropharyngeal dysphagia MODESTA (generalized anxiety disorder) Mild recurrent major depression Submandibular lymphadenopathy Post-menopausal Chronic daily headache Essential hypertension Lumbar disc disease with radiculopathy Mixed hyperlipidemia Therapeutic opioid induced constipation Hypovitaminosis D Diabetes mellitus Coronary artery disease Surgical History History of colonoscopy S/P CABG x 2 History of total abdominal hysterectomy and bilateral salpingo-oophorectomy History of cardiac catheterization History of rectal polypectomy History of cholecystectomy Family History Father Brain cancer Mother Ovarian cancer Sister Breast cancer Sister Lung cancer Brother Stomach cancer Son Substance abuse Sister Cancer Social History Housing: Apartment Alcohol intake: never Patient Tobacco Use Status: Never used Tobacco e-Cigarette/Vaping Use: Never Used Second Hand Smoke Exposure: No service: No Current occupational status: disabled Cognitive needs: Yes Hearing needs: No Vision needs: Yes Review of Systems Const Denies fatigue, Denies fever(s), Denies night sweats, Denies poor appetite and Denies weight loss ENT Reports Normal hearing present, Denies dental pain, Denies dysphagia, Denies hea ring loss, Denies mouth pain, Denies odynophagia, Denies throat swelling, Denies tongue swelling and Reports other (Dentition adequate) Card Reports no additional complaints Resp Reports no additional complaints GI Details: Denies abdominal pain, Denies melena, Reports bloating, Denies hematochezia, Reports constipation, Reports GI cramping, Denies dysphagia, Denies excessive flatus, Denies early satiety, Reports heartburn, Denies diarrhea, Denies nausea, Denies odynophagia, Denies vomiting and Denies hematemesis Skin/Breast Denies pruritus, Denies lesions, Denies rash and Denies jaundice Neuro Reports Normal hearing present and Denies Abnormal speech present Endo Denies fatigue Aller/Immun Denies throat swelling and Denies tongue swelling Physical Exam Vital Signs: Last Vital Signs Pulse 60 04/09/25 11:17 BP 158/78 H 04/09/25 11:17 BMI result Body Mass Index 23.2 Const General: cooperative, no acute distress, well developed and well groomed Nutritional Appearance: average body habitus and well nourished Orientation/consciousness: oriented to person, oriented to place and oriented to time Limitations: language barrier HEENT Head: Yes normocephalic and Yes atraumatic Eyes General: appearance normal, both eyes and all related structures Pupils: Equal, round and reactive pupils present Neck Neck: Yes normal visual inspection and Yes no lymphadenopathy Thyroid: Thyroid normal Resp Effort & Inspection: normal respiratory effort and able to speak in complete sentences Auscultation: clear to auscultation bilaterally Cardio Rate: regular rate Rhythm: regular rhythm Heart sounds: Normal, physiologic split S2 sound present Peripheral pulses: radial pulses present and posterior tibial pulses present GI Inspection: No distended and No Abdominal panniculus present Palpation (GI): Soft to palpation, nontender, no guarding, not rigid and No hepatosplenomegaly present Percussion: Yes normal to percussion Auscultation: normal bowel sounds Rectal Exam - Female: deferred Skin General skin exam: no rashes or lesions noted, turgor normal, skin not dry, no jaundice, No spider nevi and no striae Rashes: no rashes Nails: normal Neuro General: oriented to person, oriented to place and oriented to time Cranial nerves: Yes Equal, round and reactive pupils present and Yes Normal hearing present Speech: No Abnormal speech present Extrem General: Yes normal to inspection, No clubbing, No cyanosis and No edema Psych Appearance: grossly normal and well kempt Mental Status: mental status grossly normal Speech and movement: Normal speech and movement present Affect: normal affect Attitude: cooperative Thought process: Normal thought process present and not confabulating Thought content: Normal thought content present Insight: Fair insight present (Psych) and Limited insight present (Psych) Judgement: Fair judgement present (Psych) and Limited judgement present (Psych) Assessment & Plan Assessment & Plan (1) GERD (gastroesophageal reflux disease): Code(s): K21.9 - Gastro-esophageal reflux disease without esophagitis Category: Medical (2) Chronic idiopathic constipation: Code(s): K59.04 - Chronic idiopathic constipation Category: Medical (3) Abdominal bloating: Code(s): R14.0 - Abdominal distension (gaseous) Category: Medical (4) Hypothyroid: Code(s): E03.9 - Hypothyroidism, unspecified Category: Medical Plan [place] #Sophia Oliveros Her current GI regimen consists of omeprazole in the morning with famotidine at night, Colace, Creon, Linzess 72 micro g, and senna. Things that are confounding factors are the use of a fenofibrate, Januvia, and alendronate. - The patient is a 79-year-old female presenting for follow-up for constipation that is quite severe bloating and GERD. - At the last visit we increased her senna to 2 at night and she says she is moving her bowels better with less bloating. However she still has cramping notably in the left lower quadrant. She frequently has to massage the area. 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 She is supposed to be on a soft diet with thickened liquids. She also reports that her dentures do not fit well so she does not use them and this of course prevents her chewing her food well. Because She is having cramping, and she is certainly not having diarrhea, I suggest we try increasing to 3 senna at night and see if we can promote better bowel motility minimize the cramping and further improve the outcomes. She agrees with this, and I let her know that if that is too much and she gets diarrhea she can go back to 2 a night and we will consider other interventions. Return office visit in 6 weeks Medications: Changed From sennosides (senna) 17.2 mg (2 x 8.6 mg) PO BEDTIME 30 tabs 6RF To sennosides (senna) 25.8 mg (3 x 8.6 mg) PO BEDTIME 90 tabs 6RF Refilled mfddfe-mnqzwdom-caohrmo 24,000-76,000 -120,000 unit (Creon) administer with meals and/or snacks 2 caps PO BID 120 caps 6RF 30 days K58.9 - Irritable bowel syndrome, unspecified docusate sodium 100 mg PO DAILY 30 caps 6RF K59.04 - Chronic idiopathic constipation omeprazole 40 mg PO DAILY 90 caps 3RF 90 days famotidine (Pepcid) 40 mg PO .q3pm 90 tabs 3RF K21.9 - Gastro-esophageal reflux disease without esophagitis Discontinued linaclotide (Linzess) Discontinued Reason: Doctor's Order 72 mcg PO QAM 30 caps 6RF Coding Level of Care Code Est Pt Level 3 (69898) Diagnoses GERD (gastroesophageal reflux disease) K21.9 Chronic idiopathic constipation K59.04 Abdominal bloating R14.0 Hypothyroid E03.9
[2025-04-09 11:17] VITALS: BP 158/78; PULSE 60; BMI 23.2
--- OUTSIDE RECORDS SUMMARY | 2025-04-09 12:56 | XMS_ITS | Clinical Summary ---
Author Organization [facility] Address [address] [place] [address] Phone Care Team Providers Care Resourcing Advisor Name Role Phone Marybeth Dennis MD Primary Care Provider [phone] Allergies Active Allergy Reactions Criticality Noted Date [...] mouth 1 (one) time each day. Active oxyCODONE-acetam inophen (PERCOCET) 7.5-325 mg per [...] mouth 1 (one) time each day. Active Januvia 100 mg tablet Take 1 tablet (100 mg total) by mouth 1 (one) time each day. Active venlafaxine XR (EFFEXOR-XR) 37.5 mg 24 hr capsule Take 1 capsule (37.5 mg total) by mouth 1 (one) time each day. Active carvediloL (COREG) 6.25 mg tablet Take 1 tablet (6.25 mg total) by mouth 2 (two) times a day with meals. 60 each Active Active Problems No known active problems Resolved Problems Problem Noted Date Diagnosed Date Resolved Date Chest pain 10/20/2024 10/21/2024 Encounters Date Type Department Care Team Description 02/20/2025 12:25 AM EDT - 02/20/2025 5:30 AM EDT Emergency [facility] Emergency [address] [place] [address] Adrenal nodule (CMS/HCC V24) (Primary Dx); Nephrolithiasis; Flank pain; Acute cystitis without hematuria Discharge Disposition: Home or Self Care 02/17/2025 7:58 AM EDT - 02/17/2025 11:59 PM EDT Hospital Encounter [facility] Ortho Xray [address] [place] [address] Pain Discharge Disposition: Home or Self Care 01/15/2025 9:03 AM EDT - 01/15/2025 11:59 PM EDT Hospital Encounter [facility] Ortho Xray [address] [place] [address] Pain Discharge Disposition: Home or Self Care from Last 3 Months Surgical History Surgery Date Site/Laterality Comments CORONARY ARTERY BYPASS GRAFT PROCEDURE: HISTORICAL CABG CARDIAC CATHETERIZATION PROCEDURE: HISTORICAL CARDIAC CATH Medical History Medical History Date Comments Chronic ischemic heart disease D X:Chronic ischemic heart disease Essential hypertension DX:Essent ial hypertension Hyperlipidemia DX:Hyperlipidemi a PAD (peripheral artery disea se) ([facility]/HCC V24) DX:PAD (peripheral artery di sease) ([facility]) Social History Tobacco Use Types [...] LEFT Routine 5 9:13 AM EDT Pain from Last 3 Months [...] Vaca MD on 02/20/2025 03:42:03 Angely DAVIS [facility] CT PROCEDURES Final Result * (ABNORMAL) Urinalysis with reflex microscopic and culture (02/20/2025 1:26 AM EDT) Specific [place] Urine 1.012 1.003 - 1.030 LAB URINALYSIS - AUTOMATED METHOD 02/20/2025 2:10 AM [facility] pH, Urine 6.5 5.0 - 8.0 pH LAB URINALYSIS - AUTOMATED METHOD 02/20/2025 2:10 AM [facility] Leukocytes, Urine Small(A) Negative LAB [...] - AUTOMATED METHOD 02/20/2025 2:10 AM EDT [facility] Squamous Epithelial, Urine 18 0 - 60 /LPF LAB URINALYSIS - AUTOMATED METHOD 02/20/2025 2:10 AM EDT [facility] Bacteria, Urine Negative Negative /HPF LAB URINALYSIS - AUTOMATED METHOD 02/20/2025 2:10 AM EDT [facility] Hyaline Casts, Urine 0.4 0 - 3 /LPF LAB URINALYSIS - AUTOMATED METHOD 02/20/2025 2:10 AM EDT [facility] Urine Urine specimen obtained by clean catch procedure / Unknown Non-blood Collection / Unknown 02/20/2025 1:26 AM EDT 02/20/2025 2:00 AM EDT us Abraham Hearn MD LAB URINE ORDERABLES Final Resul t Performing Organization Address City/[facility]/ZIP Co de Phone Number [facility] [address] [place] [address], [place] [phone] * Ann urine culture tube (02/20/2025 1:26 AM EDT) Extra Tube Hold for add-ons. 02/20/2025 3:03 AM EDT [facility] Comment:Auto resulted. Urine Urine specimen obtained by clean catch procedure / Unknown Non-blood Collection / Unknown 02/20/2025 1:26 AM EDT 02/20/2025 2:00 AM EDT us Abraham Hearn MD LAB URINE ORDERABLES Final Resul t [facility] [address] [place] [address], [place] [phone] * Culture urine (02/20/2025 1:26 AM EDT) Culture, Urine 10,000-49,000 CFU/mL Mixed bacterial morphotypes present suggestive of possible contamination during collection. Suggest appropriate recollection if clinically indicated. 02/21/2025 9:24 AM EDT [facility] Urine Urine specimen obtained by clean catch procedure / Unknown Non-blood Collection / Unknown 02/20/2025 1:26 AM EDT 02/20/2025 2:10 AM EDT Abraham Hearn MD LAB MICROBIOLOGY - GENERAL ORDER KELIN Final Result Performing Organization Address [facility]/ZIP Co de Phone Number [facility] [address] [place] [address], [place] [phone] * 12-Lead ECG (02/20/2025 1:08 AM EDT) Ventricular Rate ECG 57 BPM GEMUSE Atrial Rate 57 BPM GEMUSE P-R Interval 190 ms GEMUSE QRS Duration 88 ms GEMUSE Q-T Interval 426 ms GEMUSE QTc 414 ms GEMUSE P Wave [place] 20 degrees GEMUSE R [place] 1 degrees GEMUSE T [place] -3 degrees GEMUSE ECG Interpretation Sinus bradycardia Nonspecific T wave abnormality Abnormal ECG When compared with ECG of 20-OCT-2024 12:26, No significant change was found Confirmed by MD LUCILA, STACEY ([id number]) on 02/20/2025 8:42:59 AM GEMUSE 02/20/2025 1:08 AM EDT 02/20/2025 8:42 AM EDT Angely DAVIS ECG ORDERABLES Final Re sult Performing Organization Address [facility] de Phone Number GEMUSE * (ABNORMAL) CBC auto differential (02/19/2025 6:43 PM EDT) WBC 4.4(L) 4.8 - 10.8 K/[facility] LAB HEMETOLOGY METHOD 02/19/2025 7:22 PM EDT [facility] RBC 4.00 3.80 - 4.80 M/[facility] LAB HEMETOLOGY METHOD 02/19/2025 7:22 PM EDT [facility] Hemoglobin 11.7 11.5 - 16.0 g/dL LAB HEMETOLOGY METHOD 02/19/2025 7:22 PM EDT [facility] Hematocrit 35.2 35.0 - 47.0 % LAB HEMETOLOGY METHOD [facility] MCV 88.7 79.0 - 98.0 FL LAB HEMETOLOGY METHOD 02/19[facility]2025 7[facility] MCH 29.5 27.0 - 32.0 pcg LAB HEMETOLOGY METHOD 02/19/2025 7:22 PM [facility] MCHC 33.2 32.0 - 37.0 g/dL LAB HEMETOLOGY METHOD 02/19/2025 7:22 PM [facility] RDW 13.1 11.0 - 15.0 % LAB HEMETOLOGY METHOD 02/19/2025 7:22 PM [facility] Platelets 256 130 - 400 K/mcL LAB HEMETOLOGY METHOD 02/19/2025 7:22 PM [facility] MPV 10.9 7.0 - 11.0 FL LAB HEMETOLOGY METHOD 02/19/2025 7:22 PM [facility] NRBC 0.0 <1.0 % LAB HEMETOLOGY METHOD 02/19/2025 7:22 PM [facility] NRBC Absolute 0.00 <0.10 K/mcL LAB HEMETOLOGY METHOD 02/19/2025 7:22 PM [facility] Neutrophils Relative 27.1 % LAB HEMETOLOGY METHOD 02/19/2025 7:22 PM [facility] Lymphocytes Relative 55.1 % LAB HEMETOLOGY METHOD 02/19/2025 7:22 PM [facility] Monocytes Relative 13.0 % LAB HEMETOLOGY METHOD 02/19/2025 7:22 PM EDT [facility] Eosinophils Relative 4.1 % LAB HEMETOLOGY METHOD 02/19/2025 7:22 PM EDT [facility] Basophils Relative 0.5 % LAB HEMETOLOGY METHOD 02/19/2025 7:22 PM EDT [facility] Immature Granulocytes Relative 0.2 % LAB HEMETOLOGY METHOD 02/19/2025 7:22 PM EDT [facility] Neutrophils Absolute 1.19(L) 1.50 - 7.00 K/mcL LAB HEMETOLOGY METHOD 02/19/2025 7:22 PM EDT [facility] Lymphocytes Absolute 2.42 1.00 - 5.00 K/mcL LAB HEMETOLOGY METHOD 02/19/2025 7[facility] Monocytes Absolute 0.57 0.20 - 1.00 K/mcL LAB HEMETOLOGY METHOD 02/19/2025 7:22 PM EDT [facility] Eosinophils Absolute 0.18 0.00 - 0.50 K/mcL LAB HEMETOLOGY METHOD 02/19/2025 7:22 PM EDT [facility] Basophils Absolute 0.02 0.00 - 0.20 K/mcL LAB HEMETOLOGY METHOD 02/19/2025 7:22 PM EDT [facility] Immature Granulocytes Absolute 0.01 0.00 - 0.03 K/mcL LAB HEMETOLOGY METHOD 02/19/2025 7:22 PM EDT [facility] Blood Venous blood specimen / Unknown Venipuncture / Unknown 02/19/2025 6:43 PM EDT 02/19/2025 7:18 PM EDT us Abraham Hearn MD LAB BLOOD ORDERABLES Final Resul t [facility] [address] [place] [address], [place] [phone] * (ABNORMAL) Comprehensive metabolic panel (02/19/2025 6:43 PM EDT) [facility] Signature Sodium 141 133 - 145 mmol/L LAB CHEMISTRY METHOD 02/19/2025 7:54 PM [facility] Potassium 4.0 3.5 - 5.5 [...] LAB CHEMISTRY METHOD 02/19/2025 7:54 PM EDT [facility] Alkaline Phosphatase 51 42 - 121 unit/L LAB CHEMISTRY METHOD 02/19/2025 7:54 PM EDT [facility] Total Protein 7.0 6.0 - 8.0 g/dL LAB CHEMISTRY METHOD 02/19/2025 7:54 PM EDT [facility] Albumin 3.8 3.2 - 5.0 g/dL LAB CHEMISTRY METHOD 02/19/2025 7:54 PM EDT [facility] Total Bilirubin 0.3 0.0 - 1.4 mg/dL LAB CHEMISTRY METHOD 02/19/2025 7:54 PM EDT [facility] Blood Venous blood specimen / Unknown Venipuncture / Unknown 02/19/2025 6:43 PM EDT 02/19/2025 7:18 PM EDT Abraham Hearn MD LAB BLOOD ORDERABLES Final Resul t Performing Organization Address [facility]/ZIP Co de Phone Number [facility] [address] [place] [address], * XR Ankle 3+ Views Left (02/17/2025 9:29 AM EDT) Only the most recent of2 resultswithin the time period is included. Narrative RIS PACS/VR - 02/17/2025 9:29 AM EDT This order has been auto-finalized and does not contain a result. Katie Villanueva MD IMG XR PROCEDURES Final Result Performing Organization Address City/[facility]/ZIP Co de Phone Number RIS PACS/VR from Last 3 Months Insurance [...] currently active code status orders. Care Teams Resourcing Advisor Relationship Specialty Start Date End Date Marybeth Dennis MD [address] [place] [address] , [facility] [address] [facility] D/B/A: [facility] [place] PCP - General 03/27/15
--- OUTSIDE RECORDS SUMMARY | 2025-04-09 12:56 | XMS_ITS | Clinical Summary ---
Author Organization [facility] Address [address] [facility] [address] [place] [address] Phone Care Team Providers Care Clinical Quality Rn Name Role Phone Marybeth Vale MD Primary [...] file Medical Devices Not on file Insurance [employer]ICARE REPLACEMENT MEDICARE REPLACEMENT MEDICARE REPLACEMENT [place] [id number] MEDICARE REPLACEMENT MEDICARE REPLACEMENT MEDICARE REPLACEMENT MEDICARE REPLACEMENT [place] [address] MEDICARE REPLACEMENT Care Teams Clinical Quality Rn Relationship Specialty Start Date End Date Marybeth Vale MD [address] [place] [address] PCP - General Internal Medicine 11/17/19 Additional Source Comments The information contained in this document represents components of the legal health record. It is not the complete legal health record.[facility]
== END 2025-04-09 11:43 | disposition home or self-care (01) ==
LOC: HO.HGI 11:01
PROVIDERS: PCP Internal Medicine; Visit Provider Nurse Practitioner
DX: K21.9 Gastro-esophageal reflux disease without esophagitis (principal); K59.04 Chronic idiopathic constipation; R14.0 Abdominal distension (gaseous); E03.9 Hypothyroidism, unspecified
CPT/HCPCS: 99213

== ENCOUNTER → 2025-04-09 11:01 | Outpatient (BNVA) | payer OTHER, SELFPAY | PROVIDERS: PCP Internal Medicine; Visit Provider Nurse Practitioner | DX: K21.9 Gastro-esophageal reflux disease without esophagitis (principal); K59.04 Chronic idiopathic constipation; R14.0 Abdominal distension (gaseous); E03.9 Hypothyroidism, unspecified | CPT/HCPCS: 99212 ==

== ENCOUNTER 2025-04-14 11:12 | Outpatient (REF) | payer OTHER, SELFPAY ==
[2025-04-14 12:28] LABS: Microalbum/Creatinine Ratio Ur 7.0 ug/mg cr (<30)
[2025-04-14 12:32] LABS: Cholesterol 126 mg/dL (<200); HDL Cholesterol 42 mg/dL (>40); Triglycerides 101 mg/dL (<150)
== END 2025-04-14 11:13 | disposition home or self-care (01) ==
LOC: HO.LAB 11:12
PROVIDERS: PCP Internal Medicine; Visit Provider Internal Medicine
DX: E27.9 Disorder of adrenal gland, unspecified (principal); E78.5 Hyperlipidemia, unspecified; E55.9 Vitamin D deficiency, unspecified; R80.9 Proteinuria, unspecified
CPT/HCPCS: 36415; 80061; 82043; 82088; 82306; 82570; 84244

== ENCOUNTER 2025-05-07 11:00 | Outpatient (AMB) | payer OTHER, SELFPAY ==
--- NOTE | 2025-05-07 11:08 | A.OFFVIS_ITS ---
Vital Signs 05/07/25 11:19 Height 5 ft 3 in Weight 131 lb 6.328 oz BMI 23.3 BP 168/73 H Blood Pressure Location Lt brachial Position Sitting Pulse 55 Intake Visit Reasons: Follow up 4 weeks Intake Note: Melanie presents to in office follow up of constipation. CC: Patient reports that she is doing better from constipation with increased dose of Senna. Gis Administrator Required: Yes Accompanied by: Self / Same As Patient Allergies lactose (Lactose) Allergy (Intermediate, Verified 05/22/25 09:47) DIARRHEA, N/V metformin Allergy (Intermediate, Verified 05/22/25 09:47) stomach upset HPI HPI Follow up 4 weeks: Details: Assessment & Plan (1) GERD (gastroesophageal reflux disease): Code(s): K21.9 - Gastro-esophageal reflux disease without esophagitis Category: Medical (2) Chronic idiopathic constipation: Code(s): K59.04 - Chronic idiopathic constipation Category: Medical (3) Abdominal bloating: Code(s): R14.0 - Abdominal distension (gaseous) Category: Medical (4) Hypothyroid: Code(s): E03.9 - Hypothyroidism, unspecified Category: Medical Plan [facility] #Sophia Oliveros Her current GI regimen consists of omeprazole in the morning with famotidine at night, Colace, Creon, Linzess 72 micro g, and senna. Things that are confounding factors are the use of a fenofibrate, Januvia, and alendronate. - The patient is a 79-year-old female presenting for follow-up for constipation that is quite severe bloating and GERD. - At the last visit we increased her senna to 2 at night and she says she is moving her bowels better with less bloating. However she still has cramping notably in the left lower quadrant. She frequently has to massage the area. 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 She is supposed to be on a soft diet with thickened liquids. She also reports that her dentures do not fit well so she does not use them and this of course prevents her chewing her food well. Because She is having cramping, and she is certainly not having diarrhea, I suggest we try increasing to 3 senna at night and see if we can promote better bowel motility minimize the cramping and further improve the outcomes. She agrees with this, and I let her know that if that is too much and she gets diarrhea she can go back to 2 a night and we will consider other interventions. Return office visit in 6 weeks Medications: Changed From sennosides (senna) 17.2 mg (2 x 8.6 mg) PO BEDTIME 30 tabs 6RF To sennosides (senna) 25.8 mg (3 x 8.6 mg) PO BEDTIME 90 tabs 6RF Refilled [id number] 24,000-76,000 -120,000 unit (Creon) administer with meals and/or snacks 2 caps PO BID 120 caps 6RF 30 days K58.9 - Irritable bowel syndrome, unspecified docusate sodium 100 mg PO DAILY 30 caps 6RF K59.04 - Chronic idiopathic constipation omeprazole 40 mg PO DAILY 90 caps 3RF 90 days famotidine (Pepcid) 40 mg PO .q3pm 90 tabs 3RF K21.9 - Gastro-esophageal reflux disease without esophagitis Discontinued linaclotide (Linzess) Discontinued Reason: Doctor's Order 72 mcg PO QAM 30 caps 6RF TODAY'S VISIT [facility] # PFSH Medical History Lumbar degenerative disc disease Encounter for Medicare annual wellness exam Venous insufficiency Vaginal pruritus Leucopenia Anemia Hair loss Dizziness Diarrhea Fecal impaction in rectum Adult general medical exam Oropharyngeal dysphagia MODESTA (generalized anxiety disorder) Mild recurrent major depression Submandibular lymphadenopathy Post-menopausal Chronic daily headache Essential hypertension Lumbar disc disease with radiculopathy Mixed hyperlipidemia Therapeutic opioid induced constipation Hypovitaminosis D Diabetes mellitus Coronary artery disease Surgical History History of colonoscopy S/P CABG x 2 History of total abdominal hysterectomy and bilateral salpingo-oophorectomy History of cardiac catheterization History of rectal polypectomy History of cholecystectomy Family History Father Brain cancer Mother Ovarian cancer Sister Breast cancer Sister Lung cancer Brother Stomach cancer Son Substance abuse Sister Cancer Social History Housing: Apartment Alcohol intake: never Patient Tobacco Use Status: Never used Tobacco e-Cigarette/Vaping Use: Never Used Second Hand Smoke Exposure: No Advance Directives Date on File: 02/22/23 service: No Current occupational status: disabled Cognitive needs: Yes Hearing needs: No Vision needs: Yes Review of Systems Const Denies fatigue, Denies fever(s), Denies night sweats, Denies poor appetite and Denies weight loss Eyes Reports requires corrective lenses ENT Reports Normal hearing present, Denies dental pain, Denies dysphagia, Denies hearing loss, Denies mouth pain, Denies odynophagia, Denies throat swelling, Denies tongue swelling and Reports other (Dentition adequate) GI Details: Denies abdominal pain, Denies melena, Denies bloating, Denies hematochezia, Denies constipation, Denies GI cramping, Denies dysphagia, Denies excessive flatus, Denies early satiety, Denies heartburn, Denies diarrhea, Denies nausea, Denies odynophagia, Denies vomiting and Denies hematemesis Skin/Breast Denies pruritus, Denies lesions, Denies rash and Denies jaundice Neuro Reports Normal hearing present and Denies Abnormal speech present Endo Denies fatigue Aller/Immun Denies throat swelling and Denies tongue swelling Physical Exam Vital Signs: Last Vital Signs Pulse 55 05/07/25 11:19 BP 168/73 H 05/07/25 11:19 BMI result Body Mass Index 23.3 Const General: cooperative, no acute distress, well developed and well groomed Nutritional Appearance: well nourished, obese and overweight Orientation/consciousness: oriented to person, oriented to place and oriented to time Limitations: No language barrier, ambulation with cane, ambulation with walker and wheelchair HEENT Head: Yes normocephalic and Yes atraumatic Eyes General: appearance normal, both eyes and all related structures Pupils: Equal, round and reactive pupils present Neck Neck: Yes normal visual inspection and Yes no lymphadenopathy Thyroid: Thyroid normal Resp Effort & Inspection: normal respiratory effort and able to speak in complete sentences Auscultation: clear to auscultation bilaterally Cardio Rate: regular rate Rhythm: regular rhythm Heart sounds: Normal, physiologic split S2 sound present Peripheral pulses: radial pulses present and posterior tibial pulses present GI Inspection: No distended and No Abdominal panniculus present Palpation (GI): Soft to palpation, nontender, no guarding, not rigid, No hepatosplenomegaly present and Hepatosplenomegaly present Percussion: Yes normal to percussion Auscultation: normal bowel sounds Rectal Exam - Female: deferred Skin General skin exam: no rashes or lesions noted, turgor normal, skin not dry, no jaundice, No spider nevi and no striae Rashes: no rashes Nails: normal Neuro General: oriented to person, oriented to place and oriented to time Cranial nerves: Yes Equal, round and reactive pupils present and Yes Normal hearing present Speech: No Abnormal speech present Extrem General: Yes normal to inspection, No clubbing, No cyanosis and No edema Psych Thought process: Normal thought process present and not confabulating Thought content: Normal thought content present Insight: Good insight present (Psych) Judgement: Good judgement present (Psych) Assessment & Plan Assessment & Plan (1) GERD (gastroesophageal reflux disease): Code(s): K21.9 - Gastro-esophageal reflux disease without esophagitis Category: Medical (2) Chronic idiopathic constipation: Code(s): K59.04 - Chronic idiopathic constipation Category: Medical (3) IBS (irritable bowel syndrome): Code(s): K58.9 - Irritable bowel syndrome, unspecified Category: Medical (4) Abdominal bloating: Code(s): R14.0 - Abdominal distension (gaseous) Category: Medical Plan [facility] #V Her current GI regimen consists of omeprazole in the morning with famotidine at night, Colace, Creon, Linzess 72 micro g, and senna. She confirms that changing the senna from 2 tablets at bedtime to 3 tabs at at bedtime has alleviated her prior concerns of GI discomfort. She continues to do well and is satisfied there has been the remainder of her GI regimen. Return office visit in 3 months to be sure she maintains this improvement. Coding Level of Care Code Est Pt Level 3 (61898) Diagnoses GERD (gastroesophageal reflux disease) K21.9 Chronic idiopathic constipation K59.04 IBS (irritable bowel syndrome) K58.9 Abdominal bloating R14.0
[2025-05-07 11:19] VITALS: BP 168/73; PULSE 55; BMI 23.3
--- OUTSIDE RECORDS SUMMARY | 2025-05-07 13:47 | XMS_ITS | Clinical Summary ---
Author Organization [facility] Address [address] [place] [address] Phone Care Team Providers Care [place] Records Management Officer Name Role Phone Marybeth Dennis MD Primary Care Provider Allergies Active Allergy Reactions Criticality Noted Date [...] EDT - 02/20/2025 5:30 AM EDT Emergency [facility] Emergency [address] [place] [id number] Adrenal nodule ([facility] V24) (Primary Dx); Nephrolithiasis; Flank pain; Acute cystitis without hematuria Discharge Disposition: Home or Self Care 02/17/2025 7:58 AM EDT - 02/17/2025 11:59 PM EDT Hospital Encounter [facility] Ortho Xray [address] [place] [address] Pain Discharge Disposition: Home or Self Care from Last 3 Months Surgical History Surgery Date Site/Laterality Comments CORONARY ARTERY BYPASS GRAFT PROCEDURE: HISTORICAL CABG CARDIAC CATHETERIZATION PROCEDURE: HISTORICAL CARDIAC CATH Medical History Medical History Date Comments Chronic ischemic heart disease D X:Chronic ischemic heart disease Essential hypertension DX:Essent ial hypertension Hyperlipidemia DX:Hyperlipidemi a PAD (peripheral artery disea se) ([facility] V24) DX:PAD (peripheral artery di sease) ([facility]) Social History Tobacco Use Types Packs/Day Years [...] EDT XR ANKLE 3+ VIEWS LEFT Routine 9:29 AM EDT Pain from Last 3 Months Results * ECG-Annotated (02/23/2025) us Provider Onbase ECG ORDERABLES Final Result * CT Abdomen [...] Vaca MD on 02/20/2025 03:42:03 Angely DAVIS [facility] [place] PROCEDURES Final Result * (ABNORMAL) Urinalysis with reflex microscopic and culture (02/20/2025 1:26 AM EDT) Specific [place] Urine 1.012 1.003 - 1.030 LAB URINALYSIS - AUTOMATED METHOD 02/20/2025 2:[address] [facility] pH, Urine 6.5 5.0 - 8.0 pH LAB URINALYSIS - AUTOMATED METHOD 02/20/2025 2:10 AM [facility] Leukocytes, Urine Small(A) Negative LAB URINALYSIS - AUTOMATED METHOD 02/20/2025 2:10 AM [facility] Nitrite, Urine Negative Negative LAB URINALYSIS - AUTOMATED METHOD 02/20/2025 2:10 AM [facility] Protein, Urine Negative <=Trace mg/dL LAB URINALYSIS - AUTOMATED METHOD 02/20/2025 2:10 AM [facility] Glucose, Urine Negative Negative mg/dL LAB URINALYSIS - AUTOMATED METHOD 02/20/2025 2:10 AM [facility] Ketones, Urine Negative Negative mg/dL LAB URINALYSIS - AUTOMATED METHOD 02/20/2025 2:10 AM [facility] Urobilinogen, Urine 0.2 0.2 - 1.0 mg/dL LAB URINALYSIS - AUTOMATED METHOD 02/20/2025 2:10 AM [facility] Bilirubin, Urine Negative Negative LAB URINALYSIS - AUTOMATED METHOD 02/20/2025 2:10 AM [facility] Blood, Urine Negative Negative LAB URINALYSIS - AUTOMATED METHOD 02/20/2025 2:10 AM [facility] RBC, Urine 0.4 0 - 4 /HPF LAB URINALYSIS - AUTOMATED METHOD 02/20/2025 2:10 AM [facility] WBC, Urine 4.9(H) 0 - 4 /HPF LAB URINALYSIS - AUTOMATED METHOD 02/20/2025 2:10 AM [facility] Squamous Epithelial, Urine 18 0 - 60 /LPF LAB URINALYSIS - AUTOMATED METHOD 02/20/2025 2:10 AM [facility] Bacteria, Urine Negative Negative /HPF LAB URINALYSIS - AUTOMATED METHOD 02/20/2025 2:10 AM [facility] Hyaline Casts, Urine 0.4 0 - 3 /LPF LAB URINALYSIS - AUTOMATED METHOD 02/20/2025 2:[address] [facility] Urine Urine specimen obtained by clean catch procedure / Unknown Non-blood Collection / Unknown 02/20/2025 1:26 AM EDT 02/20/2025 2:00 AM EDT us Abraham Hearn MD LAB URINE ORDERABLES Final Resul t Performing Organization Address [facility]/ZIP Co de Phone Number [facility] [address] [place] [address], [place] [phone] * Ann urine culture tube (02/20/2025 1:26 AM EDT) Extra Tube Hold for add-ons. 02/20/2025 3:[address] [facility] Comment:Auto resulted. Urine Urine specimen obtained by clean catch procedure / Unknown Non-blood Collection / Unknown 02/20/2025 1:26 AM EDT 02/20/2025 2:00 AM EDT us Abraham Hearn MD LAB URINE ORDERABLES Final Resul t Performing Organization Address [facility] Co de Phone Number [facility] [address] [place] [address], [place] [phone] * Culture urine (02/20/2025 1:26 AM EDT) Culture, Urine 10,000-49,000 CFU/mL Mixed bacterial morphotypes present suggestive of possible contamination during collection. Suggest appropriate recollection if clinically indicated. 02/21/2025 9:[address] [facility] Urine Urine specimen obtained by clean catch procedure / Unknown Non-blood Collection / Unknown 02/20/2025 1:26 AM EDT 02/20/2025 2:10 AM EDT us Abraham Hearn MD LAB MICROBIOLOGY - GENERAL ORDER KELIN Final Result Performing Organization Address [facility]/ZIP Co de Phone Number [facility] [address] [place] [address], [place] [phone] * 12-Lead ECG (02/20/2025 1:08 AM EDT) Ventricular Rate ECG 57 BPM GEMUSE Atrial Rate 57 BPM GEMUSE P-R Interval 190 ms GEMUSE QRS Duration 88 ms GEMUSE Q-T Interval 426 ms GEMUSE QTc 414 ms GEMUSE P Wave [place] 20 degrees GEMUSE R [place] 1 degrees GEMUSE T [place] -3 degrees GEMUSE ECG Interpretation Sinus bradycardia Nonspecific T wave abnormality Abnormal ECG When compared with ECG of 20-OCT-2024 12:26, No significant change was found Confirmed by MD LUCILA, STACEY ([id number]) on 02/20/2025 8:42:59 AM GEMUSE 02/20/2025 1:08 AM EDT 02/20/2025 8:42 AM EDT Angely DAVIS ECG ORDERABLES Final Re sult Performing Organization Address City/[facility] Co de Phone Number GEMUSE * (ABNORMAL) CBC auto differential (02/19/2025 6:43 PM EDT) Pathologist [facility] WBC 4.4(L) 4.8 - 10.8 K/mcL LAB HEMETOLOGY METHOD 02/19/2025 7:[address] [facility] RBC 4.00 3.80 - 4.80 M/mcL LAB HEMETOLOGY METHOD 02/19/2025 7:[address] [facility] Hemoglobin 11.7 11.5 - 16.0 g/dL LAB HEMETOLOGY METHOD 02/19/2025 7:[address] [facility] Hematocrit 35.2 35.0 - 47.0 % LAB HEMETOLOGY METHOD 02/19/2025 7:[address] [facility] MCV 88.7 79.0 - 98.0 FL LAB HEMETOLOGY METHOD 02/19/2025 7:[address] [facility] MCH 29.5 27.0 - 32.0 pcg LAB HEMETOLOGY METHOD 02/19[facility]2025 [facility] MCHC 33.2 32.0 - 37.0 g/dL LAB HEMETOLOGY METHOD 02/19/2025 7:22 [facility] RDW 13.1 11.0 - 15.0 % LAB HEMETOLOGY METHOD 02/19/2025 7:22 [facility] Platelets 256 130 - 400 K/mcL LAB HEMETOLOGY METHOD 02/19/2025 7:22 [facility] MPV 10.9 7.0 - 11.0 FL LAB HEMETOLOGY METHOD 02/19/2025 7:22 [facility] NRBC 0.0 <1.0 % LAB HEMETOLOGY METHOD 02/19/2025 7:22 PM [facility] NRBC Absolute 0.00 <0.10 K/mcL LAB HEMETOLOGY METHOD 02/19/2025 7:22 PM [facility] Neutrophils Relative 27.1 % LAB HEMETOLOGY METHOD 02/19/2025 7:22 PM [facility] Lymphocytes Relative 55.1 % LAB HEMETOLOGY METHOD 02/19/2025 7:22 PM [facility] Monocytes Relative 13.0 % LAB HEMETOLOGY METHOD 02/19/2025 7:22 [facility] Eosinophils Relative 4.1 % LAB HEMETOLOGY METHOD 02/19/2025 7:22 PM [facility] Basophils Relative 0.5 % LAB HEMETOLOGY METHOD 02/19/2025 7:22 PM [facility] Immature Granulocytes Relative 0.2 % LAB HEMETOLOGY METHOD 02/19/2025 7:[address] [facility] Neutrophils Absolute 1.19(L) 1.50 - 7.00 K/[facility] LAB HEMETOLOGY METHOD 02/19/2025 7:[address] [facility] Lymphocytes Absolute 2.42 1.00 - 5.00 K/[facility] LAB HEMETOLOGY METHOD 02/19/2025 7:[address] [facility] Monocytes Absolute 0.57 0.20 - 1.00 K/mcL LAB HEMETOLOGY METHOD 02/19/2025 7:[address] [facility] Eosinophils Absolute 0.18 0.00 - 0.50 K/[facility] LAB HEMETOLOGY METHOD 02/19/2025 7:[address] [facility] Basophils Absolute 0.02 0.00 - 0.20 K/mcL LAB HEMETOLOGY METHOD 02/19/2025 7:[address] [facility] Immature Granulocytes Absolute 0.01 0.00 - 0.03 K/mcL LAB HEMETOLOGY METHOD 02/19/2025 7:[address] [facility] Blood Venous blood specimen / Unknown Venipuncture / Unknown 02/19/2025 6:43 PM EDT 02/19/2025 7:18 PM EDT us Abraham Hearn MD LAB BLOOD ORDERABLES Final Resul t [facility] [address] [place] [address], * (ABNORMAL) Comprehensive metabolic panel (02/19/2025 6:43 PM EDT) Sodium 141 133 - 145 mmol/L LAB CHEMISTRY METHOD 02/19/2025 7:[address] [facility] Potassium 4.0 3.5 - 5.5 mmol/L LAB CHEMISTRY METHOD 02/19/2025 7:54 PM [facility] Chloride 108 96 - 110 mmol/L LAB CHEMISTRY METHOD 02/19/2025 7:54 PM [facility] CO2 29 21 - 32 mmol/L LAB CHEMISTRY METHOD 02/19/2025 7:54 PM [facility] Anion Gap 4 3 - 11 LAB CHEMISTRY METHOD 02/19/2025 7:54 PM [facility] Glucose 86 70 - 100 mg/dL LAB CHEMISTRY METHOD 02/19/2025 7:54 PM [facility] BUN 21 5 - 25 mg/dL LAB CHEMISTRY METHOD 02/19/2025 7:54 PM [facility] Creatinine 1.34(H) 0.50 - 1.10 mg/dL LAB CHEMISTRY METHOD 02/19/2025 7:54 PM [facility] eGFR 40(L) >=60 mL/min/1. 73m2 LAB CHEMISTRY METHOD 02/19/2025 7:54 PM [facility] Comment:Calculation based on the Chronic Kidney Disease Epidemiology Collaboration (CKD-EPI) equation refit without adjustment for race. BUN/Creatinine Ratio 15.7 LAB CHEMISTRY METHOD 02/19/2025 7:54 PM [facility] Calcium 8.9 8.5 - 10.5 mg/dL LAB CHEMISTRY METHOD 02/19/2025 7:54 PM [facility] AST (SGOT) 32 10 - 42 unit/L LAB CHEMISTRY METHOD 02/19/2025 7:54 PM [facility] ALT (SGPT) 17 10 - 60 unit/L LAB CHEMISTRY METHOD 02/19/2025 7:54 PM [facility] Alkaline Phosphatase 51 42 - 121 unit/L LAB CHEMISTRY METHOD 02/19/2025 7:54 PM [facility] Total Protein 7.0 6.0 - 8.0 g/dL LAB CHEMISTRY METHOD 02/19/2025 7:[address] [facility] Albumin 3.8 3.2 - 5.0 g/dL LAB CHEMISTRY METHOD 02/19/2025 7:[address] [facility] Total Bilirubin 0.3 0.0 - 1.4 mg/dL LAB CHEMISTRY METHOD 02/19/2025 7:[address] [facility] Blood Venous blood specimen / Unknown Venipuncture / Unknown 02/19/2025 6:43 PM EDT 02/19/2025 7:18 PM EDT Abraham Hearn MD LAB BLOOD ORDERABLES Final Resul t Performing Organization Address City/[facility]/ZIP Co de Phone Number [facility] [address] [place] [address], [place] [phone] * XR Ankle 3+ Views Left (02/17/2025 9:29 AM EDT) Narrative RIS PACS/VR - 02/17/2025 9:29 AM EDT This order has been auto-finalized and does not contain a result. Katie Villanueva MD IMG XR PROCEDURES Final Result Performing Organization Address City/[facility]/ZIP Co de Phone Number RIS PACS/VR from Last 3 Months Insurance [place]ICA[place] - [place] [facility] MEDICARE ADVANTAGE Advance Directives * [...] currently active code status orders. Care Teams County Records Management Officer Relationship Specialty Start Date End Date Marybeth Dennis MD [address] [place] [address] , [address] [facility] D/B/A: [facility] ROXI Mchugh PCP - General 03/27/15
--- OUTSIDE RECORDS SUMMARY | 2025-05-07 13:47 | XMS_ITS | Clinical Summary ---
Author Organization [facility] Address [address] [facility] [address] [place] [address] Phone Care Team Providers Care [place] Attendant Name Role Phone Marybeth Vale MD Primary [...] file Medical Devices Not on file Insurance [employer] REPLACEMENT MEDICARE REPLACEMENT MEDICARE REPLACEMENT [place] [phone] MEDICARE REPLACEMENT MEDICARE REPLACEMENT MEDICARE REPLACEMENT MEDICARE REPLAC[place] [address] [address] [address] MEDICARE REPLACEMENT Care Teams [place] Attendant Relationship Specialty Start Date End Date Marybeth Vale MD [address] [place] [address] PCP - General Internal Medicine 11/17/19 Additional Source Comments The information contained in this document represents components of the legal health record. It is not the complete legal health record.[facility]
== END 2025-05-07 11:54 | disposition home or self-care (01) ==
LOC: HO.HGI 11:01
PROVIDERS: PCP Internal Medicine; Visit Provider Nurse Practitioner
DX: K21.9 Gastro-esophageal reflux disease without esophagitis (principal); K59.04 Chronic idiopathic constipation; K58.9 Irritable bowel syndrome, unspecified; R14.0 Abdominal distension (gaseous)
CPT/HCPCS: 99213

== ENCOUNTER → 2025-05-07 11:00 | Outpatient (BNVA) | payer OTHER, SELFPAY | PROVIDERS: PCP Internal Medicine; Visit Provider Nurse Practitioner | DX: K21.9 Gastro-esophageal reflux disease without esophagitis (principal); K59.04 Chronic idiopathic constipation; K58.9 Irritable bowel syndrome, unspecified; R14.0 Abdominal distension (gaseous); Z79.899 Other long term (current) drug therapy | CPT/HCPCS: 99212 ==

== ENCOUNTER 2025-05-13 09:58 | Outpatient (REF) | payer OTHER, SELFPAY ==
[2025-05-13 11:23] LABS: Alanine Aminotransferase 15 U/L (0-31); Albumin Level 4.5 g/dL (3.5-5.0); Alkaline Phosphatase 40 U/L (39-117); Anion Gap 11 (12-20); Aspartate Amino Transferase 30 U/L (5-31); Blood Urea Nitrogen 26 mg/dL (9-16); Calcium 9.2 mg/dL (8.4-10.2); Carbon Dioxide 27 mmol/L (22-29); Chloride 110 mmol/L (96-108); Estimated Glomerular Filt Rate 46; Potassium 4.6 mmol/L (3.3-5.1); Sodium 143 mmol/L (135-145); Total Protein 7.3 g/dL (6.5-8.0)
--- OUTSIDE RECORDS SUMMARY | 2025-05-13 11:29 | XMS_ITS | Clinical Summary ---
Author Organization [facility] Address [address] [place] [address] Phone Care Team Providers Care Commodity Manager Name Role Phone Marybeth Dennis MD Primary Care Provider [phone] Allergies Active Allergy Reactions Criticality Noted Date [...] EDT - 02/20/2025 5:[address] [facility] Emergency [address] [place] [id number] Adrenal nodule ([facility] V24) (Primary Dx); Nephrolithiasis; Flank pain; Acute cystitis without hematuria Discharge Disposition: Home or Self Care 02/17/2025 7:58 AM EDT - 02/17/2025 11:59 PM EDT Hospital Encounter [facility] Ortho Xray [address] [place] [address] Pain Discharge Disposition: Home or Self Care from Last 3 Months Surgical History Surgery Date Site/Laterality Comments CORONARY ARTERY BYPASS GRAFT PROCEDURE: HISTORICAL CABG CARDIAC CATHETERIZATION PROCEDURE: HISTORICAL CARDIAC CATH Medical History Medical History Date Comments Chronic ischemic heart disease D X:Chronic ischemic heart disease Essential hypertension DX:Essent ial hypertension Hyperlipidemia DX:Hyperlipidemi a PAD (peripheral artery disea se) ([facility] V24) DX:PAD (peripheral artery di sease) ([facility]) Social History Tobacco Use Types Packs/Day Years [...] Vaca MD on 02/20/2025 03:42:03 Angely DAVIS [facility] PROCEDURES Final Result * (ABNORMAL) Urinalysis with reflex microscopic and culture (02/20/2025 1:26 AM EDT) Specific [place] Urine 1.012 1.003 - 1.030 LAB URINALYSIS - AUTOMATED METHOD 02/20/2025 2:10 AM EDT [facility] pH, Urine 6.5 5.0 - 8.0 pH LAB URINALYSIS - AUTOMATED METHOD 02/20/2025 2:10 AM [facility] Leukocytes, Urine Small(A) Negative LAB URINALYSIS - AUTOMATED METHOD 02/20/2025 2:10 AM [facility] Nitrite, Urine Negative Negative LAB URINALYSIS - AUTOMATED METHOD 02/20/2025 2:10 AM [facility] Protein, Urine Negative <=Trace mg/dL LAB URINALYSIS - AUTOMATED METHOD 02/20/2025 2:10 AM [facility] Glucose, Urine Negative Negative mg/dL LAB URINALYSIS - AUTOMATED METHOD 02/20/2025 2:10 AM [facility] Ketones, Urine Negative Negative mg/dL LAB URINALYSIS - AUTOMATED METHOD 02/20/2025 2:10 AM [facility] Urobilinogen, Urine 0.2 0.2 - 1.0 mg/dL LAB URINALYSIS - AUTOMATED METHOD 02/20/2025 2:10 AM [facility] Bilirubin, Urine Negative Negative LAB URINALYSIS - AUTOMATED METHOD 02/20/2025 2:10 AM [facility] Blood, Urine Negative Negative LAB URINALYSIS - AUTOMATED METHOD 02/20/2025 2:10 AM [facility] RBC, Urine 0.4 0 - 4 /HPF LAB URINALYSIS - AUTOMATED METHOD 02/20/2025 2:10 AM [facility] WBC, Urine 4.9(H) 0 - 4 /HPF LAB URINALYSIS - AUTOMATED METHOD 02/20/2025 2:10 AM [facility] Squamous Epithelial, Urine 18 0 - 60 /LPF LAB URINALYSIS - AUTOMATED METHOD 02/20/2025 2:10 AM [facility] Bacteria, Urine Negative Negative /HPF LAB URINALYSIS - AUTOMATED METHOD 02/20/2025 2:10 AM [facility] Hyaline Casts, Urine 0.4 0 - 3 /LPF LAB URINALYSIS - AUTOMATED METHOD 02/20/2025 2:10 AM EDT [facility] Urine Urine specimen obtained by clean catch procedure / Unknown Non-blood Collection / Unknown 02/20/2025 1:26 AM EDT 02/20/2025 2:00 AM EDT us Abraham Hearn MD LAB URINE ORDERABLES Final Resul t Performing Organization Address [facility]/ZIP Co de Phone Number [facility] [address] [place] [address], [place] [phone] * Ann urine culture tube (02/20/2025 1:26 AM EDT) Extra Tube Hold for add-ons. 02/20/2025 3:03 AM EDT [facility] Comment:Auto resulted. Urine Urine specimen obtained by clean catch procedure / Unknown Non-blood Collection / Unknown 02/20/2025 1:26 AM EDT 02/20/2025 2:00 AM EDT us Abraham Hearn MD LAB URINE ORDERABLES Final Resul t Performing Organization Address [facility] Co de Phone Number [facility] [address] [place] [address], [place] [phone] * Culture urine (02/20/2025 1:26 AM EDT) Culture, Urine 10,000-49,000 CFU/mL Mixed bacterial morphotypes present suggestive of possible contamination during collection. Suggest appropriate recollection if clinically indicated. 02/21/2025 9:24 AM EDT [facility] Urine Urine specimen obtained by clean catch procedure / Unknown Non-blood Collection / Unknown 02/20/2025 1:26 AM EDT 02/20/2025 2:10 AM EDT us Abraham Hearn MD LAB MICROBIOLOGY - GENERAL ORDER KELIN Final Result Performing Organization Address [facility]/ZIP Co de Phone Number [facility] [address] [place] [address], [place] [phone] * 12-Lead ECG (02/20/2025 1:08 AM EDT) Ventricular Rate ECG 57 BPM GEMUSE Atrial Rate 57 BPM GEMUSE P-R Interval 190 ms GEMUSE QRS Duration 88 ms GEMUSE Q-T Interval 426 ms GEMUSE QTc 414 ms GEMUSE P Wave Seale 20 degrees GEMUSE R Seale 1 degrees GEMUSE T Seale -3 degrees GEMUSE ECG Interpretation Sinus bradycardia Nonspecific T wave abnormality Abnormal ECG When compared with ECG of 20-OCT-2024 12:26, No significant change was found Confirmed by MD LUCILA, STACEY ([id number]) on 02/20/2025 8:42:59 AM GEMUSE 02/20/2025 1:08 AM EDT 02/20/2025 8:42 AM EDT Angely DAVIS ECG ORDERABLES Final Re sult Performing Organization Address City/[facility] Co de Phone Number GEMUSE * (ABNORMAL) CBC auto differential (02/19/2025 6:43 PM EDT) Pathologist [facility] WBC 4.4(L) 4.8 - 10.8 K/mcL LAB HEMETOLOGY METHOD 02/19/2025 7:22 PM EDT [facility] RBC 4.00 3.80 - 4.80 M/mcL LAB HEMETOLOGY METHOD 02/19/2025 7:22 PM EDT [facility] Hemoglobin 11.7 11.5 - 16.0 g/dL LAB HEMETOLOGY METHOD 02/19/2025 7:22 PM EDT [facility] Hematocrit 35.2 35.0 - 47.0 % LAB HEMETOLOGY METHOD 02/19/2025 7:22 PM EDT [facility] MCV 88.7 79.0 - 98.0 FL LAB HEMETOLOGY METHOD 02/19/2025 7:22 PM EDT [facility] MCH 29.5 27.0 - 32.0 pcg LAB HEMETOLOGY [facility] MCHC 33.2 32.0 - 37.0 g/dL LAB HEMETOLOGY METHOD 02/19[facility]2025 [facility] RDW 13.1 11.0 - 15.0 % LAB HEMETOLOGY METHOD 02/19[facility]2025 [facility] Platelets 256 130 - 400 K/mcL LAB HEMETOLOGY METHOD 02/19[facility]2025 [facility] MPV 10.9 7.0 - 11.0 FL LAB HEMETOLOGY METHOD 02/19[facility]2025 [facility] NRBC 0.0 <1.0 % LAB HEMETOLOGY METHOD 02/19/2025 7:22 PM [facility] NRBC Absolute 0.00 <0.10 K/mcL LAB HEMETOLOGY METHOD 02/19/2025 7:22 PM [facility] Neutrophils Relative 27.1 % LAB HEMETOLOGY METHOD 02/19/2025 7:22 PM [facility] Lymphocytes Relative 55.1 % LAB HEMETOLOGY METHOD 02/19/2025 7:22 PM [facility] Monocytes Relative 13.0 % LAB HEMETOLOGY METHOD [facility]/19[facility]25 [facility] Eosinophils Relative 4.1 % LAB HEMETOLOGY METHOD 02/19/2025 7:22 PM [facility] Basophils Relative 0.5 % LAB HEMETOLOGY METHOD 02/19/2025 7:22 PM [facility] Immature Granulocytes Relative 0.2 % LAB HEMETOLOGY METHOD 02/19/2025 7:22 PM EDT [facility] Neutrophils Absolute 1.19(L) 1.50 - 7.00 K/[facility] LAB HEMETOLOGY METHOD 02/19/2025 7:22 PM EDT [facility] Lymphocytes Absolute 2.42 1.00 - 5.00 K/[facility] LAB HEMETOLOGY METHOD 02/19/2025 7:22 PM EDT [facility] Monocytes Absolute 0.57 0.20 - 1.00 K/mcL LAB HEMETOLOGY METHOD 02/19/2025 7:22 PM EDT [facility] Eosinophils Absolute 0.18 0.00 - 0.50 K/[facility] LAB HEMETOLOGY METHOD 02/19/2025 7:22 PM EDT [facility] Basophils Absolute 0.02 0.00 - 0.20 K/mcL LAB HEMETOLOGY METHOD 02/19/2025 7:22 PM EDT [facility] Immature Granulocytes Absolute 0.01 0.00 - 0.03 K/mcL LAB HEMETOLOGY METHOD 02/19/2025 7:22 PM EDT [facility] Blood Venous blood specimen / Unknown Venipuncture / Unknown 02/19/2025 6:43 PM EDT 02/19/2025 7:18 PM EDT us Abraham Hearn MD LAB BLOOD ORDERABLES Final Resul t [facility] [address] [place] [address], * (ABNORMAL) Comprehensive metabolic panel (02/19/2025 6:43 PM EDT) Sodium 141 133 - 145 mmol/L LAB CHEMISTRY METHOD 02/19/2025 7:54 PM EDT [facility] Potassium 4.0 3.5 - 5.5 mmol/L LAB CHEMISTRY METHOD 02/19/2025 7:54 PM [facility] Chloride 108 96 - 110 mmol/L LAB CHEMISTRY METHOD 02/19/2025 7:54 PM [facility] CO2 29 21 - 32 mmol/L LAB CHEMISTRY METHOD 02/19/2025 7:54 PM [facility] Anion Gap 4 3 - 11 LAB CHEMISTRY METHOD 02/19/2025 7:54 PM [facility] Glucose 86 70 - 100 mg/dL LAB CHEMISTRY METHOD 02/19/2025 7:54 PM [facility] BUN 21 5 - 25 mg/dL LAB CHEMISTRY METHOD 02/19/2025 7:54 PM [facility] Creatinine 1.34(H) 0.50 - 1.10 mg/dL LAB CHEMISTRY METHOD 02/19/2025 7:54 PM [facility] eGFR 40(L) >=60 mL/min/1. 73m2 LAB CHEMISTRY METHOD 02/19/2025 7:54 PM [facility] Comment:Calculation based on the Chronic Kidney Disease Epidemiology Collaboration (CKD-EPI) equation refit without adjustment for race. BUN/Creatinine Ratio 15.7 LAB CHEMISTRY METHOD 02/19/2025 7:54 PM [facility] Calcium 8.9 8.5 - 10.5 mg/dL LAB CHEMISTRY METHOD 02/19/2025 7:54 PM [facility] AST (SGOT) 32 10 - 42 unit/L LAB CHEMISTRY METHOD 02/19/2025 7:54 PM [facility] ALT (SGPT) 17 10 - 60 unit/L LAB CHEMISTRY METHOD 02/19/2025 7:54 PM [facility] Alkaline Phosphatase 51 42 - 121 unit/L LAB CHEMISTRY METHOD 02/19/2025 7:54 PM [facility] Total Protein 7.0 6.0 - 8.0 g/dL LAB CHEMISTRY METHOD 02/19/2025 7:54 PM EDT [facility] Albumin 3.8 3.2 - 5.0 g/dL LAB CHEMISTRY METHOD 02/19/2025 7:54 PM EDT [facility] Total Bilirubin 0.3 0.0 - 1.4 mg/dL LAB CHEMISTRY METHOD 02/19/2025 7:54 PM EDT [facility] Blood Venous blood specimen / Unknown Venipuncture / Unknown 02/19/2025 6:43 PM EDT 02/19/2025 7:18 PM EDT Abraham Hearn MD LAB BLOOD ORDERABLES Final Resul t Performing Organization Address City/[facility]/ZIP Co de Phone Number [facility] [address] [place] [address], [place] [phone] * XR Ankle 3+ Views Left (02/17/2025 9:29 AM EDT) Narrative RIS PACS/VR - 02/17/2025 9:29 AM EDT This order has been auto-finalized and does not contain a result. Katie Villanueva MD IMG XR PROCEDURES Final Result Performing Organization Address City/[facility]/ZIP Co de Phone Number RIS PACS/VR from Last 3 Months Insurance MEDICAID - [facility] MEDICARE ADVANTAGE Advance Directives * [...] currently active code status orders. Care Teams Commodity Manager Relationship Specialty Start Date End Date Marybeth Dennis MD [address] [place] [address] , [address] [facility] Associ D/B/A: [facility] ORXI Mchugh PCP - General 03/27/15
--- OUTSIDE RECORDS SUMMARY | 2025-05-13 11:29 | XMS_ITS | Clinical Summary ---
Author Organization [facility] Address [address] [facility] [address] [place] [address] Phone Care Team Providers Care Tube Coater Name Role Phone Marybeth Vale MD Primary [...] file Medical Devices Not on file Insurance [employer] MEDICARE REPLACEMENT MEDICARE REPLACEMENT MEDICARE REPLACEMENT [place] [id number] MEDICARE REPLACEMENT MEDICARE REPLACEMENT MEDICARE REPLACEMENT MEDIC[place] [address] [place] [address] MEDICARE REPLACEMENT Care Teams Tube Coater Relationship Specialty Start Date End Date Marybeth Vale MD [address] [place] [address] PCP - General Internal Medicine 11/17/19 Additional Source Comments The information contained in this document represents components of the legal health record. It is not the complete legal health record.[facility]
== END 2025-05-13 09:59 | disposition home or self-care (01) ==
LOC: HO.LAB 09:58
PROVIDERS: PCP Internal Medicine; Visit Provider Internal Medicine
DX: E78.5 Hyperlipidemia, unspecified (principal)
CPT/HCPCS: 36415; 80053

== ENCOUNTER 2025-05-22 09:01 | Outpatient (REF) | payer OTHER, SELFPAY ==
--- OUTSIDE RECORDS SUMMARY | 2025-05-22 09:32 | XMS_ITS | Clinical Summary ---
Author Organization [facility] Address [address] [facility] [address] [place] [address] Phone Care Team Providers Care Nonprofit Manager Name Role Phone Marybeth Vale MD [...] file Medical Devices Not on file Insurance [employer] MEDICARE REPLACEMENT MEDICARE REPLACEMENT MEDICARE REPLACEMENT [place] [id number] MEDICARE REPLACEMENT MEDICARE REPLACEMENT MEDICARE REPLACEMENT MEDICARE [place] [address] [address] MEDICARE REPLACEMENT Care Teams Nonprofit Manager Relationship Specialty Start Date End Date Marybeth Vale MD [address] [place] [address] PCP - General Internal Medicine 11/17/19 Additional Source Comments The information contained in this document represents components of the legal health record. It is not the complete legal health record.[facility]
--- OUTSIDE RECORDS SUMMARY | 2025-05-22 09:32 | XMS_ITS | Clinical Summary ---
Author Organization [facility] Address [address] [place] [address] Phone Care Team Providers Care Hat Mender Name Role Phone Marybeth Dennis MD Primary Care Provider [phone] Allergies Active Allergy Reactions Criticality Noted Date [...] EDT - 02/20/2025 5:30 AM EDT Emergency [facility] Emergency [address] [place] [address] Adrenal nodule ([facility] V24) (Primary Dx); Nephrolithiasis; Flank pain; Acute cystitis without hematuria Discharge Disposition: Home or Self Care from Last 3 Months Surgical History Surgery Date Site/Laterality Comments CORONARY ARTERY BYPASS GRAFT PROCEDURE: HISTORICAL CABG CARDIAC CATHETERIZATION PROCEDURE: HISTORICAL CARDIAC CATH Medical History Medical History Date Comments Chronic ischemic heart disease D X:Chronic ischemic heart disease Essential hypertension DX:Essent ial hypertension Hyperlipidemia DX:Hyperlipidemi a PAD (peripheral artery disea se) ([facility] V24) DX:PAD (peripheral artery di sease) ([facility]) Social History Tobacco Use Types Packs/Day Years [...] Years (2 of 2 - PCV) 06/23/2017 03/18/2025, 06/23/2016, 03/26/2015, Additional history exists RSV Immunization Adult Patients [...] AND DIFFERENTIAL STAT 02/19/2025 6:43 PM EDT from Last 3 Months Results [...] Lex Vaca MD on 02/20/2025 03:42:03 Angely Mairposa Strickland [facility] CT PROCEDURES Final Result * (ABNORMAL) Urinalysis with reflex microscopic and culture (02/20/2025 1:26 AM EDT) Pathologist [facility] Specific [place] Urine 1.012 1.003 - 1.030 LAB URINALYSIS [...] 02/20/2025 2:10 AM [facility] Urine Urine specimen obtained by clean catch procedure / Unknown Non-blood Collection / Unknown 02/20/2025 1:26 AM EDT 02/20/2025 2:00 AM EDT us Abraham Hearn MD LAB URINE ORDERABLES Final Resul t Performing Organization Address [facility]/ZIP Co de Phone Number [facility] [address] [place] [address], [place] [phone] * Ann urine culture tube (02/20/2025 1:26 AM EDT) Extra Tube Hold for add-ons. 02/20/2025 3:03 AM EDT [facility] Comment:Auto resulted. Urine Urine specimen obtained by clean catch procedure / Unknown Non-blood Collection / Unknown 02/20/2025 1:26 AM EDT 02/20/2025 2:00 AM EDT us Abraham Hearn MD LAB URINE ORDERABLES Final Resul t Performing Organization Address [facility] de Phone Number [facility] [address] [place] [address], [place] [phone] * Culture urine (02/20/2025 1:26 AM EDT) Culture, Urine 10,000-49,000 CFU/mL Mixed bacterial morphotypes present suggestive of possible contamination during collection. Suggest appropriate recollection if clinically indicated. 02/21/2025 9:24 AM EDT [facility] Urine Urine specimen obtained by clean catch procedure / Unknown Non-blood Collection / Unknown 02/20/2025 1:26 AM EDT 02/20/2025 2:10 AM EDT us Abraham Hearn MD LAB MICROBIOLOGY - GENERAL ORDER KELIN Final Result Performing Organization Address [facility] Co de Phone Number [facility] [address] [place] [address], [place] [phone] * 12-Lead ECG (02/20/2025 1:08 AM EDT) Ventricular Rate ECG 57 BPM GEMUSE Atrial Rate 57 BPM GEMUSE P-R Interval 190 ms GEMUSE QRS Duration 88 ms GEMUSE Q-T Interval 426 ms GEMUSE QTc 414 ms GEMUSE P Wave [place] 20 degrees GEMUSE R Malone 1 degrees GEMUSE T Malone -3 degrees GEMUSE ECG Interpretation Sinus bradycardia Nonspecific T wave abnormality Abnormal ECG When compared with ECG of 20-OCT-2024 12:26, No significant change was found Confirmed by MD LUCILA, STACEY ([id number]) on 02/20/2025 8:42:59 AM GEMUSE 02/20/2025 1:08 AM EDT 02/20/2025 8:42 AM EDT us Angely DAVIS ECG ORDERABLES Final Re sult GEMUSE * (ABNORMAL) CBC auto differential (02/19/2025 6:43 PM EDT) [facility] WBC 4.4(L) 4.8 - 10.8 K/mcL LAB HEMETOLOGY METHOD 02/19/2025 7:22 PM EDT [facility] RBC 4.00 3.80 - 4.80 M/mcL LAB HEMETOLOGY METHOD 02/19/2025 7:22 PM [facility] Hemoglobin 11.7 11.5 - 16.0 g/dL LAB HEMETOLOGY METHOD 02/19/2025 7:22 PM [facility] Hematocrit 35.2 35.0 - 47.0 % LAB HEMETOLOGY METHOD 02/19/2025 7:22 PM [facility] MCV 88.7 79.0 - 98.0 FL LAB HEMETOLOGY METHOD 02/19/2025 7:22 PM [facility] MCH 29.5 27.0 - 32.0 pcg LAB HEMETOLOGY METHOD 02/19/2025 7:22 PM EDT [facility] MCHC 33.2 32.0 - 37.0 g/dL [...] 7:22 PM [facility] Neutrophils Absolute 1.19(L) 1.50 - 7.00 K/mcL LAB HEMETOLOGY METHOD 02/19/2025 7:22 PM [facility] Lymphocytes Absolute 2.42 1.00 - 5.00 K/mcL LAB HEMETOLOGY METHOD 02/19/2025 7:22 PM EDT [facility] Monocytes Absolute 0.57 0.20 - 1.00 K/mcL LAB HEMETOLOGY METHOD 02/19/2025 7:22 PM EDT [facility] Eosinophils Absolute 0.18 0.00 - 0.50 K/[facility] LAB HEMETOLOGY METHOD 02/19/2025 7:22 PM EDT [facility] Basophils Absolute 0.02 0.00 - 0.20 K/[facility] LAB HEMETOLOGY METHOD 02/19/2025 7:22 PM EDT [facility] Immature Granulocytes Absolute 0.01 0.00 - 0.03 K/[facility] LAB HEMETOLOGY METHOD 02/19/2025 7:22 PM EDT [facility] Blood Venous blood specimen / Unknown Venipuncture / Unknown 02/19/2025 6:43 PM EDT 02/19/2025 7:18 PM EDT us Arbaham Hearn MD LAB BLOOD ORDERABLES Final Resul t [facility] [address] [place] [address], * (ABNORMAL) Comprehensive metabolic panel (02/19/2025 6:43 PM EDT) Sodium 141 133 - 145 mmol/L LAB CHEMISTRY METHOD 02/19/2025 7:54 PM EDT [facility] Potassium 4.0 3.5 - 5.5 mmol/L LAB CHEMISTRY METHOD 02/19/2025 7:54 PM EDT [facility] Chloride 108 96 - 110 mmol/L LAB CHEMISTRY METHOD 02/19/2025 7:54 PM EDT [facility] CO2 29 21 [...] g/dL LAB CHEMISTRY METHOD 02/19/2025 7:54 PM [facility] Albumin 3.8 3.2 - 5.0 g/dL LAB CHEMISTRY METHOD 02/19/2025 7:54 PM [facility] Total Bilirubin 0.3 0.0 - 1.4 mg/dL LAB CHEMISTRY METHOD 02/19/2025 7:54 PM EDT [facility] Blood Venous blood specimen / Unknown Venipuncture / Unknown 02/19/2025 6:43 PM EDT 02/19/2025 7:18 PM EDT us Abraham Hearn MD LAB BLOOD ORDERABLES Final Resul t [facility] ([facility]) [facility] [address] [place] [address], [place] [phone] from Last 3 Months Insurance MEDICAID - [...] currently active code status orders. Care Teams Hat Mender Relationship Specialty Start Date End Date Marybeth Dennis MD [address] [place] [address] , [address] [facility] D/B/A: [facility] [place] PCP - General 03/27/15
== END 2025-05-22 09:02 | disposition home or self-care (01) ==
LOC: HO.MAMMO 09:01
PROVIDERS: PCP Internal Medicine; Visit Provider Internal Medicine
DX: Z13.89 Encounter for screening for other disorder (principal)

== ENCOUNTER 2025-05-22 09:29 | Emergency (ER) | payer OTHER, SELFPAY ==
--- NOTE | 2025-05-22 | ECG_ITS ---
Test Reason : cp Blood Pressure : */* mmHG Vent. Rate : 60 BPM Atrial Rate : 60 BPM P-R Int : 158 ms QRS Dur : 86 ms QT Int : 432 ms P-R-T Axes : -8 -2 -19 degrees QTcB Int : 432 ms Normal sinus rhythm Nonspecific T wave abnormality Abnormal ECG When compared with ECG of 21-Oct-2015 09:29, Nonspecific T wave abnormality has replaced inverted T waves in Anterior leads Referred By: Generic ED Physician Electronically Signed By: JAY DE SANTIAGO MD
--- NOTE | ~2025-05-22 | XR_ITS ---
EXAMINATION: XR CHEST CLINICAL INFORMATION: chest pain COMPARISON: January 30, 2019. TECHNIQUE: Frontal view of the chest was obtained. FINDINGS: Hyperinflated lungs. Pulmonary reticular pattern. No consolidation, pleural effusion or pneumothorax. Sternal wires. Heart silhouette appears prominent, unchanged. Multilevel thoracolumbar spondylosis. Degenerative changes in the shoulders. XR/XR chest 1V IMPRESSION: Consider chronic interstitial lung disease without acute airspace disease. Electronically signed by: Simeon Fletcher MD 05/22/2025 10:13 AM JOS[facility]
[2025-05-22 09:43] VITALS: BP 130/71; PULSE 57; RESP 20; TEMP 36.5; O2SAT 96; BMI 22.5
--- NOTE | 2025-05-22 09:53 | ED_ITS ---
HPI - Chest Pain General Chief Complaint: Chest Pain Stated Complaint: chest pain, sob Time Seen by Provider: 05/22/25 09:36 Source: patient Mode of arrival: ambulatory Limitations: no limitations History of Present Illness HPI narrative: This is 79 years old she has a history of coronary artery disease status post CABG, she went to see the primary care physician today but she did not have an appointment so she came here to the emergency department she is complaining of chest pain she stated that she had chest pain all the time since the bypass she is also complaining of shortness of breath and dizziness. The symptoms are not exertional no radiation of the pain no diaphoresis MD complaint: chest pain Pertinent past history: coronary artery disease Onset (ago): day(s) Timing of current episode: constant Onset: during rest Pain location: substernal Pain radiation: none Severity: mild Treatment prior to arrival: none Risk Factors Coronary artery disease risk factors: diabetes and hyperlipidemia Related Data Home Medications ?Medication ?Instructions ?Recorded ?Confirmed ondansetron HCl 8 mg tablet 8 mg PO Q8H 04/14/2003/18 fluticasone 250 mcg-salmeterol 50 1 ea inhalation NICOLÁS Y 06/17/20 03/18/25 mcg/dose blistr powdr for inhalation carvedilol 6.25 mg tablet 6.25 mg PO BID 02/03/2503/09 Previous Rx's ?Medication ?Instructions ?Recorded alendronate 70 mg tablet 70 mg PO QWEEK 90 days #13 t abs 05/19/21 metoprolol succinate 25 mg 12.5 mg (1/2 x 25 mg) PO DA FERNANDO 90 08/09/21 tablet,extended release 24 hr days #45 tabs Held on 12/22/21. Instructions: syncope aspirin 81 mg tablet,delayed 81 mg PO DAILY #90 tabs 0 10/02/21 release blood sugar diagnostic (FreeStyle #50 ea 12/21/21 Lite Strips) blood-glucose meter (FreeStyle #1 ea 12/21/21 Lite Meter kit) lancets 28 gauge (FreeStyle #100 ea 12/21/21 Lancets) hydrocortisone 2.5 % topical cream 1 appl NM BID hemor rhoids #30 grams 04/13/22 with perineal applicator (Proctosol HC) glycerin (adult) (Fleet Glycerin 2 supp NM DAILY const ipation #25 ea 05/04/22 (Adult) rectal suppository) cholecalciferol (vitamin D3) 50 50 mcg PO DAILY 90 day s #90 caps 10/01/23 mcg (2,000 unit) capsule (Vitamin D3) sitagliptin phosphate 100 mg 100 mg PO DAILY #90 tabs 09/04/24 tablet (Januvia) fenofibrate nanocrystallized 145 145 mg PO DAILY 90 da ys #90 tabs 10/06/24 mg tablet mirtazapine 15 mg tablet 15 mg PO BEDTIME 90 days #90 tabs 10/19/24 lisinopril 20 mg tablet 20 mg PO DAILY 90 days #90 t abs 11/24/24 rosuvastatin 20 mg tablet 20 mg PO DAILY 90 days #90 t abs 11/25/24 Saccharomyces boulardii 250 mg 250 mg PO DAILY #30 cap s 12/04/24 capsule (Florastor) med size pull-ups #1 ea 02/27/25 hannah (Ultra-Light Rollator misc) #1 ea 03/10/25 amoxicillin 875 mg-potassium 1 tab PO BID 14 days #28 tabs 03/18/25 clavulanate 125 mg tablet walker (Ultra-Light Rollator misc) #1 ea 03/18/25 isosorbide mononitrate 120 mg 120 mg PO DAILY 90 days #90 tabs 04/04/25 tablet,extended release 24 hr docusate sodium 100 mg capsule 100 mg PO DAILY #30 cap s 04/09/25 famotidine 40 mg tablet (Pepcid) 40 mg PO .q3pm #90 ta bs 04/09/25 nhatnm-eocalpfv-ygvsne(pork)24,000-76,000-120,000 2 ca p PO BID 30 days #120 caps 04/09/25 unit capsule,del rel (Creon) omeprazole 40 mg capsule,delayed 40 mg PO DAILY 90 day s #90 caps 04/09/25 release sennosides 8.6 mg tablet (senna) 25.8 mg (3 x 8.6 mg) PO BEDTIME 04/09/25 #90 tabs cetirizine 10 mg tablet 10 mg PO DAILY PRN allergy 1 symptoms 90 days #90 tabs ezetimibe 10 mg tablet 10 mg PO DAILY #90 tabs 10/03/02 oxycodone-acetaminophen 7.5 mg-325 1 tab PO Q6H PRN pa in 30 days #120 05/08/25 mg tablet tabs Allergies Allergy/AdvReac Type Severity Reaction Status Date / Time lactose (Lactose) Allergy Intermediate DIARRHEA, Verified 05/22/25 09:47 N/V metformin Allergy Intermediate stomach Verified 05/22/25 09:47 upset Review of Systems 2 Review of Systems: Yes all other systems are reviewed and are negative [facility] Past Medical History Attestation statement: The following information was validated with the patient. Medical History Lumbar degenerative disc disease Encounter for Medicare annual wellness exam Venous insufficiency Vaginal pruritus Leucopenia Anemia Hair loss Dizziness Diarrhea Fecal impaction in rectum Adult general medical exam Oropharyngeal dysphagia MODESTA (generalized anxiety disorder) Mild recurrent major depression Submandibular lymphadenopathy Post-menopausal Chronic daily headache Essential hypertension Lumbar disc disease with radiculopathy Mixed hyperlipidemia Therapeutic opioid induced constipation Hypovitaminosis D Diabetes mellitus Coronary artery disease Surgical History History of colonoscopy S/P CABG x 2 History of total abdominal hysterectomy and bilateral salpingo-oophorectomy History of cardiac catheterization History of rectal polypectomy History of cholecystectomy Family History Family History Father Brain cancer Mother Ovarian cancer Sister Breast cancer Sister Lung cancer Brother Stomach cancer Son Substance abuse Sister Cancer Social History Social History Housing: Apartment Alcohol intake: never Patient Tobacco Use Status: Never used Tobacco Smoked in Last 30 Days: No e-Cigarette/Vaping Use: Never Used Second Hand Smoke Exposure: No Use of substances other than those prescribed or required for medical reasons: No Advance Directives: Yes Advance Directives on File: Yes Advance Directives Date on File: 02/22/23 Do you have a plan to hurt others: No Plan service: No Current occupational status: disabled Cognitive needs: Yes Hearing needs: No Vision needs: Yes Physical Exam 2 Exam: Exam: No acute distress Vital Signs: Vital Signs: Last Vital Signs Temp 98.0 F 05/22/25 16:13 Pulse 62 05/22/25 16:13 Resp 14 05/22/25 16:13 BP 133/67 05/22/25 16:13 Pulse Ox 98 05/22/25 16:13 O2 Del Method Room Air 05/22/25 16:13 BMI result Body Mass Index 22.5 Const: General: cooperative, comfortable, no acute distress, well developed and alert Nutritional Appearance: average body habitus O rientation/consciousness: patient oriented x3 HEENT: Head: Yes normal to inspection General nose exam: Normal external nose present Face and sinus: Yes normal facial exam Mouth: Normal oral and palatal mucosa present Neck: Neck: Yes normal visual inspection and Yes full ROM Chest: Chest palpation & inspection: normal inspection of the chest Resp: Effort & Inspection: normal respiratory effort Auscultation: clear to auscultation bilaterally Cardio: Jugular venous distension: no JVD Rate: regular rate Rhythm: r egular rhythm GI: Inspection: Yes normal to inspection Palpation (GI): Soft to palpation, not firm and nontender Auscultation: normal bowel sounds : General: Yes no CVA tenderness Back/Spine/Pelvis: Back: no CVA tenderness Neuro: General: patient oriented x3 Cognition (Neuro): normal cognition Medical Decision Making Medical Decision Making [facility] Narrative: The patient is here with chest pain nonexertional no diaphoresis she says that she has chronic chest pain. We will get EKG I sensitive troponin 3:30 p.m. trop is flat X 3 I talked to the patient again even with the insole reinforcer Francis she has chronic chest pain worse with plapation,at this time I think she can be d/c and follow up with her home care companion Repeat EKG at 15:30 sinus rhythm rate [address]-T changes Differential Diagnosis Differential Diagnoses: The differential diagnosis associated with the presentation includes Acute coronary syndrome/pericarditis/musculoskeletal chest pain/ Admission/Observation Consideration of admission/observation: Escalation of care including admission/observation considered Lab Data [facility] Lab Attestation statement: I reviewed the patient's lab results. 05/22/25 09:59 05/22/25 09:59 Labs: Lab Results 05/22/25 05/22/25 05/22/25 Range/Units 09:59 11:57 14:18 WBC 3.6 L (4.8-10.8) X10*3/uL RBC 4.46 (4.20-5.50) X10*6/uL Hgb 13.1 (12.0-16.0) g/dl Hct 38.6 (37.0-47.0) % MCV 86.5 (80.0-98.0) fL MCH 29.4 (27.0-33.0) pg MCHC 33.9 (31.0-35.0) g/dl RDW 13.2 (11.0-16.0) % Plt Count 270 (160-400) X10*3/uL MPV 10.2 (9.4-12.3) fL Immature Gran % (Auto) 0.3 (0.0-0.4) % Neut % (Auto) 42.0 L (45-73) % Lymph % (Auto) 42.1 H (20-40) % [place] % (Auto) 13.6 H (2-11) % Eos % (Auto) 1.7 (0-4) % Baso % (Auto) 0.3 (0-2) % Lymph # (Auto) 1.5 (1.2-4.9) X10*3/uL [place] # (Auto) 0.5 (0.1-1.2) X10*3/uL Eos # (Auto) 0.1 (0.0-0.4) X10*3/uL Baso # (Auto) 0.0 (0.0-0.2) X10*3/uL Abs Immat Gran (auto) 0.01 (0.00-0.03) X10*3/uL Absolute Neuts (auto) 1.5 L (2.0-8.3) x10*3/uL Absolute Nucleated RBC 0.000 (0.0-0.012) X10*3/uL Nucleated RBC % (auto) 0.0 (0.0-0.2) /100WBC Sodium 142 (135-145) mmol/L Potassium 4.1 (3.3-5.1) mmol/L Chloride 111 H (96-108) mmol/L Carbon Dioxide 22 (22-29) mmol/L Anion Gap 13 (12-20) BUN 19 H (9-16) mg/dL Creatinine 1.11 (0.5-1.4) mg/dL Estim Creat Clear Calc 33.9 Estimated GFR 47 Random Glucose 113 (60-115) mg/dL Calcium 9.7 (8.4-10.2) mg/dL Total Bilirubin 0.6 (0.0-1.0) mg/dL AST 37 H (5-31) U/L ALT 16 (0-31) U/L Alkaline Phosphatase 46 (39-117) U/L Troponin I High Sens 19.8 H 18.3 H 17.3 H (<3.5-17.0) ng/L Total Protein 7.7 (6.5-8.0) g/dL Albumin 4.7 (3.5-5.0) g/dL Independent Interpretation I performed an independent interpretation of an: EKG (I reviewed interpreted the electrocardiogram as normal sinus rhythm rate [address]-T changes normal EKG) Radiology Impression Discussion of test interpretation with radiology: I have reviewed the radiologist's reading. Independent Historian daughter External Record Review External record reviewed: Inpatient record Discharge Plan Discharge Clinical Impression: Chest pain Patient Disposition: Home, Self-Care Instructions: Chest Pain (DC) Additional Instructions: Please follow-up with your home care companion call and make an appointment return to emergency room if you worse also follow-up with your primary care physician on Sunday Prescriptions: No Action alendronate 70 mg tablet 70 mg PO QWEEK 90 Days Qty: 13 3RF aspirin 81 mg tablet,delayed release (DR/EC) 81 mg PO DAILY Qty: 90 3RF cholecalciferol (vitamin D3) [Vitamin D3] 50 mcg (2,000 unit) capsule 50 mcg PO DAILY 90 Days Qty: 90 3RF Januvia 100 mg tablet 100 mg PO DAILY Qty: 90 3RF fenofibrate nanocrystallized 145 mg tablet 145 mg PO DAILY 90 Days Qty: 90 3RF mirtazapine 15 mg tablet 15 mg PO BEDTIME 90 Days Qty: 90 0RF lisinopril 20 mg tablet 20 mg PO DAILY 90 Days Qty: 90 2RF rosuvastatin 20 mg tablet 20 mg PO DAILY 90 Days Qty: 90 1RF (DME) med size pull-ups See Rx Instructions .Route .MEDSUPPLY Qty: 1 3RF Rx Instructions: As directed isosorbide mononitrate 120 mg tablet extended release 24 hr 120 mg PO DAILY 90 Days Qty: 90 1RF cetirizine 10 mg tablet 10 mg PO DAILY PRN (Reason: allergy symptoms) 90 Days Qty: 90 0RF ezetimibe 10 mg tablet 10 mg PO DAILY Qty: 90 0RF oxycodone-acetaminophen 7.5-325 mg tablet 1 tab PO Q6H PRN (Reason: pain) 30 Days Qty: 120 0RF ondansetron HCl [Zofran] 8 mg Tablet 8 mg PO Q8H metoprolol succinate 25 mg tablet extended release 24 hr 12.5 mg PO DAILY 90 Days Qty: 45 1RF fluticasone propion-salmeterol 250-50 mcg/dose blister with device 1 ea inhalation DAILY (DME) blood-glucose meter [FreeStyle Lite Meter] Kit See Rx Instructions .Route Qty: 1 0RF Rx Instructions: As directed (DME) FreeStyle Lite Strips Strip See Rx Instructions .Route Qty: 50 3RF Rx Instructions: Use 1 test strip once a day (DME) lancets [FreeStyle Lancets] 28 gauge misc See Rx Instructions .Route Qty: 100 3RF Rx Instructions: Use 1 lancet once a day hydrocortisone [Proctosol HC] 2.5 % cream with perineal applicator 1 appl NM BID Qty: 30 3RF glycerin (adult) [Fleet Glycerin (Adult)] Suppository 2 supp NM DAILY Qty: 25 11RF amoxicillin-pot clavulanate 875-125 mg tablet 1 tab PO BID 14 Days Qty: 28 0RF Creon 24,000-76,000 -120,000 unit capsule,delayed release(DR/EC) 2 cap PO BID 30 Days Qty: 120 6RF Rx Instructions: administer with meals and/or snacks famotidine [Pepcid] 40 mg tablet 40 mg PO .q3pm Qty: 90 3RF docusate sodium 100 mg capsule 100 mg PO DAILY Qty: 30 6RF omeprazole 40 mg capsule,delayed release(DR/EC) 40 mg PO DAILY 90 Days Qty: 90 3RF sennosides [senna] 8.6 mg tablet 25.8 mg PO BEDTIME Qty: 90 6RF (DME) Ultra-Light Rollator Misc See Rx Instructions .Route Qty: 1 0RF Rx Instructions: As directed (DME) Ultra-Light Rollator Misc See Rx Instructions .Route Qty: 1 0RF Rx Instructions: As directed Saccharomyces boulardii [Florastor] 250 mg capsule 250 mg PO DAILY Qty: 30 6RF Rx Instructions: swallow whole carvedilol 6.25 mg tablet 6.25 mg PO BID Referrals: Marybeth Vale MD [Primary Care Provider, Internal Medicine] - 05/25/25 Interventions: ED Discharge Assessment Last Done: 05/22/25 16:13 Discharge Date/Time: 05/22/25 16:27 Print Language: Croatian
[2025-05-22 10:08] LABS: MANUAL DIFF FLAG NO
[2025-05-22 10:10] LABS: Hematocrit 38.6 % (37.0-47.0); Hemoglobin 13.1 g/dl (12.0-16.0); Imm Gran Abs Auto 0.01 X10*3/uL (0.00-0.03); Imm Gran Pct Auto 0.3 % (0.0-0.4); Lymphocytes Absolute Auto 1.5 X10*3/uL (1.2-4.9); Mean Corpuscular HGB Conc 33.9 g/dl (31.0-35.0); Mean Corpuscular Hemoglobin 29.4 pg (27.0-33.0); Mean Corpuscular Volume 86.5 fL (80.0-98.0); NRBC Abs Auto 0.000 X10*3/uL (0.0-0.012); NRBC Pct Auto 0.0 /100WBC (0.0-0.2); Platelet Count 270 X10*3/uL (160-400); Red Blood Count 4.46 X10*6/uL (4.20-5.50); White Blood Count 3.6 X10*3/uL (4.8-10.8)
[2025-05-22 10:28] LABS: Alanine Aminotransferase 16 U/L (0-31); Albumin Level 4.7 g/dL (3.5-5.0); Alkaline Phosphatase 46 U/L (39-117); Anion Gap 13 (12-20); Aspartate Amino Transferase 37 U/L (5-31); Blood Urea Nitrogen 19 mg/dL (9-16); Calcium 9.7 mg/dL (8.4-10.2); Carbon Dioxide 22 mmol/L (22-29); Chloride 111 mmol/L (96-108); Creatinine Clr Calc Pharmacy 33.9; Estimated Glomerular Filt Rate 47; Potassium 4.1 mmol/L (3.3-5.1); Sodium 142 mmol/L (135-145); Total Protein 7.7 g/dL (6.5-8.0)
[2025-05-22 10:36] LABS: Troponin-I High Sensitivity 19.8 ng/L (<3.5-17.0)
[2025-05-22 11:06] VITALS: BP 133/67; PULSE 62; RESP 14; TEMP 36.7; O2SAT 98
--- OUTSIDE RECORDS SUMMARY | 2025-05-22 11:54 | XMS_ITS | Clinical Summary ---
Author Organization [facility], Address [address] [place] [address] [place] [address] Phone Care Team Providers Care Clinical Account Specialist Name Role Phone Marybeth Vale MD Primary Care Provider [phone] Allergies Active Allergy Reactions Criticality Noted Date [...] DAY: NEEDED FOR ANALGESIA 3 Active Creon 14597-70163 units capsule TOME 1 C PSULA POR [...] Visit [facility], [address] [place] [phone] Jhony Lima MD Stage 3a chronic kidney disease (HCC) (Primary Dx); Hypertension from Last 3 Months Immunizations Immunization Administration [...] Visit [facility], [address] [place] [phone] Jhony Lima MD [address] [place] [address] [place] [address] Health Maintenance Due Date Last Done Comments [...] patient's age to complete this topic Insurance [place] Medicaid [place] Care Teams Clinical Account Specialist Relationship Specialty Start Date End Date Marybeth Vale MD [address] [place] [address] PCP - General 05/13/19
--- OUTSIDE RECORDS SUMMARY | 2025-05-22 11:54 | XMS_ITS | Encounter Summary ---
Author Organization [facility], Address [address] [address] Phone Care Team Providers Care Company Miner Blasting Name Role Phone Marybeth Vale MD Primary Care Provider [phone] Encounter Details Date Type Department Care Team (Late Contact Info) Description 09/02/2021 Documentation Only [facility] [address] [place] [address] Jhony Lima MD [address] [place] [address] [place] [address] Social History Tobacco Use Types [...] on file documented as of this encounter Functional Status documented as of this encounter Plan of Treatment Upcoming Encounters Date Type Department Care Team (Late Contact Info) Description 03/05/2026 2:15 PM EDT Office Visit [facility] [address] [place] [address] Jhony Lima MD [address] [place] [address] [place] [address] documented as of this encounter Visit Diagnoses Not on filedocumented in this encounter Care Teams Company [employer]er [employer] Relationship Specialty Start Date End Date Marybeth Vale MD [address] [place], [place] PCP - General 05/13/19 documented as of this encounter
--- OUTSIDE RECORDS SUMMARY | 2025-05-22 11:54 | XMS_ITS | Encounter Summary ---
Author Organization [facility], Address [address] [address] Phone Care Team Providers Care Meat Boner And Slicer Name Role Phone Marybeth Vale MD Primary Care Provider [phone] Encounter Details Date Type Department Care Team (Late st Contact Info) Description 03/17/2024 Documentation Only [facility] [place], [address] [place] [address] Domitila [place] [address] [place] [phone] Social History Tobacco Use Types Packs/Day Years [...] Visit [facility] [address] [place] [address] Jhony Lima MD [address] [place] [address] documented as of this encounter Visit Diagnoses Not on filedocumented in this encounter Care Teams Meat Boner And Slicer Relationship Specialty Start Date End Date Marybeth Vale MD [address] [facility] [place] PCP - General 05/13/19 documented as of this encounter
--- OUTSIDE RECORDS SUMMARY | 2025-05-22 11:55 | XMS_ITS | Encounter Summary ---
Author Organization [facility], Address [address] [address] Phone Care Team Providers Care Maintenance Supervisor Electrical Name Role Phone Maryebth Vale MD Primary Care Provider [phone] Encounter Details Date Type Department Care Team (Late Contact Info) Description 02/15/2022 Documentation Only [facility] [address] [place] [address] Jhony Lima MD [address] [place] [address] [place] [address] Social History Tobacco Use Types [...] Visit [facility] [address] [place] [address] Johny Lima MD [address] [place] [address] [place] [address] documented as of this encounter Visit Diagnoses Not on filedocumented in this encounter Care Teams Maintenance Supervisor Electrical Relationship Specialty Start Date End Date Marybeth Vale MD [address] [facility] [place] PCP - General 05/13/19 documented as of this encounter
--- OUTSIDE RECORDS SUMMARY | 2025-05-22 11:55 | XMS_ITS | Encounter Summary ---
Author Organization [facility], Address [address] [address] Phone Care Team Providers Care File Machine Operator Name Role Phone Marybeth Vale MD Primary Care Provider [phone] Encounter Details Date Type Department Care Team (Late st Contact Info) Description 01/31/2024 Documentation Only [facility], [address] [place] [address] Domitila [place] [address] [place] [phone] Social History Tobacco Use Types Packs/Day Years [...] Visit [facility] [address] [place] [address] Jhony Lima MD [address] [facility] [place] [address] documented as of this encounter Visit Diagnoses Not on filedocumented in this encounter Care Teams File Machine Operator Relationship Specialty Start Date End Date Marybeth Vale MD [address] [facility] [place] PCP - General 05/13/19 documented as of this encounter
[2025-05-22 12:28] LABS: Troponin-I High Sensitivity 18.3 ng/L (<3.5-17.0)
[2025-05-22 14:37] VITALS: BP 133/67; PULSE 62; RESP 14; TEMP 36.7; O2SAT 98
[2025-05-22 14:48] LABS: Troponin-I High Sensitivity 17.3 ng/L (<3.5-17.0)
--- NOTE | 2025-05-22 15:27 | ECG_ITS ---
Test Reason : RHYTHM CHANGE Blood Pressure : */* mmHG Vent. Rate : 61 BPM Atrial Rate : 61 BPM P-R Int : 178 ms QRS Dur : 84 ms QT Int : 394 ms P-R-T Axes : 2 -2 -9 degrees QTcB Int : 396 ms Normal sinus rhythm Nonspecific T wave abnormality Abnormal ECG When compared with ECG of 22-May-2025 09:31, Nonspecific T wave abnormality, worse in Lateral leads Referred By: Demarco Vizcaino Electronically Signed By: JAY DE SANTIAGO MD
[2025-05-22 16:13] VITALS: BP 133/67; PULSE 62; RESP 14; TEMP 36.7; O2SAT 98
== END 2025-05-22 16:27 | disposition home or self-care (01) ==
PROVIDERS: Emergency Provider Emergency Medicine; PCP Internal Medicine
DX: R07.9 Chest pain, unspecified (principal); Z95.1 Presence of aortocoronary bypass graft; I25.10 Atherosclerotic heart disease of native coronary artery without angina pectoris; E11.9 Type 2 diabetes mellitus without complications; I10 Essential (primary) hypertension
CPT/HCPCS: 36415; 71045; 80053; 84484; 85025; 93005; 99284; 99285

== ENCOUNTER → 2025-05-22 09:31 | Outpatient (BNV) | payer OTHER, SELFPAY | PROVIDERS: Emergency Provider Emergency Medicine; PCP Internal Medicine; Visit Provider Internal Medicine Cardiovascular Disease | DX: R94.31 Abnormal electrocardiogram [ECG] [EKG] (principal); I49.9 Cardiac arrhythmia, unspecified | CPT/HCPCS: 93010 ==

== ENCOUNTER → 2025-05-22 09:53 | Outpatient (BNV) | payer OTHER, SELFPAY | PROVIDERS: Emergency Provider Emergency Medicine; PCP Internal Medicine; Visit Provider Radiology Diagnostic Radiology | DX: R07.9 Chest pain, unspecified (principal) | CPT/HCPCS: 71045 ==

== ENCOUNTER 2025-07-07 13:53 | Outpatient (AMB) | payer OTHER, SELFPAY ==
--- NOTE | 2025-07-07 13:58 | A.OFFVIS_ITS ---
Vital Signs 07/07/25 14:01 Height 5 ft 3 in Weight 130 lb 1.164 oz BMI 23.0 BP 128/72 Blood Pressure Location Rt brachial Position Sitting Pulse 50 Pulse Source Pulse Oximeter Pulse Oximetry (%) 95 Oxygen Delivery Method Room Air Intake Visit Reasons: Disorder of adrenal gland Intake Note: New patient internally referred by PCP Disorder of Adrenal Gland. Senior Recruitment Consultant Required: Yes Senior Recruitment Consultant Language: Sales Planning Coordinator Services: Senior Recruitment Consultant Present Senior Recruitment Consultant Name: [facility] Fransisca Umana Information Interpreted: non-clinical & clinical Accompanied by: Self / Same As Patient Allergies lactose (Lactose) Allergy (Intermediate, Verified 07/07/25 14:01) DIARRHEA, N/V metformin Allergy (Intermediate, Verified 07/07/25 14:01) stomach upset Medication List - Last Reconciled 07/07/25 by Pradip Villatoro MD alendronate 70 mg PO QWEEK 90 days amoxicillin-pot clavulanate 875-125 mg 1 tab PO BID 14 days aspirin 81 mg PO DAILY azithromycin 250 mg PO DAILY blood sugar diagnostic (FreeStyle Lite Strips) Use 1 test strip once a day blood-glucose meter (FreeStyle Lite Meter kit) As directed carvedilol 6.25 mg PO BID 90 days cetirizine 10 mg PO DAILY PRN 90 days cholecalciferol (vitamin D3) (Vitamin D3) 50 mcg PO DAILY 90 days dexamethasone 1 mg PO ONCE docusate sodium 100 mg PO DAILY ezetimibe 10 mg PO DAILY famotidine (Pepcid) 40 mg PO .q3pm fenofibrate nanocrystallized 145 mg PO DAILY 90 days fluticasone propion-salmeterol 250-50 mcg/dose 1 ea inhalation DAILY glycerin (adult) (Fleet Glycerin (Adult) rectal suppository) 2 supp [place] DAILY hydrocortisone 2.5% (Proctosol HC) 1 appl [place] BID isosorbide mononitrate ER 120 mg PO DAILY 90 days lancets (FreeStyle Lancets) Use 1 lancet once a day qnzcbu-jaeaymxh-xuqcklv (pork) 24,000-76,000 -120,000 unit (Creon) 2 caps PO BID 30 days lisinopril 20 mg PO DAILY 90 days [med size pull-ups As directed] metoprolol succinate ER 12.5 mg (1/2 x 25 mg) PO DAILY 90 days Held on 12/22/21. Instructions: syncope mirtazapine 15 mg PO BEDTIME 90 days omeprazole 40 mg PO DAILY 90 days ondansetron HCl 8 mg PO Q8H oxycodone-acetaminophen 7.5-325 mg 1 tab PO Q6H PRN 30 days rosuvastatin 20 mg PO DAILY 90 days Saccharomyces boulardii (Florastor) 250 mg PO DAILY sennosides (senna) 25.8 mg (3 x 8.6 mg) PO BEDTIME sitagliptin phosphate (Januvia) 100 mg PO DAILY walker (Ultra-Light Rollator misc) As directed walker (Ultra-Light Rollator misc) As directed HPI Comments Details: 80 YO F with PMHx HTN , CAD and osteoporosis who is seen in consultation at the request of PCP for adrenal incidentaloma. Had CT abdomen/pelvis 02/20/25 for which revealed right adrenal mass . Prior CT dated see below revealed. Has history of spells with headache, flushing, diaphoresis lasting 5 minute , +abdominal pain - diarrhea. Denies any weight gain, +frequent urine infections,- easy bruisability, - development of violaceous striae. History of HTN, controlled on 2 agents. States episodes of increased pressure No history of anticoagulant use. Has any weight loss, +orthostatic symptoms,- hypoglycemia. 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 Imagin.1 cm right adrenal indeterminate density at [address] [place] [facility] Labs: [facility] Medical History Lumbar degenerative disc disease Encounter for Medicare annual wellness exam Venous insufficiency Vaginal pruritus Leucopenia Anemia Hair loss Dizziness Diarrhea Fecal impaction in rectum Adult general medical exam Oropharyngeal dysphagia MODESTA (generalized anxiety disorder) Mild recurrent major depression Submandibular lymphadenopathy Post-menopausal Chronic daily headache Essential hypertension Lumbar disc disease with radiculopathy Mixed hyperlipidemia Therapeutic opioid induced constipation Hypovitaminosis D Diabetes mellitus Coronary artery disease Surgical History History of colonoscopy S/P CABG x 2 History of total abdominal hysterectomy and bilateral salpingo-oophorectomy History of cardiac catheterization History of rectal polypectomy History of cholecystectomy Family History Father Brain cancer Mother Ovarian cancer Sister Breast cancer Sister Lung cancer Brother Stomach cancer Son Substance abuse Sister Cancer Social History Housing: Apartment Alcohol intake: never Patient Tobacco Use Status: Never used Tobacco e-Cigarette/Vaping Use: Never Used Second Hand Smoke Exposure: No Advance Directives Date on File: 02/22/23 service: No Current occupational status: disabled Cognitive needs: Yes Hearing needs: No Vision needs: Yes Physical Exam Vital Signs: Last Vital Signs Pulse 50 07/07/25 14:01 BP 128/72 07/07/25 14:01 Pulse Ox 95 07/07/25 14:01 Oxygen Delivery Method Room Air 07/07/25 14:01 BMI result Body Mass Index 23.0 Const Other: No cushingoid appearance. Thyroid gland is normal size weighs about 15 g. There are no thyroid nodules palpated Assessment & Plan Assessment & Plan (1) Adrenal nodule: Code(s): E27.9 - Disorder of adrenal gland, unspecified Category: Medical Plan: This 80-year-old female with a history of an incidentally discovered right adrenal mass of indeterminate density. Rule out hypersecretion. We will repeat CAT scan of the adrenals with the adrenal protocol washout to better characterized mass. We will also check plasma metanephrines, aldosterone, renin. We will also perform 1 mg dexamethasone suppression test with cortisol and dexamethasone measurement. Orders: Orders Metanephrines, Plasma Today E27.9 - Disorder of adrenal gland, unspecified Aldosterone Today E27.9 - Disorder of adrenal gland, unspecified CT abdomen wo/w IV con Today E27.9 - Disorder of adrenal gland, unspecified Renin Today E27.9 - Disorder of adrenal gland, unspecified Cortisol Random 1 Week E27.9 - Disorder of adrenal gland, unspecified Dexamethasone 1 Week E27.9 - Disorder of adrenal gland, unspecified Medications: New dexamethasone 1 mg PO ONCE 1 tab 0RF Coding Level of Care Code New Pt Level 4 (46942) Add On Problem Visit Only Diagnoses Adrenal nodule E27.9
[2025-07-07 14:01] VITALS: BP 128/72; PULSE 50; O2SAT 95; BMI 23.0
--- OUTSIDE RECORDS SUMMARY | 2025-07-07 17:42 | XMS_ITS | Clinical Summary ---
Author Organization [facility] Address [address] [facility] [address] [place] [phone] Phone Care Team Providers Care Vegetable Picker Name Role Phone Marybeth Vale MD Primary [...] file Medical Devices Not on file Insurance [employer] REPLACEMENT MEDICARE REPLACEMENT MEDICARE REPLACEMENT [place] [phone] MEDICARE REPLACEMENT MEDICARE REPLACEMENT MEDICARE REPLACEMENT MEDICARE RE[place]AC[place] [address] [address] MEDICARE REPLACEMENT Care Teams Vegetable Picker Relationship Specialty Start Date End Date Marybeth Vale MD [address] [place] [address] PCP - General Internal Medicine 11/17/19 Additional Source Comments The information contained in this document represents components of the legal health record. It is not the complete legal health record.[facility]
--- OUTSIDE RECORDS SUMMARY | 2025-07-07 17:42 | XMS_ITS | Encounter Summary ---
Author Organization [facility], Address [address] [address] Phone Care Team Providers Care Optical Effects Camera Operator Name Role Phone Marybeth Vale MD Primary Care Provider [phone] Encounter Details Date Type Department Care Team (Late Contact Info) Description 09/02/2021 Documentation Only [facility] [address] [place] [address] Jhony Lima MD [address] [place] [address] [place] [address] Social History Tobacco Use Types [...] Visit [facility] [address] [place] [address] Jhony Lima MD [address] [place] [address] [place] [address] documented as of this encounter Visit Diagnoses Not on filedocumented in this encounter Care Teams Optical Effects Camera Operator Relationship Specialty Start Date End Date Marybeth Vale MD [address] [facility] [place] PCP - General 05/13/19 documented as of this encounter
--- OUTSIDE RECORDS SUMMARY | 2025-07-07 17:42 | XMS_ITS | Encounter Summary ---
Author Organization [facility], Address [address] [address] Phone Care Team Providers Care Chemical Research Engineer Name Role Phone Marybeth Vale MD Primary Care Provider [phone] Encounter Details Date Type Department Care Team (Late st Contact Info) Description 03/17/2024 Documentation Only [facility], [address] [place] [address] Domitila Bradley [place] [address] [place] [id number] Social History Tobacco Use Types Packs/Day Years [...] Visit [facility] [address] [place] [address] Jhony Lima MD [address] [facility] [place] [address] documented as of this encounter Visit Diagnoses Not on filedocumented in this encounter Care Teams Chemical Research Engineer Relationship Specialty Start Date End Date Marybeth Vale MD [address] [facility] [place] PCP - General 05/13/19 documented as of this encounter
--- OUTSIDE RECORDS SUMMARY | 2025-07-07 17:42 | XMS_ITS | Encounter Summary ---
Author Organization [facility], Address [address] [address] Phone Care Team Providers Care Drug Safety Assistant Name Role Phone Marybeth Vale MD Primary Care Provider [phone] Encounter Details Date Type Department Care Team (Late Contact Info) Description 02/15/2022 Documentation Only [facility] [address] [place] [address] Jhony Lima MD [address] [place] [address] [place] [address] Social History Tobacco Use Types [...] Visit [facility] [address] [place] [address] Jhony Lima MD [address] [place] [address] [place] [address] documented as of this encounter Visit Diagnoses Not on filedocumented in this encounter Care Teams Drug Safety Assistant Relationship Specialty Start Date End Date Marybeth Vale MD [address] [facility] [place] PCP - General 05/13/19 documented as of this encounter
--- OUTSIDE RECORDS SUMMARY | 2025-07-07 17:42 | XMS_ITS | Clinical Summary ---
Author Organization [facility] Address [address] [place] [address] Phone Care Team Providers Care Change Management Analyst Name Role Phone Marybeth Dennis MD Primary Care Provider [phone] Allergies Active Allergy Reactions Criticality Noted Date [...] Encounters Date Type Department Care Team Description 06/02/2025 7:22 AM EST - 06/02/2025 11:59 PM [facility] Hospital Encounter [facility] Ortho Xray [address] [place] [address] Pain, unspecified Discharge Disposition: Home or Self Care from Last 3 Months Surgical History Surgery Date Site/Laterality Comments CORONARY ARTERY BYPASS GRAFT PROCEDURE: HISTORICAL CABG CARDIAC CATHETERIZATION PROCEDURE: HISTORICAL CARDIAC CATH Medical History Medical History Date Comments Chronic ischemic heart disease D X:Chronic ischemic heart disease Essential hypertension DX:Essent ial hypertension Hyperlipidemia DX:Hyperlipidemi a PAD (peripheral artery disea se) ([facility]/HCC V24) DX:PAD (peripheral artery di sease) ([facility]) Social History Tobacco Use Types Packs/Day [...] Orientation Straight 10/20/2024 1: 24 PM EDT Last Filed Vital Signs Vital Sign Reading [...] Health Maintenance Due Date Last Done Comments Drug Screen 1945 Naloxone Order 1945 Opioid Substance Agreement 1945 Pain Assessment 1945 Diabetes: Annual Foot Exam 1955 Diabetes: Annual Retina Eye Exam 1955 Zoster Vaccines (1 of 2) 1995 RSV Immunization Adult Patients (1 - 1-dose 75+ series) 2020 Cholesterol Screening (Lipid Panel) 06/11/2022 Medicare Annual Wellness Visit 06/11/2022 Osteoporosis Screening (Bone Density Screening) 06/11/2022 Social Influencers of Health Screening 06/11/2022 Depression Screening 07/09/2024 Diabetes: Annual Urine Albumin-Creatinine Ratio (uACR) 10/20/2024 Diabetes: Blood Sugar Control Test (HGBA1C) 10/20/2024 COVID-19 Vaccine ( season) 2025 07/19/2021, 02/16/2021, 01/26/2021, Additional history exists Influenza Vaccine (#1) 2025 3, 04/24/2022, 06/04/2019, Additional history exists Falls Risk Assessment 10/21/2025 10/21/2024 Diabetes: Annual GFR (Glomerular Filtration Rate) 02/19/2026 02/19/2025, 10/21/2024, 10/20/2024 Hypertension/CHF/CAD Annual BMP Blood Test 02/19/2026 02/19/2025, 10/21/2024, 10/20/2024 DTaP,Tdap,and Td Vaccines (2 - Td or Tdap) 06/23/2026 06/23/2016 Pneumococcal Vaccine: 50+ Years Completed 03/18/2025, 06/23/2016, 03/26/2015, Additional history exists HIB Vaccines Aged Out No longer eligi [...] Comments XR ANKLE 3+ VIEWS LEFT Routine 9:21 AM EST Pain, unspecified COMPREHENSIVE METABOLIC PANEL STAT 02/19/2025 6:43 PM EDT from Last 3 Months or Most Recently Relevant to Health Maintenance Results * XR Ankle 3+ Views Left (06/02/2025 9:21 AM EST) Narrative RIS PACS/VR - 06/02/2025 9:21 AM EST This order has been auto-finalized and does not contain a result. us Luis Roper MD IMG XR PROCEDURES Final R esult RIS PACS/VR * (ABNORMAL) Comprehensive metabolic panel (02/19/2025 6:43 PM EDT) Sodium 141 133 - 145 mmol/L LAB CHEMISTRY METHOD 02/19/2025 7:54 PM [facility] Potassium 4.0 3.5 - 5.5 mmol/L LAB CHEMISTRY METHOD 02/19/2025 7:54 PM [facility] Chloride 108 96 - 110 mmol/L LAB CHEMISTRY METHOD 02/19/2025 7:54 PM [facility] CO2 29 21 - 32 mmol/L LAB CHEMISTRY METHOD 02/19/2025 7:54 PM [facility] Anion Gap 4 3 - 11 LAB CHEMISTRY METHOD 02/19/2025 7:54 PM [facility] Glucose 86 70 - 100 mg/dL LAB CHEMISTRY METHOD 02/19/2025 7:54 PM [facility] BUN 21 5 - 25 mg/dL LAB CHEMISTRY METHOD 02/19/2025 7:54 PM [facility] Creatinine 1.34(H) 0.50 - 1.10 mg/dL LAB CHEMISTRY METHOD 02/19/2025 7:54 PM [facility] eGFR 40(L) >=60 mL/min/1. 73m2 LAB CHEMISTRY METHOD 02/19/2025 7:54 PM [facility] Comment:Calculation based on the Chronic Kidney Disease Epidemiology Collaboration (CKD-EPI) equation refit without adjustment for race. BUN/Creatinine Ratio 15.7 LAB CHEMISTRY METHOD 02/19/2025 7:54 PM [facility] Calcium 8.9 8.5 - 10.5 mg/dL LAB CHEMISTRY METHOD 02/19/2025 7:54 PM [facility] AST (SGOT) 32 10 - 42 unit/L LAB CHEMISTRY METHOD 02/19/2025 7:54 PM [facility] ALT (SGPT) 17 10 - 60 unit/L LAB CHEMISTRY METHOD 02/19/2025 7:54 PM EDT [facility] Alkaline Phosphatase 51 42 - 121 unit/L LAB CHEMISTRY METHOD 02/19/2025 7:54 PM EDT [facility] Total Protein 7.0 6.0 - 8.0 g/dL LAB CHEMISTRY METHOD 02/19/2025 7:54 PM EDT [facility] Albumin 3.8 3.2 - 5.0 g/dL LAB CHEMISTRY METHOD 02/19/2025 7:54 PM EDT [facility] Total Bilirubin 0.3 0.0 - 1.4 mg/dL LAB CHEMISTRY METHOD 02/19/2025 7:54 PM EDT [facility] Blood Venous blood specimen / Unknown Venipuncture / Unknown 02/19/2025 6:43 PM EDT 02/19/2025 7:18 PM EDT Abraham Hearn MD LAB BLOOD ORDERABLES Final Resul t [facility] [address] [place] [address], from Last 3 Months or Most Recently [...] currently active code status orders. Care Teams Change Management Analyst Relationship Specialty Start Date End Date Marybeth Dennis MD 2 [facility] , [address] Physician Associ D/B/A: [facility] ROXI [facility]chugh PCP - General 03/27/15
--- OUTSIDE RECORDS SUMMARY | 2025-07-07 17:42 | XMS_ITS | Clinical Summary ---
Author Organization [facility], Address [address] [place] [address] [place] [address] Phone Care Team Providers Care Rug Repairer Name Role Phone Marybeth Vale MD Primary Care Provider [phone] Allergies Active Allergy Reactions Criticality Noted Date [...] DAY: NEEDED FOR ANALGESIA 3 Active Creon 52008-35065 units capsule TOME 1 C PSULA POR [...] Visit [facility], [address] [place] [address] Jhony Lima MD [address] [place] [address] Health Maintenance Due Date Last Done [...] this topic Insurance Medicaid [place] Care Teams Rug Repairer Relationship Specialty Start Date End Date Marybeth Vale MD [address] [place] [address] PCP - General 05/13/19
--- OUTSIDE RECORDS SUMMARY | 2025-07-07 17:42 | XMS_ITS | Encounter Summary ---
Author Organization [facility], Address [address] [address] Phone Care Team Providers Care Boarding House Cook Name Role Phone Marybeth Vale MD Primary Care Provider [phone] Encounter Details Date Type Department Care Team (Late st Contact Info) Description 01/31/2024 Documentation Only [facility], [address] [place] [address] Domitila Bradley [place] [address] [place] [address] Social History Tobacco Use Types Packs/Day Years [...] Visit [facility] [address] [place] [address] Jhony Lima MD [address] [facility] [place] [address] documented as of this encounter Visit Diagnoses Not on filedocumented in this encounter Care Teams Boarding House Cook Relationship Specialty Start Date End Date Marybeth Vale MD [address] [facility] [place] PCP - General 05/13/19 documented as of this encounter
== END 2025-07-07 14:38 | disposition home or self-care (01) ==
LOC: HO.ENCR 13:54
PROVIDERS: PCP Internal Medicine; Visit Provider Internal Medicine Endocrinology, Diabetes & Metabolism
DX: E27.9 Disorder of adrenal gland, unspecified (principal)
CPT/HCPCS: 99204; G2211

== ENCOUNTER → 2025-07-07 13:53 | Outpatient (BNVA) | payer OTHER, SELFPAY | PROVIDERS: PCP Internal Medicine; Visit Provider Internal Medicine Endocrinology, Diabetes & Metabolism | DX: E27.9 Disorder of adrenal gland, unspecified (principal) | CPT/HCPCS: 99202 ==

== ENCOUNTER 2025-07-08 07:22 | Outpatient (REF) | payer OTHER, SELFPAY ==
--- OUTSIDE RECORDS SUMMARY | 2025-07-05 23:59 | XMS_ITS | Continuity of Care Document ---
Author Organization [facility] Address [address] [place] [phone]- Care Team Providers Care Flight Control Manager Name Role Phone Nito Dennis MD, Lucía Travis Primary Care Physician En[place] [facility] [place](s): 06/05/25 - 07/05/25 [facility] [address] [place] [address]- Attending Physician: Paolo Laughlin Admitting Physician: Paolo Laughlin Referring Physician: AdmtrPaolo Encounter Type: Triage Allergies, Adverse Reactions, Alerts Substance Criticality Severity Reaction Reaction Severity Status metFORMIN Active Immunizations Given and Recorded Vaccine Date Status Refusal Reason pneumococcal 23-valent vaccine 06/19/13 Given Medications acetaminophen-oxyCODONE 325 mg-7.5 mg oral tablet 1 tablet, By Mouth, Every 6 hours, PRN Pain , Severe, 0 Refills Start Date: 12/05/17 Status: Ordered Medication Dispense Status: Completed Total Allowed Fills: 1 Fills Dispensed: 0 amLODIPine 5 mg oral tablet 5 mg, 1, tablet, By Mouth, Daily, # 30 tablet, Refills 11, Tot. Refills 11, Maintenance, 12/25/22 1:26:00 PM EDT, Route to Pharmacy Electronically, [facility]/pharmacy #[id number], Partial fill upon patient request if the prescription is for a schedule II opioid drug., 159, cm, 12/25/22 13:02:00 EDT, Height Start Date: 12/25/22 Stop Date: 12/20/23 Status: Ordered Medication Dispense Status: Completed Quantity: 30.0 Unit: tablet Total Allowed Fills: 12 Fills Dispensed: 0 aspirin 81 mg oral delayed release tablet 81 mg, By Mouth, Daily, # 90 tablet, Refills 0, Tot. Refills 0, Maintenance, 11/22/17 11:39:18 AM EDT, Route to Pharmacy Electronically, [facility] 3 Start Date: 11/22/17 Status: Ordered Medication Dispense Status: Completed Quantity: 90.0 Unit: tablet Total Allowed Fills: 1 Fills Dispensed: 0 Colace sodium 50 mg oral capsule 1 capsule = 50 mg, By Mouth, 2 times a day, PRN for constipation, # 60 capsule, 0 Refills, Maintenance, 12/05/17 1:27:47 PM EDT, Capsule, [facility]/pharmacy #[id number] Start Date: 12/05/17 Status: Ordered Medication Dispense Status: Completed Quantity: 60.0 Unit: capsule Total Allowed Fills: 1 Fills Dispensed: 0 Creon 24,000 units oral delayed release capsule TOME 1 C PSULA POR V A ORAL HARRIS VECES AL D A WITH MEALS AND/OR SNACKS Start Date: 12/25/22 Status: Ordered Medication Dispense Status: Completed Total Allowed Fills: 1 Fills Dispensed: [address] 24,[address] 24,000 UNIT CAPSULE, TOME 1 C PSULA POR V A ORAL HARRIS VECES AL D A WITH MEALS AND/OR SNACKS Start Date: 10/29/23 Status: Ordered Medication Dispense Status: Completed Total Allowed Fills: 1 Fills Dispensed: 0 Crestor 20 mg oral tablet 2 tablet = 40 mg, By Mouth, Daily, # 90 tablet, 0 Refills, Maintenance, 11/22/17 11:39:24 AM EDT, Tablet, [facility] 3 Start Date: 11/22/17 Status: Ordered Medication Dispense Status: Completed Quantity: 90.0 Unit: tablet Total Allowed Fills: 1 Fills Dispensed: 0 ergocalciferol 53210 iu oral capsule 50,000 International_Units, 1, capsule, By Mouth, Every week, TAKE 1 CAPSULE ONCE A WEEK Start Date: 11/18/17 Status: Ordered Medication Dispense Status: Completed Total Allowed Fills: 1 Fills Dispensed: 0 ezetimibe 10 mg oral tablet TOME GUSTAVO TABLETA TODOS LOS D? Start Date: 03/07/19 Status: Ordered Medication Dispense Status: Completed Total Allowed Fills: 1 Fills Dispensed: 0 famotidine 40 mg oral tablet TOME GUSTAVO TABLETA POR V A ORAL TODOS LOS D AT 3PM Start Date: 12/25/22 Status: Ordered Medication Dispense Status: Completed Total Allowed Fills: 1 Fills Dispensed: 0 fenofibrate 145 mg oral tablet 1 tablet = 145 mg, By Mouth, Daily Start Date: 11/18/17 Status: Ordered Medication Dispense Status: Completed Total Allowed Fills: 1 Fills Dispensed: 0 isosorbide mononitrate 60 mg oral tablet, extended release 1 tablet = 60 mg, By Mouth, 2 times a day, # 60 tablet, 5 Refills, Maintenance, 06/05/25 10:53:00 AM EST, [facility]/pharmacy #[id number], Partial fill upon patient request if the prescription is for a schedule II opioid drug., 159, cm, 06/05/25 8:48:00 EST, Height Start Date: 06/05/25 Stop Date: 12/02/25 Status: Ordered Medication Dispense Status: Completed Quantity: 60.0 Unit: tablet Total Allowed Fills: 6 Fills Dispensed: 0 Januvia 100 mg oral tablet 1 tablet = 100 mg, By Mouth, Daily, TAKE 1 TABLET BY MOUTH EVERY DAY Start Date: 11/18/17 Status: Ordered Medication Dispense Status: Completed Total Allowed Fills: 1 Fills Dispensed: 0 Linzess 145 mcg oral capsule TOME 1 C PSULA POR V A ORAL CADA MA LUCÍA Start Date: 12/25/22 Status: Ordered Medication Dispense Status: Completed Total Allowed Fills: 1 Fills Dispensed: 0 lisinopril 10 mg oral tablet TOME GUSTAVO TABLETA TODOS LOS D Start Date: 03/10/20 Status: Ordered Medication Dispense Status: Completed Total Allowed Fills: 1 Fills Dispensed: 0 nitroglycerin 0.4 mg sublingual tablet 1 tablet = 0.4 mg, Sublingual, Every 5 minutes, PRN Pain , Moderate, DISSOLVE 1 TABLET UNDER THE TONGUE AND ALLOW TO DISSOLVE NEEDEDMAX 3 DOSES AND CALL 911, # 25 tablet, 1 Refills, Maintenance,06/16/25 3:24:00 PM EST, Tablet, [facility]/pharmacy #[id number], Partial fill upon patient request if the prescription is for a schedule II opioid drug., 159, cm, 06/05/25 16:39:00 EST, Height Start Date: 06/16/25 Status: Ordered Medication Dispense Status: Completed Quantity: 25.0 Unit: tablet Total Allowed Fills: 2 Fills Dispensed: 0 omeprazole 20 mg oral enteric coated capsule 1 capsule = 20 mg, By Mouth, Daily, before a meal, 0 Refills, Maintenance, 02/13/19 3:44:22 PM EDT, EC Capsule Start Date: 02/13/19 Status: Ordered Medication Dispense Status: Completed Total Allowed Fills: 1 Fills Dispensed: 0 OxyCONTIN 10 mg oral tablet, extended release 10 mg, 1, tablet, By Mouth, Every 12 hours, PRN, TAKE 1 TABLET BY MOUTH EVERY 12 HOURS, Refills 0, Tot. Refills 0, Pain , Severe Start Date: 11/18/17 Status: Ordered Medication Dispense Status: Completed Total Allowed Fills: 1 Fills Dispensed: 0 PROBIOTIC 250 MG CAPSULE PROBIOTIC 250 MG CAPSULE, TOME GUSTAVO C PSULA TODOS LOS D Start Date: 12/25/22 Status: Ordered Medication Dispense Status: Completed Total Allowed Fills: 1 Fills Dispensed: 0 Requip 0.5 mg oral tablet 1 tablet = 0.5 mg, By Mouth, Daily, # 90 tablet, 0 Refills, Maintenance, 02/13/19 3:47:52 PM EDT, Tablet Start Date: 02/13/19 Status: Ordered Medication Dispense Status: Completed Quantity: 90.0 Unit: tablet Total Allowed Fills: 1 Fills Dispensed: 0 Vitamin D3 2000 intl units oral tablet TOME GUSTAVO TABLETA TODOS LOS D? Start Date: 03/07/19 Status: Ordered Medication Dispense Status: Completed Total Allowed Fills: 1 Fills Dispensed: 0 Problem List Condition Confirmation Course Effective Dates Status H ealth Status Informant CABG x 2 - Coronary artery bypass grafts x 2 Confirmed 09/04/12 Active CAD - Coronary artery disease Confirmed Active Chest pain Confirmed Active Claudication Confirmed Active S/P CABG x 2 Confirmed Active Hyperlipidemia Confirmed Active Hypertension Confirmed Active PVD - Peripheral vascular disease Confirmed Active Social History Social History Type Response Smoking Status Never smoker; Tobacc o user in household: Yes entered on: 12/16/13 Sex Sex Representation Female (finding) Cardiology Outpatient Note * Emily Hagan: PERFORM Event Display: Cardiology Note Office Authored Date: [id number] Patient Care team information Care Team Personnel Name: Marcela Marsh RN Position: S RN Member Role: Primary Care Nurse Name: Kunal Mcdonough CRNA Position: [facility] SN RN Member Role: Primary Care Nurse Address: [address] [place] [address] Department [place] [address]- Telecom: Name: Florence Lobato RN Position: S RN Member Role: Primary Care Nurse Name: Uri RNZack Position: S RN Member Role: Primary Care Nurse Name: Tenisha Harper RN Position: [facility] RN Supv Member Role: Primary Care Nurse Name: Liudmila Mejias RN Position: [facility] RN Member Role: Primary Care Nurse Name: Nito Dennis MD , Lucía Travis Position: Reference Physician Member Role: PCP Address: [address] [place] [phone]- Telecom: Care Team Related Persons Name: CHAPIN SANTIAGO Name: ALLY LYLES Insurance Providers Guarantor name: NICK [facility] Plan Information #: 1 Payer: [employer] Payer Identifier: NA Member Number: [id number] Group Number: [id number] Subscriber Identifier: NA Relationship to Subscriber: self Coverage Type: Medicare Managed Care (Includes Medicare Advantage Plans) Coverage Verification Date: LIONEL Telecom: NA Address:
--- OUTSIDE RECORDS SUMMARY | 2025-07-08 07:26 | XMS_ITS | Encounter Summary ---
Author Organization [facility], Address [address] [address] Phone Care Team Providers Care Exterior Interior Specialist Name Role Phone Marybeth Vale MD Primary Care Provider [phone] Encounter Details Date Type Department Care Team (Late Contact Info) Description 09/02/2021 Documentation Only [facility] [address] [place] [address] Jhony Lima MD [address] [place] [address] [place] [address] Social History Tobacco Use Types [...] Visit [facility] [address] [place] [address] Jhony Lima MD [address] [place] [address] [place] [address] documented as of this encounter Visit Diagnoses Not on filedocumented in this encounter Care Teams Exterior Interior Specialist Relationship Specialty Start Date End Date Marybeth Vale MD [address] [facility] [place] PCP - General 05/13/19 documented as of this encounter
--- OUTSIDE RECORDS SUMMARY | 2025-07-08 07:26 | XMS_ITS | Encounter Summary ---
Author Organization [facility], Address [address] [address] Phone Care Team Providers Care Judo Teacher Name Role Phone Marybeth Vale MD Primary Care Provider [phone] Encounter Details Date Type Department Care Team (Late Contact Info) Description 02/15/2022 Documentation Only [facility] [address] [place] [address] Jhony Lima MD [address] [place] [address] [place] [address] Social History Tobacco Use Types [...] Visit [facility] [address] [place] [address] Jhony Lima MD [address] [place] [address] [place] [address] documented as of this encounter Visit Diagnoses Not on filedocumented in this encounter Care Teams Judo Teacher Relationship Specialty Start Date End Date Marybeth Vale MD [address] [facility] [place] PCP - General 05/13/19 documented as of this encounter
--- OUTSIDE RECORDS SUMMARY | 2025-07-08 07:26 | XMS_ITS | Clinical Summary ---
Author Organization [facility] Address [address] [facility] [address] [place] [address] Phone Care Team Providers Care Janitor Helper Name Role Phone Marybeth Vale MD Primary [...] file Medical Devices Not on file Insurance [employer] MEDICARE REPLACEMENT MEDICARE REPLACEMENT MEDICARE RE[place]AC[place] [id number] MEDICARE REPLACEMENT MEDICARE REPLACEMENT MEDICARE REPLACEMENT MEDICARE [place] [address] [address] [address] MEDICARE REPLACEMENT Care Teams Janitor Helper Relationship Specialty Start Date End Date Marybeth Vale MD [address] [place] [address] PCP - General Internal Medicine 11/17/19 Additional Source Comments The information contained in this document represents components of the legal health record. It is not the complete legal health record.[facility]
--- OUTSIDE RECORDS SUMMARY | 2025-07-08 07:26 | XMS_ITS | Clinical Summary ---
Author Organization [facility] Address [address] [place] [address] Phone Care Team Providers Care Rehab Care Assistant Name Role Phone Marybeth Dennis MD Primary Care Provider [phone] Allergies Active Allergy Reactions Criticality Noted Date [...] 7:22 AM EST - 06/02/2025 11:59 PM [facility] Hospital Encounter [facility] Ortho Xray [address] [place] [address] Pain, unspecified Discharge Disposition: Home or Self Care from Last 3 Months Surgical History Surgery Date Site/Laterality Comments CORONARY ARTERY BYPASS GRAFT PROCEDURE: HISTORICAL CABG CARDIAC CATHETERIZATION PROCEDURE: HISTORICAL CARDIAC CATH Medical History Medical History Date Comments Chronic ischemic heart disease D X:Chronic ischemic heart disease Essential hypertension DX:Essent ial hypertension Hyperlipidemia DX:Hyperlipidemi a PAD (peripheral artery disea se) ([facility]/HCC V24) DX:PAD (peripheral artery di sease) ([facility]) Social History Tobacco Use Types Packs/Day [...] mmol/L LAB CHEMISTRY METHOD 02/19/2025 7:54 PM [facility] Potassium 4.0 3.5 - 5.5 mmol/L LAB CHEMISTRY METHOD 02/19/2025 7:54 PM [facility] Chloride 108 96 - 110 mmol/L LAB CHEMISTRY METHOD 02/19/2025 7:54 PM [facility] CO2 29 21 - 32 mmol/L LAB CHEMISTRY METHOD 02/19/2025 7:54 PM [facility] Anion Gap 4 3 - 11 LAB CHEMISTRY METHOD 02/19/2025 7:54 PM [facility] Glucose 86 70 - 100 mg/dL LAB CHEMISTRY METHOD 02/19/2025 7:54 PM [facility] BUN 21 5 - 25 mg/dL LAB CHEMISTRY METHOD 02/19/2025 7:54 PM [facility] Creatinine 1.34(H) 0.50 - 1.10 mg/dL LAB CHEMISTRY METHOD 02/19/2025 7:54 PM [facility] eGFR 40(L) >=60 mL/min/1. 73m2 LAB CHEMISTRY METHOD 02/19/2025 7:54 PM [facility] Comment:Calculation based on the Chronic Kidney Disease Epidemiology Collaboration (CKD-EPI) equation refit without adjustment for race. BUN/Creatinine Ratio 15.7 LAB CHEMISTRY METHOD 02/19/2025 7:54 PM [facility] Calcium 8.9 8.5 - 10.5 mg/dL LAB CHEMISTRY METHOD 02/19/2025 7:54 PM [facility] AST (SGOT) 32 10 - 42 unit/L LAB CHEMISTRY METHOD 02/19/2025 7:54 PM [facility] ALT (SGPT) 17 10 - 60 unit/L LAB CHEMISTRY METHOD 02/19/2025 7:54 PM EDT [facility] Alkaline Phosphatase 51 42 - 121 unit/L LAB CHEMISTRY METHOD 02/19/2025 7:54 PM EDT [facility] Total Protein 7.0 6.0 - [...] Final Resul t [facility] [address] [place] [address], from Last 3 Months or Most Recently [...] currently active code status orders. Care Teams Rehab Care Assistant Relationship Specialty Start Date End Date Marybeth Dennis MD 2 [facility] , [address] Physician Associ D/B/A: [facility] ROXI Mchugh PCP - General 03/27/15
--- OUTSIDE RECORDS SUMMARY | 2025-07-08 07:26 | XMS_ITS | Clinical Summary ---
Author Organization [facility], Address [address] [place] [address] [place] [address] Phone Care Team Providers Care Cnc Specialist Name Role Phone Marybeth Vale MD Primary Care Provider [phone] Allergies Active Allergy Reactions Criticality Noted Date [...] DAY: NEEDED FOR ANALGESIA 3 Active Creon 84698-97685 units capsule TOME 1 C PSULA POR [...] Visit [facility], [address] [place] [address] Jhony Lima MD [address] [place] [address] Health Maintenance Due Date Last Done [...] this topic Insurance Medicaid [place] Care Teams Cnc Specialist Relationship Specialty Start Date End Date Marybeth Vale MD [address] [place] [address] PCP - General 05/13/19
--- OUTSIDE RECORDS SUMMARY | 2025-07-08 07:26 | XMS_ITS | Encounter Summary ---
Author Organization [facility], Address [address] [address] Phone Care Team Providers Care Experimental Outboard Motors Mechanic Name Role Phone Marybeth Vale MD Primary Care Provider [phone] Encounter Details Date Type Department Care Team (Late st Contact Info) Description 01/31/2024 Documentation Only [facility], [address] [place] [address] Domitila Bradley [place] [address] [place] [phone] Social History Tobacco Use Types Packs/Day Years [...] Visit [facility] [address] [place] [address] Jhony Lima MD [address] [place] [address] documented as of this encounter Visit Diagnoses Not on filedocumented in this encounter Care Teams Experimental Outboard Motors Mechanic Relationship Specialty Start Date End Date Marybeth Vale MD [address] [facility] [place] PCP - General 05/13/19 documented as of this encounter
--- OUTSIDE RECORDS SUMMARY | 2025-07-08 07:26 | XMS_ITS | Encounter Summary ---
Author Organization [facility], Address [address] [address] Phone Care Team Providers Care Unmanned Aircraft Systems Roboticist Name Role Phone Marybeth Vale MD Primary Care Provider [phone] Encounter Details Date Type Department Care Team (Late st Contact Info) Description 03/17/2024 Documentation Only [facility], [address] [place] [address] Domitila Bradley [place] [address] [place] [address] Social History Tobacco Use Types Packs/Day Years [...] Visit [facility] [address] [place] [address] Jhony Lima MD [address] [place] [address] documented as of this encounter Visit Diagnoses Not on filedocumented in this encounter Care Teams Unmanned Aircraft Systems Roboticist Relationship Specialty Start Date End Date Marybeth Vale MD [address] [facility] [place] PCP - General 05/13/19 documented as of this encounter
== END 2025-07-08 07:23 | disposition home or self-care (01) ==
LOC: HO.LAB 07:22
PROVIDERS: PCP Internal Medicine; Visit Provider Internal Medicine Endocrinology, Diabetes & Metabolism
DX: E27.9 Disorder of adrenal gland, unspecified (principal)
CPT/HCPCS: 36415; 82088; 83835; 84244